=== PATIENT | male | born 1945 | race Caucasian/White ===

== ENCOUNTER → 2016-04-06 | Outpatient (CLI) | payer MEDICARE ==
--- NOTE | 2016-04-06 15:04 | US ---
EXAMINATION TYPE: US scrotum with doppler. Grayscale and color Doppler Duplex imaging performed of t he scrotum. DATE OF EXAM: 04/06/2016 2:37 PM COMPARISON: NONE CLINICAL HISTORY: Right testicular pain N50.8. EXAM MEASUREMENTS: TESTICLES: Right Testicle: 3.3 x 3.0 x 2.4 cm Left Testicle: 3.9 x 2.2 x 3.0 cm EPIDIDYMIS HEAD: Right Epididymis: 0.9 x 0.9 x 0.6 cm Left Epididymis: 0.8 x 0.6 x 1.0 cm Doppler performed to assess for testicular vascularity; good bilateral color flow and waveforms are s een. There is no evidence of testicular torsion. No testicular masses Presence of hydroceles: yes, right Presence of varicoceles: no IMPRESSION: hydrocele of right scrotum; testicles wnl
== END | disposition home or self-care (01) ==
LOC: RADUSWWP 14:22
PROVIDERS: ATTEND Family Medicine
DX: N43.3 Hydrocele, unspecified (principal)
CPT/HCPCS: 76870; 93975

== ENCOUNTER → 2016-08-16 | Outpatient (CLI) | payer MEDICARE ==
--- NOTE | 2016-08-16 13:21 | CTL ---
EXAMINATION TYPE: CT Low Dose Lung DATE OF EXAM ORDERED: 08/16/2016 HISTORY: . Lung cancer screening CT DLP: 103.[address] CTDI: 3.3 mGy Automated exposure control for dose reduction was used. SCREENING VISIT: First COMPARISON: None TECHNIQUE: Low dose computed tomography scan was performed through the chest at 1 mm thick sections a nd reconstructed images in the coronal plane at [address] DIAGNOSTIC QUALITY: Satisfactory FINDINGS: LUNG NODULES: None. Left lung a nodule with a size of 11.7 mm. Nodule Size in Millimeters 11.7 mm was visualized with No dule Type: Solid that is Nodule state: New in nature on image # CT Image slide number 1. LUNGS: COPD: Severity: Mild Fibrosis: Severity: None Lymph nodes: Shotty mediastinal and left hilar lymph nodes Other findings: Mild bronchiectatic change at the right lung base RIGHT PLEURAL SPACE: Effusion: None Calcification: None Thickening: None Pneumothorax: None LEFT PLEURAL SPACE: Effusion: None Calcification: None Thickening: None Pneumothorax: None HEART: Heart Size: Borderline Coronary calcification: Present Pericardial effusion: None OTHER FINDINGS: Upper abdomen: Unremarkable Bony thorax: Hypertrophic spondylosis Supraclavicular region: Unremarkable Other: None IMPRESSION: LESION IN THE LEFT LUNG APEX MAY SIMPLY REPRESENT SCARRING. THIS COULD BE FURTHER ELUCIDA SALLIE WITH A PET/CT SCAN FOLLOW UP CT CHEST RECOMMENDATION: [address] LUNG RAD: 4A
== END | disposition home or self-care (01) ==
LOC: RADCTMAIN 12:18
PROVIDERS: ATTEND Family Medicine
DX: Z12.2 Encounter for screening for malignant neoplasm of respiratory organs (principal); R91.1 Solitary pulmonary nodule; Z87.891 Personal history of nicotine dependence

== ENCOUNTER 2017-03-28 13:21 | Observation (INO) | payer MEDICARE ==
[2017-03-28] MEDS ORDERED: SODIUM CHLORIDE 0.9% 1,000 ML IV STA (13:40)
--- NOTE | 2017-03-28 13:52 | ED ---
General Adult HPI - General Chief complaint: Chest Pain Stated complaint: Chest Pain Time Seen by Provider: 03/28/17 13:40 Source: patient, RN notes reviewed, old records reviewed Mode of arrival: wheelchair Limitations: no limitations - History of Present Illness Initial comments: This is a 72-year-old male the ER for evaluation of chest pain. Patient's anterior chest pain no significant diaphoresis or shortness of breath. Patient states he does have shortness of breath is related to COPD which is always underlying problem. Patient does have history of heart disease history of stent placement. No recent cardiac evaluation. Patient states the pains are going on for a few days today is worse. Worse with activity. Again no cough congestion or fever - Related Data Home Medications Medication Instructions Recorded Confirmed Aspirin 325 mg PO DAILY 04/25/14 09/10/15 Atenolol [Tenormin] 50 mg PO DAILY 04/25/14 09/10/15 Isosorbide Mononitrate ER [Imdur] 60 mg PO DAILY 04/25/14 09/10/15 Omeprazole [PriLOSEC] 20 mg PO AC-BID 04/25/14 09/10/15 Simvastatin [Zocor] 60 mg PO HS 04/25/14 09/10/15 Atorvastatin [Lipitor] 40 mg PO HS 09/08/15 09/10/15 Allergies Allergy/AdvReac Type Severity Reaction Status Date / Time Penicillins Allergy Rash/Hives Verified 03/28/17 13:27 Review of Systems ROS Statement: Those systems with pertinent positive or pertinent negative responses have been documented in the HPI. ROS Other: All systems not noted in ROS Statement are negative. Past Medical History Past Medical History: GERD/Reflux, Hyperlipidemia, Hypertension, Myocardial Infarction (SD) Additional Past Medical History / Comment(s): COLON CANCER - 2003 WITH BOWEL RESECTION. SD IN 2000. Last Myocardial Infarction Date:: 2010 History of Any Multi-Drug Resistant Organisms: None Reported Past Surgical History: Bowel Resection, Heart Catheterization With Stent Additional Past Surgical History / Comment(s): BOWEL RESECTION - 2003; STENT PLACED IN 2010 - DOES NOT REMEMBER WHERE IT IS BUT DOES REMEMBER THAT DR. VALENTIN PLACED THE STENT, COLONOSCOPY, Past Anesthesia/Blood Transfusion Reactions: No Reported Reaction Date of Last Stent Placement:: 2010 Past Psychological History: No Psychological Hx Reported Smoking Status: Current every day smoker Past Alcohol Use History: None Reported Past Drug Use History: None Reported - Past Family History Father Family Medical History: No Reported History Mother Family Medical History: Respiratory Disorder Brother(s) Family Medical History: Coronary Artery Disease (CAD), Renal Disease Additional Family Medical History / Comment(s): He has one brother that is alive and is undergone CABG for coronary artery disease and has had one kidney removed. Patient has one brother who is in a motor vehicle oxidant, one brother from a myocardial infarction at age 59, and one from colon cancer at age 70. Sister(s) Family Medical History: No Reported History Additional Family Medical History / Comment(s): He has 3 sisters that are healthy. General Exam Limitations: no limitations General appearance: alert, in no apparent distress Head exam: Present: atraumatic, normocephalic, normal inspection Eye exam: Present: normal appearance, PERRL, EOMI. Absent: scleral icterus, conjunctival injection, periorbital swelling ENT exam: Present: normal exam, mucous membranes moist Neck exam: Present: normal inspection. Absent: tenderness, meningismus, lymphadenopathy Respiratory exam: Present: normal lung sounds bilaterally. Absent: respiratory distress, wheezes, rales, rhonchi, stridor Cardiovascular Exam: Present: regular rate, normal rhythm, normal heart sounds. Absent: systolic murmur, diastolic murmur, rubs, gallop, clicks GI/Abdominal exam: Present: soft, normal bowel sounds. Absent: distended, tenderness, guarding, rebound, rigid Extremities exam: Present: normal inspection, full ROM, normal capillary refill. Absent: tenderness, pedal edema, joint swelling, calf tenderness Back exam: Present: normal inspection Neurological exam: Present: alert, oriented X3, CN II-XII intact Psychiatric exam: Present: normal affect, normal mood Skin exam: Present: warm, dry, intact, normal color. Absent: rash Course Vital Signs 03/28/17 03/28/17 13:27 13:45 Temperature 97.5 F L Pulse Rate 55 L 53 L Respiratory 18 17 Rate Blood Pressure 114/65 149/71 O2 Sat by Pulse 97 97 Oximetry - Reevaluation(s) Reevaluation #1: 03/28/17 14:39 Patient is continue with chest pain at this time EKG Findings - EKG Comments: EKG Findings:: EKG shows sinus bradycardia rate of 52, VT 162, QRS 90, QTc 427 Medical Decision Making - Medical Decision Making 72 male the ER for evaluation of chest pain. Patient has history of heart disease history of stent and feels like prior SD, patient will be admitted for cardiac observation and evaluation - Lab Data Result diagrams: 03/28/17 13:40 03/28/17 13:40 Lab Results 03/28/17 03/28/17 03/28/17 Range/Units 13:40 13:40 13:40 WBC 8.1 (3.8-10.6) k/uL RBC 4.70 (4.30-5.90) m/uL Hgb 14.4 (13.0-17.5) gm/dL Hct 42.0 (39.0-53.0) % MCV 89.4 (80.0-100.0) fL MCH 30.6 (25.0-35.0) pg MCHC 34.2 (31.0-37.0) g/dL RDW 14.7 (11.5-15.5) % Plt Count 152 (150-450) k/uL Neutrophils % 56 % Lymphocytes % 33 % Monocytes % 7 % Eosinophils % 2 % Basophils % 0 % Neutrophils # 4.5 (1.3-7.7) k/uL Lymphocytes # 2.7 (1.0-4.8) k/uL Monocytes # 0.5 (0-1.0) k/uL Eosinophils # 0.1 (0-0.7) k/uL Basophils # 0.0 (0-0.2) k/uL PT (9.0-12.0) sec INR (<1.2) APTT (22.0-30.0) sec Sodium 143 (137-145) mmol/L Potassium 4.2 (3.5-5.1) mmol/L Chloride 106 (98-107) mmol/L Carbon Dioxide 23 (22-30) mmol/L Anion Gap 14 mmol/L BUN 22 H (9-20) mg/dL Creatinine 1.00 (0.66-1.25) mg/dL Est GFR (MDRD) Af Amer >60 (>60 ml/min/1.73 sqM) Est GFR (MDRD) Non-Af >60 (>60 ml/min/1.73 sqM) Glucose 83 (74-99) mg/dL Calcium 8.9 (8.4-10.2) mg/dL Magnesium 1.9 (1.6-2.3) mg/dL Total Bilirubin 0.8 (0.2-1.3) mg/dL AST 39 (17-59) U/L ALT 58 (21-72) U/L Alkaline Phosphatase 72 (38-126) U/L Total Creatine Kinase 82 (55-170) U/L CK-MB (CK-2) 0.6 (0.0-2.4) ng/mL CK-MB (CK-2) Rel Index 0.7 Troponin I <0.012 (0.000-0.034) ng/mL Total Protein 7.6 (6.3-8.2) g/dL Albumin 4.1 (3.5-5.0) g/dL Lipase 79 (23-300) U/L 03/28/17 Range/Units 13:40 WBC (3.8-10.6) k/uL RBC (4.30-5.90) m/uL Hgb (13.0-17.5) gm/dL Hct (39.0-53.0) % MCV (80.0-100.0) fL MCH (25.0-35.0) pg MCHC (31.0-37.0) g/dL RDW (11.5-15.5) % Plt Count (150-450) k/uL Neutrophils % % Lymphocytes % % Monocytes % % Eosinophils % % Basophils % % Neutrophils # (1.3-7.7) k/uL Lymphocytes # (1.0-4.8) k/uL Monocytes # (0-1.0) k/uL Eosinophils # (0-0.7) k/uL Basophils # (0-0.2) k/uL PT 10.1 (9.0-12.0) sec INR 1.0 (<1.2) APTT 24.0 (22.0-30.0) sec Sodium (137-145) mmol/L Potassium (3.5-5.1) mmol/L Chloride (98-107) mmol/L Carbon Dioxide (22-30) mmol/L Anion Gap mmol/L BUN (9-20) mg/dL Creatinine (0.66-1.25) mg/dL Est GFR (MDRD) Af Amer (>60 ml/min/1.73 sqM) Est GFR (MDRD) Non-Af (>60 ml/min/1.73 sqM) Glucose (74-99) mg/dL Calcium (8.4-10.2) mg/dL Magnesium (1.6-2.3) mg/dL Total Bilirubin (0.2-1.3) mg/dL AST (17-59) U/L ALT (21-72) U/L Alkaline Phosphatase (38-126) U/L Total Creatine Kinase (55-170) U/L CK-MB (CK-2) (0.0-2.4) ng/mL CK-MB (CK-2) Rel Index Troponin I (0.000-0.034) ng/mL Total Protein (6.3-8.2) g/dL Albumin (3.5-5.0) g/dL Lipase (23-300) U/L - Radiology Data Radiology results: report reviewed, image reviewed Critical Care Time Critical Care Time: Yes Total Critical Care Time: 31 Disposition Clinical Impression: Chest pain Disposition: ADMITTED IP TO THIS [facility] Condition: Undetermined Instructions: Chest Pain (ED) Referrals: Reina Dunbar MD [Primary Care Provider] - 1-2 days
[2017-03-28 14:05] LABS: Basophils % (A) 0 %; Eosinophils # (A) 0.1 k/uL (0-0.7); Eosinophils % (A) 2 %; HGB 14.4 gm/dL (13.0-17.5); Lymphocytes # (A) 2.7 k/uL (1.0-4.8); Lymphocytes % (A) 33 %; MCH 30.6 pg (25.0-35.0); MCHC 34.2 g/dL (31.0-37.0); MCV 89.4 fL (80.0-100.0); Monocytes # (A) 0.5 k/uL (0-1.0); Monocytes % (A) 7 %; Neutrophils # (A) 4.5 k/uL (1.3-7.7); Neutrophils % (A) 56 %; Platelet Count 152 k/uL (150-450); RDW 14.7 % (11.5-15.5); WBC 8.1 k/uL (3.8-10.6)
[2017-03-28 14:13] LABS: ALT 58 U/L (21-72); AST 39 U/L (17-59); Albumin 4.1 g/dL (3.5-5.0); Alkaline Phosphatase 72 U/L (38-126); Anion Gap 14 mmol/L; Blood Urea Nitrogen 22 mg/dL (9-20); Calcium 8.9 mg/dL (8.4-10.2); Carbon Dioxide 23 mmol/L (22-30); Chloride 106 mmol/L (98-107); Glucose 83 mg/dL (74-99); Lipase 79 U/L (23-300); Magnesium 1.9 mg/dL (1.6-2.3); Potassium 4.2 mmol/L (3.5-5.1); Sodium 143 mmol/L (137-145); Total Bilirubin 0.8 mg/dL (0.2-1.3); Total Protein 7.6 g/dL (6.3-8.2)
[2017-03-28 14:19] LABS: Prothrombin Time 10.1 sec (9.0-12.0)
[2017-03-28 14:21] LABS: Creatine Kinase 82 U/L (55-170)
[2017-03-28 14:32] LABS: Creatine Kinase MB 0.6 ng/mL (0.0-2.4); Troponin I <0.012 ng/mL (0.000-0.034)
[2017-03-28] MEDS ORDERED: ASPIRIN 81 MG PO STA (14:36)
[2017-03-28] MEDS ORDERED: HEPARIN SODIUM,PORCINE 5,000 UNIT/ML 1 ML VIAL IV ONE (14:36)
[2017-03-28] MEDS ORDERED: MORPHINE SULFATE 2 MG/ML SYRINGE IV PRN (14:36)
[2017-03-28] MEDS ORDERED: HEPARIN SODIUM,PORCINE 5,000 UNIT/ML 1 ML VIAL IV PRN (14:36)
[2017-03-28] MEDS ORDERED: NITROGLYCERIN SL TABS 0.4 MG TAB SUBLINGUAL PRN (14:36)
[2017-03-28] MEDS ORDERED: HEPARIN SOD,PORK IN 0.45% NACL 25,000 UNIT in 0.45% NACL 1 500ML.BAG IV SCH (14:45)
--- NOTE | 2017-03-28 15:26 | XR ---
EXAMINATION TYPE: XR chest 2V DATE OF EXAM: 03/28/2017 COMPARISON: Prior chest x-ray 04/18/2013 HISTORY: Chest pain TECHNIQUE: Frontal and lateral views of the chest are obtained. FINDINGS: There is no focal air space opacity, pleural effusion, or pneumothorax seen. The cardiac silhouette size is stable. There are overlying cardiac leads. Prominent lung volumes possibly compati ble with underlying COPD are noted. The osseous structures are intact. IMPRESSION: No acute cardiopulmonary process.
[2017-03-28] MEDS ORDERED: MELATONIN 5 MG TABLET PO PRN (16:05)
[2017-03-28] MEDS ORDERED: ACETAMINOPHEN TAB 325 MG TAB PO PRN (16:05)
[2017-03-28] MEDS ORDERED: ALBUTEROL NEBULIZED 2.5 MG/3 ML INHALATION PRN (16:05)
[2017-03-28] MEDS ORDERED: ONDANSETRON 4 MG/2 ML VIAL IVP PRN (16:05)
--- NOTE | 2017-03-28 16:14 | P.HPIM ---
History of Present Illness H&P Date: 03/28/17 Chief Complaint: chest pain Patient is a 72-year-old male past medical history of hypertension, dyslipidemia, prior heart attack, and coronary artery disease with 2 stents who presented to the ER with complaint of chest pain. In the ER he underwent an extensive evaluation. His initial vital signs were found to be within normal limits. Initial laboratory analysis was unremarkable. Troponins were negative. EKG was reviewed by myself revealed sinus bradycardia at a rate of [address]-T wave changes. He was given a dose of aspirin in the ER and placed on a heparin drip. He has been admitted to the observation unit. Patient seen and examined at bedside. He complains of left-sided chest pain without radiation for the last 2 days. He has not started or stopped any medications. He has not tried any new medications. He states that the chest pain seems to be worse with sitting position. It is associated with significant increase in shortness of breath. He states that his shortness of breath started 10 days ago and is worse with activity and better with rest. He is now getting short of breath with minimal exertion. His also felt lightheaded with standing over the last several days. He believes his chest pain may also increase with eating. He has intermittent palpitations which have not worsened. He does complain of wheezing and a nonproductive cough. He denies any nausea. He has no significant numbness or tingling. He states the symptoms are consistent with but worse than when he needed a stent in 2010. He typically follows with Dr. De Paz for cardiology and Dr. Dunbar for family practice. His last stress test was in 2014. He had carotid Dopplers done in January 2017. He believes his last cardiac cath was in 2010. Review of Systems General: no fever/chills, no rigors, no weight loss/weight gain, no unusual fatigue Eyes: no noticable visual changes, no loss of vision ENT: no rhinorrhea, no congestion, no sore throat Cardiovascular: + chest pain, + palpitations, + preyncope, no syncope, no edema Pulmonary: + shortness of breath, + wheezing, + cough Abdominal: no abdominal pain, no constipation, no diarrhea, no vomiting, no nausea Genitourinary: no dysuria, no urinary frequency, no unusual discharge/odor Neuro: no unusual paresthesias, no unusual paresis/paralysis, no headache Dermatologic: no unusual rashes, no unusual lesions, no unusual changes in nails Hematologic: no hemoptysis, no hematuria, no melena/hematochezia Psychiatric: no changes in mood or behaviors, no changes in sleep pattern Past Medical History Past Medical History: Coronary Artery Disease (CAD), Cancer, GERD/Reflux, Hearing Disorder / Deafness, Hyperlipidemia, Hypertension, Myocardial Infarction ([place]) Additional Past Medical History / Comment(s): IN x 2 (2001/2010), colon cancer with surgery, nephrolithiasis, L ear deafness, chronic low back pain. Last Myocardial Infarction Date:: 2010 History of Any Multi-Drug Resistant Organisms: None Reported Past Surgical History: Appendectomy, Bowel Resection, Heart Catheterization With Stent Additional Past Surgical History / Comment(s): BOWEL RESECTION 2003; CARDIAC STENTS PLACED IN 2001 and 2010 -COLONOSCOPIES Past Anesthesia/Blood Transfusion Reactions: No Reported Reaction Date of Last Stent Placement:: 2010 Smoking Status: Current every day smoker Past Alcohol Use History: None Reported Past Drug Use History: None Reported Additional History: Lives with his significant other Pam. No assistive devices - Past Family History Father Family Medical History: No Reported History Additional Family Medical History / Comment(s): Father at the age of 76yrs from "old age." Mother Family Medical History: Respiratory Disorder Additional Family Medical History / Comment(s): Mother at the age of 68yrs from pneumonia Brother(s) Family Medical History: Coronary Artery Disease (CAD), Renal Disease Additional Family Medical History / Comment(s): He has one brother that is alive and is undergone CABG for coronary artery disease and has had one kidney removed. Patient has one brother who is in a motor vehicle oxidant, one brother from a myocardial infarction at age 59, and one from colon cancer at age 70. Sister(s) Family Medical History: No Reported History Additional Family Medical History / Comment(s): He has 3 sisters that are healthy. Medications and Allergies Home Medications Medication Instructions Recorded Confirmed Type Aspirin 325 mg PO DAILY 04/25/14 03/28/17 History Atenolol [Tenormin] 50 mg PO DAILY 04/25/14 03/28/17 History Isosorbide Mononitrate ER [Imdur] 60 mg PO DAILY 04/25/14 03/28/17 History Omeprazole [PriLOSEC] 20 mg PO AC-BID 04/25/14 03/28/17 History Simvastatin [Zocor] 40 mg PO HS 04/25/14 03/28/17 History Allergies Allergy/AdvReac Type Severity Reaction Status Date / Time Penicillins Allergy Rash/Hives Verified 03/28/17 14:42 Physical Exam Osteopathic Statement: *. No significant issues noted on an osteopathic structural exam other than those noted in the History and Physical/Consult. Vitals: Vital Signs Temp Pulse Pulse Resp BP BP Pulse Ox 03/28/17 15:35 97.7 F 62 18 119/55 99 03/28/17 15:15 97.2 F L 55 L 15 129/64 100 03/28/17 13:45 53 L 17 149/71 97 03/28/17 13:27 97.5 F L 55 L 18 114/65 97 Intake and Output 03/28/17 03/28/17 03/28/17 06:59 14:59 22:59 Other: Weight 78.018 kg 81 kg Patient Weight 03/29/17 06:59 Weight 81 kg General: non toxic, no distress, appears at stated age, normal weight Derm: no unusual rashes/lesions no unusual ecchymoses, warm, dry Head: atraumatic, normocephalic, symmetric Eyes: EOMI, no lid lag, anicteric sclera, pupils equal round reactive to light ENT: Nose and ears atraumatic, no thrush, no pharyngeal erythema Neck: No thyromegaly, no cervical lymphadenopathy, trachea midline, supple Mouth: no lip lesion, mucus membranes moist Cardiovascular: S1S2 reg, no murmur, positive posterior tibial pulse bilateral, no edema, capillary refill less than 2 seconds Lungs: + wheeze left apex, no rhonchi, no rales , no accessory muscle use Abdominal: soft, nontender to palpation, no guarding, no appreciable organomegaly, normal bowel sounds Ext: no gross muscle atrophy, muscle strength 5 out of 5 in all 4 extremities grossly, no contractures, Neuro: CN II-XI grossly intact, light touch intact all 4 extremities, finger to nose within normal limits, Psych: Alert, oriented, appropriate affect Results CBC & Chem 7: 03/28/17 13:40 03/28/17 13:40 Labs: Abnormal Lab Results - Last 24 Hours (Table) 03/28/17 Range/Units 13:40 BUN 22 H (9-20) mg/dL Comments: she is reviewed by myself reveals normal sinus rhythm at a rate of [address]-T wave changes Thrombosis Risk Factor Assmnt - DVT/VTE Prophylaxis DVT/VTE Prophylaxis: Pharmacologic Prophylaxis ordered - Choose All That Apply Any of the Below Risk Factors Present?: Yes Each Factor Represents 1 point: Obesity (BMI >25) Other Risk Factors: Yes Each Risk Factor Represents 2 Points: Age 61-74 years, Malignancy Other congenital or acquired thrombophilia - If yes, enter type in comment: No Thrombosis Risk Factor Assessment Total Risk Factor Score: 5 Thrombosis Risk Factor Assessment Level: High Risk Assessment and Plan Assessment: Chest pain possible unstable angina - ASA - heparin gtt - Betablocker - statin - Cardio consult - serial trop - prn nitro - tele - NPO after midnight for stress vs cath Bronchitis with Possible COPD - start with albuterol scheduled and prn - prednisone - formal PFT as outpatient CAD - ASA, statin, BB, imdur Tobacco abuse - nicotine replacement HTN, controlled - atenolol - follow BP HLD - check lipid profile - statin Surrogate decision-maker: Pam prather CODE STATUS:Full DVT prophylaxis: Heparin gtt Discussed with: Patient, nursing Anticipated discharge: 24-[address]: home A total of 60 minutes was spent on the care of this complex patient more than 50 % of the time was spent in counseling and care coordination.
[2017-03-28] MEDS: predniSONE 20 MG TAB PO SCH (17:18)
[2017-03-28] MEDS: PANTOPRAZOLE 40 MG TABLET PO SCH (17:18)
[2017-03-28] MEDS: ALBUTEROL NEBULIZED 2.5 MG/3 ML INHALATION SCH (20:24)
[2017-03-28] MEDS ORDERED: METOPROLOL TARTRATE 25 MG TAB PO SCH (21:00)
[2017-03-28] MEDS ORDERED: ATORVASTATIN 40 MG TAB PO SCH (21:00)
[2017-03-28] MEDS ORDERED: NON-FORMULARY DRUG (Simvastatin 40 MG) PO SCH (21:00)
[2017-03-28 21:13] LABS: Creatine Kinase 76 U/L (55-170)
[2017-03-28 21:26] LABS: Creatine Kinase MB 0.7 ng/mL (0.0-2.4); Troponin I <0.012 ng/mL (0.000-0.034)
[2017-03-29 01:09] VITALS: RESP 16
[2017-03-29 03:35] LABS: HCT 41.2 % (39.0-53.0); HGB 13.9 gm/dL (13.0-17.5); MCH 30.9 pg (25.0-35.0); MCHC 33.7 g/dL (31.0-37.0); MCV 91.9 fL (80.0-100.0); Platelet Count 141 k/uL (150-450); RBC 4.49 m/uL (4.30-5.90); RDW 14.7 % (11.5-15.5)
[2017-03-29 03:59] LABS: Cholesterol 123 mg/dL (<200); HDL Cholesterol 41 mg/dL (40-60); LDL Cholesterol,Calculated 69 mg/dL (0-99); Triglycerides 63 mg/dL (<150)
[2017-03-29 04:00] LABS: Creatine Kinase 77 U/L (55-170)
[2017-03-29 04:13] LABS: Creatine Kinase MB 0.7 ng/mL (0.0-2.4); Troponin I <0.012 ng/mL (0.000-0.034)
[2017-03-29] MEDS: ALBUTEROL NEBULIZED 2.5 MG/3 ML INHALATION SCH ×2 (08:21→12:58)
[2017-03-29] MEDS ORDERED: ATENOLOL 50 MG TAB PO SCH (09:00)
[2017-03-29] MEDS ORDERED: ATORVASTATIN 80 MG TAB PO SCH (09:00)
[2017-03-29] MEDS ORDERED: ASPIRIN 325 MG TAB PO SCH (09:00)
[2017-03-29] MEDS ORDERED: ISOSORBIDE MONONITRATE ER 60 MG TAB.ER.24H PO SCH (09:00)
[2017-03-29] MEDS: PANTOPRAZOLE 40 MG TABLET PO SCH (10:46)
[2017-03-29] MEDS: predniSONE 20 MG TAB PO SCH (10:46)
--- NOTE | 2017-03-29 11:50 | P.CRDCN ---
History of Present Illness Consult date: 03/29/17 History of present illness: Mr. Bain is a pleasant 72-year-old male past medical history significant for coronary artery disease, hypertension, dyslipidemia, mild bilateral carotid artery disease and chronic tobacco use. He follows with Dr. De Paz in the office. He has been experiencing a mid-sternal chest pressure with shortness of breath for the past 2 days. The discomfort first came while sitting down and actually got better with exertion. He was up shoveling snow yesterday and the discomfort was not there. But he was short of breath. He denies associated dizziness, diaphoresis, palpitations, nausea or vomiting. When he came to the hospital he was wheezing and was started on nebulizers and oral steroids. Per primary team he has had vast improvement since admission. At the time of my exam he denies chest pain, shortness of breath, dizziness, palpitations, nausea, vomiting or diaphoresis. EKG on arrival reveals sinus bradycardia heart rate [address] or T- wave abnormalities. Chest xray is negative for an acute cardiopulmonary process. Most recent catheterization was performed by Dr. Macias in 2010 revealed a patent stent in the LAD that was placed in 2001 and he underwent stenting of the mid RCA at that time. He also has a 40-50% lesion in the left circumflex artery. Most recent echocardiogram from 2011 reveals normal EF with mild TR and MR. Laboratory data reviewed, hemoglobin 13.9, platelets 141, potassium 4.2, magnesium 1.9, creatinine 1, cardiac enzymes negative 3, LDL 69, HDL 41. Current cardiac medications include simvastatin 40 mg daily, Imdur 60 mg daily, atenolol 50 mg daily and aspirin 325 mg daily. Review of Systems At the time of my exam: CONSTITUTIONAL: Denies fever. Denies chills. EYES: Denies blurred vision. Denies vision changes. Denies eye pain. EARS, NOSE, MOUTH & THROAT: Denies headache. Denies sore throat. Denies ear pain. CARDIOVASCULAR: Denies chest pain. Denies shortness of breath. Denies orthopnea. Denies PND. Denies palpitations. RESPIRATORY: Denies cough. GASTROINTESTINAL: Denies abdominal pain. Denies diarrhea. Denies constipation. Denies nausea. Denies vomiting. MUSCULOSKELETAL: Denies myalgias. INTEGUMENTARY: Denies pruitis. Denies rash. NEUROLOGIC: Denies numbness. Denies tingling. Denies weakness. PSYCHIATRIC: Denies anxiety. Denies depression. ENDOCRINE: Denies fatigue. Denies weight change. Denies polydipsia. Denies polyurina. GENITOURINARY: Denies burning, hematuria or urgency with micturation. HEMATOLOGIC: Denies history of anemia. Denies bleeding. Past Medical History Past Medical History: Coronary Artery Disease (CAD), Cancer, GERD/Reflux, Hearing Disorder / Deafness, Hyperlipidemia, Hypertension, Myocardial Infarction ([place]) Additional Past Medical History / Comment(s): [place] x 2 (2001/2010), colon cancer with surgery, nephrolithiasis, L ear deafness, chronic low back pain. Last Myocardial Infarction Date:: 2010 History of Any Multi-Drug Resistant Organisms: None Reported Past Surgical History: Appendectomy, Bowel Resection, Heart Catheterization With Stent Additional Past Surgical History / Comment(s): BOWEL RESECTION 2003; CARDIAC STENTS PLACED IN 2001 and 2010 -COLONOSCOPIES Past Anesthesia/Blood Transfusion Reactions: No Reported Reaction Date of Last Stent Placement:: 2010 Smoking Status: Current every day smoker Past Alcohol Use History: None Reported Past Drug Use History: None Reported - Past Family History Father Family Medical History: No Reported History Additional Family Medical History / Comment(s): Father at the age of 76yrs from "old age." Mother Family Medical History: Respiratory Disorder Additional Family Medical History / Comment(s): Mother at the age of 68yrs from pneumonia Brother(s) Family Medical History: Coronary Artery Disease (CAD), Renal Disease Additional Family Medical History / Comment(s): He has one brother that is alive and is undergone CABG for coronary artery disease and has had one kidney removed. Patient has one brother who is in a motor vehicle oxidant, one brother from a myocardial infarction at age 59, and one from colon cancer at age 70. Sister(s) Family Medical History: No Reported History Additional Family Medical History / Comment(s): He has 3 sisters that are healthy. Medications and Allergies Home Medications Medication Instructions Recorded Confirmed Type Aspirin 325 mg PO DAILY 04/25/14 03/28/17 History Atenolol [Tenormin] 50 mg PO DAILY 04/25/14 03/28/17 History Isosorbide Mononitrate ER [Imdur] 60 mg PO DAILY 04/25/14 03/28/17 History Omeprazole [PriLOSEC] 20 mg PO AC-BID 04/25/14 03/28/17 History Simvastatin [Zocor] 40 mg PO HS 04/25/14 03/28/17 History Allergies Allergy/AdvReac Type Severity Reaction Status Date / Time Penicillins Allergy Rash/Hives Verified 03/28/17 14:42 Physical Exam Vitals: Vital Signs Temp Pulse Pulse Resp BP BP Pulse Ox 03/29/17 08:31 66 03/29/17 08:21 66 03/29/17 08:00 16 03/29/17 07:48 98.0 F 74 16 135/70 96 03/29/17 04:00 69 16 03/29/17 03:25 98.7 F 75 16 109/57 97 03/29/17 00:00 73 16 137/81 95 03/28/17 23:28 73 18 03/28/17 20:34 62 03/28/17 20:24 60 03/28/17 20:00 66 18 126/71 94 L 03/28/17 15:35 97.7 F 62 18 119/55 99 03/28/17 15:15 97.2 F L 55 L 15 129/64 100 03/28/17 13:45 53 L 17 149/71 97 03/28/17 13:27 97.5 F L 55 L 18 114/65 97 Intake and Output 03/28/17 03/29/17 03/29/17 22:59 06:59 14:59 Intake Total 546.048 155.883 Balance 546.048 155.883 Intake: Intake, IV Titration 126.048 155.883 Amount Heparin Sod,Pork in 0.45% 126.048 155.883 NaCl 25,000 unit In 0.45 % NaCl 1 500ml.bag @ 12 UNITS/KG/HR 18.72 mls/hr IV .Q24H [facility] Rx#: [id number] Oral 420 Other: Voiding Method Toilet Toilet # Voids 2 4 Weight 81 kg Blood pressure 135/70 heart rate 74 afebrile GENERAL: This is a 72-year-old male in no apparent distress at the time of my examination. HEENT: Head is atraumatic, normocephalic. Pupils are equal, round. Sclerae anicteric. Conjunctivae are clear. Mucous membranes of the mouth are moist. Neck is supple. There is no jugular venous distention. No carotid bruit is heard. LUNGS: Faint expiratory wheezes bilateral upper lobes, no rales or rhonchi. No chest wall tenderness is noted on palpation or with deep breathing. HEART: Regular rate and rhythm without murmurs, rubs or gallops. S1 and S2 heard. ABDOMEN: Soft, nontender. Bowel sounds are heard. No organomegaly noted. EXTREMITIES: No evidence of peripheral edema and no calf tenderness noted. VASCULAR: Radial and dorsalis pedis pulses palpated, no evidence of clubbing. NEUROLOGIC: Patient is awake, alert and oriented x3. Results 03/29/17 03:08 03/28/17 13:40 Cardiac Enzymes 03/28/17 03/28/17 03/28/17 Range/Units 13:40 13:40 20:30 AST 39 (17-59) U/L CK-MB (CK-2) 0.6 0.7 (0.0-2.4) ng/mL Troponin I <0.012 <0.012 (0.000-0.034) ng/mL 03/29/17 Range/Units 03:08 AST (17-59) U/L CK-MB (CK-2) 0.7 (0.0-2.4) ng/mL Troponin I <0.012 (0.000-0.034) ng/mL Coagulation 03/28/17 03/28/17 03/29/17 Range/Units 13:40 20:30 03:08 PT 10.1 (9.0-12.0) sec APTT 24.0 37.7 H 43.7 H (22.0-30.0) sec Lipids 03/29/17 Range/Units 03:08 Triglycerides 63 (<150) mg/dL Cholesterol 123 (<200) mg/dL HDL Cholesterol 41 (40-60) mg/dL CBC 03/28/17 03/29/17 Range/Units 13:40 03:08 WBC 8.1 6.0 (3.8-10.6) k/uL RBC 4.70 4.49 (4.30-5.90) m/uL Hgb 14.4 13.9 (13.0-17.5) gm/dL Hct 42.0 41.2 (39.0-53.0) % Plt Count 152 141 L (150-450) k/uL Comprehensive Metabolic Panel 03/28/17 Range/Units 13:40 Sodium 143 (137-145) mmol/L Potassium 4.2 (3.5-5.1) mmol/L Chloride 106 (98-107) mmol/L Carbon Dioxide 23 (22-30) mmol/L BUN 22 H (9-20) mg/dL Creatinine 1.00 (0.66-1.25) mg/dL Glucose 83 (74-99) mg/dL Calcium 8.9 (8.4-10.2) mg/dL AST 39 (17-59) U/L ALT 58 (21-72) U/L Alkaline Phosphatase 72 (38-126) U/L Total Protein 7.6 (6.3-8.2) g/dL Albumin 4.1 (3.5-5.0) g/dL Current Medications Generic Name Dose Route Start Last Admin Trade Name Freq PRN Reason Stop Dose Admin Acetaminophen 650 mg 03/28/17 16:05 Tylenol Tab PO Q6HR PRN Fever and/ or Mild Pain Albuterol Sulfate 2.5 mg 03/28/17 16:05 Ventolin Nebulized INHALATION RT-QID PRN Shortness Of Breath Or Wheezing Albuterol Sulfate 2.5 mg 03/28/17 20:00 03/29/17 08:21 Ventolin Nebulized INHALATION 2.5 mg RT-QID DEBRA Administration Aspirin 325 mg 03/29/17 09:00 03/29/17 10:46 Aspirin PO 325 mg DAILY DEBRA Administration Atenolol 50 mg 03/29/17 09:00 03/29/17 10:46 Tenormin PO 50 mg DAILY DEBRA Administration Atorvastatin Calcium 40 mg 03/28/17 21:00 03/28/17 20:04 Lipitor PO 40 mg HS DEBRA Administration Isosorbide Mononitrate 60 mg 03/29/17 09:00 03/29/17 10:46 Imdur PO 60 mg DAILY DEBRA Administration Melatonin 5 mg 03/28/17 16:05 Melatonin PO HS PRN Insomnia Morphine Sulfate 4 mg 03/28/17 14:36 Morphine Sulfate (Inj) IV Q5M PRN Chest Pain Nitroglycerin 0.4 mg 03/28/17 14:36 Nitrostat SUBLINGUAL Q5M PRN Chest Pain Ondansetron HCl 4 mg 03/28/17 16:05 Zofran IVP Q6H PRN Nausea Pantoprazole Sodium 40 mg 03/28/17 17:30 03/29/17 10:46 Protonix PO 40 mg AC-BID DEBRA Administration Prednisone 60 mg 03/28/17 16:30 03/29/17 10:46 PO 60 mg DAILY DEBRA Administration Intake and Output 03/28/17 03/29/17 03/29/17 22:59 06:59 14:59 Intake Total 546.048 155.883 Balance 546.048 155.883 Intake: Intake, IV Titration 126.048 155.883 Amount Heparin Sod,Pork in 0.45% 126.048 155.883 NaCl 25,000 unit In 0.45 % NaCl 1 500ml.bag @ 12 UNITS/KG/HR 18.72 mls/hr IV .Q24H [facility] Rx#: [id number] Oral 420 Other: Voiding Method Toilet Toilet # Voids 2 4 Weight 81 kg 03/29/17 03:08 03/28/17 13:40 Assessment and Plan Assessment: ASSESSMENT 1. Chest pain, atypical. Normal EKG and negative cardiac enzymes. An acute coronary event has been ruled out. Chest pain symptoms have improved with nebulizer therapy and oral steroids. More likely pulmonary etiology. 2. History of chronic stable coronary artery disease 3. Hypertension 4. Dyslipidemia PLAN Obtain 2D echocardiogram and doppler study to assess cardiac structure and function. Continue with medical management of probable pulmonary condition. Lexiscan stress test has been schedule in the office for 04/10 at 0700, he will see Dr. De Paz 1 week later. This plan has been communicated to the patient. He is stable from a cardiac perspective. Thank you kindly for this consultation. The above impression and plan of care have been discussed and directed by the signing physician. Oly Terry, nurse practitioner, acting as scribe for signing physician.
[2017-03-29 12:10] VITALS: BP 130/60; PULSE 75; TEMP 97.8
--- NOTE | 2017-03-29 12:27 | P.DS ---
Providers Date of admission: 03/28/17 14:36 Expected date of discharge: 03/29/17 Attending physician: Keith Chapman MD Consults: 03/28/17 14:36 Consult Physician Urgent Consulting Provider: Pernell De Paz Consult Reason/Comments: cp Do you want consulting provider notified?: Yes Primary care physician: Reina Dunbar - Discharge Diagnosis(es) (1) Costochondritis, acute Current Visit: Yes Status: Acute (2) Bronchitis Current Visit: Yes Status: Acute (3) Tobacco abuse Current Visit: Yes Status: Acute (4) CAD (coronary artery disease) Current Visit: Yes Status: Acute (5) HTN (hypertension) Current Visit: Yes Status: Acute (6) HLD (hyperlipidemia) Current Visit: Yes Status: Acute Hospital Course: Patient is a 72-year-old male past medical history of hypertension, dyslipidemia, prior heart attack, and coronary artery disease with 2 stents who presented to the ER with complaint of chest pain and worsening shortness of breath. In the ER he underwent an extensive evaluation. His initial vital signs were found to be within normal limits. Initial laboratory analysis was unremarkable. Troponins were negative. EKG was reviewed by myself revealed sinus bradycardia at a rate of [address]-T wave changes. He was given a dose of aspirin in the ER and placed on a heparin drip. He was been admitted to the observation unit. He was found to have significant wheezing on arrival to the observation unit. He was placed on prednisone and scheduled albuterol. With this combination his chest pain resolved. He was maintained on his heparin drip. His troponins were cycled and were negative. An echocardiogram which was unchanged. He was seen by cardiology who recommended outpatient stress test on April 10 and follow up with Dr. De Paz. With his chest pain resolved and his shortness of breath greatly improved and he was determined stable to discharge home. We had a long discussion regarding stopping smoking. We also discussed that he had findings consistent with COPD changes on his chest x-ray. I suggested that he may want to proceed with pulmonary function testing as an outpatient to evaluate for COPD. During his hospital course he was diagnosed with acute bronchitis, however this may be chronic bronchitis with a flare. He will follow-up with Dr. Dunbar for further pulmonary function testing. He will complete a course of prednisone for 5 days along with scheduled albuterol. He will then use albuterol as needed only. His chest pain was felt likely to be secondary to costochondritis. Patient seen and examined at bedside. Chest pain is completely resolved. Breathing is much better. He feels like this may have been written pain. He is feeling greatly improved. Vital signs reviewed and stable. General: non toxic, no distress, appears at stated age Derm: warm, dry Head: atraumatic, normocephalic, symmetric Eyes: EOMI, no lid lag, anicteric sclera Mouth: no lip lesion, mucus membranes moist Cardiovascular: S1S2 reg, no murmur, positive posterior tibial pulse bilateral, Lungs: CTA bilateral, no rhonchi, no rales , no accessory muscle use Abdominal: soft, nontender to palpation, no guarding, no appreciable organomegaly Ext: no gross muscle atrophy, no edema, no contractures Neuro: CN II-XI grossly intact, no focal neuro deficits Psych: Alert, oriented, appropriate affect A total of 25 minutes of time were spent preparing this complex discharge summary . Pertinent Studies: Echo- final report pending at time of discharge Patient Condition at Discharge: Stable Plan - Discharge Summary Discharge Rx Participant: No New Discharge Prescriptions: New Albuterol Inhaler [Ventolin Hfa Inhaler] 2 puff INHALATION RT-QID #1 inhaler predniSONE 60 mg PO DAILY #4 tab Continue Atenolol [Tenormin] 50 mg PO DAILY Simvastatin [Zocor] 40 mg PO HS Omeprazole [PriLOSEC] 20 mg PO AC-BID Isosorbide Mononitrate ER [Imdur] 60 mg PO DAILY Aspirin 325 mg PO DAILY Discharge Medication List Aspirin 325 mg PO DAILY 04/25/14 [History] Atenolol [Tenormin] 50 mg PO DAILY 04/25/14 [History] Isosorbide Mononitrate ER [Imdur] 60 mg PO DAILY 04/25/14 [History] Omeprazole [PriLOSEC] 20 mg PO AC-BID 04/25/14 [History] Simvastatin [Zocor] 40 mg PO HS 04/25/14 [History] Albuterol Inhaler [Ventolin Hfa Inhaler] 2 puff INHALATION RT-QID #1 inhaler [Rx] predniSONE 60 mg PO DAILY #4 tab 03/29/17 [Rx] Follow up Appointment(s)/Referral(s): Pernell De Paz MD [STAFF PHYSICIAN] - 04/10/17 7:05 am (Stress test 04/10 0715 at [facility] ) Reina Dunbar MD [Primary Care Provider] - 1-2 days Patient Instructions/Handouts: Chest Pain (ED) Activity/Diet/Wound Care/Special Instructions: heart health diet return to the ER if chest pain recurrs Take your albuterol inhaler 4 times daily for the next 4 days, then every 4 hours as needed Stop Smoking Discharge Disposition: HOME SELF-CARE
[2017-03-29] MEDS ORDERED: ALBUTEROL INHALER 60 PUFF/8 GM INHALER INHALATION SCH (12:30)
--- NOTE | 2017-03-30 08:58 | ECHOF ---
Referral Reason:chest pain MEASUREMENTS -------- HEIGHT: 172.7 cm WEIGHT: 80.7 kg BP: 135/70 RVIDd: 3.7 cm (< 3.3) IVSd: 1.1 cm (0.6 - 1.1) LVIDd: 5.0 cm (3.9 - 5.3) LVPWd: 1.1 cm (0.6 - 1.1) IVSs: 1.7 cm LVIDs: 3.4 cm LVPWs: 1.7 cm LAESV Index (A-L): 20.66 ml/m Ao Diam: 3.8 cm (2.0 - 3.7) AV Cusp: 2.1 cm (1.5 - 2.6) LA Diam: 4.0 cm (2.7 - 3.8) EPSS: 0.4 cm MV E Torsten: 0.98 m/s MV DecT: 325 ms MV A Torsten: 1.11 m/s MV E/A Ratio: 0.88 RAP: 5.00 mmHg RVSP: 43.17 mmHg MV EF SLOPE: 68.23 mm/s (70 - 150) MV EXCURSION: 1.53 cm (> 18.000) FINDINGS -------- Sinus rhythm. This was a technically adequate study. The left ventricular size is normal. There is borderline concentric left ventricular hypertrophy. Overall left ventricular systolic function is normal with, an EF between 55 - 60 %. The right ventricle is normal in size and function. Normal LA size by volume 22+/-6 ml/m2. The right atrium is normal in size. Aortic valve is trileaflet and is mildly thickened. There is no evidence of aortic regurgitation. There is no evidence of aortic stenosis. The mitral valve leaflets are mildly thickened. There is trace to mild mitral regurgitation. Trace tricuspid regurgitation present. There is mild pulmonary hypertension. The right ventricula r systolic pressure, as measured by Doppler, is 43.17mmHg. Trace/mild (physiologic) pulmonic regurgitation. The aortic root size is normal. Normal inferior vena cava with normal inspiratory collapse consistent with estimated right atrial pre ssure of 5 mmHg. The pericardium is normal. There is no pericardial effusion. CONCLUSIONS -------- 1. Sinus rhythm. 2. This was a technically adequate study. 3. The left ventricular size is normal. 4. There is borderline concentric left ventricular hypertrophy. 5. Overall left ventricular systolic function is normal with, an EF between 55 - 60 %. 6. Normal LA size by volume 22+/-6 ml/m2. 7. Aortic valve is trileaflet and is mildly thickened. 8. The mitral valve leaflets are mildly thickened. 9. There is trace to mild mitral regurgitation. 10. Trace tricuspid regurgitation present. 11. There is mild pulmonary hypertension. 12. The right ventricular systolic pressure, as measured by Doppler, is 43.17mmHg. 13. Trace/mild (physiologic) pulmonic regurgitation. 14. The aortic root size is normal. 15. There is no pericardial effusion. HAND TOOL FILER: Iam Mayfield RDCS
== END 2017-03-29 13:21 | disposition home or self-care (01) ==
LOC: EC 13:21 → 3OBS 14:36
PROVIDERS: ADMIT Family Medicine; ATTEND Family Medicine
DX: M94.0 Chondrocostal junction syndrome [Tietze] (principal); J20.9 Acute bronchitis, unspecified; F17.200 Nicotine dependence, unspecified, uncomplicated; I25.10 Atherosclerotic heart disease of native coronary artery without angina pectoris; I10 Essential (primary) hypertension; E78.5 Hyperlipidemia, unspecified; H91.92 Unspecified hearing loss, left ear; K21.9 Gastro-esophageal reflux disease without esophagitis; Z79.82 Long term (current) use of aspirin; Z79.899 Other long term (current) drug therapy; E66.9 Obesity, unspecified; Z68.25 Body mass index [BMI] 25.0-25.9, adult; Z95.5 Presence of coronary angioplasty implant and graft; I25.2 Old myocardial infarction; Z88.0 Allergy status to penicillin; Z85.038 Personal history of other malignant neoplasm of large intestine; Z82.49 Family history of ischemic heart disease and other diseases of the circulatory system
CPT/HCPCS: 99291 ×2; 96376 ×2; 96365; 96366 ×2; 36415; 94640 ×3; 93005; 93306; 83880; 80061; 80053; 82550 ×2; 82553 ×2; 83690; 83735; 84484 ×2; 85025; 85027; 85610; 85730 ×2; 71046; G0378 ×2; J1644 ×2; J7512 ×2

== ENCOUNTER 2017-04-26 06:04 | Day surgery (SDC) | payer MEDICARE ==
[2017-04-20 14:57] VITALS: BMI 26.1
[2017-04-26] MEDS ORDERED: SODIUM CHLORIDE 0.9% 1,000 ML in EMPTY BAG 1 BAG IV ONE (06:16)
[2017-04-26] MEDS ORDERED: NITROGLYCERIN SL TABS 0.4 MG TAB SUBLINGUAL PRN ×2 (06:16→08:39)
[2017-04-26] MEDS ORDERED: ALPRAZolam 0.25 MG TAB PO PRN (06:16)
[2017-04-26] MEDS ORDERED: ASPIRIN 325 MG TAB PO ONE (06:16)
[2017-04-26] MEDS ORDERED: fentaNYL (PF) 50 MCG/ML 2 ML AMP ONE (07:23)
[2017-04-26] MEDS ORDERED: diphenhydrAMINE 50 MG/ML 1 ML VIAL ONE (07:23)
[2017-04-26] MEDS ORDERED: HEPARIN SODIUM 1,000 UN/ML (10ML VL) ONE (07:23)
[2017-04-26] MEDS ORDERED: LIDOCAINE 2% INJ 20 MG/ML (20 ML MDV) ONE (07:23)
[2017-04-26] MEDS ORDERED: VERAPAMIL 2.5 MG/ML 2 ML AMP ONE (07:23)
[2017-04-26] MEDS ORDERED: fentaNYL (PF) 50 MCG/ML 2 ML AMP IV ONE (07:36)
[2017-04-26] MEDS ORDERED: LIDOCAINE 2% INJ 20 MG/ML SQ ONE (07:41)
[2017-04-26] MEDS ORDERED: VERAPAMIL SYRINGE (5 MG/10 ML) INTRAARTER ONE ×2 (07:44→07:54)
[2017-04-26] MEDS ORDERED: CLOPIDOGREL 75 MG TAB ONE (08:00)
[2017-04-26] MEDS ORDERED: BIVALIRUDIN BOLUS 250 MG/50 ML IV ONE (08:03)
[2017-04-26] MEDS ORDERED: BIVALIRUDIN 250 MG in SODIUM CHLORIDE 0.9% 50 ML IV ONE (08:04)
[2017-04-26] MEDS ORDERED: CLOPIDOGREL 75 MG TAB PO ONE (08:06)
[2017-04-26] MEDS ORDERED: IOHEXOL 350 MG/ML 125ML BOTTLE INJ ONE (08:22)
[2017-04-26] MEDS ORDERED: MAG HYDROX/AL HYDROX/SIMETH 30 ML CUP ONE (08:30)
[2017-04-26] MEDS ORDERED: MAG HYDROX/AL HYDROX/SIMETH 30 ML CUP PO ONE (08:33)
[2017-04-26] MEDS ORDERED: RX INFO: IV CONTRAST WAS GIVEN 1 EACH MISC MISCELLANE PRN (08:39)
[2017-04-26] MEDS ORDERED: ATROPINE SULFATE 0.1 MG/ML 10ML SYRINGE IV PRN (08:39)
[2017-04-26] MEDS ORDERED: MAG HYDROX/AL HYDROX/SIMETH 30 ML CUP PO PRN (08:39)
[2017-04-26] MEDS ORDERED: ZOLPIDEM 5 MG TAB PO PRN (08:39)
[2017-04-26] MEDS ORDERED: ALBUTEROL NEBULIZED 2.5 MG/3 ML INHALATION PRN (08:41)
[2017-04-26] MEDS ORDERED: SODIUM CHLORIDE 0.9% 1,000 ML IV SCH (08:45)
--- NOTE | 2017-04-26 09:12 | CC ---
CARDIAC CATHETERIZATION REPORT Mr. Bain is a 72-year-old male with known history of hypertension, hyperlipidemia, history of chronic tobacco use and a prior percutaneous revascularization who recently had episode of chest discomfort and abnormal myocardial perfusion imaging. In view of that, recommendations were made regarding cardiac catheterization. The procedure as well as the risks and complications were discussed with the patient who is in full understanding and agreement. PROCEDURE: Patient was brought to the senior laboratory technician in a fasting semi-sedated state after receiving fentanyl and Benadryl and achieving moderate conscious sedated state. Using Xylocaine anesthesia in the Seldinger technique, a 6-Haitian sheath was introduced in the right radial artery. Selective right and left coronary angiography performed using 5-Haitian 3.5 bend right Ariel catheter and a 6-Haitian Walker catheter. Images of the coronary arteries were obtained. Following that, angioplasty and stenting was performed. Following this, a 5-Haitian tight pigtail catheter was introduced in the left ventricle and a 30-degree CRUZ view of the left ventricle was obtained. Following that, the catheter and sheaths were removed. Hemostasis was obtained with deployment of a TR band. There was no immediate complication. Patient was returned to his room in stable condition. FINDINGS: LEFT MAIN: This is a large-sized vessel, short, bifurcating into left circumflex and left anterior descending artery. Left main coronary artery has no evidence of high- grade stenosis. LEFT ANTERIOR DESCENDING ARTERY: This is a large-sized vessel, tapers down in distal third, giving rise to 2 diagonal branches. The second one is large in caliber. The mid LAD has a stent that has about a 30% in-stent restenosis. The rest of the vessel has no high-grade stenosis. LEFT CIRCUMFLEX: This is a nondominant vessel, large in caliber giving rise to 2 obtuse marginal branches. The left circumflex has mild intimal disease of 30% to 40% mid segment. The rest of the vessel has no high-grade stenosis. RIGHT CORONARY ARTERY: This is a large dominant vessel bifurcating distally PDA and posterolateral and branches. The distal stented segment is patent with 30% in-stent restenosis. The proximal right coronary artery has a complex lesion with area of stenosis up to 80%. There is another plaque of 30% to 40% in the mid right coronary artery. The rest of the vessel has no high-grade stenosis. LEFT VENTRICULOGRAM: Left ventriculogram is performed in 30-degree CRUZ view and revealed normal left ventricular size and systolic function. There was catheter- induced mitral regurgitation. HEMODYNAMICS: There was no gradient across the aortic valve. The left ventricular end- diastolic pressure was 14 to 16 mmHg. CONCLUSION: 1. Significant stenosis involving the proximal right coronary artery. 2. Moderate disease involving the left anterior descending artery, distal right coronary artery as well as left circumflex. 3. Normal left ventricular size and systolic function. RECOMMENDATION: In view of the findings and the anatomy, I recommend proceeding with angioplasty and stenting of the right coronary artery. The procedure as well as the risks and complications were discussed with the patient who is in full understanding and agreement. MMODL / IJN: [id number] /
--- NOTE | 2017-04-26 09:18 | PTCA ---
PERCUTANEOUSTRANS CORORONARY ANGIOGRAPHY Mr. Bain is a 72-year-old male with a known history of coronary artery disease, who presented with symptoms of chest discomfort and abnormal myocardial perfusion imaging underwent cardiac catheterization revealed evidence of obstructive coronary artery disease involving the proximal right coronary artery. In view of that, recommendation was made regarding angioplasty and stenting the procedure as well as the risks and complications were discussed with the patient who is in full understanding and agreement. PROCEDURE: A 6-Mongolian FR4 guiding catheter introduced in the system. After cannulating the right coronary ostium, a 0.014 balanced medium weight J-wire was advanced across the lesion and positioned distally. Then a 3.25 x 15 mm Xience Alpine stent was advanced, deployed and post dilated to 16 atmospheres. After the last inflation, after appropriate wait, the balloon and the guidewire were withdrawn back in the guiding catheter. Images were obtained, repeated. Those images reveal stable successful stenting. At that point, the guiding catheter, the balloon, and the guidewire removed. Left ventriculogram was performed using a 5-Mongolian tight pigtail catheter following that catheter and sheath were removed. Hemostasis was obtained with deployment of a TR band. There was no immediate complication. Patient is returned to his room in stable condition. Of note, the patient received Angiomax per protocol as well as oral loading dose of clopidogrel. He had chest discomfort and EKG changes with inflation that resolved at the end of the procedure. RESULT: Successful stenting of the proximal right coronary artery with reduction of stenosis from 80% to 0%. RECOMMENDATION: Patient will be continued on dual antiplatelet treatment with aggressive coronary risk modification. Those findings and recommendation were discussed with the patient and his family and they are in full understanding and agreement. DURATION OF THE PROCEDURE: 41 minutes. MMKIMBERLYL / ENMANUELN: [id number] /
--- NOTE | 2017-04-26 09:24 | LTR ---
April 26, 2017 Re: Ernie Odell Dear Dr. Quinones: I had the opportunity to perform cardiac catheterization and coronary angioplasty and stenting on Mr. Bain at [facility] on the 26 of April and a full copy of the procedure note will be forwarded to you. In brief, he was found to have significant stenosis involving the proximal right coronary artery and received a drug-eluting stent. I am hopeful that this procedure will stabilize his status. Thank you again for allowing me the opportunity to participate in his care. Please feel free to call for any questions. Sincerely yours, Pernell De Paz MD MMKIMBERLYL / ENMANUELN: [id number] /
[2017-04-26] MEDS: ASPIRIN 81 MG PO SCH (11:30)
[2017-04-26] MEDS: FLUTICASONE 50MCG/SPRAY NASAL 16GM EA NOSTRIL SCH ×2 (11:31→20:08)
[2017-04-26] MEDS: ISOSORBIDE MONONITRATE ER 60 MG TAB.ER.24H PO SCH (11:31)
[2017-04-26] MEDS: ATENOLOL 50 MG TAB PO SCH ×2 (11:31→20:07)
[2017-04-26] MEDS ORDERED: ACETAMINOPHEN TAB 325 MG TAB PO PRN (15:14)
[2017-04-26] MEDS: PANTOPRAZOLE 40 MG TABLET PO SCH (17:12)
[2017-04-26] MEDS ORDERED: ATORVASTATIN 20 MG TAB PO SCH (21:00)
[2017-04-27 05:24] VITALS: PULSE 60; RESP 19
[2017-04-27] MEDS: PANTOPRAZOLE 40 MG TABLET PO SCH (06:16)
[2017-04-27 06:46] LABS: Anion Gap 9 mmol/L; Blood Urea Nitrogen 17 mg/dL (9-20); Calcium 8.9 mg/dL (8.4-10.2); Carbon Dioxide 25 mmol/L (22-30); Chloride 105 mmol/L (98-107); Glucose 121 mg/dL (74-99); Potassium 4.1 mmol/L (3.5-5.1); Sodium 139 mmol/L (137-145)
[2017-04-27] MEDS: ISOSORBIDE MONONITRATE ER 60 MG TAB.ER.24H PO SCH (07:44)
[2017-04-27] MEDS: ASPIRIN 81 MG PO SCH (07:45)
[2017-04-27] MEDS: ATENOLOL 50 MG TAB PO SCH (07:45)
[2017-04-27] MEDS: FLUTICASONE 50MCG/SPRAY NASAL 16GM EA NOSTRIL SCH (07:45)
[2017-04-27 07:53] VITALS: BP 142/69; TEMP 97.8
[2017-04-27] MEDS ORDERED: CLOPIDOGREL 75 MG TAB PO SCH (09:00)
--- NOTE | 2017-04-27 10:04 | PN ---
PROGRESS NOTE Mr. Bain is a 72-year-old male who presented with a history of coronary artery disease, underwent cardiac catheterization because of symptoms of chest discomfort and abnormal myocardial perfusion imaging was found to have obstructive disease involving the proximal right coronary artery, underwent successful stenting of that vessel. He is doing well this morning. Ambulating without difficulty. Denying any chest pain. No dizziness. No palpitation. No nausea. He continues to be on aspirin once a day, atenolol 50 mg twice a day, Plavix 75 mg daily, isosorbide mononitrate 60 mg daily. PHYSICAL EXAMINATION: Blood pressure 127/60 with the heart rate in the 60s. LUNGS: Clear. HEART: Regular rate and rhythm, S1, S2. No S3. No rub. ABDOMEN: Soft, nontender. EXTREMITIES: No edema. Right radial pulse is intact. LAB DATA: Lab data revealed BUN and creatinine 17 and 1.02. Potassium 4.1. The EKG no acute changes. IMPRESSION: 1. Status post stenting of the right coronary artery. 2. Hypertension. 3. Hyperlipidemia. 4. Prior history of smoking. RECOMMENDATION: From the cardiac standpoint, he should be able to be discharged home today and followed as an outpatient. MMODL / IJN: [id number] /
== END 2017-04-27 10:08 | disposition home or self-care (01) ==
LOC: CATHCVL 06:04 → 6SEL 08:17 → CATHCVL 04-27 10:08
PROVIDERS: ATTEND Internal Medicine Interventional Cardiology
DX: I25.10 Atherosclerotic heart disease of native coronary artery without angina pectoris (principal); E78.2 Mixed hyperlipidemia; I10 Essential (primary) hypertension; F17.210 Nicotine dependence, cigarettes, uncomplicated; Z79.82 Long term (current) use of aspirin; Z79.899 Other long term (current) drug therapy; Z88.0 Allergy status to penicillin
CPT/HCPCS: 93458; 85347; 80048; C9600; C1769 ×2; C1887; C1894; C1874; J2001; J3010; J0583; Q9967

== ENCOUNTER 2017-06-10 09:22 | Observation (INO) | payer MEDICARE ==
[2017-06-10] MEDS ORDERED: SODIUM CHLORIDE 0.9% 1,000 ML IV STA (09:54)
[2017-06-10] MEDS ORDERED: ASPIRIN 81 MG PO STA (09:54)
[2017-06-10] MEDS ORDERED: MORPHINE SULF 5MG/10ML VL IV STA (09:54)
[2017-06-10] MEDS ORDERED: NITROGLYCERIN OINT 1 INCH/GM PACKET TOPICAL STA (09:54)
--- NOTE | 2017-06-10 10:03 | ED ---
Chest Pain HPI - General Chief Complaint: Chest Pain Stated Complaint: hypertension Time Seen by Provider: 06/10/17 09:47 Source: patient Mode of arrival: ambulatory Limitations: no limitations - History of Present Illness Initial Comments: Before years old male with a history of heart disease had a stent put in about a month ago comes in with a very high blood pressure blood pressure was greater than 200 systolic and numb also had a chest pain started yesterday he was not exerting himself and made been off-and-on since yesterday he has this he has shortness of breath which she is saying well more than usual he denies any pleuritic chest pain no fever no chills is not bringing up any phlegm no abdominal pain no frequency urgency dysuria no symptoms of TIA or CVA - Related Data Home Medications Medication Instructions Recorded Confirmed Atenolol [Tenormin] 50 mg PO BID 04/25/14 06/10/17 Isosorbide Mononitrate ER [Imdur] 60 mg PO DAILY 04/25/14 06/10/17 Omeprazole [PriLOSEC] 20 mg PO AC-BID 04/25/14 06/10/17 Albuterol Inhaler [Ventolin Hfa 2 puff INHALATION RT-QID PRN 04/20/17 06/10/17 Inhaler] Fluticasone Propionate [Flonase 1 spray EA NOSTRIL BID PRN 04/20/17 06/10/17 Allergy Relief] Previous Rx's Medication Instructions Recorded Aspirin 81 mg PO DAILY chew 04/27/17 Atorvastatin [Lipitor] 20 mg PO HS #90 tab 04/27/17 Clopidogrel [Plavix] 75 mg PO DAILY #90 tab 04/27/17 Nitroglycerin Sl Tabs [Nitrostat] 0.4 mg SUBLINGUAL Q5M PRN #25 tab 04/27/17 Allergies Allergy/AdvReac Type Severity Reaction Status Date / Time latex Allergy Rash/Hives Verified 06/10/17 10:25 Penicillins Allergy Rash/Hives Verified 06/10/17 10:25 Review of Systems ROS Statement: Those systems with pertinent positive or pertinent negative responses have been documented in the HPI. ROS Other: All systems not noted in ROS Statement are negative. EKG Findings - EKG Comments: EKG Findings:: EKG is a sinus pericardial ventricular rate is 69 PA interval is 156 QRS duration is 90 QT/QTc is 444/439 review of this EKG does reveal a hint of ST segment elevation into 3 and aVF, this was compared with the old EKG done on April 1627 this looks very similar to the old EKG did see a new changes outside a more pronounced T-wave inversion in aVL no other changes noticed in other leads Past Medical History Past Medical History: Coronary Artery Disease (CAD), Cancer, GERD/Reflux, Hearing Disorder / Deafness, Hyperlipidemia, Hypertension, Myocardial Infarction (CT) Additional Past Medical History / Comment(s): CT x 2 (2001/2010), colon cancer with surgery, nephrolithiasis, L ear deafness, chronic low back pain. Last Myocardial Infarction Date:: 2010 History of Any Multi-Drug Resistant Organisms: None Reported Past Surgical History: Appendectomy, Bowel Resection, Heart Catheterization With Stent Additional Past Surgical History / Comment(s): BOWEL RESECTION 2003; CARDIAC STENTS PLACED IN 2001 and 2010 -COLONOSCOPIES Past Anesthesia/Blood Transfusion Reactions: No Reported Reaction Date of Last Stent Placement:: 2010 Past Psychological History: No Psychological Hx Reported Smoking Status: Current every day smoker Past Alcohol Use History: None Reported Past Drug Use History: None Reported - Past Family History Father Family Medical History: No Reported History Additional Family Medical History / Comment(s): Father at the age of 76yrs from "old age." Mother Family Medical History: Respiratory Disorder Additional Family Medical History / Comment(s): Mother at the age of 68yrs from pneumonia Brother(s) Family Medical History: Coronary Artery Disease (CAD), Renal Disease Additional Family Medical History / Comment(s): He has one brother that is alive and is undergone CABG for coronary artery disease and has had one kidney removed. Patient has one brother who is in a motor vehicle oxidant, one brother from a myocardial infarction at age 59, and one from colon cancer at age 70. Sister(s) Family Medical History: No Reported History Additional Family Medical History / Comment(s): He has 3 sisters that are healthy. General Exam - General Exam Comments Initial Comments: General: The patient is awake and alert, in no distress, and does not appear acutely ill. Skin: Skin is warm and dry and no rashes or lesions are noted. Eye: Pupils are equal, round and reactive to light, extra-ocular movements are intact; there is normal conjunctiva bilaterally. Ears, nose, mouth and throat: There are moist mucous membranes and no oral lesions. Neck: The neck is supple, there is no tenderness or JVD. Cardiovascular: There is a regular rate and rhythm. No murmur, rub or gallop is appreciated. Respiratory: To auscultation bilateral, no wheezing no rhonchi no distress respiratory santoro noticed Gastrointestinal: Soft, non-distended, non-tender abdomen without masses or organomegaly noted. There is no rebound or guarding present. Bowel sounds are unremarkable. Back: There is no tenderness to palpation in the midline. There is no obvious deformity. Musculoskeletal: Normal ROM, no tenderness, There is no pedal edema. There is no calf tenderness or swelling. No cords were appreciated. Neurological: CN II-XII intact, Cranial nerves III through XII are intact. There are no obvious motor or sensory deficits. Coordination appears grossly intact. Speech is normal. Psychiatric: Cooperative, appropriate mood & affect, normal judgment. Limitations: no limitations Course Vital Signs 06/10/17 06/10/17 06/10/17 09:24 09:40 09:50 Temperature 97.3 F L Pulse Rate 64 66 58 L Pulse Rate [ 66 Pulse Oximetery ] Respiratory 18 20 18 Rate Blood Pressure 200/95 181/92 173/84 O2 Sat by Pulse 98 98 98 Oximetry 06/10/17 10:00 Temperature Pulse Rate 57 L Pulse Rate [ Pulse Oximetery ] Respiratory 18 Rate Blood Pressure 149/77 O2 Sat by Pulse 98 Oximetry Second EKG was reviewed, ventricular rate is 54 PA interval is 160 QRS duration is 92 QT/QTc is 422/[address] elevation in 2-3 aVF is probably the corner of fact millimeter and it's not changed from the old EKG only new change I see that's a T-wave inversion in aVL Critical Care Time Total Critical Care Time: 45 Critical Care Time: 72 years old gentleman with history of ischemic heart disease had a cardiac cath done in April by Dr. seymour on he had stent put in his right coronary. Complaining about the chest pain since yesterday which gets worse with the minimal exertion like walking inside the house now he has a chest pain while resting EKG was repeated in the ER to 3 and aVF has a hint of ST elevation minutes. Cor of for millimeter and also noticed T-wave inversion in aVL spoke with the Dr. Zuniga he agreed with heparinization ER he got the aspirin and nitro and Dr. Zuniga agreed to see him and then local iron admit him under sound hospitalist group and he will go to the left Disposition Clinical Impression: Chest pain, Acute electrocardiogram changes Disposition: ADMITTED IP TO THIS HOSP Condition: Good Referrals: Reina Dunbar MD [Primary Care Provider] - 1-2 days
[2017-06-10 10:08] LABS: Basophils % (A) 0 %; Eosinophils # (A) 0.1 k/uL (0-0.7); Eosinophils % (A) 2 %; HCT 41.6 % (39.0-53.0); HGB 14.2 gm/dL (13.0-17.5); Lymphocytes # (A) 1.4 k/uL (1.0-4.8); Lymphocytes % (A) 25 %; MCH 29.7 pg (25.0-35.0); MCV 87.3 fL (80.0-100.0); Mean Platelet Volume 7.3; Monocytes # (A) 0.3 k/uL (0-1.0); Monocytes % (A) 5 %; Neutrophils # (A) 3.7 k/uL (1.3-7.7); Neutrophils % (A) 66 %; Platelet Count 146 k/uL (150-450); RBC 4.77 m/uL (4.30-5.90); WBC 5.6 k/uL (3.8-10.6)
[2017-06-10 10:17] LABS: ALT 44 U/L (21-72); AST 30 U/L (17-59); Albumin 3.9 g/dL (3.5-5.0); Alkaline Phosphatase 65 U/L (38-126); Anion Gap 12 mmol/L; Blood Urea Nitrogen 18 mg/dL (9-20); Carbon Dioxide 25 mmol/L (22-30); Chloride 104 mmol/L (98-107); Glucose 164 mg/dL (74-99); Magnesium 1.9 mg/dL (1.6-2.3); Potassium 4.1 mmol/L (3.5-5.1); Sodium 141 mmol/L (137-145); Total Bilirubin 0.8 mg/dL (0.2-1.3); Total Protein 7.1 g/dL (6.3-8.2)
[2017-06-10 10:22] LABS: INR 1.1 (<1.2); Partial Thromboplastin Time 23.8 sec (22.0-30.0); Prothrombin Time 10.4 sec (9.0-12.0)
[2017-06-10 10:28] LABS: Creatine Kinase 71 U/L (55-170)
--- NOTE | 2017-06-10 10:38 | XR ---
EXAMINATION TYPE: XR chest 2V DATE OF EXAM: 06/10/2017 HISTORY: Chest Pain. REFERENCE: Previous study dated 03/28/2017. FINDINGS: The lungs are clear. Pleural spaces are clear. The heart is minimally prominent. IMPRESSION: MILD CARDIOMEGALY.
[2017-06-10 10:41] LABS: Troponin I <0.012 ng/mL (0.000-0.034)
[2017-06-10] MEDS ORDERED: MORPHINE SULF 5MG/10ML VL IVP PRN (11:08)
[2017-06-10] MEDS ORDERED: NITROGLYCERIN SL TABS 0.4 MG TAB SUBLINGUAL PRN ×2 (11:08→11:17)
[2017-06-10] MEDS ORDERED: HEPARIN SODIUM,PORCINE 5,000 UNIT/ML 1 ML VIAL IV ONE (11:08)
[2017-06-10] MEDS ORDERED: HEPARIN SOD,PORK IN 0.45% NACL 25,000 UNIT in 0.45% NACL 1 500ML.BAG IV SCH (11:15)
[2017-06-10] MEDS ORDERED: FLUTICASONE 50MCG/SPRAY NASAL 16GM EA NOSTRIL PRN (11:17)
[2017-06-10] MEDS ORDERED: ALBUTEROL NEBULIZED 2.5 MG/3 ML INHALATION PRN (11:17)
--- NOTE | 2017-06-10 11:41 | P.CRDCN ---
History of Present Illness Consult date: 06/10/17 Chief complaint: Chest pain History of present illness: This is a pleasant 72-year-old gentleman who sees Dr. De Paz in the office as an outpatient with a known history of coronary artery disease with the last angioplasty was performed about 4 weeks ago where he underwent stenting of the right coronary artery, beside that he does have hypertension and dyslipidemia, presented to the emergency room complaining of chest discomfort. He was in his usual state of health until this morning when he woke up complaining of chest tightness associated with back discomfort. He checked his blood pressure at home and it was more than 200 mmHg systolic. He stated that he was taking all his medications. The chest discomfort was associated with shortness of breath as well as with sweating. He was brought to the emergency room by his . The EKG showed sinus rhythm with T-wave inversion in the high lateral leads. Looking at his previous EKG it did show some flattening of the T wave at the same leads back in April 2017. The first set of cardiac enzymes came in to be unremarkable. We don't have the rest of the serial cardiac enzymes. Clinically the patient now is chest pain-free. He was given nitro as well as morphine and his blood pressure came down and with that the chest discomfort has resolved completely. Past Medical History Past Medical History: Coronary Artery Disease (CAD), Cancer, GERD/Reflux, Hearing Disorder / Deafness, Hyperlipidemia, Hypertension, Myocardial Infarction ([place]) Additional Past Medical History / Comment(s): [place] x 2 (2001/2010), colon cancer with surgery, nephrolithiasis, L ear deafness, chronic low back pain. Last Myocardial Infarction Date:: 2010 History of Any Multi-Drug Resistant Organisms: None Reported Past Surgical History: Appendectomy, Bowel Resection, Heart Catheterization With Stent Additional Past Surgical History / Comment(s): BOWEL RESECTION 2003; CARDIAC STENTS PLACED IN 2001 and 2010 -COLONOSCOPIES Past Anesthesia/Blood Transfusion Reactions: No Reported Reaction Date of Last Stent Placement:: 2010 Past Psychological History: No Psychological Hx Reported Smoking Status: Current every day smoker Past Alcohol Use History: None Reported Past Drug Use History: None Reported - Past Family History Father Family Medical History: No Reported History Additional Family Medical History / Comment(s): Father at the age of 76yrs from "old age." Mother Family Medical History: Respiratory Disorder Additional Family Medical History / Comment(s): Mother at the age of 68yrs from pneumonia Brother(s) Family Medical History: Coronary Artery Disease (CAD), Renal Disease Additional Family Medical History / Comment(s): He has one brother that is alive and is undergone CABG for coronary artery disease and has had one kidney removed. Patient has one brother who is in a motor vehicle oxidant, one brother from a myocardial infarction at age 59, and one from colon cancer at age 70. Sister(s) Family Medical History: No Reported History Additional Family Medical History / Comment(s): He has 3 sisters that are healthy. Medications and Allergies Home Medications Medication Instructions Recorded Confirmed Type Atenolol [Tenormin] 50 mg PO BID 04/25/14 06/10/17 History Isosorbide Mononitrate ER [Imdur] 60 mg PO DAILY 04/25/14 06/10/17 History Omeprazole [PriLOSEC] 20 mg PO AC-BID 04/25/14 06/10/17 History Albuterol Inhaler [Ventolin Hfa 2 puff INHALATION RT-QID PRN 04/20/17 06/10/17 History Inhaler] Fluticasone Propionate [Flonase 1 spray EA NOSTRIL BID PRN 04/20/17 06/10/17 History Allergy Relief] Aspirin 81 mg PO DAILY chew 04/27/17 06/10/17 Rx Atorvastatin [Lipitor] 20 mg PO HS #90 tab 04/27/17 06/10/17 Rx Clopidogrel [Plavix] 75 mg PO DAILY #90 tab 04/27/17 06/10/17 Rx Nitroglycerin Sl Tabs [Nitrostat] 0.4 mg SUBLINGUAL Q5M PRN #25 tab 04/27/1703/29 Rx Allergies Allergy/AdvReac Type Severity Reaction Status Date / Time latex Allergy Rash/Hives Verified 06/10/17 10:25 Penicillins Allergy Rash/Hives Verified 06/10/17 10:25 Physical Exam Vitals: Vital Signs Temp Pulse Pulse Resp BP Pulse Ox 06/10/17 11:09 54 L 16 143/75 96 06/10/17 10:00 57 L 18 149/77 98 06/10/17 09:50 58 L 18 173/84 98 06/10/17 09:40 66 66 20 181/92 98 06/10/17 09:24 97.3 F L 64 18 200/95 98 Intake and Output 06/09/17 06/10/17 06/10/17 22:59 06:59 14:59 Other: Weight 78.018 kg - Constitutional General appearance: no acute distress - Respiratory Respiratory: bilateral: CTA - Cardiovascular Rhythm: regular Heart sounds: normal: S1, S2 Results 06/10/17 09:45 06/10/17 09:45 Cardiac Enzymes 06/10/17 06/10/17 Range/Units 09:45 09:45 AST 30 (17-59) U/L CK-MB (CK-2) 1.0 (0.0-2.4) ng/mL Troponin I <0.012 (0.000-0.034) ng/mL Coagulation 06/10/17 Range/Units 09:45 PT 10.4 (9.0-12.0) sec APTT 23.8 (22.0-30.0) sec CBC 06/10/17 Range/Units 09:45 WBC 5.6 (3.8-10.6) k/uL RBC 4.77 (4.30-5.90) m/uL Hgb 14.2 (13.0-17.5) gm/dL Hct 41.6 (39.0-53.0) % Plt Count 146 L (150-450) k/uL Comprehensive Metabolic Panel 06/10/17 Range/Units 09:45 Sodium 141 (137-145) mmol/L Potassium 4.1 (3.5-5.1) mmol/L Chloride 104 (98-107) mmol/L Carbon Dioxide 25 (22-30) mmol/L BUN 18 (9-20) mg/dL Creatinine 0.91 (0.66-1.25) mg/dL Glucose 164 H (74-99) mg/dL Calcium 9.0 (8.4-10.2) mg/dL AST 30 (17-59) U/L ALT 44 (21-72) U/L Alkaline Phosphatase 65 (38-126) U/L Total Protein 7.1 (6.3-8.2) g/dL Albumin 3.9 (3.5-5.0) g/dL Current Medications Generic Name Dose Route Start Last Admin Trade Name Freq PRN Reason Stop Dose Admin Albuterol Sulfate 2.5 mg 06/10/17 11:17 Ventolin Nebulized INHALATION RT-QID PRN sob Aspirin 325 mg 06/11/17 09:00 Aspirin PO DAILY [facility] Atenolol 50 mg 06/10/17 21:00 Tenormin PO BID [facility] Atorvastatin Calcium 20 mg 06/10/17 21:00 Lipitor PO HS [facility] Clopidogrel Bisulfate 75 mg 06/11/17 09:00 Plavix PO DAILY [facility] Fluticasone Propionate 1 spray 06/10/17 11:17 Flonase [place] EA NOSTRIL BID PRN Nasal Congestion Sodium Chloride 1,000 mls @ 100 mls/hr 06/10/17 09:54 06/10/17 10:06 Saline 0.9% IV 06/10/17 19:53 100 mls/hr .Q10H STA Administration Heparin Sodium/Sodium Chloride 500 mls @ 18.72 mls/hr 06/10/17 11:15 25,000 unit/ Sodium Chloride IV .Q24H [facility] Protocol 12 UNITS/KG/HR Isosorbide Mononitrate 60 mg 06/11/17 09:00 Imdur PO DAILY [facility] Lisinopril 10 mg 06/11/17 09:00 Zestril PO DAILY [facility] Morphine Sulfate 2 mg 06/10/17 11:08 Morphine Sulf IVP Q5M PRN Chest Pain Nitroglycerin 0.4 mg 06/10/17 11:17 Nitrostat SUBLINGUAL Q5M PRN Chest Pain Pantoprazole Sodium 40 mg 06/10/17 17:30 Protonix PO AC-BID [facility] Intake and Output 06/09/17 06/10/17 06/10/17 22:59 06:59 14:59 Other: Weight 78.018 kg Patient Weight 06/11/17 06:59 Weight 78.018 kg 06/10/17 09:45 06/10/17 09:45 Assessment and Plan Assessment: assessment #1 hypertension emergency #2 chest discomfort secondary to the above #3 known CAD and status post a stenting of the RCA recently #4 multiple comorbid conditions Plan #1 the chest discomfort is likely secondary to uncontrolled hypertension. Acute coronary syndrome also to be ruled out. #2 we will follow-up with the serial cardiac enzymes and also repeated EKG #3 the dual antiplatelet therapy was assumed as well as the beta jessica with atenolol #4 I would add lisinopril to the current medical treatment for better blood pressure control #5 follow-up with the patient. Thank you for allowing us participate in his care
[2017-06-10 12:32] VITALS: BMI 26.1
--- NOTE | 2017-06-10 14:38 | P.HPIM ---
History of Present Illness H&P Date: 06/10/17 Chief Complaint: Chest pain The patient is a 72-year-old male with a past with a history of essential hypertension , dyslipidemia and coronary artery disease with stenting 3 with the most recent stenting 04/26/17 of thr proximal right coronary artery that presents to the ER with chief complaint of sudden onset of nonexertional nonradiating midsternal chest pressure while watching TV. Apparently the patient checks his blood pressure at home and his blood pressure was approximately 200/95, the patient reports compliance with all his and hypertensive medications as well as his antiplatelet therapy. He has some associated shortness of breath and diaphoresis, but denies any nausea vomiting or abdominal pain. The patient was seen in the ED his initial EKG showed sinus rhythm with T-wave inversion in the high lateral leads which seems to be similar to his previous EKG in April 2017. His first set of cardiac enzymes were normal. On presentation the patient's initial blood pressure was 200/95. He was started on aspirin and placed on heparin drip and recommended for admission Review of Systems All other 14 point review of systems negative except per HPI Past Medical History Past Medical History: Coronary Artery Disease (CAD), Cancer, GERD/Reflux, Hearing Disorder / Deafness, Hyperlipidemia, Hypertension, Myocardial Infarction ([place]) Additional Past Medical History / Comment(s): [place] x 2 (), colon cancer with surgery, nephrolithiasis, L ear deafness, chronic low back pain. Last Myocardial Infarction Date:: 2010 History of Any Multi-Drug Resistant Organisms: None Reported Past Surgical History: Appendectomy, Bowel Resection, Heart Catheterization With Stent Additional Past Surgical History / Comment(s): BOWEL RESECTION 2003; CARDIAC STENTS PLACED IN 2001 and 2010 -COLONOSCOPIES Past Anesthesia/Blood Transfusion Reactions: No Reported Reaction Date of Last Stent Placement:: 2010 Past Psychological History: No Psychological Hx Reported Smoking Status: Current every day smoker Past Alcohol Use History: None Reported Past Drug Use History: None Reported - Past Family History Father Family Medical History: No Reported History Additional Family Medical History / Comment(s): Father at the age of 76yrs from "old age." Mother Family Medical History: Respiratory Disorder Additional Family Medical History / Comment(s): Mother at the age of 68yrs from pneumonia Brother(s) Family Medical History: Coronary Artery Disease (CAD), Renal Disease Additional Family Medical History / Comment(s): He has one brother that is alive and is undergone CABG for coronary artery disease and has had one kidney removed. Patient has one brother who is in a motor vehicle oxidant, one brother from a myocardial infarction at age 59, and one from colon cancer at age 70. Sister(s) Family Medical History: No Reported History Additional Family Medical History / Comment(s): He has 3 sisters that are healthy. Medications and Allergies Home Medications Medication Instructions Recorded Confirmed Type Atenolol [Tenormin] 50 mg PO BID 04/25/14 06/10/17 History Isosorbide Mononitrate ER [Imdur] 60 mg PO DAILY 04/25/14 06/10/17 History Omeprazole [PriLOSEC] 20 mg PO AC-BID 04/25/14 06/10/17 History Albuterol Inhaler [Ventolin Hfa 2 puff INHALATION RT-QID PRN 04/20/17 06/10/17 History Inhaler] Fluticasone Propionate [Flonase 1 spray EA NOSTRIL BID PRN 04/20/17 06/10/17 History Allergy Relief] Aspirin 81 mg PO DAILY chew 04/27/17 06/10/17 Rx Atorvastatin [Lipitor] 20 mg PO HS #90 tab 04/27/17 06/10/17 Rx Clopidogrel [Plavix] 75 mg PO DAILY #90 tab 04/27/17 06/10/17 Rx Nitroglycerin Sl Tabs [Nitrostat] 0.4 mg SUBLINGUAL Q5M PRN #25 tab 04/27/1703/29 Rx Allergies Allergy/AdvReac Type Severity Reaction Status Date / Time latex Allergy Rash/Hives Verified 06/10/17 10:25 Penicillins Allergy Rash/Hives Verified 06/10/17 10:25 Physical Exam Vitals: Vital Signs Temp Pulse Pulse Resp BP BP Pulse Ox 06/10/17 14:12 97.1 F L 54 L 17 139/72 97 06/10/17 12:09 97.8 F 06/10/17 12:04 54 L 16 146/74 97 06/10/17 11:09 54 L 16 143/75 96 06/10/17 10:00 57 L 18 149/77 98 06/10/17 09:50 58 L 18 173/84 98 04/01/18 09:40 66 66 20 181/92 98 06/10/17 09:24 97.3 F L 64 18 200/95 98 Intake and Output 06/09/17 06/10/17 06/10/17 22:59 06:59 14:59 Other: Weight 78.018 kg Constitutional: No acute distress, conversant, pleasant Eyes: Anicteric sclerae, moist conjunctiva, no lid-lag, PERRLA ENMT: NC/AT,Oropharynx clear, no erythema, exudates Neck:Supple, FROM, no masses, or JVD, No carotid bruits; No thyromegaly Lungs: Clear to auscultation, Clear to percussion, Normal respiratory effort, no accessory muscle use Cardiovascular: Heart regular in rate and rhythm, No murmurs, gallops, or rubs no peripheral edema Abdominal: Soft Nontender, nom distended, no guarding, no rebound or rigidity, Normoactive bowel sounds No hepatomegaly, No splenomegaly, No palpable mass No abdominal wall hernia noted Skin: Normal temperature, tone, texture, turgor, No induration No subcutaneous nodules, No rash, lesions, No ulcers Extremities:No digital cyanosis No clubbing, Pedal pulses intact and symmetrical Radial pulses intact and symmetrical Normal gait and station, No calf tenderness Psychiatric: Alert and oriented to person, place and time, Appropriate affect Intact judgement Neuro: Muscles Strength 5/5 in all 4 extremities, Sensation to light touch grossly present throughout, Cranial nerves II-XII grossly intact. No focal sensory deficits Results CBC & Chem 7: 06/10/17 09:45 06/10/17 09:45 Labs: Abnormal Lab Results - Last 24 Hours (Table) 06/10/17 06/10/17 Range/Units 09:45 09:45 Plt Count 146 L (150-450) k/uL Glucose 164 H (74-99) mg/dL Thrombosis Risk Factor Assmnt - Choose All That Apply Any of the Below Risk Factors Present?: Yes Other Risk Factors: Yes Each Risk Factor Represents 2 Points: Arthroscopic surgery Thrombosis Risk Factor Assessment Total Risk Factor Score: 2 Thrombosis Risk Factor Assessment Level: Low Risk Assessment and Plan (1) Chest pain Current Visit: Yes Status: Acute Code(s): R07.9 - CHEST PAIN, UNSPECIFIED SNOMED Code(s): 10594621 (2) Hypertensive emergency Current Visit: Yes Status: Acute Code(s): I16.1 - HYPERTENSIVE EMERGENCY SNOMED Code(s): 729952181954806 (3) CAD (coronary artery disease) Current Visit: No Status: Acute Code(s): I25.10 - ATHSCL HEART DISEASE OF [place] CORONARY ARTERY W/O ANG PCTRS SNOMED Code(s): 54235646 (4) COPD (chronic obstructive pulmonary disease) Current Visit: Yes Status: Acute Code(s): J44.9 - CHRONIC OBSTRUCTIVE PULMONARY DISEASE, UNSPECIFIED SNOMED Code(s): 39544552 Plan: The patient is a 73-year-old male with a known history of coronary artery disease with recent stenting 04/26/17 presents with chest pain initial EKG and cardiac enzymes are not suggestive of any acute ischemia, the patient is noted to be in hypertensive emergency initially however his blood pressure has come down since presentation. Cardiology has been consulted. We'll continue chest pain orders and monitor his blood pressure closely. We'll continue to cycle his troponins and continue him on heparin drip, awaiting cardiology recommendations. Continue to monitor his clinical course
[2017-06-10] MEDS ORDERED: ACETAMINOPHEN TAB 325 MG TAB PO PRN (16:08)
[2017-06-10 16:20] LABS: Creatine Kinase 57 U/L (55-170)
[2017-06-10] MEDS: PANTOPRAZOLE 40 MG TABLET PO SCH (16:21)
[2017-06-10 16:32] LABS: Creatine Kinase MB 0.6 ng/mL (0.0-2.4); Troponin I <0.012 ng/mL (0.000-0.034)
[2017-06-10] MEDS: ATENOLOL 50 MG TAB PO SCH (19:47)
[2017-06-10 20:26] VITALS: RESP 16
[2017-06-10] MEDS ORDERED: ATORVASTATIN 20 MG TAB PO SCH (21:00)
[2017-06-10 22:33] LABS: Creatine Kinase 55 U/L (55-170)
[2017-06-10 22:46] LABS: Creatine Kinase MB 0.6 ng/mL (0.0-2.4); Troponin I <0.012 ng/mL (0.000-0.034)
[2017-06-11 06:05] LABS: Cholesterol 140 mg/dL (<200); HDL Cholesterol 34 mg/dL (40-60); LDL Cholesterol,Calculated 78 mg/dL (0-99); Triglycerides 141 mg/dL (<150)
[2017-06-11] MEDS: PANTOPRAZOLE 40 MG TABLET PO SCH (06:27)
[2017-06-11 07:55] VITALS: BP 155/68; PULSE 56; TEMP 97.4
[2017-06-11] MEDS: ATENOLOL 50 MG TAB PO SCH (08:13)
[2017-06-11] MEDS ORDERED: LISINOPRIL 10 MG TAB PO SCH (09:00)
[2017-06-11] MEDS ORDERED: ISOSORBIDE MONONITRATE ER 60 MG TAB.ER.24H PO SCH (09:00)
[2017-06-11] MEDS ORDERED: CLOPIDOGREL 75 MG TAB PO SCH (09:00)
[2017-06-11] MEDS ORDERED: ASPIRIN 325 MG TAB PO SCH (09:00)
--- NOTE | 2017-06-11 10:49 | P.DS ---
Providers Date of admission: 06/10/17 11:10 Expected date of discharge: 06/11/17 Attending physician: Keith Chapman MD Consults: 06/10/17 11:10 Consult Physician Urgent Consulting Provider: Johnathan Zuniga Consult Reason/Comments: Ischemic heart disease Do you want consulting provider notified?: Yes Primary care physician: [facility] Course: 72-year-old male with a past with a history of essential hypertension , dyslipidemia and coronary artery disease with stenting 3 with the most recent stenting 04/26/17 of thr proximal right coronary artery presented to the ER with chief complaint of sudden onset of nonexertional nonradiating midsternal chest pressure while watching TV. Apparently the patient checked his blood pressure at home and his blood pressure was approximately 200/95, he reported compliance with all his and hypertensive medications as well as his antiplatelet therapy. He has some associated shortness of breath and diaphoresis, but denies any nausea vomiting or abdominal pain. Initial EKG showed sinus rhythm with T-wave inversion in the lateral leads which seems to be similar to his previous EKG in April 2017. His first set of cardiac enzymes were normal. On presentation the patient's initial blood pressure was 200/95. He was started on aspirin and placed on heparin drip and was subsequently admitted to the hospital for further evaluation and management. He was evaluated by cardiology, troponin was cycled and he was monitored on telemetry. Telemetry and troponin did not reveal any acute myocardial infarction. He was started on lisinopril for the high blood pressure. The blood pressure came down with the treatment plan was that was achieved his symptoms resolved. Patient was cleared by cardiology to be discharged. His symptoms was thought to be secondary to hypertensive emergency. Patient will be discharged home on lisinopril to be added to his home medications regimen. Patient will be following up with his primary care physician as well as opener as an outpatient. Discharge diagnoses Hypertensive urgency Chest pain, secondary to hypertensive urgency Coronary artery disease status post stenting Hyperlipidemia Patient Condition at Discharge: Good Plan - Discharge Summary Discharge Rx Participant: No New Discharge Prescriptions: New Acetaminophen Tab [Tylenol] 650 mg PO Q6HR PRN tab PRN Reason: Fever and/ or Mild Pain Lisinopril [Zestril] 20 mg PO DAILY #30 tab Continue Atenolol [Tenormin] 50 mg PO BID Omeprazole [PriLOSEC] 20 mg PO AC-BID Isosorbide Mononitrate ER [Imdur] 60 mg PO DAILY Albuterol Inhaler [Ventolin Hfa Inhaler] 2 puff INHALATION RT-QID PRN PRN Reason: sob Fluticasone Propionate [Flonase Allergy Relief] 1 spray EA NOSTRIL BID PRN PRN Reason: Nasal Congestion Aspirin 81 mg PO DAILY chew Atorvastatin [Lipitor] 20 mg PO HS #90 tab Clopidogrel [Plavix] 75 mg PO DAILY #90 tab Nitroglycerin Sl Tabs [Nitrostat] 0.4 mg SUBLINGUAL Q5M PRN #25 tab PRN Reason: Chest Pain Discharge Medication List Atenolol [Tenormin] 50 mg PO BID 04/25/14 [History] Isosorbide Mononitrate ER [Imdur] 60 mg PO DAILY 04/25/14 [History] Omeprazole [PriLOSEC] 20 mg PO AC-BID 04/25/14 [History] Albuterol Inhaler [Ventolin Hfa Inhaler] 2 puff INHALATION RT-QID PRN 04/20/17 [ History] Fluticasone Propionate [Flonase Allergy Relief] 1 spray EA NOSTRIL BID PRN 04/20 [History] Aspirin 81 mg PO DAILY chew 04/27/17 [Rx] Atorvastatin [Lipitor] 20 mg PO HS #90 tab 04/27/17 [Rx] Clopidogrel [Plavix] 75 mg PO DAILY #90 tab 04/27/17 [Rx] Nitroglycerin Sl Tabs [Nitrostat] 0.4 mg SUBLINGUAL Q5M PRN #25 tab 04/27/17 [Rx ] Acetaminophen Tab [Tylenol] 650 mg PO Q6HR PRN tab 06/11/17 [Rx] Lisinopril [Zestril] 20 mg PO DAILY #30 tab 06/11/17 [Rx] Follow up Appointment(s)/Referral(s): Pernell De Paz MD [STAFF PHYSICIAN] - 06/22/17 9:30 am Reina Dunbar MD [Primary Care Provider] - 06/29/17 10:45 am (Sunday) Patient Instructions/Handouts: Chest Pain (DC)
--- NOTE | 2017-06-11 12:51 | P.PN ---
Subjective Progress Note Date: 06/11/17 Principal diagnosis: Hypertensive emergency This is a pleasant 72-year-old gentleman who follows with Dr. De Paz as an outpatient, he has a known history of coronary artery disease with prior PCI, hypertension, hyperlipidemia. He presented to the hospital with symptoms of chest discomfort. EKG showed sinus rhythm with T-wave inversion in the high lateral leads heard compared with prior EKG, there were some flattening of the T waves at that time. Cardiac enzymes came back to be unremarkable. Patient was quite hypertensive on arrival here and medication adjustments were made. Blood pressure this morning 150/80, heart rate in the 60s, 97% on room air. Cholesterol 140, LDL 78, HDL 34, triglycerides 141. Objective - Vital Signs Vital signs: Vital Signs Temp 97.4 F L 06/11/17 07:52 Pulse 56 L 06/11/17 07:52 Resp 16 06/11/17 07:52 BP 155/68 06/11/17 07:52 Pulse Ox 96 06/11/17 07:52 Intake & Output 06/10/17 06/11/17 06/11/17 18:59 06:59 18:59 Intake Total 496.656 240 Output Total 900 250 Balance -403.344 -250 240 Weight 79.1 kg 79.4 kg Intake: Intake, IV Titration 136.656 Amount Heparin Sod,Pork in 0.45% 136.656 NaCl 25,000 unit In 0.45 % NaCl 1 500ml.bag @ 12 UNITS/KG/HR 18.72 mls/hr IV .Q24H DEBRA Rx#: [id number] Oral 360 240 Output: Urine 900 250 Other: Voiding Method Toilet # Voids 0 - Exam PHYSICAL EXAMINATION: HEENT: [Head is atraumatic, normocephalic. Pupils equal, round. Neck is supple. There is no elevated jugular venous pressure.] HEART EXAMINATION: [Heart S1, S2 normal. No murmur or gallop heard.] CHEST EXAMINATION:[ Lungs are clear to auscultation and precussion. No chest wall tenderness is noted on palpation or with deep breathing.] ABDOMEN: [ Soft, nontender. Bowel sounds are heard. No organomegaly noted]. EXTREMITIES:[ 2+ peripheral pulses with no evidence of peripheral edema and no calf tenderness noted]. NEUROLOGIC [patient is awake, alert and oriented -3.] . - Labs CBC & Chem 7: 06/10/17 09:45 06/10/17 09:45 Labs: Abnormal Lab Results - Last 24 Hours (Table) 06/10/17 06/11/17 06/11/17 Range/Units 18:00 00:54 05:40 APTT 38.0 H 50.7 H (22.0-30.0) sec HDL Cholesterol 34 L (40-60) mg/dL 06/11/17 Range/Units 05:40 APTT 46.7 H (22.0-30.0) sec HDL Cholesterol (40-60) mg/dL Assessment and Plan Plan: Assessment and plan #1 hypertensive emergency #2 known history of coronary artery disease with a recent stent placement #3 hypertension history #4 hyperlipidemia #5 COPD Plan From cardiology's perspective, patient may be able to be discharged home on current medication regime. We will make him a follow-up appointment in the office post discharge. DNP note has been reviewed, I agree with a documented findings and plan of care. Patient was seen and examined.
[2017-06-12] MEDS ORDERED: ASPIRIN 81 MG PO SCH (09:00)
[2017-06-12] MEDS ORDERED: LISINOPRIL 20 MG TAB PO SCH (09:00)
== END 2017-06-11 12:00 | disposition home or self-care (01) ==
LOC: EC 09:22 → 6SEL 11:10
PROVIDERS: ADMIT Family Medicine; ATTEND Family Medicine
DX: I16.0 Hypertensive urgency (principal); I25.10 Atherosclerotic heart disease of native coronary artery without angina pectoris; R94.31 Abnormal electrocardiogram [ECG] [EKG]; Z95.5 Presence of coronary angioplasty implant and graft; E78.5 Hyperlipidemia, unspecified; I10 Essential (primary) hypertension; R06.02 Shortness of breath; R61 Generalized hyperhidrosis; I16.1 Hypertensive emergency; J44.9 Chronic obstructive pulmonary disease, unspecified; K21.9 Gastro-esophageal reflux disease without esophagitis; I25.2 Old myocardial infarction; M54.5 Low back pain; G89.29 Other chronic pain; H91.92 Unspecified hearing loss, left ear; F17.200 Nicotine dependence, unspecified, uncomplicated; Z79.899 Other long term (current) drug therapy; Z88.0 Allergy status to penicillin; Z91.040 Latex allergy status; Z87.442 Personal history of urinary calculi; Z85.038 Personal history of other malignant neoplasm of large intestine; Z79.82 Long term (current) use of aspirin; Z79.02 Long term (current) use of antithrombotics/antiplatelets
CPT/HCPCS: 99291 ×2; 96366 ×2; 93005 ×2; 96376; 96361; 96365; 96375; 36415; 80061; 80053; 82550; 82553; 83735; 84484; 85025; 85610; 85730 ×2; 71046; G0378 ×2; J1644 ×2; J2270

== ENCOUNTER 2018-02-05 07:30 | Observation (INO) | payer MEDICARE ==
[2018-02-05] MEDS ORDERED: NITROGLYCERIN OINT 1 INCH/GM PACKET TOPICAL STA (07:53)
[2018-02-05] MEDS ORDERED: ASPIRIN 81 MG PO STA (07:53)
[2018-02-05] MEDS ORDERED: LABETALOL 5 MG/ML VIAL MDV IVP STA (07:54)
--- NOTE | 2018-02-05 08:07 | ED ---
General Adult HPI - General Chief complaint: Chest Pain Stated complaint: Arm pain, high blood pressure Time Seen by Provider: 02/05/18 07:35 Source: patient, RN notes reviewed Mode of arrival: ambulatory Limitations: no limitations - History of Present Illness Initial comments: This is a 73-year-old male who presents emergency Department with a past medical history significant for 3 stents. Patient also has a history of high blood pressure high cholesterol and continues to smoke. Patient states over the last 3 days he's been having left arm pain is been constant. Patient states it's a burning sensation which is typical of the pain he has felt in the past prior to getting stented. Patient states she's also had intermittent chest pain that lasts about 5-10 minutes and that is also typical of his previous pain when he had stents placed. Patient denies any shortness of breath difficulty breathing. Patient denies any nausea vomiting diarrhea. Patient denies any fever chills or cough per patient denies headache patient denies numbness weakness. Patient denies radiation of the pain to the back or neck just to the left arm. Patient states currently he still having arm pain but no chest pain. - Related Data Home Medications Medication Instructions Recorded Confirmed Atenolol [Tenormin] 50 mg PO BID 04/25/14 02/05/18 Isosorbide Mononitrate ER [Imdur] 60 mg PO DAILY 04/25/14 02/05/18 Omeprazole [PriLOSEC] 20 mg PO BID 04/25/14 02/05/18 Albuterol Inhaler [Ventolin Hfa 2 puff INHALATION RT-QID PRN 02/05/18 02/05/18 Inhaler] Fluticasone Nasal [place] [Flonase 1 spray EA NOSTRIL BID 02/05/18 02/05/18 Nasal [place]] Previous Rx's Medication Instructions Recorded Aspirin 81 mg PO DAILY chew 04/27/17 Atorvastatin [Lipitor] 20 mg PO HS #90 tab 04/27/17 Clopidogrel [Plavix] 75 mg PO DAILY #90 tab 04/27/17 Nitroglycerin Sl Tabs [Nitrostat] 0.4 mg SUBLINGUAL Q5M PRN #25 tab 04/27/17 Allergies Allergy/AdvReac Type Severity Reaction Status Date / Time latex Allergy Rash/Hives/ Verified 02/05/18 08:20 blisters Penicillins Allergy Rash/Hives Verified 02/05/18 08:20 Review of Systems ROS Statement: Those systems with pertinent positive or pertinent negative responses have been documented in the HPI. ROS Other: All systems not noted in ROS Statement are negative. Past Medical History Past Medical History: Coronary Artery Disease (CAD), Cancer, Chest Pain / Angina , COPD, GERD/Reflux, Hearing Disorder / Deafness, Hyperlipidemia, Hypertension, Myocardial Infarction ([place]) Additional Past Medical History / Comment(s): [place] x 2 (), hx colon cancer, Last Myocardial Infarction Date:: 2010 History of Any Multi-Drug Resistant Organisms: None Reported Past Surgical History: Appendectomy, Bowel Resection, Heart Catheterization With Stent Additional Past Surgical History / Comment(s): bowel resection 2004, 3 cardiac stents Past Anesthesia/Blood Transfusion Reactions: No Reported Reaction Date of Last Stent Placement:: 05/2017 Past Psychological History: No Psychological Hx Reported Smoking Status: Current every day smoker - Past Family History Father Family Medical History: No Reported History Additional Family Medical History / Comment(s): Father at the age of 76yrs from "old age." Mother Family Medical History: Respiratory Disorder Additional Family Medical History / Comment(s): Mother at the age of 68yrs from pneumonia Brother(s) Family Medical History: Cancer Additional Family Medical History / Comment(s): He has one brother that is alive and is undergone CABG for coronary artery disease and has had one kidney removed. Patient has one brother who is in a motor vehicle oxidant, one brother from a myocardial infarction at age 59, and one from colon cancer at age 70. Sister(s) Family Medical History: No Reported History Additional Family Medical History / Comment(s): He has 3 sisters that are healthy. General Exam - General Exam Comments Initial Comments: GENERAL: Patient is well-developed and well-nourished. Patient is nontoxic and well- hydrated and is in mild distress. ENT: Neck is soft and supple. No significant lymphadenopathy is noted. Oropharynx is clear. Moist mucous membranes. Neck has full range of motion without eliciting any pain. EYES: The sclera were anicteric and conjunctiva were pink and moist. Extraocular movements were intact and pupils were equal round and reactive to light. Eyelids were unremarkable. PULMONARY: Unlabored respirations. Good breath sounds bilaterally. No audible rales rhonchi or wheezing was noted. CARDIOVASCULAR: There is a regular rate and rhythm without any murmurs gallops or rubs. ABDOMEN: Soft and nontender with normal bowel sounds. No palpable organomegaly was noted. There is no palpable pulsatile mass. SKIN: Skin is clear with no lesions or rashes and otherwise unremarkable. NEUROLOGIC: Patient is alert and oriented x3. Cranial nerves II through XII are grossly intact. Motor and sensory are also intact. Normal speech, volume and content. Symmetrical smile. MUSCULOSKELETAL: Normal extremities with adequate strength and full range of motion. No lower extremity swelling or edema. No calf tenderness. LYMPHATICS: No significant lymphadenopathy is noted PSYCHIATRIC: Normal psychiatric evaluation. Limitations: no limitations Course Vital Signs 02/05/18 02/05/18 02/05/18 07:37 08:12 08:15 Temperature 98.2 F Pulse Rate 53 L 50 L Pulse Rate [ 53 L Descriptive Catalog Librarian ] Respiratory 18 16 Rate Blood Pressure 193/78 186/88 O2 Sat by Pulse 99 97 Oximetry Medical Decision Making - Medical Decision Making EKG shows sinus bradycardia 52 bpm WA interval 166 dresses 92 QT interval 434 QTC is 43. Patient's EKG shows no ST segment elevation or depression or T wave abnormalities are noted. I discussed smoking cessation for greater than 3 minutes. The risks of smoking were discussed with the patient including but not limited to risks of cancer, stroke, coronary artery disease and COPD. Also discussed with the patient were multiple methods of quitting smoking. Lastly we discussed the financial costs of smoking. I started the patient on heparin because he symptoms are consistent with his previous symptoms prior to stenting. Patient continued to have arm pressure but no chest pain. I spoke with some physician and he agreed to admit the patient admitted the patient I consult cardiology continue nitro paste has been heparin on the floor. - Lab Data Result diagrams: 02/05/18 08:00 02/05/18 08:00 Lab Results 02/05/18 02/05/18 02/05/18 Range/Units 08:00 08:00 08:00 WBC 5.3 (3.8-10.6) k/uL RBC 4.73 (4.30-5.90) m/uL Hgb 14.8 (13.0-17.5) gm/dL Hct 42.6 (39.0-53.0) % MCV 90.1 (80.0-100.0) fL MCH 31.3 (25.0-35.0) pg MCHC 34.7 (31.0-37.0) g/dL RDW 14.9 (11.5-15.5) % Plt Count 126 L (150-450) k/uL Neutrophils % 64 % Lymphocytes % 26 % Monocytes % 7 % Eosinophils % 2 % Basophils % 0 % Neutrophils # 3.4 (1.3-7.7) k/uL Lymphocytes # 1.4 (1.0-4.8) k/uL Monocytes # 0.4 (0-1.0) k/uL Eosinophils # 0.1 (0-0.7) k/uL Basophils # 0.0 (0-0.2) k/uL PT (9.0-12.0) sec INR (<1.2) APTT (22.0-30.0) sec Sodium 140 (137-145) mmol/L Potassium 4.3 (3.5-5.1) mmol/L Chloride 107 (98-107) mmol/L Carbon Dioxide 24 (22-30) mmol/L Anion Gap 9 mmol/L BUN 20 (9-20) mg/dL Creatinine 0.96 (0.66-1.25) mg/dL Est GFR (CKD-EPI)AfAm 90 (>60 ml/min/1.73 sqM) Est GFR (CKD-EPI)NonAf 78 (>60 ml/min/1.73 sqM) Glucose 105 H (74-99) mg/dL Calcium 9.0 (8.4-10.2) mg/dL Magnesium 1.9 (1.6-2.3) mg/dL Total Bilirubin 0.9 (0.2-1.3) mg/dL AST 33 (17-59) U/L ALT 45 (21-72) U/L Alkaline Phosphatase 58 (38-126) U/L Total Creatine Kinase 91 (55-170) U/L CK-MB (CK-2) 0.8 (0.0-2.4) ng/mL CK-MB (CK-2) Rel Index 0.9 Troponin I <0.012 (0.000-0.034) ng/mL Total Protein 7.3 (6.3-8.2) g/dL Albumin 4.0 (3.5-5.0) g/dL 02/05/18 Range/Units 08:00 WBC (3.8-10.6) k/uL RBC (4.30-5.90) m/uL Hgb (13.0-17.5) gm/dL Hct (39.0-53.0) % MCV (80.0-100.0) fL MCH (25.0-35.0) pg MCHC (31.0-37.0) g/dL RDW (11.5-15.5) % Plt Count (150-450) k/uL Neutrophils % % Lymphocytes % % Monocytes % % Eosinophils % % Basophils % % Neutrophils # (1.3-7.7) k/uL Lymphocytes # (1.0-4.8) k/uL Monocytes # (0-1.0) k/uL Eosinophils # (0-0.7) k/uL Basophils # (0-0.2) k/uL PT 10.4 (9.0-12.0) sec INR 1.1 (<1.2) APTT 24.1 (22.0-30.0) sec Sodium (137-145) mmol/L Potassium (3.5-5.1) mmol/L Chloride (98-107) mmol/L Carbon Dioxide (22-30) mmol/L Anion Gap mmol/L BUN (9-20) mg/dL Creatinine (0.66-1.25) mg/dL Est GFR (CKD-EPI)AfAm (>60 ml/min/1.73 sqM) Est GFR (CKD-EPI)NonAf (>60 ml/min/1.73 sqM) Glucose (74-99) mg/dL Calcium (8.4-10.2) mg/dL Magnesium (1.6-2.3) mg/dL Total Bilirubin (0.2-1.3) mg/dL AST (17-59) U/L ALT (21-72) U/L Alkaline Phosphatase (38-126) U/L Total Creatine Kinase (55-170) U/L CK-MB (CK-2) (0.0-2.4) ng/mL CK-MB (CK-2) Rel Index Troponin I (0.000-0.034) ng/mL Total Protein (6.3-8.2) g/dL Albumin (3.5-5.0) g/dL Critical Care Time Critical Care Time: Yes Total Critical Care Time: 35 Disposition Clinical Impression: Unstable angina pectoris Disposition: ADMITTED IP TO THIS HOSP Referrals: Reina Dunbar MD [Primary Care Provider] - 1-2 days Time of Disposition: 09:39
[2018-02-05 08:47] LABS: Magnesium 1.9 mg/dL (1.6-2.3); Potassium 4.3 mmol/L (3.5-5.1); Total Bilirubin 0.9 mg/dL (0.2-1.3); Total Protein 7.3 g/dL (6.3-8.2)
[2018-02-05 08:51] LABS: INR 1.1 (<1.2); Partial Thromboplastin Time 24.1 sec (22.0-30.0); Prothrombin Time 10.4 sec (9.0-12.0)
[2018-02-05 08:54] LABS: Basophils % (A) 0 %; Eosinophils # (A) 0.1 k/uL (0-0.7); Eosinophils % (A) 2 %; HCT 42.6 % (39.0-53.0); HGB 14.8 gm/dL (13.0-17.5); Lymphocytes # (A) 1.4 k/uL (1.0-4.8); Lymphocytes % (A) 26 %; MCH 31.3 pg (25.0-35.0); MCHC 34.7 g/dL (31.0-37.0); MCV 90.1 fL (80.0-100.0); Mean Platelet Volume 7.1; Monocytes # (A) 0.4 k/uL (0-1.0); Monocytes % (A) 7 %; Neutrophils # (A) 3.4 k/uL (1.3-7.7); Neutrophils % (A) 64 %; Platelet Count 126 k/uL (150-450); RBC 4.73 m/uL (4.30-5.90); RDW 14.9 % (11.5-15.5); WBC 5.3 k/uL (3.8-10.6)
--- NOTE | 2018-02-05 08:56 | XR ---
EXAMINATION TYPE: XR chest 2V DATE OF EXAM: 02/05/2018 COMPARISON: 06/10/2017 HISTORY: Shortness of breath TECHNIQUE: Frontal and lateral views of the chest are obtained. FINDINGS: Scattered senescent parenchymal changes noted. No evidence for infiltrate. No evidence for atelectasis. Heart size is stable. Mediastinal structures are stable and grossly unremarkable. No evidence for hilar prominence. Degenerative changes dorsal spine. IMPRESSION: 1. No evidence for acute pulmonary disease.
[2018-02-05 09:06] LABS: Creatine Kinase 91 U/L (55-170)
[2018-02-05] MEDS ORDERED: hydrALAZINE HCL 20 MG/ML 1 ML VIAL IVP STA (09:13)
[2018-02-05 09:19] LABS: Creatine Kinase MB 0.8 ng/mL (0.0-2.4); Troponin I <0.012 ng/mL (0.000-0.034)
[2018-02-05] MEDS ORDERED: HEPARIN SODIUM,PORCINE 5,000 UNIT/ML 1 ML VIAL IV ONE (09:23)
[2018-02-05] MEDS ORDERED: HEPARIN SOD,PORK IN 0.45% NACL 25,000 UNIT in 0.45% NACL 1 500ML.BAG IV SCH (09:30)
[2018-02-05] MEDS ORDERED: NITROGLYCERIN SL TABS 0.4 MG TAB SUBLINGUAL PRN (09:39)
[2018-02-05] MEDS ORDERED: NALOXONE 0.4 MG/ML 1 ML VIAL IV PRN (11:20)
[2018-02-05] MEDS ORDERED: MORPHINE SULFATE 4 MG/ML SYRINGE IV PRN (11:20)
[2018-02-05] MEDS ORDERED: HYDROcodone/APAP 5-325MG 1 EACH TAB PO PRN (11:20)
[2018-02-05] MEDS ORDERED: IPRATROPIUM-ALBUTEROL 3 ML NEB INHALATION PRN (11:20)
--- NOTE | 2018-02-05 11:57 | P.HPIM ---
History of Present Illness H&P Date: 02/05/18 Chief Complaint: Chest pain 73-year-old male with PMH of CAD status post stents, colon cancer status post resection, COPD, hypertension, hyperlipidemia and GERD presents the ED for chest pain. Patient reports chest pain has been ongoing for 3 days. Patient states that the pain initially started off in the left arm, described as burning in nature. Patient states the pain gradually moved the left side of his chest. Patient describes the chest pain as pressure-like, 6 out of 10 in severity and occasionally radiating to the back. Patient denies any alleviating or aggravating factors. Pain was initially intermittent lasting for 5-10 minutes, occurring 3 times a day. Patient states that the pain getting progressively worse, waking up from the pain is morning which prompted him to come to the emergency room. Patient also reports taking his blood pressure today to be 200/100 at home. Patient reports complete compliance with his medications. He is on dual antiplatelet therapy. He denies any headaches, lower extremity edema, nausea, vomiting, fever, changes in urination or bowel habits. No changes in appetite or weight. He denies any PND or orthopnea. Patient doesn't endorse a chronic dry cough and occasional shortness of breath but attributes this to his COPD. In the ED, CBC and CMP were unremarkable. Coagulation panel is unremarkable. Initial troponin was less than 0.012, with EKG showing sinus bradycardia. Chest x-ray is negative for acute pulmonary disease. Patient is admitted for unstable angina, started on heparin drip and pending cardiology evaluation. Review of Systems All systems: negative Past Medical History Past Medical History: Coronary Artery Disease (CAD), Cancer, Chest Pain / Angina , COPD, GERD/Reflux, Hearing Disorder / Deafness, Hyperlipidemia, Hypertension, Myocardial Infarction ([place]) Additional Past Medical History / Comment(s): [place] x 2 (), hx colon cancer, Last Myocardial Infarction Date:: 2010 History of Any Multi-Drug Resistant Organisms: None Reported Past Surgical History: Appendectomy, Bowel Resection, Heart Catheterization With Stent Additional Past Surgical History / Comment(s): bowel resection 2004, 3 cardiac stents Past Anesthesia/Blood Transfusion Reactions: No Reported Reaction Date of Last Stent Placement:: 05/2017 Past Psychological History: No Psychological Hx Reported Smoking Status: Current every day smoker - Past Family History Father Family Medical History: No Reported History Additional Family Medical History / Comment(s): Father at the age of 76yrs from "old age." Mother Family Medical History: Respiratory Disorder Additional Family Medical History / Comment(s): Mother at the age of 68yrs from pneumonia Brother(s) Family Medical History: Cancer Additional Family Medical History / Comment(s): He has one brother that is alive and is undergone CABG for coronary artery disease and has had one kidney removed. Patient has one brother who is in a motor vehicle oxidant, one brother from a myocardial infarction at age 59, and one from colon cancer at age 70. Sister(s) Family Medical History: No Reported History Additional Family Medical History / Comment(s): He has 3 sisters that are healthy. Medications and Allergies Home Medications Medication Instructions Recorded Confirmed Type Atenolol [Tenormin] 50 mg PO BID 04/25/14 02/05/18 History Isosorbide Mononitrate ER [Imdur] 60 mg PO DAILY 04/25/14 02/05/18 History Omeprazole [PriLOSEC] 20 mg PO BID 04/25/14 02/05/18 History Aspirin 81 mg PO DAILY chew 04/27/17 02/05/18 Rx Atorvastatin [Lipitor] 20 mg PO HS #90 tab 04/27/17 02/05/18 Rx Clopidogrel [Plavix] 75 mg PO DAILY #90 tab 04/27/17 02/05/18 Rx Nitroglycerin Sl Tabs [Nitrostat] 0.4 mg SUBLINGUAL Q5M PRN #25 tab 04/27/17 Rx Albuterol Inhaler [Ventolin Hfa 2 puff INHALATION RT-QID PRN 02/05/18 02/05/18 History Inhaler] Fluticasone Nasal [place] [Flonase 1 spray EA NOSTRIL BID 02/05/18 02/05/18 History Nasal [place]] Allergies Allergy/AdvReac Type Severity Reaction Status Date / Time latex Allergy Rash/Hives/ Verified 02/05/18 08:20 blisters Penicillins Allergy Rash/Hives Verified 02/05/18 08:20 Physical Exam Vitals: Vital Signs Temp Pulse Pulse Resp BP Pulse Ox 02/05/18 10:30 16 179/92 96 02/05/18 10:00 16 96 02/05/18 09:30 16 178/91 97 02/05/18 09:00 54 L 17 186/93 97 02/05/18 08:30 50 L 15 186/88 98 02/05/18 08:15 50 L 16 186/88 97 02/05/18 08:12 53 L 02/05/18 08:00 53 L 16 187/93 98 02/05/18 07:51 55 L 15 97 02/05/18 07:37 98.2 F 53 L 18 193/78 99 Intake and Output 02/04/18 02/05/18 02/05/18 22:59 06:59 14:59 Other: Weight 76.657 kg General: [non toxic], [no distress], [appears at stated age] Derm: [warm], [dry] Head: [atraumatic], [normocephalic], [symmetric] Eyes: [EOMI], [no lid lag], [anicteric sclera] Mouth: [no lip lesion], [mucus membranes moist] Cardiovascular: [S1S2 reg], [no murmur], [positive posterior tibial pulse bilateral], Lungs: [CTA bilateral], [no rhonchi, no rales] , [no accessory muscle use] Abdominal: [soft], [ nontender to palpation], [no guarding], [no appreciable organomegaly] Ext: [no gross muscle atrophy], [no edema], [no contractures] Neuro: [ CN II-XI grossly intact], [no focal neuro deficits] Psych: [Alert], [oriented], [appropriate affect] Results CBC & Chem 7: 02/05/18 08:00 02/05/18 08:00 Labs: Abnormal Lab Results - Last 24 Hours (Table) 02/05/18 02/05/18 Range/Units 08:00 08:00 Plt Count 126 L (150-450) k/uL Glucose 105 H (74-99) mg/dL Thrombosis Risk Factor Assmnt - Choose All That Apply Any of the Below Risk Factors Present?: Yes Each Factor Represents 1 point: Abnormal pulmonary function (COPD) Other Risk Factors: Yes Each Risk Factor Represents 3 Points: Age 75 years or older Thrombosis Risk Factor Assessment Total Risk Factor Score: 4 Thrombosis Risk Factor Assessment Level: Moderate Risk Assessment and Plan Assessment: Assessment and Plan 1. Chest pain: Typical but likely due to hypertensive urgency. PCTA done in 2017 resulted in [place] in the RCA (80%). Echocardiogram in 03/2017 shows EF 55-60% without wall motion abnormalities. Troponin < 0.012 x 1, EKG showing sinus bradycardia. CXR negative. Heparin drip started in the ED. Pain management with Tylenol, [place], Nitrostat, and Morphine IV PRN. Telemetry monitoring. Trend 2 Trops/EKG to r/o ACS. FU Lipid panel, Cardiology consult. 2. CAD: Restart ASA 81 mg PO QD, Plavix 75 mg PO QD, Lipitor 20 mg PO QHS and Atenolol 50 mg PO BID. FU Cardiology 3. Hypertension: BP 179/92. Continue Atenolol 50 mg PO BID and Imdur 60 mg PO QD. Monitor vitals, adjust medications as necessary. 4. COPD: Stable. DuoNeb Q4H PRN for SOB/wheezing. 5. DVT/GI Prophylaxis: Heparin drip. Protonix 40 mg PO QAM. Patient admitted for unstable angina. Rule out acute coronary syndrome. Start on heparin drip. Follow-up cardiology regarding further intervention.
[2018-02-05] MEDS: ACETAMINOPHEN TAB 325 MG TAB PO PRN (12:06)
[2018-02-05] MEDS ORDERED: LISINOPRIL 20 MG TAB PO SCH (12:45)
--- NOTE | 2018-02-05 13:00 | P.CRDCN ---
History of Present Illness History of present illness: This is a pleasant 73-year-old male past medical history significant for coronary artery disease s/p angioplasty most recently 04/2017 with stent to proximal RCA. Prior to that he underwent stenting to the mid RCA and mid LAD. He also has hypertension, dyslipidemia, GERD, COPD and unfortunately continues to smoke. He follows with Dr. De Paz in the office. We have been asked to see him in consultation for chest pain. He states for the previous 3 days he has been experiencing a burning in his right anterior chest wall with radiation to the left arm. The symptoms are intermittent in nature with no specific aggravating or alleviating factors. Exertion does not make the symptoms come on or worse. He denies shortness of breath, dizziness, nausea, vomiting, diaphoresis or palpitations. He states he has been coughing intermittently for the last 2 weeks. He denies PND or orthopnea. He states he has been compliant with his medications. Upon arrival to the emergency department blood pressure was 193/78 with a heart rate of 53. He was given IV hydralazine and nitropaste. He denies any chest pain currently. EKG reveals sinus bradycardia with heart rate [address] or T-wave abnormalities. Chest xray negative for an acute cardiopulmonary process. Laboratory data reviewed, WBC 5.3, hgb 14.8, plt 126, sodium 140, potassium 4.3 , creatinine 0.96, cardiac enzymes negative x1, magnesium 1.9. Current cardiac medications include plavix 75 mg daily, aspirin 81 mg daily, atenolol 50 mg BID, atorvastatin 20 mg daily and imdur 60 mg daily. Most recent echocardiogram obtained 03/2017 reveals preserved LV systolic function with EF 55-60%. Most recent catheterization in April 2017 revealed left main no evidence of high-grade stenosis, LAD with a stent in the midportion with about 30% in-stent restenosis, circumflex with mid intimal disease 30-40%, RCA with significant stenosis with a patent stent in the distal portion with 30% in-stent restenosis and complex lesion in the proximal portion with stenosis of 80% as well as a 30- 40% plaque in the midportion. He underwent stenting of the proximal RCA at that time. At the time of my exam: CONSTITUTIONAL: Denies fever. Denies chills. EYES: Denies blurred vision. Denies vision changes. Denies eye pain. EARS, NOSE, MOUTH & THROAT: Denies headache. Denies sore throat. Denies ear pain. CARDIOVASCULAR: Denies chest pain. Denies shortness of breath. Denies orthopnea. Denies PND. Denies palpitations. RESPIRATORY: Denies cough. GASTROINTESTINAL: Denies abdominal pain. Denies diarrhea. Denies constipation. Denies nausea. Denies vomiting. MUSCULOSKELETAL: Denies myalgias. INTEGUMENTARY: Denies pruitis. Denies rash. NEUROLOGIC: Denies numbness. Denies tingling. Denies weakness. PSYCHIATRIC: Denies anxiety. Denies depression. ENDOCRINE: Denies fatigue. Denies weight change. Denies polydipsia. Denies polyurina. GENITOURINARY: Denies burning, hematuria or urgency with micturation. HEMATOLOGIC: Denies history of anemia. Denies bleeding. Blood pressure 159/85 heart rate 61 afebrile maintaining oxygen saturation on room air. GENERAL: This is a 73-year-old male in no apparent distress at the time of my examination. HEENT: Head is atraumatic, normocephalic. Pupils are equal, round. Sclerae anicteric. Conjunctivae are clear. Mucous membranes of the mouth are moist. Neck is supple. There is no jugular venous distention. No carotid bruit is heard. LUNGS: Trace scattered rhonchi noted throughout. No wheezes or rales. Diminished at the bases bilaterally. No chest wall tenderness is noted on palpation or with deep breathing. HEART: Regular rate and rhythm without murmurs, rubs or gallops. S1 and S2 heard. ABDOMEN: Soft, nontender. Bowel sounds are heard. No organomegaly noted. EXTREMITIES: No evidence of peripheral edema and no calf tenderness noted. VASCULAR: Radial and dorsalis pedis pulses palpated, no evidence of clubbing. NEUROLOGIC: Patient is awake, alert and oriented x3. ASSESSMENT Chest pain at rest, atypical for angina Coronary artery disease s/p recent angioplasty to proximal RCA Hypertension, uncontrolled Dyslipidemia COPD Chronic nicotine dependence, 60 pack year history PLAN Continue to obtain serial cardiac enzymes to rule out an acute coronary event. Repeat 2D echocardiogram to assess cardiac structure and function. Resume lisinopril 20 mg daily, which he takes at home already. Add hydrochlorothiazide 25 mg daily. Give dose now. Keep NPO after midnight for possible stress testing versus coronary angiography based on clinical course. Smoking cessation recommended. Thank you kindly for this consultation. Nurse Practitioner note has been reviewed, I agree with a documented findings and plan of care. Patient was seen and examined. Past Medical History Past Medical History: Coronary Artery Disease (CAD), Cancer, Chest Pain / Angina , COPD, GERD/Reflux, Hearing Disorder / Deafness, Hyperlipidemia, Hypertension, Myocardial Infarction (SD) Additional Past Medical History / Comment(s): SD x 2 (), hx colon cancer, Last Myocardial Infarction Date:: 2010 History of Any Multi-Drug Resistant Organisms: None Reported Past Surgical History: Appendectomy, Bowel Resection, Heart Catheterization With Stent Additional Past Surgical History / Comment(s): bowel resection 2004, 3 cardiac stents Past Anesthesia/Blood Transfusion Reactions: No Reported Reaction Date of Last Stent Placement:: 05/2017 Past Psychological History: No Psychological Hx Reported Smoking Status: Current every day smoker - Past Family History Father Family Medical History: No Reported History Additional Family Medical History / Comment(s): Father at the age of 76yrs from "old age." Mother Family Medical History: Respiratory Disorder Additional Family Medical History / Comment(s): Mother at the age of 68yrs from pneumonia Brother(s) Family Medical History: Cancer Additional Family Medical History / Comment(s): He has one brother that is alive and is undergone CABG for coronary artery disease and has had one kidney removed. Patient has one brother who is in a motor vehicle oxidant, one brother from a myocardial infarction at age 59, and one from colon cancer at age 70. Sister(s) Family Medical History: No Reported History Additional Family Medical History / Comment(s): He has 3 sisters that are healthy. Medications and Allergies Home Medications Medication Instructions Recorded Confirmed Type Atenolol [Tenormin] 50 mg PO BID 04/25/14 02/05/18 History Isosorbide Mononitrate ER [Imdur] 60 mg PO DAILY 04/25/14 02/05/18 History Omeprazole [PriLOSEC] 20 mg PO BID 04/25/14 02/05/18 History Aspirin 81 mg PO DAILY chew 04/27/17 02/05/18 Rx Atorvastatin [Lipitor] 20 mg PO HS #90 tab 02/16/18 11/27/18 Rx Clopidogrel [Plavix] 75 mg PO DAILY #90 tab 04/27/17 02/05/18 Rx Nitroglycerin Sl Tabs [Nitrostat] 0.4 mg SUBLINGUAL Q5M PRN #25 tab 04/27/17 Rx Albuterol Inhaler [Ventolin Hfa 2 puff INHALATION RT-QID PRN 02/05/18 02/05/18 History Inhaler] Fluticasone Nasal [place] [Flonase 1 spray EA NOSTRIL BID 02/05/18 02/05/18 History Nasal [place]] Allergies Allergy/AdvReac Type Severity Reaction Status Date / Time latex Allergy Rash/Hives/ Verified 02/05/18 08:20 blisters Penicillins Allergy Rash/Hives Verified 02/05/18 08:20 Physical Exam Vitals: Vital Signs Temp Pulse Pulse Resp BP Pulse Ox 02/05/18 10:30 16 179/92 96 02/05/18 10:00 16 96 02/05/18 09:30 16 178/91 97 02/05/18 09:00 54 L 17 186/93 97 02/05/18 08:30 50 L 15 186/88 98 02/05/18 08:15 50 L 16 186/88 97 02/05/18 08:12 53 L 02/05/18 08:00 53 L 16 187/93 98 02/05/18 07:51 55 L 15 97 02/05/18 07:37 98.2 F 53 L 18 193/78 99 Intake and Output 02/04/18 02/05/18 02/05/18 22:59 06:59 14:59 Other: Weight 76.657 kg Results 02/05/18 08:00 02/05/18 08:00 Cardiac Enzymes 02/05/18 02/05/18 Range/Units 08:00 08:00 AST 33 (17-59) U/L CK-MB (CK-2) 0.8 (0.0-2.4) ng/mL Troponin I <0.012 (0.000-0.034) ng/mL Coagulation 02/05/18 Range/Units 08:00 PT 10.4 (9.0-12.0) sec APTT 24.1 (22.0-30.0) sec CBC 02/05/18 Range/Units 08:00 WBC 5.3 (3.8-10.6) k/uL RBC 4.73 (4.30-5.90) m/uL Hgb 14.8 (13.0-17.5) gm/dL Hct 42.6 (39.0-53.0) % Plt Count 126 L (150-450) k/uL Comprehensive Metabolic Panel 02/05/18 Range/Units 08:00 Sodium 140 (137-145) mmol/L Potassium 4.3 (3.5-5.1) mmol/L Chloride 107 (98-107) mmol/L Carbon Dioxide 24 (22-30) mmol/L BUN 20 (9-20) mg/dL Creatinine 0.96 (0.66-1.25) mg/dL Glucose 105 H (74-99) mg/dL Calcium 9.0 (8.4-10.2) mg/dL AST 33 (17-59) U/L ALT 45 (21-72) U/L Alkaline Phosphatase 58 (38-126) U/L Total Protein 7.3 (6.3-8.2) g/dL Albumin 4.0 (3.5-5.0) g/dL Current Medications Generic Name Dose Route Start Last Admin Trade Name Freq PRN Reason Stop Dose Admin Acetaminophen 650 mg 02/05/18 11:20 02/05/18 12:06 Tylenol Tab PO 650 mg Q6HR PRN Administration Mild Pain or Fever > 100.5 Hydrocodone Bitart/Acetaminophen 1 each 02/05/18 11:20 [place] 5-325 PO Q4HR PRN Moderate Pain Albuterol/Ipratropium 3 ml 02/05/18 11:20 Duoneb 0.5 Mg-3 Mg/3 Ml Soln INHALATION RT-QID PRN Shortness Of Breath Or Wheezing Aspirin 81 mg 02/06/18 09:00 Aspirin PO DAILY [facility] Atenolol 50 mg 02/05/18 21:00 Tenormin PO BID [facility] Atorvastatin Calcium 20 mg 02/05/18 21:00 Lipitor PO HS [facility] Clopidogrel Bisulfate 75 mg 02/06/18 09:00 Plavix PO DAILY [facility] Heparin Sodium/Sodium Chloride 500 mls @ 18.39 mls/hr 02/05/18 09:30 10:31 25,000 unit/ Sodium Chloride IV 12 units/kg/hr .Q24H [facility] 18.39 mls/hr Administration Protocol 12 UNITS/KG/HR Isosorbide Mononitrate 60 mg 02/06/18 09:00 Imdur PO DAILY [facility] Morphine Sulfate 4 mg 02/05/18 11:20 Morphine Sulfate (Inj) IV Q4HR PRN Severe Pain Naloxone HCl 0.2 mg 02/05/18 11:20 Narcan IV Q2M PRN Opioid Reversal Nitroglycerin 1 inch 02/05/18 12:00 Nitro-Bid Oint TOPICAL 02/06/18 06:00 Q6HR [facility] Nitroglycerin 0.4 mg 02/05/18 09:39 Nitrostat SUBLINGUAL Q5M PRN Chest Pain Pantoprazole Sodium 40 mg 02/06/18 07:30 Protonix PO AC-BRKFST [facility] Intake and Output 02/04/18 02/05/18 02/05/18 22:59 06:59 14:59 Other: Weight 76.657 kg Patient Weight 02/06/18 06:59 Weight 76.657 kg 02/05/18 08:00 02/05/18 08:00
[2018-02-05] MEDS: NITROGLYCERIN OINT 1 INCH/GM PACKET TOPICAL SCH ×3 (14:10→23:34)
[2018-02-05] MEDS: HYDROCHLOROTHIAZIDE 25 MG TAB PO SCH (14:11)
[2018-02-05 15:12] LABS: Creatine Kinase 88 U/L (55-170)
[2018-02-05 15:26] LABS: Creatine Kinase MB 0.8 ng/mL (0.0-2.4); Troponin I <0.012 ng/mL (0.000-0.034)
[2018-02-05] MEDS ORDERED: ATORVASTATIN 20 MG TAB PO SCH (21:00)
[2018-02-05] MEDS: ATENOLOL 50 MG TAB PO SCH (21:15)
[2018-02-05 21:30] LABS: Creatine Kinase 80 U/L (55-170)
[2018-02-05 21:41] LABS: Creatine Kinase MB 0.8 ng/mL (0.0-2.4); Troponin I <0.012 ng/mL (0.000-0.034)
--- NOTE | 2018-02-06 07:17 | ECHOF ---
Referral Reason: MEASUREMENTS -------- HEIGHT: 172.7 cm WEIGHT: 76.7 kg BP: RVIDd: 3.4 cm (< 3.3) IVSd: 1.4 cm (0.6 - 1.1) LVIDd: 4.6 cm (3.9 - 5.3) LVPWd: 1.4 cm (0.6 - 1.1) IVSs: 1.9 cm LVIDs: 3.2 cm LVPWs: 1.6 cm LA Diam: 3.7 cm (2.7 - 3.8) LAESV Index (A-L): 21.72 ml/m Ao Diam: 3.3 cm (2.0 - 3.7) AV Cusp: 2.0 cm (1.5 - 2.6) LA Diam: 3.8 cm (2.7 - 3.8) MV EXCURSION: 18.742 mm (> 18.000) MV EF SLOPE: 61 mm/s (70 - 150) EPSS: 0.8 cm MV E [place]: 0.54 m/s MV DecT: 301 ms MV A [place]: 0.88 m/s MV E/A Ratio: 0.61 RAP: 5.00 mmHg RVSP: 27.71 mmHg FINDINGS -------- Sinus rhythm. This was a technically good study. The left ventricular size is normal. There is moderate concentric left ventricular hypertrophy. O verall left ventricular systolic function is normal with, an EF between 55 - 60 %. The right ventricle is normal in size. The left atrial size is normal. The right atrial size is normal. The aortic valve is trileaflet, and appears structurally normal. No aortic stenosis or regurgitation. The mitral valve leaflets are mildly thickened. Mild mitral regurgitation is present. Mild tricuspid regurgitation present. There is no evidence of pulmonary hypertension. The right v entricular systolic pressure, as measured by Doppler, is 27.71mmHg. Trace/mild (physiologic) pulmonic regurgitation. The aortic root size is normal. There is no pericardial effusion. CONCLUSIONS -------- 1. Sinus rhythm. 2. The left ventricular size is normal. 3. There is moderate concentric left ventricular hypertrophy. 4. Overall left ventricular systolic function is normal with, an EF between 55 - 60 %. 5. The left atrial size is normal. 6. The aortic valve is trileaflet, and appears structurally normal. No aortic stenosis or regurgitati on. 7. The mitral valve leaflets are mildly thickened. 8. Mild mitral regurgitation is present. 9. Mild tricuspid regurgitation present. 10. There is no evidence of pulmonary hypertension. 11. Trace/mild (physiologic) pulmonic regurgitation. 12. The aortic root size is normal. 13. There is no pericardial effusion. TELETYPE OR VARITYPE KEYBOARD OPERATOR: Cinthia Ryan RDCS
[2018-02-06] MEDS ORDERED: PANTOPRAZOLE 40 MG TABLET PO SCH (07:30)
[2018-02-06 07:43] VITALS: RESP 18
[2018-02-06] MEDS ORDERED: REGADENOSON 0.4 MG/5 ML SYRINGE IV ONE (08:35)
[2018-02-06] MEDS ORDERED: CAFFEINE CITRATE 60 MG/3 ML VIAL IV PRN (08:35)
--- NOTE | 2018-02-06 08:54 | PN ---
PROGRESS NOTE Mr. Bain is a 73-year-old male with a history of coronary artery disease, hypertension, hyperlipidemia, who presented with symptoms of chest discomfort and back discomfort as well as elevated blood pressure. He is doing well this morning. He has no further chest discomfort. His blood pressure was mildly elevated this morning. His breathing is stable. No dizziness. No palpitation. No syncope. He continued be on aspirin once a day, Plavix 75 mg daily, lisinopril 20 mg daily, hydrochlorothiazide 25 mg daily, isosorbide mononitrate 60 mg daily in addition to IV heparin. PHYSICAL EXAMINATION: Blood pressure 180/80, earlier it was in the 140s. LUNGS: Clear. HEART: Regular rate and rhythm, S1, S2. No S3 with a systolic ejection murmur, no diastolic murmur. ABDOMEN: Soft, nontender. EXTREMITIES: No edema. LAB DATA: Revealed troponin less than 0.012 for 3 samples. IMPRESSION: 1. Chest discomfort, has atypical features for ischemic heart disease. 2. History of coronary artery disease, status post percutaneous revascularization. 3. Hypertension. 4. Hyperlipidemia. RECOMMENDATION: I will stop the IV heparin. I will increase the dose of his lisinopril. Proceed with a myocardial perfusion imaging to assess his status and guide his treatment. He had an echocardiogram that revealed a preserved systolic function. Depending on the results of his stress testing, further recommendation will be made. MMODL / IJN: [id number] /
[2018-02-06] MEDS ORDERED: ISOSORBIDE MONONITRATE ER 60 MG TAB.ER.24H PO SCH (09:00)
[2018-02-06] MEDS ORDERED: LISINOPRIL 20 MG TAB PO SCH (09:00)
[2018-02-06] MEDS ORDERED: CLOPIDOGREL 75 MG TAB PO SCH (09:00)
[2018-02-06] MEDS ORDERED: ASPIRIN 325 MG TAB PO SCH (09:00)
[2018-02-06] MEDS ORDERED: ASPIRIN 81 MG PO SCH (09:00)
[2018-02-06] MEDS: ACETAMINOPHEN TAB 325 MG TAB PO PRN (09:27)
--- NOTE | 2018-02-06 10:30 | P.PN ---
Subjective Progress Note Date: 02/06/18 Principal diagnosis: Chest pain Patient was seen and examined. No acute events overnight. Patient reports this chest pain and left arm pain have completely resolved. He denies any shortness of breath, lightheadedness or palpitations. Objective - Vital Signs Vital signs: Vital Signs Temp 97.9 F 02/06/18 07:30 Pulse 56 L 02/06/18 07:30 Resp 18 02/06/18 07:30 BP 180/82 02/06/18 07:30 Pulse Ox 99 02/06/18 07:30 Intake & Output 02/05/18 02/06/18 02/06/18 18:59 06:59 18:59 Intake Total 328.423 764.067 Balance 328.423 764.067 Weight 77.8 kg Intake: Intake, IV Titration 128.423 164.067 Amount Heparin Sod,Pork in 0.45% 128.423 164.067 NaCl 25,000 unit In 0.45 % NaCl 1 500ml.bag @ 12 UNITS/KG/HR 18.39 mls/hr IV .Q24H [facility] Rx#: [id number] Oral 200 600 Other: # Voids 1 1 - Exam General: [non toxic], [no distress], [appears at stated age] Derm: [warm], [dry] Head: [atraumatic], [normocephalic], [symmetric] Eyes: [EOMI], [no lid lag], [anicteric sclera] Mouth: [no lip lesion], [mucus membranes moist] Cardiovascular: [S1S2 reg], [no murmur], [positive DP pulse bilateral] Lungs: [CTA bilateral], [no rhonchi, no rales] , [no accessory muscle use] Abdominal: [soft], [ nontender to palpation], [no guarding], [no appreciable organomegaly] Ext: [no gross muscle atrophy], [no edema], [no contractures] Neuro: [no focal neuro deficits] Psych: [Alert], [oriented], [appropriate affect] - Labs CBC & Chem 7: 02/05/18 08:00 02/05/18 08:00 Labs: Abnormal Lab Results - Last 24 Hours (Table) 02/05/18 02/05/18 Range/Units 16:08 22:47 APTT 41.4 H 43.8 H (22.0-30.0) sec Assessment and Plan Assessment: Assessment and Plan 1. Chest pain: Typical but likely due to hypertensive urgency. PCTA done in 2017 resulted in [place] in the RCA (80%). Echocardiogram in 03/2017 shows EF 55-60% without wall motion abnormalities. Troponin < 0.012 x 3, EKG showing sinus bradycardia. CXR negative. Heparin drip started in the ED and DCd by Cardiology. Pain management with Tylenol, [place], Nitrostat, and Morphine IV PRN. Telemetry monitoring. Echo shows EF 55-60% with moderate LVH and no regional wall motion abnormalities. FU Lipid panel, Cardiology consult, stress test. 2. CAD: Continue ASA 81 mg PO QD, Plavix 75 mg PO QD, Lipitor 20 mg PO QHS and Atenolol 50 mg PO BID. FU Cardiology 3. Hypertension: BP 180/82. Continue Atenolol 50 mg PO BID and Imdur 60 mg PO QD. Monitor vitals, adjust medications as necessary. 4. COPD: Stable. DuoNeb Q4H PRN for SOB/wheezing. 5. DVT/GI Prophylaxis: SCD boots. Protonix 40 mg PO QAM. Patient admitted for unstable angina. ACS ruled out. Heparin drip stopped by Cardiology, for stress test. Follow-up cardiology regarding further intervention.
[2018-02-06 10:40] LABS: Cholesterol 143 mg/dL (<200); HDL Cholesterol 42 mg/dL (40-60); LDL Cholesterol,Calculated 74 mg/dL (0-99); Triglycerides 136 mg/dL (<150)
[2018-02-06 11:46] VITALS: BP 185/73; PULSE 50; TEMP 97.5
--- NOTE | 2018-02-06 13:06 | EST ---
EXERCISE STRESS DATE OF SERVICE: 02/06/2018 AGE: 73 SEX: Male HT: 5'8" WT: 171 pounds PROTOCOL: Lexiscan Cardiolite STAGE: DURATION OF EXERCISE: HEART RATE REST: 59 BLOOD PRESSURE REST: 149/77 MAXIMUM HEART RATE ACHIEVED: 82 MAXIMUM BLOOD PRESSURE: 178/77 85% MPHR: 123 100% MPHR: 145 METS: INDICATIONS: Unstable angina. CLINICAL INFORMATION: Baseline rhythm is sinus mechanism, rate 59, normal axis, intervals. Normal electrocardiogram. Baseline blood pressure 149/77 mmHg. Patient received an injection of Lexiscan. Electrocardiographic monitoring revealed no evidence of diagnostic ischemic ST deviation. Cardiolite was injected per protocol. CONCLUSION: 1. Nondiagnostic electrocardiograph stress testing. 2. Nuclear images will be reported separately. MMODL / IJN: [id number] /
[2018-02-06] MEDS: ATENOLOL 50 MG TAB PO SCH (13:32)
[2018-02-06] MEDS: HYDROCHLOROTHIAZIDE 25 MG TAB PO SCH (13:32)
--- NOTE | 2018-02-06 13:46 | NM ---
EXAMINATION TYPE: NM stress lexiscan cardiolite DATE OF EXAM: 02/06/2018 COMPARISON: 01/22/2012 HISTORY: 73-year-old male with chest pain, difficulty breathing, palpitations, angina, family history , hypercholesterolemia, and 2 prior MIs. 60 pack year history of smoking. TECHNIQUE: After the intravenous administration of 10.36 mCi Tc 99m Sestamibi - Cardiolite resting S PECT images acquired 45 minutes post injection. The patient received 0.4mg Lexiscan, 24.6 mCi Tc 99m Sestamibi - Stress images obtained [address] injection FINDINGS: Review of stress and rest SPECT images small area of decreased perfusion along the mid lateral wall. While the polar maps indicate some reversibility in this region, this is not well appreciated on the SPECT images. Gated analysis shows estimated left ventricular ejection fraction of 52 %. TID is calc ulated at 0.93, within normal limits. IMPRESSION: 1. Mildly diminished LVEF of 52%. 2. 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 Note that computer-genera sesar polar maps suggest some reversibility in this region. This is not confirmed by the SPECT images. Further clinical correlation recommended.
== END 2018-02-06 15:45 | disposition home or self-care (01) ==
LOC: EC 07:30 → 1SOBS 09:56
PROVIDERS: ADMIT Family Medicine; ATTEND Family Medicine
DX: R07.89 Other chest pain (principal); M79.602 Pain in left arm; I16.0 Hypertensive urgency; I10 Essential (primary) hypertension; I25.10 Atherosclerotic heart disease of native coronary artery without angina pectoris; K21.9 Gastro-esophageal reflux disease without esophagitis; J44.9 Chronic obstructive pulmonary disease, unspecified; R00.1 Bradycardia, unspecified; F17.210 Nicotine dependence, cigarettes, uncomplicated; I25.2 Old myocardial infarction; H91.90 Unspecified hearing loss, unspecified ear; E78.5 Hyperlipidemia, unspecified; Z88.0 Allergy status to penicillin; Z91.040 Latex allergy status; Z79.82 Long term (current) use of aspirin; Z79.02 Long term (current) use of antithrombotics/antiplatelets; Z79.899 Other long term (current) drug therapy; Z95.5 Presence of coronary angioplasty implant and graft; Z90.49 Acquired absence of other specified parts of digestive tract; Z85.038 Personal history of other malignant neoplasm of large intestine; Z83.6 Family history of other diseases of the respiratory system; Z82.49 Family history of ischemic heart disease and other diseases of the circulatory system; Z80.0 Family history of malignant neoplasm of digestive organs; Z84.1 Family history of disorders of kidney and ureter
CPT/HCPCS: 96376; 96365; 96366; 96375; 99291; 36415; 93005; 93017; 93306; 80061; 80053; 82550; 82553; 83735; 84484; 85025; 85610; 85730; 71046; 78452; G0378 ×2; A9500; J0360; J1644 ×2; J2785

== ENCOUNTER 2018-02-10 10:52 | Emergency (ER) | payer MEDICARE ==
[2018-02-10] MEDS ORDERED: SODIUM CHLORIDE 0.9% 1,000 ML IV STA (11:33)
--- NOTE | 2018-02-10 11:39 | ED ---
General Adult HPI - General Chief complaint: Dizziness Stated complaint: Low BP, nausea, dizziness Source: patient Mode of arrival: wheelchair Limitations: no limitations - History of Present Illness Initial comments: Dictation was produced using [employer] formerly [employer] dictation software. please excuse any grammatical, word or spelling errors. Chief Complaint: 73-year-old male with past medical history of coronary artery disease, cancer, COPD, dyslipidemia, hypertension presents with dizziness. History of Present Illness: Patient was recently admitted to this hospital were he was admitted for elevated blood pressure and chest pain. Patient was kept in the hospital for approximately 3 days. Patient was started on heparin drip when he was initially evaluated emergency department. Patient received a stress tests. Which is found to be negative. ACS was ruled out. Patient had a ejection fraction seen a 52%. There were no new acute findings seen on the cardiac stress test. Patient was admitted lisinopril and hydrochlorothiazide for blood pressure control and was discharge. Patient states that today he was sitting in a chair he got up and walked several steps. He then became very dizzy. He checked his blood pressure was found to be low. Currently he feels okay. States it feels better than when this event happened. The ROS documented in this emergency department record has been reviewed and confirmed by me. Those systems with pertinent positive or negative responses have been documented in the HPI. All other systems are other negative and/or noncontributory. - Related Data Home Medications Medication Instructions Recorded Confirmed Atenolol [Tenormin] 50 mg PO BID 04/25/14 02/05/18 Isosorbide Mononitrate ER [Imdur] 60 mg PO DAILY 04/25/14 02/05/18 Omeprazole [PriLOSEC] 20 mg PO BID 04/25/14 02/05/18 Albuterol Inhaler [Ventolin Hfa 2 puff INHALATION RT-QID PRN 02/05/18 02/05/18 Inhaler] Fluticasone Nasal [place] [Flonase 1 spray EA NOSTRIL BID 02/05/18 02/05/18 Nasal [place]] Previous Rx's Medication Instructions Recorded Aspirin 81 mg PO DAILY chew 04/27/17 Atorvastatin [Lipitor] 20 mg PO HS #90 tab 04/27/17 Clopidogrel [Plavix] 75 mg PO DAILY #90 tab 02/16/18 Hydrochlorothiazide [Hydrodiuril] 25 mg PO DAILY #30 tab 02/06/18 Lisinopril [Zestril] 20 mg PO BID #60 tab 02/06/18 Nitroglycerin Sl Tabs [Nitrostat] 0.4 mg SUBLINGUAL Q5M PRN #25 tab 02/06/18 Allergies Allergy/AdvReac Type Severity Reaction Status Date / Time latex Allergy Rash/Hives/ Verified 02/10/18 11:01 blisters Penicillins Allergy Rash/Hives Verified 02/10/18 11:01 Review of Systems ROS Statement: Those systems with pertinent positive or pertinent negative responses have been documented in the HPI. ROS Other: All systems not noted in ROS Statement are negative. Past Medical History Past Medical History: Coronary Artery Disease (CAD), Cancer, Chest Pain / Angina , COPD, GERD/Reflux, Hearing Disorder / Deafness, Hyperlipidemia, Hypertension, Myocardial Infarction ([place]) Additional Past Medical History / Comment(s): [place] x 2 (), colon cancer with surgery, kidney stone, chronic low back pain, [place] bilaterally with R ear worse, tinnitis L ear. Last Myocardial Infarction Date:: 2010 History of Any Multi-Drug Resistant Organisms: None Reported Past Surgical History: Appendectomy, Bowel Resection, Heart Catheterization With Stent Additional Past Surgical History / Comment(s): bowel resection 2004, colonoscopy , 3 cardiac stents Past Anesthesia/Blood Transfusion Reactions: No Reported Reaction Date of Last Stent Placement:: 04/26/17 Past Psychological History: No Psychological Hx Reported Smoking Status: Current every day smoker - Past Family History Father Family Medical History: No Reported History Additional Family Medical History / Comment(s): Father at the age of 76yrs from "old age." Mother Family Medical History: Pneumonia Additional Family Medical History / Comment(s): Mother of pneumonia at the age of 68yrs. Brother(s) Family Medical History: Cancer Additional Family Medical History / Comment(s): He has one brother that is alive and is undergone CABG for coronary artery disease and has had one kidney removed. Patient has one brother who is in a motor vehicle oxidant, one brother from a myocardial infarction at age 59, and one from colon cancer at age 70. Sister(s) Family Medical History: No Reported History Additional Family Medical History / Comment(s): He has 3 sisters that are healthy. General Exam - General Exam Comments Initial Comments: PHYSICAL EXAM: General Impression: Alert and oriented x3, not in acute distress HEENT: Normocephalic atraumatic, extra-ocular movements intact, pupils equal and reactive to light bilaterally, mucous membranes moist. Cardiovascular: Heart regular rate and rhythm, S1&S2 audible, no murmurs, rubs or gallops Chest: Lungs clear to auscultation bilaterally, no rhonchi, no wheeze, no rales Abdomen: Bowel sounds present, abdomen soft, non-tender, non-distended, no organomegaly Musculoskeletal: Pulses present and equal in all extremities, no peripheral edema Motor: Power 5/5 bilaterally, no focal deficits noted Neurological: CN II-XII grossly intact, no focal motor or sensory deficits noted Skin: Intact with no visualized rashes Psych: Normal affect and mood Limitations: no limitations Course Vital Signs 02/10/18 02/10/18 02/10/18 10:57 12:05 12:40 Temperature 97.5 F L Pulse Rate 58 L 55 L 56 L Pulse Rate [ Sitting] Pulse Rate [ Standing] Pulse Rate [ Supine] Respiratory 16 18 18 Rate Blood Pressure 91/54 88/52 104/63 Blood Pressure [Sitting] Blood Pressure [Standing] Blood Pressure [Supine] O2 Sat by Pulse 97 98 99 Oximetry 02/10/18 13:16 Temperature Pulse Rate Pulse Rate [ 60 Sitting] Pulse Rate [ 62 Standing] Pulse Rate [ 59 L Supine] Respiratory Rate Blood Pressure Blood Pressure 118/74 [Sitting] Blood Pressure 116/65 [Standing] Blood Pressure 110/62 [Supine] O2 Sat by Pulse Oximetry Medical Decision Making - Medical Decision Making ED course: 73-year-old male presents with brief episode of presyncope. Vital signs upon arrival shows blood pressure 91/54, heart rate 50, rest of vital signs within acceptable limits. Medications were reviewed. Patient is lisinopril, hydrochlorothiazide, atenolol, isosorbide mononitrate. Chart review was performed. Patient had echo and stress test performed recently without any significant result.Laboratory evaluation obtained. CBC, BMP were ordered. Patient does have evidence to suggest dehydration with elevated renal markers. Urinalysis negative. Patient states he hasn't been drinking water as much as he should. Chest x-ray shows no acute processes. At this point patient 's episode of presyncope was likely secondary to dehydration. Patient told to stop taking his hydrochlorothiazide. He is also told to skip tonight's lisinopril. Patient has a blood pressure cuff at home. They're told to check blood pressures every 4 hours and to return to the emergency department if his systolic blood pressures below 100 where she feels symptomatic. Patient given 1 L of intravenous fluids. Orthostatic vital signs are obtained showing normal blood pressure. Patient otherwise feels well. Patient understandable and agreeable to plan. EKG Interpretation: A 12 lead EKG was obtained. It was interpreted by myself and attending physician. There is a P wave before every QRS complex. Rate is 54. Rhythm is sinus bradycardia, CO interval 166, QS 90, QTc 45. QT is not prolonged. No ST segment depression or elevation. . Overall, this EKG is unremarkable - Lab Data Result diagrams: 02/10/18 11:53 02/10/18 11:53 Lab Results 02/10/18 02/10/18 02/10/18 Range/Units 11:53 11:53 13:40 WBC 7.6 (3.8-10.6) k/uL RBC 5.11 (4.30-5.90) m/uL Hgb 15.6 (13.0-17.5) gm/dL Hct 45.7 (39.0-53.0) % MCV 89.3 (80.0-100.0) fL MCH 30.4 (25.0-35.0) pg MCHC 34.1 (31.0-37.0) g/dL RDW 14.9 (11.5-15.5) % Plt Count 149 L (150-450) k/uL Neutrophils % 65 % Lymphocytes % 24 % Monocytes % 8 % Eosinophils % 2 % Basophils % 0 % Neutrophils # 4.9 (1.3-7.7) k/uL Lymphocytes # 1.8 (1.0-4.8) k/uL Monocytes # 0.6 (0-1.0) k/uL Eosinophils # 0.2 (0-0.7) k/uL Basophils # 0.0 (0-0.2) k/uL Sodium 138 (137-145) mmol/L Potassium 4.2 (3.5-5.1) mmol/L Chloride 103 (98-107) mmol/L Carbon Dioxide 25 (22-30) mmol/L Anion Gap 10 mmol/L BUN 38 H (9-20) mg/dL Creatinine 1.54 H (0.66-1.25) mg/dL Est GFR (CKD-EPI)AfAm 50 (>60 ml/min/1.73 sqM) Est GFR (CKD-EPI)NonAf 44 (>60 ml/min/1.73 sqM) Glucose 128 H (74-99) mg/dL Calcium 9.5 (8.4-10.2) mg/dL Urine Color Light Yellow Urine Appearance Clear (Clear) Urine pH 6.0 (5.0-8.0) Ur Specific [place] 1.004 (1.001-1.035) Urine Protein Negative (Negative) Urine Glucose (UA) Negative (Negative) Urine Ketones Negative (Negative) Urine Blood Negative (Negative) Urine Nitrite Negative (Negative) Urine Bilirubin Negative (Negative) Urine Urobilinogen <2.0 (<2.0) mg/dL Ur Leukocyte Esterase Negative (Negative) Disposition Clinical Impression: Pre-syncope Disposition: HOME SELF-CARE Condition: Good Instructions: Dizziness (ED) Additional Instructions: stop hydrochlorothiazide hold lisinopril tonight check blood pressure every 4 hours at home return to ED if blood pressure is low adequate hydration Is patient prescribed a controlled substance at d/c from ED?: No Referrals: Reina Dunbar MD [Primary Care Provider] - 1-2 days Pernell De Paz MD [STAFF PHYSICIAN] - 1-2 days Time of Disposition: 14:12
[2018-02-10 12:10] LABS: Basophils % (A) 0 %; Eosinophils # (A) 0.2 k/uL (0-0.7); Eosinophils % (A) 2 %; HCT 45.7 % (39.0-53.0); HGB 15.6 gm/dL (13.0-17.5); Lymphocytes # (A) 1.8 k/uL (1.0-4.8); Lymphocytes % (A) 24 %; MCH 30.4 pg (25.0-35.0); MCHC 34.1 g/dL (31.0-37.0); MCV 89.3 fL (80.0-100.0); Monocytes # (A) 0.6 k/uL (0-1.0); Monocytes % (A) 8 %; Neutrophils # (A) 4.9 k/uL (1.3-7.7); Neutrophils % (A) 65 %; Platelet Count 149 k/uL (150-450); RBC 5.11 m/uL (4.30-5.90); RDW 14.9 % (11.5-15.5); WBC 7.6 k/uL (3.8-10.6)
[2018-02-10 12:28] LABS: Calcium 9.5 mg/dL (8.4-10.2); Potassium 4.2 mmol/L (3.5-5.1)
--- NOTE | 2018-02-10 12:34 | XR ---
EXAMINATION TYPE: XR chest 2V DATE OF EXAM: 02/10/2018 COMPARISON: 02/05/2018 HISTORY: Shortness of breath TECHNIQUE: Frontal and lateral views of the chest are obtained. FINDINGS: Scattered senescent parenchymal changes noted. Hyperinflation compatible with COPD. No evidence for infiltrate. No evidence for atelectasis. Heart size is stable. Mediastinal structures are stable and grossly unremarkable. No evidence for hilar prominence. Degenerative changes dorsal spine. IMPRESSION: 1. No evidence for acute pulmonary disease.
[2018-02-10 12:55] VITALS: RESP 18
[2018-02-10 13:52] LABS: Appearance,Urine Clear (Clear); Bilirubin,Urine Negative (Negative); Blood,Urine Negative (Negative); Color,Urine Light Yellow; Glucose,Urine (UA) Negative (Negative); Ketones,Urine Negative (Negative); Leukocyte Esterase,Urine Negative (Negative); Nitrite,Urine Negative (Negative); Protein,Urine Negative (Negative); Specific Gravity,Urine 1.004 (1.001-1.035); Urobilinogen,Urine <2.0 mg/dL (<2.0)
[2018-02-10 14:31] VITALS: BP 117/68; PULSE 58; TEMP 98
== END 2018-02-10 14:25 | disposition home or self-care (01) ==
LOC: EC 10:52
DX: R55 Syncope and collapse (principal); R42 Dizziness and giddiness; R07.9 Chest pain, unspecified; I25.119 Atherosclerotic heart disease of native coronary artery with unspecified angina pectoris; J44.9 Chronic obstructive pulmonary disease, unspecified; K21.9 Gastro-esophageal reflux disease without esophagitis; I10 Essential (primary) hypertension; I25.2 Old myocardial infarction; F17.200 Nicotine dependence, unspecified, uncomplicated; Z79.899 Other long term (current) drug therapy; Z88.0 Allergy status to penicillin; Z91.040 Latex allergy status; Z95.5 Presence of coronary angioplasty implant and graft
CPT/HCPCS: 36415; 71046; 80048; 81003; 85025; 93005; 96360; 99284

== ENCOUNTER 2018-03-03 05:34 | Emergency (ER) | payer MEDICARE ==
[2018-03-03] MEDS ORDERED: OFLOXACIN 0.3% OPHTH DROPS 5 ML BOTTLE RIGHT EAR STA (07:17)
--- NOTE | 2018-03-03 07:26 | ED ---
General Adult HPI - General Chief complaint: ENT Stated complaint: Ear Ache Time Seen by Provider: 03/03/18 07:05 Source: family, RN notes reviewed Mode of arrival: ambulatory Limitations: no limitations - History of Present Illness Initial comments: Patient 73-year-old male presented to the emergency room today with a chief complaint of increased pain to the right ear. Patient does admit that he saw the family doctor in the week and was advised that there was wax in the ear and canal. He is advised to use [id number] medication. He states he's been using this but the past 2 days had some swelling and increased pain to the right ear. Patient denies any other complaints or symptoms. Patient denies any recent fever, chills, shortness of breath, chest pain, back pain, abdominal pain , nausea or vomiting, numbness or tingling, headaches or visual changes, or any other complaints. - Related Data Home Medications Medication Instructions Recorded Confirmed Atenolol [Tenormin] 50 mg PO BID 04/25/14 02/05/18 Isosorbide Mononitrate ER [Imdur] 60 mg PO DAILY 04/25/14 02/05/18 Omeprazole [PriLOSEC] 20 mg PO BID 04/25/14 02/05/18 Albuterol Inhaler [Ventolin Hfa 2 puff INHALATION RT-QID PRN 02/05/18 02/05/18 Inhaler] Fluticasone Nasal [place] [Flonase 1 spray EA NOSTRIL BID 02/05/18 02/05/18 Nasal [place]] Previous Rx's Medication Instructions Recorded Aspirin 81 mg PO DAILY chew 04/27/17 Atorvastatin [Lipitor] 20 mg PO HS #90 tab 04/27/17 Clopidogrel [Plavix] 75 mg PO DAILY #90 tab 04/27/17 Hydrochlorothiazide [Hydrodiuril] 25 mg PO DAILY #30 tab 02/06/18 Lisinopril [Zestril] 20 mg PO BID #60 tab 02/06/18 Nitroglycerin Sl Tabs [Nitrostat] 0.4 mg SUBLINGUAL Q5M PRN #25 tab 02/06/18 Azithromycin [Zithromax Z-pack] 0 mg PO DIRECTED #6 tab 03/03/18 Ofloxacin 0.3% Otic Soln [Floxin 5 drops RIGHT EAR BID 7 Days ml 03/03/18 0.3% Otic Soln] Allergies Allergy/AdvReac Type Severity Reaction Status Date / Time latex Allergy Rash/Hives/ Verified 03/03/18 06:01 blisters Penicillins Allergy Rash/Hives Verified 03/03/18 06:01 Review of Systems ROS Statement: Those systems with pertinent positive or pertinent negative responses have been documented in the HPI. ROS Other: All systems not noted in ROS Statement are negative. Past Medical History Past Medical History: Coronary Artery Disease (CAD), Cancer, Chest Pain / Angina , COPD, GERD/Reflux, Hearing Disorder / Deafness, Hyperlipidemia, Hypertension, Myocardial Infarction ([place]) Additional Past Medical History / Comment(s): [place] x 2 (), colon cancer with surgery, kidney stone, chronic low back pain, [place] bilaterally with R ear worse, tinnitis L ear. Last Myocardial Infarction Date:: 2010 History of Any Multi-Drug Resistant Organisms: None Reported Past Surgical History: Appendectomy, Bowel Resection, Heart Catheterization With Stent Additional Past Surgical History / Comment(s): bowel resection 2004, colonoscopy , 3 cardiac stents Past Anesthesia/Blood Transfusion Reactions: No Reported Reaction Date of Last Stent Placement:: 04/26/17 Past Psychological History: No Psychological Hx Reported Smoking Status: Current every day smoker Past Alcohol Use History: None Reported Past Drug Use History: None Reported - Past Family History Father Family Medical History: No Reported History Additional Family Medical History / Comment(s): Father at the age of 76yrs from "old age." Mother Family Medical History: Pneumonia Additional Family Medical History / Comment(s): Mother of pneumonia at the age of 68yrs. Brother(s) Family Medical History: Cancer Additional Family Medical History / Comment(s): He has one brother that is alive and is undergone CABG for coronary artery disease and has had one kidney removed. Patient has one brother who is in a motor vehicle oxidant, one brother from a myocardial infarction at age 59, and one from colon cancer at age 70. Sister(s) Family Medical History: No Reported History Additional Family Medical History / Comment(s): He has 3 sisters that are healthy. General Exam - General Exam Comments Initial Comments: General: The patient is awake and alert, in no distress, and does not appear acutely ill. Eye: There is normal conjunctiva bilaterally. No signs of icterus. Ears, nose, mouth and throat: There are moist mucous membranes and no oral lesions. Patient does have increased swelling to the right ear canal unable to see TM. There is some white drainage. Neck: The neck is supple Cardiovascular: There is a regular rate and rhythm. No murmur, rub or gallop is appreciated. Respiratory: Lungs are clear to auscultation, respirations are non-labored, breath sounds are equal. No wheezes, stridor, rales, or rhonchi. Musculoskeletal: Normal ROM, no tenderness. Neurological: A&O x 3. CN II-XII intact, There are no obvious motor or sensory deficits. Coordination appears grossly intact. Speech is normal. Skin: Skin is warm and dry and no rashes or lesions are noted. Psychiatric: Cooperative, appropriate mood & affect, normal judgment. Limitations: no limitations Course Vital Signs 03/03/18 05:59 Temperature 98.6 F Pulse Rate 71 Respiratory 18 Rate Blood Pressure 156/78 O2 Sat by Pulse 98 Oximetry Medical Decision Making - Medical Decision Making 73-year-old male presented to the emergency room today with a chief complaint of right-sided ear pain. saw family doctor earlier in the week for cerumen impaction. Has been using D proximal drops [id number]. Patient states she's had episodes similar this in the past presented up with ear infections afterwards. Patient will be started on both oral and in about eyedrops. He is advised on up the family physician over the next 2 days. Disposition Clinical Impression: Otitis externa Disposition: HOME SELF-CARE Condition: Good Instructions: Earache (ED) Additional Instructions: Please use medication as discussed. Please follow-up with family doctor in the next 2 days of symptoms have not improved. Please return to emergency room if the symptoms increase or worsen or for any other concerns. Prescriptions: Azithromycin [Zithromax Z-pack] 0 mg PO DIRECTED #6 tab Ofloxacin 0.3% Otic Soln [Floxin 0.3% Otic Soln] 5 drops RIGHT EAR BID 7 Days ml Is patient prescribed a controlled substance at d/c from ED?: No Referrals: Reina Dunbar MD [Primary Care Provider] - 1-2 days Time of Disposition: 08:29
[2018-03-03 08:40] VITALS: BP 142/76; PULSE 78; RESP 20; TEMP 98
== END 2018-03-03 08:39 | disposition home or self-care (01) ==
LOC: EC 05:34
DX: H60.91 Unspecified otitis externa, right ear (principal); J44.9 Chronic obstructive pulmonary disease, unspecified; I25.119 Atherosclerotic heart disease of native coronary artery with unspecified angina pectoris; K21.9 Gastro-esophageal reflux disease without esophagitis; H91.93 Unspecified hearing loss, bilateral; I10 Essential (primary) hypertension; I25.2 Old myocardial infarction; F17.200 Nicotine dependence, unspecified, uncomplicated; Z79.899 Other long term (current) drug therapy; Z88.0 Allergy status to penicillin; Z91.040 Latex allergy status
CPT/HCPCS: 99282

== ENCOUNTER 2018-04-02 11:40 | Observation (INO) | payer MEDICARE ==
[2018-04-02] MEDS ORDERED: ASPIRIN 81 MG PO STA (11:55)
[2018-04-02] MEDS ORDERED: NITROGLYCERIN SL TABS 0.4 MG TAB SUBLINGUAL STA ×3 (11:55)
[2018-04-02] MEDS ORDERED: NITROGLYCERIN OINT 1 INCH/GM PACKET TOPICAL STA (11:55)
--- NOTE | 2018-04-02 12:03 | ED ---
General Adult HPI - General Chief complaint: Chest Pain Stated complaint: chest pain Time Seen by Provider: 04/02/18 11:49 Source: patient, RN notes reviewed Mode of arrival: wheelchair Limitations: no limitations - History of Present Illness Initial comments: Patient is a pleasant 73-year-old male presenting to the emergency Department with complaints of chest discomfort. Onset of symptoms was around 2 AM. Discomfort is currently rated 7/10. There is radiation to left arm. Patient does have history of similar symptoms previously associated with heart disease. Patient did need previous stents. Discomfort feels like tight or pressure. There is some associated mild dyspnea. Patient had mild nausea earlier however that has resolved. No diaphoresis. Systolic Blood pressure was 200 this morning. - Related Data Home Medications Medication Instructions Recorded Confirmed Atenolol [Tenormin] 50 mg PO BID 04/25/14 04/02/18 Isosorbide Mononitrate ER [Imdur] 60 mg PO DAILY 04/25/14 04/02/18 Omeprazole [PriLOSEC] 20 mg PO BID 04/25/14 04/02/18 Albuterol Inhaler [Ventolin Hfa 2 puff INHALATION RT-QID PRN 02/05/18 04/02/18 Inhaler] Fluticasone Nasal [place] [Flonase 1 spray EA NOSTRIL BID 02/05/18 04/02/18 Nasal [place]] Previous Rx's Medication Instructions Recorded Aspirin 81 mg PO DAILY chew 04/27/17 Atorvastatin [Lipitor] 20 mg PO HS #90 tab 04/27/17 Clopidogrel [Plavix] 75 mg PO DAILY #90 tab 04/27/17 Lisinopril [Zestril] 20 mg PO BID #60 tab 02/06/18 Nitroglycerin Sl Tabs [Nitrostat] 0.4 mg SUBLINGUAL Q5M PRN #25 tab 02/06/18 Allergies Allergy/AdvReac Type Severity Reaction Status Date / Time latex Allergy Rash/Hives/ Verified 04/02/18 12:09 blisters Penicillins Allergy Rash/Hives Verified 04/02/18 12:09 Review of Systems ROS Statement: Those systems with pertinent positive or pertinent negative responses have been documented in the HPI. ROS Other: All systems not noted in ROS Statement are negative. Constitutional: Denies: fever Eyes: Denies: eye pain ENT: Denies: ear pain Respiratory: Reports: as per HPI Cardiovascular: Reports: chest pain Endocrine: Denies: fatigue Gastrointestinal: Reports: as per HPI. Denies: abdominal pain, vomiting Genitourinary: Denies: dysuria Musculoskeletal: Denies: back pain Skin: Denies: rash Neurological: Denies: weakness Past Medical History Past Medical History: Coronary Artery Disease (CAD), Cancer, Chest Pain / Angina , COPD, GERD/Reflux, Hearing Disorder / Deafness, Hyperlipidemia, Hypertension, Myocardial Infarction ([place]) Additional Past Medical History / Comment(s): MS x 2 (2001/2010), colon cancer with surgery, kidney stone, chronic low back pain, TRIBE bilaterally with R ear worse, tinnitis L ear. Last Myocardial Infarction Date:: 2010 History of Any Multi-Drug Resistant Organisms: None Reported Past Surgical History: Appendectomy, Bowel Resection, Heart Catheterization With Stent Additional Past Surgical History / Comment(s): bowel resection 2004, colonoscopy , 3 cardiac stents Past Anesthesia/Blood Transfusion Reactions: No Reported Reaction Date of Last Stent Placement:: 04/26/17 Past Psychological History: No Psychological Hx Reported Smoking Status: Current every day smoker Past Alcohol Use History: None Reported Past Drug Use History: None Reported - Past Family History Father Family Medical History: No Reported History Additional Family Medical History / Comment(s): Father at the age of 76yrs from "old age." Mother Family Medical History: Pneumonia Additional Family Medical History / Comment(s): Mother of pneumonia at the age of 68yrs. Brother(s) Family Medical History: Cancer Additional Family Medical History / Comment(s): He has one brother that is alive and is undergone CABG for coronary artery disease and has had one kidney removed. Patient has one brother who is in a motor vehicle oxidant, one brother from a myocardial infarction at age 59, and one from colon cancer at age 70. Sister(s) Family Medical History: No Reported History Additional Family Medical History / Comment(s): He has 3 sisters that are healthy. General Exam Limitations: no limitations General appearance: alert, in no apparent distress Head exam: Present: atraumatic Eye exam: Present: normal appearance ENT exam: Present: normal exam Neck exam: Present: normal inspection Respiratory exam: Present: normal lung sounds bilaterally. Absent: chest wall tenderness Cardiovascular Exam: Present: regular rate, normal rhythm, normal heart sounds Expanded Peripheral pulses: 2+: Radial (R), Radial (L), Posterior Tibialis (R), Posterior Tibialis (L) GI/Abdominal exam: Present: soft. Absent: distended, tenderness Extremities exam: Present: normal inspection. Absent: pedal edema, calf tenderness Neurological exam: Present: alert Psychiatric exam: Present: normal affect, normal mood Skin exam: Present: normal color Course Vital Signs 04/02/18 04/02/18 04/02/18 11:42 11:51 11:55 Temperature 97.6 F Pulse Rate 57 L 53 L 53 L Respiratory 18 12 14 Rate Blood Pressure 190/81 O2 Sat by Pulse 98 99 98 Oximetry 04/02/18 04/02/18 04/02/18 12:00 12:05 12:10 Temperature Pulse Rate 52 L 53 L 53 L Respiratory 21 13 10 L Rate Blood Pressure 146/82 146/82 O2 Sat by Pulse 97 96 98 Oximetry 04/02/18 04/02/18 04/02/18 12:15 12:30 12:35 Temperature Pulse Rate 61 52 L Respiratory 18 16 Rate Blood Pressure 146/82 162/86 132/81 O2 Sat by Pulse 96 95 Oximetry 04/02/18 04/02/18 12:38 13:07 Temperature Pulse Rate 54 L 55 L Respiratory 17 18 Rate Blood Pressure 126/75 142/75 O2 Sat by Pulse 96 97 Oximetry EKG Findings - EKG Comments: EKG Findings:: Sinus bradycardia 52. WA 162. QRS 94. QT 432. QTC 41. Normal axis. Normal QRS. No acute ST change. Medical Decision Making - Medical Decision Making Patient reevaluated and resting comfortably in bed. Patient symptom-free following nitroglycerin. Patient and family updated on results and plan. Case was discussed in detail with Dr. Chapman, who will admit for Dr. Sheth. - Lab Data Result diagrams: 04/02/18 12:05 04/02/18 12:05 Lab Results 04/02/18 04/02/18 04/02/18 Range/Units 12:05 12:05 12:05 WBC 5.6 (3.8-10.6) k/uL RBC 4.46 (4.30-5.90) m/uL Hgb 14.0 (13.0-17.5) gm/dL Hct 40.6 (39.0-53.0) % MCV 91.1 (80.0-100.0) fL MCH 31.5 (25.0-35.0) pg MCHC 34.5 (31.0-37.0) g/dL RDW 15.4 (11.5-15.5) % Plt Count 139 L (150-450) k/uL Neutrophils % 56 % Lymphocytes % 33 % Monocytes % 6 % Eosinophils % 2 % Basophils % 0 % Neutrophils # 3.1 (1.3-7.7) k/uL Lymphocytes # 1.9 (1.0-4.8) k/uL Monocytes # 0.4 (0-1.0) k/uL Eosinophils # 0.1 (0-0.7) k/uL Basophils # 0.0 (0-0.2) k/uL PT (9.0-12.0) sec INR (<1.2) APTT (22.0-30.0) sec D-Dimer (<0.60) mg/L FEU Sodium 140 (137-145) mmol/L Potassium 4.2 (3.5-5.1) mmol/L Chloride 107 (98-107) mmol/L Carbon Dioxide 27 (22-30) mmol/L Anion Gap 6 mmol/L BUN 20 (9-20) mg/dL Creatinine 1.05 (0.66-1.25) mg/dL Est GFR (CKD-EPI)AfAm 80 (>60 ml/min/1.73 sqM) Est GFR (CKD-EPI)NonAf 70 (>60 ml/min/1.73 sqM) Glucose 91 (74-99) mg/dL Calcium 9.0 (8.4-10.2) mg/dL Magnesium 2.0 (1.6-2.3) mg/dL Total Bilirubin 0.8 (0.2-1.3) mg/dL AST 32 (17-59) U/L ALT 48 (21-72) U/L Alkaline Phosphatase 49 (38-126) U/L Total Creatine Kinase 106 (55-170) U/L CK-MB (CK-2) 0.8 (0.0-2.4) ng/mL CK-MB (CK-2) Rel Index 0.8 Troponin I <0.012 (0.000-0.034) ng/mL Total Protein 6.9 (6.3-8.2) g/dL Albumin 3.8 (3.5-5.0) g/dL 04/02/18 Range/Units 12:05 WBC (3.8-10.6) k/uL RBC (4.30-5.90) m/uL Hgb (13.0-17.5) gm/dL Hct (39.0-53.0) % MCV (80.0-100.0) fL MCH (25.0-35.0) pg MCHC (31.0-37.0) g/dL RDW (11.5-15.5) % Plt Count (150-450) k/uL Neutrophils % % Lymphocytes % % Monocytes % % Eosinophils % % Basophils % % Neutrophils # (1.3-7.7) k/uL Lymphocytes # (1.0-4.8) k/uL Monocytes # (0-1.0) k/uL Eosinophils # (0-0.7) k/uL Basophils # (0-0.2) k/uL PT 10.3 (9.0-12.0) sec INR 1.0 (<1.2) APTT 24.7 (22.0-30.0) sec D-Dimer 1.04 H (<0.60) mg/L FEU Sodium (137-145) mmol/L Potassium (3.5-5.1) mmol/L Chloride (98-107) mmol/L Carbon Dioxide (22-30) mmol/L Anion Gap mmol/L BUN (9-20) mg/dL Creatinine (0.66-1.25) mg/dL Est GFR (CKD-EPI)AfAm (>60 ml/min/1.73 sqM) Est GFR (CKD-EPI)NonAf (>60 ml/min/1.73 sqM) Glucose (74-99) mg/dL Calcium (8.4-10.2) mg/dL Magnesium (1.6-2.3) mg/dL Total Bilirubin (0.2-1.3) mg/dL AST (17-59) U/L ALT (21-72) U/L Alkaline Phosphatase (38-126) U/L Total Creatine Kinase (55-170) U/L CK-MB (CK-2) (0.0-2.4) ng/mL CK-MB (CK-2) Rel Index Troponin I (0.000-0.034) ng/mL Total Protein (6.3-8.2) g/dL Albumin (3.5-5.0) g/dL - Radiology Data Radiology results: report reviewed (Computed tomography scan of the chest shows no acute process.), image reviewed (Chest x-ray shows no acute process) Disposition Clinical Impression: Chest pain Disposition: ADMITTED IP TO THIS HOSP Is patient prescribed a controlled substance at d/c from ED?: No Referrals: Reina Dunbar MD [Primary Care Provider] - 1-2 days Decision Time: 14:15
[2018-04-02 12:23] LABS: Basophils % (A) 0 %; Eosinophils # (A) 0.1 k/uL (0-0.7); Eosinophils % (A) 2 %; HCT 40.6 % (39.0-53.0); Lymphocytes # (A) 1.9 k/uL (1.0-4.8); Lymphocytes % (A) 33 %; MCH 31.5 pg (25.0-35.0); MCHC 34.5 g/dL (31.0-37.0); MCV 91.1 fL (80.0-100.0); Mean Platelet Volume 6.9; Monocytes # (A) 0.4 k/uL (0-1.0); Monocytes % (A) 6 %; Neutrophils # (A) 3.1 k/uL (1.3-7.7); Neutrophils % (A) 56 %; Platelet Count 139 k/uL (150-450); RBC 4.46 m/uL (4.30-5.90); RDW 15.4 % (11.5-15.5); WBC 5.6 k/uL (3.8-10.6)
[2018-04-02 12:29] LABS: Albumin 3.8 g/dL (3.5-5.0); Potassium 4.2 mmol/L (3.5-5.1); Total Bilirubin 0.8 mg/dL (0.2-1.3); Total Protein 6.9 g/dL (6.3-8.2)
--- NOTE | 2018-04-02 12:29 | XR ---
EXAMINATION TYPE: XR chest 2V DATE OF EXAM: 04/02/2018 COMPARISON: 02-26 TECHNIQUE: PA and lateral views submitted. HISTORY: Chest pain FINDINGS: The lungs are clear and there is no pneumothorax, pleural effusion, or focal pneumonia. Arthropathy of the AC joints. No overt failure. Heart size is mildly prominent. Hypertrophic and degenerative ch cheryl of the spine. IMPRESSION: 1. No acute process.
[2018-04-02 12:33] LABS: Partial Thromboplastin Time 24.7 sec (22.0-30.0); Prothrombin Time 10.3 sec (9.0-12.0)
[2018-04-02 12:49] LABS: Creatine Kinase 106 U/L (55-170)
[2018-04-02 12:50] LABS: D-Dimer 1.04 mg/L FEU (<0.60)
[2018-04-02 13:02] LABS: Creatine Kinase MB 0.8 ng/mL (0.0-2.4); Troponin I <0.012 ng/mL (0.000-0.034)
--- NOTE | 2018-04-02 13:55 | CT ---
EXAMINATION TYPE: CT angio chest DATE OF EXAM: 04/02/2018 1:27 PM COMPARISON: 03/07/2017 HISTORY: Chest pain CT DLP: 280.6 mGycm Automated exposure control for dose reduction was used. CONTRAST: CTA scan of the thorax is performed with IV Contrast, patient injected with 64 mL of Isovue 370, pulm onary embolism protocol. . FINDINGS: LUNGS: There is stable apical pleural thickening. There is mild to moderate right posterior apical pl eural/parenchymal scarring on axial image 6. There is background mild underlying emphysematous change . There is no new concerning parenchymal nodule or mass identified bilaterally. No pleural effusion o r pneumothorax is seen bilaterally. Mild central peribronchial wall thickening bilateral lower lungs is redemonstrated. Calcified granuloma noted left lower lobe. Groundglass changes noted most typical of dependent atelectasis bilaterally. Mild cardiomegaly. MEDIASTINUM: There is satisfactory enhancement of the pulmonary artery and its branches, there is no CT evidence for pulmonary embolism. There are no greater than 1 cm hilar or mediastinal lymph nodes. No pericardial effusion is seen. There is fairly moderate to severe 3 vessel coronary artery calci fication which is noted marker for coronary artery disease. OTHER: There is mild to moderate multilevel spurring in the mid to lower thoracic spine. Subcentimet er hypodense lesions throughout liver are too small to further characterize but presumed benign. Gall bladder is somewhat contracted. There is moderate calcified plaque in visualized portion of aorta. Fe w tiny splenules are present. Slight nodular thickening to both adrenal glands favors benign hyperpla heather. There are few subcentimeter hypodensities within the liver which are too small to characterize. Likely partially included by CT of the chest. Findings are similar to the prior exam. Hypertrophic an d degenerative change of the vertebral column. IMPRESSION: 1. No CT evidence of pulmonary embolism 2. Groundglass changes bilaterally most typical of dependent atelectasis. 3. Dense coronary artery calcification correlate for significant coronary artery atherosclerotic dise ase. 4. Hypodensities within the liver are indeterminate as pulmonary CTA technique. Findings similar to t he prior exam.
[2018-04-02] MEDS ORDERED: NITROGLYCERIN SL TABS 0.4 MG TAB SUBLINGUAL PRN ×2 (14:15→14:57)
[2018-04-02] MEDS ORDERED: ALBUTEROL NEBULIZED 2.5 MG/3 ML INHALATION PRN (14:57)
--- NOTE | 2018-04-02 15:03 | P.HPIM ---
History of Present Illness H&P Date: 04/02/18 Chief Complaint: Chest pain The patient is a 73-year-old male the past focal history significant for coronary artery disease with stenting 3 status post angioplasty most recently April 2017 with stent to the proximal RCA, hypertension, hyperlipidemia, GERD and COPD who presents to the ER via private vehicle with his partner complain of chest pain. Apparently the patient began noticing midsternal chest discomfort rated as 8 out of 10 that woke him up at approximately 2 AM this morning, the patient reported some radiation to his left forearm with associated shortness of breath and diaphoresis/patient reports taking some nitroglycerin that he is to his discomfort down to approximately a 6 /10. The patient noted significantly elevated blood pressure home 204/97. Patient denies any palpitations , lower extremity swelling , denies focal weakness , denies slurred speech, denies facial droop. The patient denies any cough subjective fevers or chills, reports that he has quit smoking review of records indicates patient had a similar presentation in January of this past year; 2-D echocardiogram performed at that time showed ejection fraction of 55-60%, normal left atrial size. Lexiscan stress testing indicated only a small area of INFARCT along the mid lateral wall and a mildly diminished LVEF of 52% In the ER the patient had a conference a workup, initial troponin was negative at less than 0.012, EKG showed sinus bradycardia with heart rate of 52 with no suggestion of any acute ischemia. D-dimer was elevated at 1.01, subsequent CTA was negative for acute pulmonary embolism, but did indicate moderate to severe three-vessel coronary artery calcification. The patient was started on aspirin , given repeated doses of nitroglycerin and recommended for admission for chest pain rule out ACS. Review of Systems Pertinent positives per HPI all other review of systems otherwise negative Past Medical History Past Medical History: Coronary Artery Disease (CAD), Cancer, Chest Pain / Angina , COPD, GERD/Reflux, Hearing Disorder / Deafness, Hyperlipidemia, Hypertension, Myocardial Infarction ([place]) Additional Past Medical History / Comment(s): [place] x 2 (2001/2010), colon cancer with surgery, kidney stone, chronic low back pain, [place]EL[place] bilaterally with R ear worse, tinnitis L ear. Last Myocardial Infarction Date:: 2010 History of Any Multi-Drug Resistant Organisms: None Reported Past Surgical History: Appendectomy, Bowel Resection, Heart Catheterization With Stent Additional Past Surgical History / Comment(s): bowel resection 2005, colonoscopy , 3 cardiac stents Past Anesthesia/Blood Transfusion Reactions: No Reported Reaction Date of Last Stent Placement:: 04/26/17 Past Psychological History: No Psychological Hx Reported Smoking Status: Current every day smoker Past Alcohol Use History: None Reported Past Drug Use History: None Reported - Past Family History Father Family Medical History: No Reported History Additional Family Medical History / Comment(s): Father at the age of 76yrs from "old age." Mother Family Medical History: Pneumonia Additional Family Medical History / Comment(s): Mother of pneumonia at the age of 68yrs. Brother(s) Family Medical History: Cancer Additional Family Medical History / Comment(s): He has one brother that is alive and is undergone CABG for coronary artery disease and has had one kidney removed. Patient has one brother who is in a motor vehicle oxidant, one brother from a myocardial infarction at age 59, and one from colon cancer at age 70. Sister(s) Family Medical History: No Reported History Additional Family Medical History / Comment(s): He has 3 sisters that are healthy. Medications and Allergies Home Medications Medication Instructions Recorded Confirmed Type Atenolol [Tenormin] 50 mg PO BID 04/25/14 04/02/18 History Isosorbide Mononitrate ER [Imdur] 60 mg PO DAILY 04/25/14 04/02/18 History Omeprazole [PriLOSEC] 20 mg PO BID 04/25/14 04/02/18 History Aspirin 81 mg PO DAILY chew 04/27/17 04/02/18 Rx Atorvastatin [Lipitor] 20 mg PO HS #90 tab 04/27/17 04/02/18 Rx Clopidogrel [Plavix] 75 mg PO DAILY #90 tab 04/27/17 04/02/18 Rx Albuterol Inhaler [Ventolin Hfa 2 puff INHALATION RT-QID PRN 02/05/18 04/02/18 History Inhaler] Fluticasone Nasal [place] [Flonase 1 spray EA NOSTRIL BID 02/05/18 04/02/18 History Nasal [place]] Lisinopril [Zestril] 20 mg PO BID #60 tab 02/06/18 04/02/18 Rx Nitroglycerin Sl Tabs [Nitrostat] 0.4 mg SUBLINGUAL Q5M PRN #25 tab 02/06/18 Rx Allergies Allergy/AdvReac Type Severity Reaction Status Date / Time latex Allergy Rash/Hives/ Verified 04/02/18 12:09 blisters Penicillins Allergy Rash/Hives Verified 04/02/18 12:09 Physical Exam Vitals: Vital Signs Temp Pulse Resp BP Pulse Ox 04/02/18 13:07 55 L 18 142/75 97 04/02/18 12:38 54 L 17 126/75 96 04/02/18 12:35 52 L 16 132/81 95 04/02/18 12:30 61 18 162/86 96 04/02/18 12:15 146/82 04/02/18 12:10 53 L 10 L 146/82 98 04/02/18 12:05 53 L 13 146/82 96 04/02/18 12:00 52 L 21 97 04/02/18 11:55 53 L 14 98 04/02/18 11:51 53 L 12 99 04/02/18 11:42 97.6 F 57 L 18 190/81 98 Intake and Output 04/01/18 04/02/18 04/02/18 22:59 06:59 14:59 Other: Weight 78.018 kg Constitutional: No acute distress, conversant, pleasant Eyes: Anicteric sclerae, moist conjunctiva, no lid-lag, PERRLA ENMT: NC/AT,Oropharynx clear, no erythema, exudates Neck:Supple, FROM, no masses, or JVD, No carotid bruits; No thyromegaly Lungs: Clear to auscultation, Clear to percussion, Normal respiratory effort, no accessory muscle use Cardiovascular: Heart regular in rate and rhythm, No murmurs, gallops, or rubs no peripheral edema Abdominal: Soft Nontender, nom distended, no guarding, no rebound or rigidity, Normoactive bowel sounds No hepatomegaly, No splenomegaly, No palpable mass No abdominal wall hernia noted Skin: Normal temperature, tone, texture, turgor, No induration No subcutaneous nodules, No rash, lesions, No ulcers Extremities:No digital cyanosis No clubbing, Pedal pulses intact and symmetrical Radial pulses intact and symmetrical Normal gait and station, No calf tenderness Psychiatric: Alert and oriented to person, place and time, Appropriate affect Intact judgement Neuro: Muscles Strength 5/5 in all 4 extremities, Sensation to light touch grossly present throughout, Cranial nerves II-XII grossly intact. No focal sensory deficits Results CBC & Chem 7: 04/02/18 12:05 04/02/18 12:05 Labs: Abnormal Lab Results - Last 24 Hours (Table) 04/02/18 04/02/18 Range/Units 12:05 12:05 Plt Count 139 L (150-450) k/uL D-Dimer 1.04 H (<0.60) mg/L FEU Assessment and Plan (1) Chest pain Current Visit: Yes Status: Acute Code(s): R07.9 - CHEST PAIN, UNSPECIFIED SNOMED Code(s): 76808225 (2) Presence of stent in coronary artery in patient with coronary artery disease Current Visit: Yes Status: Acute Code(s): I25.10 - ATHSCL HEART DISEASE OF THE [place] CORONARY ARTERY W/O ANG PCTRS; Z95.5 - PRESENCE OF CORONARY ANGIOPLASTY IMPLANT AND GRAFT SNOMED Code(s): 138630587 (3) Hypertensive urgency Current Visit: Yes Status: Acute Code(s): I16.0 - HYPERTENSIVE URGENCY SNOMED Code(s): 162230015 (4) HLD (hyperlipidemia) Current Visit: No Status: Acute Code(s): E78.5 - HYPERLIPIDEMIA, UNSPECIFIED SNOMED Code(s): 36866792 (5) Bradycardia Current Visit: Yes Status: Acute Code(s): R00.1 - BRADYCARDIA, UNSPECIFIED SNOMED Code(s): 21668264 Plan: Patient is placed on observation with chest pain likely triggered by hypertensive urgency with need to rule out ACS and the patient history of coronary artery disease with stenting 3, initial troponins and EKG negative for any acute ischemia. Continue routine chest pain orders continue dual antiplatelet therapy with Plavix and aspirin, resume his antihypertensive regimen including his beta jessica, lisinopril and statin therapy. We'll plan to consult cardiology for further recommendations. We'll continue to monitor his blood pressure. CODE STATUS Full code Discussed plan of care with: Patient DVT prophylaxis: SCDs and heparin Anticipated discharge: 1-2 days
[2018-04-02] MEDS: HEPARIN SODIUM,PORCINE 5,000 UNIT/ML 1 ML VIAL SQ SCH ×2 (16:54→23:42)
[2018-04-02] MEDS: PANTOPRAZOLE 40 MG TABLET PO SCH (16:54)
[2018-04-02 18:21] LABS: Creatine Kinase 96 U/L (55-170)
[2018-04-02 18:30] LABS: Creatine Kinase MB 0.7 ng/mL (0.0-2.4); Troponin I <0.012 ng/mL (0.000-0.034)
[2018-04-02] MEDS: NITROGLYCERIN OINT 1 INCH/GM PACKET TOPICAL SCH ×2 (19:19→23:42)
[2018-04-02] MEDS: LISINOPRIL 20 MG TAB PO SCH (19:36)
[2018-04-02] MEDS: FLUTICASONE 50MCG/SPRAY NASAL 16GM EA NOSTRIL SCH (19:36)
[2018-04-02] MEDS: ATORVASTATIN 20 MG TAB PO SCH (19:36)
[2018-04-02] MEDS ORDERED: ATENOLOL 50 MG TAB PO SCH (21:00)
[2018-04-03 00:06] LABS: Creatine Kinase 88 U/L (55-170)
[2018-04-03 00:19] LABS: Creatine Kinase MB 0.7 ng/mL (0.0-2.4); Troponin I <0.012 ng/mL (0.000-0.034)
[2018-04-03] MEDS: NITROGLYCERIN OINT 1 INCH/GM PACKET TOPICAL SCH (04:01)
[2018-04-03 04:12] LABS: Cholesterol 136 mg/dL (<200); HDL Cholesterol 33 mg/dL (40-60); LDL Cholesterol,Calculated 79 mg/dL (0-99); Triglycerides 121 mg/dL (<150)
[2018-04-03] MEDS: HEPARIN SODIUM,PORCINE 5,000 UNIT/ML 1 ML VIAL SQ SCH ×2 (08:09→17:13)
[2018-04-03] MEDS: CLOPIDOGREL 75 MG TAB PO SCH (08:10)
[2018-04-03] MEDS: ASPIRIN 81 MG PO SCH (08:10)
[2018-04-03] MEDS: PANTOPRAZOLE 40 MG TABLET PO SCH ×2 (08:10→17:15)
[2018-04-03] MEDS ORDERED: ISOSORBIDE MONONITRATE ER 60 MG TAB.ER.24H PO SCH (09:00)
[2018-04-03] MEDS ORDERED: ASPIRIN 325 MG TAB PO SCH (09:00)
[2018-04-03] MEDS ORDERED: ISOSORBIDE MONONITRATE ER 60 MG TAB.ER.24H PO STA (09:40)
[2018-04-03] MEDS: CARVEDILOL 6.25 MG TAB PO SCH ×2 (10:58→17:15)
[2018-04-03] MEDS: LISINOPRIL 20 MG TAB PO SCH ×2 (10:59→19:42)
[2018-04-03] MEDS: FLUTICASONE 50MCG/SPRAY NASAL 16GM EA NOSTRIL SCH ×2 (10:59→19:42)
--- NOTE | 2018-04-03 11:23 | P.CRDCN ---
History of Present Illness History of present illness: This is a pleasant 73-year-old male past medical history significant for coronary artery disease s/p angioplasty most recently 04/2017 with stent to proximal RCA. Prior to that he underwent stenting to the mid RCA and mid LAD. He also has hypertension, dyslipidemia, GERD, COPD and unfortunately continues to smoke. He follows with Dr. De Paz in the office. We have been asked to see him in the office for symptoms of chest pain. He states he woke up 0200 two nights ago with heavy feeling in left precordial region with radiation into left upper arm. He took nitroglycerin and pain the subsided. He woke up yesterday morning feeling ok with no ongiong chest pain. He has been instructed to check his blood pressure at home periodically due to frequently uncontrolled numbers. He checked it yesterday and it was over 200 systolic. Later in afternoon he started feeling heavy pain in chest again, similar to how he felt the previous night. For this reason he came in for evaluation. Blood pressure on arrival to ED was 190/81. He states he takes all his prescribed meds. He had come to the hospital in January 2018 with similar type symptoms and underwent a Lexiscan stress test that was negative for reversible ischemia with mild elizabeth- infarct ischemia. His blood pressure was also elevated at that time and hydrochlorothiazide was added. He came back to the hospital again in February with dizziness and blood pressures were low with 88 and 91 systolic. Hctz was discontinued at that time. EKG reveals sinus bradycardia heart rate 52. Chest xray negative for an acute cardiopulmonary process. Laboratory data reviewed, WBC 5.6, hemoglobin 14, platelets 139, d-dimer 1.04, sodium 140, potassium 4.2, creatinine 1.05, magnesium 2.0, cardiac enzymes negative 3, LDL 79, HDL 33. Current cardiac medications include aspirin 81 mg daily, atenolol 50 mg twice a day, atorvastatin 20 mg daily, Plavix 75 mg daily, Imdur 60 mg daily and lisinopril 20 mg twice a day. Most recent catheterization in April 2017 revealed left main no evidence of high-grade stenosis, LAD with a stent in the midportion with about 30% in-stent restenosis, circumflex with mid intimal disease 30-40%, RCA with significant stenosis with a patent stent in the distal portion with 30% in-stent restenosis and complex lesion in the proximal portion with stenosis of 80% as well as a 30- 40% plaque in the midportion. He underwent stenting of the proximal RCA at that time. Most recent echocardiogram obtained in January 2018 reveals preserved left ventricular systolic function with ejection fraction 55-60%, mild MR and mild TR noted. At the time of my exam: CONSTITUTIONAL: Denies fever. Denies chills. EYES: Denies blurred vision. Denies vision changes. Denies eye pain. EARS, NOSE, MOUTH & THROAT: Denies headache. Denies sore throat. Denies ear pain. CARDIOVASCULAR: Denies chest pain. Denies shortness of breath. Denies orthopnea. Denies PND. Denies palpitations. RESPIRATORY: Denies cough. GASTROINTESTINAL: Denies abdominal pain. Denies diarrhea. Denies constipation. Denies nausea. Denies vomiting. MUSCULOSKELETAL: Denies myalgias. INTEGUMENTARY: Denies pruitis. Denies rash. NEUROLOGIC: Denies numbness. Denies tingling. Denies weakness. PSYCHIATRIC: Denies anxiety. Denies depression. ENDOCRINE: Denies fatigue. Denies weight change. Denies polydipsia. Denies polyurina. GENITOURINARY: Denies burning, hematuria or urgency with micturation. HEMATOLOGIC: Denies history of anemia. Denies bleeding. Blood pressure 163/78 heart rate 54 afebrile maintaining oxygen saturation on room air GENERAL: This is a 73-year-old in no apparent distress at the time of my examination. HEENT: Head is atraumatic, normocephalic. Pupils are equal, round. Sclerae anicteric. Conjunctivae are clear. Mucous membranes of the mouth are moist. Neck is supple. There is no jugular venous distention. No carotid bruit is heard. LUNGS: Clear to auscultation no wheezes, rales or rhonchi. No chest wall tenderness is noted on palpation or with deep breathing. HEART: Regular rate and rhythm without murmurs, rubs or gallops. S1 and S2 heard. ABDOMEN: Soft, nontender. Bowel sounds are heard. No organomegaly noted. EXTREMITIES: No evidence of peripheral edema and no calf tenderness noted. VASCULAR: Radial and dorsalis pedis pulses palpated, no evidence of clubbing. NEUROLOGIC: Patient is awake, alert and oriented x3. ASSESSMENT Chest pain, atypical for angina. Recent normal stress test with history of multi -vessel coronary artery disease Coronary artery disease s/p PCI 04/2017 Hypertension, uncontrolled Dyslipidemia COPD Chronic nicotine dependence PLAN Obtain doppler of the renal arteries to assess for stenosis as a secondary cause of hypertension. Check cortisol level and metanephrines. Change atenolol to carvedilol 6.25 mg BID. He has been tried on hydrochlorothiazide however caused hypotension and dizziness. We will continue to follow his blood pressure closely and make recommendations accordingly. Thank you kindly for this consultation. Nurse Practitioner note has been reviewed, I agree with a documented findings and plan of care. Patient was seen and examined. Past Medical History Past Medical History: Coronary Artery Disease (CAD), Cancer, Chest Pain / Angina , COPD, GERD/Reflux, Hearing Disorder / Deafness, Hyperlipidemia, Hypertension, Myocardial Infarction (HI) Additional Past Medical History / Comment(s): HI x 2 (), colon cancer with surgery, kidney stone, chronic low back pain, ASA'CARSARMIUT bilaterally with R ear worse, tinnitis L ear. Last Myocardial Infarction Date:: 2010 History of Any Multi-Drug Resistant Organisms: None Reported Past Surgical History: Appendectomy, Bowel Resection, Heart Catheterization With Stent Additional Past Surgical History / Comment(s): bowel resection 2004, colonoscopy , 3 cardiac stents Past Anesthesia/Blood Transfusion Reactions: No Reported Reaction Date of Last Stent Placement:: 04/26/17 Past Psychological History: No Psychological Hx Reported Smoking Status: Current every day smoker Past Alcohol Use History: None Reported Past Drug Use History: None Reported - Past Family History Father Family Medical History: No Reported History Additional Family Medical History / Comment(s): Father at the age of 76yrs from "old age." Mother Family Medical History: Pneumonia Additional Family Medical History / Comment(s): Mother of pneumonia at the age of 68yrs. Brother(s) Family Medical History: Cancer Additional Family Medical History / Comment(s): He has one brother that is alive and is undergone CABG for coronary artery disease and has had one kidney removed. Patient has one brother who is in a motor vehicle oxidant, one brother from a myocardial infarction at age 59, and one from colon cancer at age 70. Sister(s) Family Medical History: No Reported History Additional Family Medical History / Comment(s): He has 3 sisters that are healthy. Medications and Allergies Home Medications Medication Instructions Recorded Confirmed Type Atenolol [Tenormin] 50 mg PO BID 04/25/14 04/02/18 History Isosorbide Mononitrate ER [Imdur] 60 mg PO DAILY 04/25/14 04/02/18 History Omeprazole [PriLOSEC] 20 mg PO BID 04/25/14 04/02/18 History Aspirin 81 mg PO DAILY chew 04/27/17 04/02/18 Rx Atorvastatin [Lipitor] 20 mg PO HS #90 tab 04/27/17 04/02/18 Rx Clopidogrel [Plavix] 75 mg PO DAILY #90 tab 04/27/17 04/02/18 Rx Albuterol Inhaler [Ventolin Hfa 2 puff INHALATION RT-QID PRN 02/05/18 04/02/18 History Inhaler] Fluticasone Nasal [place] [Flonase 1 spray EA NOSTRIL BID 02/05/18 04/02/18 History Nasal [place]] Lisinopril [Zestril] 20 mg PO BID #60 tab 02/06/18 04/02/18 Rx Nitroglycerin Sl Tabs [Nitrostat] 0.4 mg SUBLINGUAL Q5M PRN #25 tab 02/06/18 Rx Allergies Allergy/AdvReac Type Severity Reaction Status Date / Time latex Allergy Rash/Hives/ Verified 04/02/18 12:09 blisters Penicillins Allergy Rash/Hives Verified 04/02/18 12:09 Physical Exam Vitals: Vital Signs Temp Pulse Pulse Resp BP BP Pulse Ox 04/03/18 04:00 97.7 F 54 L 18 159/78 97 04/03/18 03:57 18 04/02/18 23:32 97.4 F L 58 L 18 157/74 99 04/02/18 23:22 18 04/02/18 20:00 18 04/02/18 19:31 97.4 F L 61 18 148/82 95 04/02/18 16:00 58 L 04/02/18 15:13 97.4 F L 54 L 18 154/72 99 04/02/18 14:47 97.3 F L 53 L 18 157/89 97 04/02/18 13:07 55 L 18 142/75 97 04/02/18 12:38 54 L 17 126/75 96 04/02/18 12:35 52 L 16 132/81 95 04/02/18 12:30 61 18 162/86 96 04/02/18 12:15 146/82 04/02/18 12:10 53 L 10 L 146/82 98 04/02/18 12:05 53 L 13 146/82 96 04/02/18 12:00 52 L 21 97 04/02/18 11:55 53 L 14 98 04/02/18 11:51 53 L 12 99 04/02/18 11:42 97.6 F 57 L 18 190/81 98 Intake and Output 04/02/18 04/03/18 04/03/18 22:59 06:59 14:59 Other: Voiding Method Toilet Toilet # Voids 1 1 Results 04/02/18 12:05 04/02/18 12:05 Cardiac Enzymes 04/02/18 04/02/18 04/02/18 Range/Units 12:05 12:05 17:24 AST 32 (17-59) U/L CK-MB (CK-2) 0.8 0.7 (0.0-2.4) ng/mL Troponin I <0.012 <0.012 (0.000-0.034) ng/mL 04/02/18 Range/Units 23:28 AST (17-59) U/L CK-MB (CK-2) 0.7 (0.0-2.4) ng/mL Troponin I <0.012 (0.000-0.034) ng/mL Coagulation 04/02/18 Range/Units 12:05 PT 10.3 (9.0-12.0) sec APTT 24.7 (22.0-30.0) sec Lipids 04/02/18 Range/Units 12:05 Triglycerides 121 (<150) mg/dL Cholesterol 136 (<200) mg/dL HDL Cholesterol 33 L (40-60) mg/dL CBC 04/02/18 Range/Units 12:05 WBC 5.6 (3.8-10.6) k/uL RBC 4.46 (4.30-5.90) m/uL Hgb 14.0 (13.0-17.5) gm/dL Hct 40.6 (39.0-53.0) % Plt Count 139 L (150-450) k/uL Comprehensive Metabolic Panel 04/02/18 Range/Units 12:05 Sodium 140 (137-145) mmol/L Potassium 4.2 (3.5-5.1) mmol/L Chloride 107 (98-107) mmol/L Carbon Dioxide 27 (22-30) mmol/L BUN 20 (9-20) mg/dL Creatinine 1.05 (0.66-1.25) mg/dL Glucose 91 (74-99) mg/dL Calcium 9.0 (8.4-10.2) mg/dL AST 32 (17-59) U/L ALT 48 (21-72) U/L Alkaline Phosphatase 49 (38-126) U/L Total Protein 6.9 (6.3-8.2) g/dL Albumin 3.8 (3.5-5.0) g/dL Current Medications Generic Name Dose Route Start Last Admin Trade Name Freq PRN Reason Stop Dose Admin Albuterol Sulfate 2.5 mg 04/02/18 14:57 Ventolin Nebulized INHALATION RT-QID PRN Shortness Of Breath Aspirin 81 mg 04/03/18 09:00 Aspirin PO DAILY [facility] Atenolol 50 mg 04/02/18 21:00 04/02/18 19:36 Tenormin PO 50 mg BID [facility] Administration Atorvastatin Calcium 20 mg 04/02/18 21:00 04/02/18 19:36 Lipitor PO 20 mg HS [facility] Administration Clopidogrel Bisulfate 75 mg 04/03/18 09:00 Plavix PO DAILY [facility] Fluticasone Propionate 1 spray 04/02/18 21:00 04/02/18 19:36 Flonase Nasal [place] EA NOSTRIL 1 spray BID [facility] Administration Heparin Sodium (Porcine) 5,000 unit 04/02/18 16:00 04/02/18 23:42 Heparin SQ 5,000 unit Q8HR [facility] Administration Isosorbide Mononitrate 60 mg 04/03/18 09:00 Imdur PO DAILY [facility] Lisinopril 20 mg 04/02/18 21:00 04/02/18 19:36 Zestril PO 20 mg BID [facility] Administration Nitroglycerin 1 inch 04/02/18 18:00 04/03/18 04:01 Nitro-Bid Oint TOPICAL Not Given Q6HR [facility] Nitroglycerin 0.4 mg 04/02/18 14:15 Nitrostat SUBLINGUAL Q5M PRN Chest Pain Nitroglycerin 0.4 mg 04/02/18 14:57 Nitrostat SUBLINGUAL Q5M PRN Chest Pain Pantoprazole Sodium 40 mg 04/02/18 17:30 04/02/18 16:54 Protonix PO 40 mg AC-BID DEBRA Administration Intake and Output 04/02/18 04/03/18 04/03/18 22:59 06:59 14:59 Other: Voiding Method Toilet Toilet # Voids 1 1 04/02/18 12:05 04/02/18 12:05
--- NOTE | 2018-04-03 14:28 | US ---
EXAMINATION TYPE: US renal artery duplex complete DATE OF EXAM: 04/03/2018 COMPARISON: Correlation CT 08/09/2009 CLINICAL HISTORY: 73-year-old male with uncontrolled hypertension. TECHNIQUE: Multiple sonographic images of the kidneys were obtained. Color Doppler and spectral wavef orm analysis of the renal arteries. FINDINGS: Heat Treater Apprentice notes: Exam is technically limited due to overlying bowel gas. MEASUREMENTS: RENAL SIZE: Rt Kidney: 10.4 x 5.6 x 5.0cm. There is an upper cortical hyperechoic area wedge fat defect is seen suggesting scarring. Lt Kidney: 10.7 x 6.7 x 4.8cm with a lower pole cortical cyst measuring 1 cm. No hydronephrosis on either side. RESISTANCE INDEX Right: 0.71 lower arcuate Left: 0.75 mid arcuate RA/AO RATIO (< 3.5 ) Right: 1.7 Left: 2.0 RA VELOCITY ( < 180 cm/s) Right: 102.2cm/s mid Left: 121.1cm/s mid Aorta: dilated mid lumen in A/P and Transverse with TR measure = 3.9cm; irregular intimal wall thicke yarely noted mid and lower aorta and into bilateral common iliac arteries. IMPRESSION: 1. Doppler assessment of the renal arteries not indicative of renal artery stenosis. 2. AAA measuring 3.9 cm. The patient's 2010 CT is reviewed and shows aortic ectasia of 2.8 cm. Approvivienne cherry follow-up recommended.
--- NOTE | 2018-04-03 15:00 | P.PN ---
Subjective Progress Note Date: 04/03/18 Patient doing well this morning denies any chest pain or shortness of breath, currently having a renal artery duplex done. Denies any palpitations denies any headaches, blood pressures improved since yesterday. No acute events overnight, troponins have been negative 3 Objective - Vital Signs Vital signs: Vital Signs Temp 97.5 F L 04/03/18 11:37 Pulse 52 L 04/03/18 12:00 Resp 18 04/03/18 12:00 BP 150/68 04/03/18 11:37 Pulse Ox 97 04/03/18 11:37 Intake & Output 04/02/18 04/03/18 04/03/18 18:59 06:59 18:59 Intake Total 400 Balance 400 Weight 78.018 kg Intake: Oral 400 Other: Voiding Method Toilet Toilet Toilet # Voids 1 1 3 - Exam Constitutional: No acute distress, conversant, pleasant Eyes: Anicteric sclerae, moist conjunctiva, no lid-lag, PERRLA ENMT: NC/AT,Oropharynx clear, no erythema, exudates Neck:Supple, FROM, no masses, or JVD, No carotid bruits; No thyromegaly Lungs: Clear to auscultation, Clear to percussion, Normal respiratory effort, no accessory muscle use Cardiovascular: Heart regular in rate and rhythm, No murmurs, gallops, or rubs no peripheral edema Abdominal: Soft Nontender, nom distended, no guarding, no rebound or rigidity, Normoactive bowel sounds No hepatomegaly, No splenomegaly, No palpable mass No abdominal wall hernia noted Skin: Normal temperature, tone, texture, turgor, No induration No subcutaneous nodules, No rash, lesions, No ulcers Extremities:No digital cyanosis No clubbing, Pedal pulses intact and symmetrical Radial pulses intact and symmetrical Normal gait and station, No calf tenderness Psychiatric: Alert and oriented to person, place and time, Appropriate affect Intact judgement Neuro: Muscles Strength 5/5 in all 4 extremities, Sensation to light touch grossly present throughout, Cranial nerves II-XII grossly intact. No focal sensory deficits - Labs CBC & Chem 7: 04/02/18 12:05 04/02/18 12:05 Labs: Abnormal Lab Results - Last 24 Hours (Table) 04/02/18 Range/Units 12:05 HDL Cholesterol 33 L (40-60) mg/dL Assessment and Plan (1) Chest pain Narrative/Plan: * Likely atypical secondary to hypertensive urgency * Cardiac enzymes and EKG negative for any suggestion of acute ischemia * Cardiology recommendations appreciated Current Visit: Yes Status: Acute Code(s): R07.9 - CHEST PAIN, UNSPECIFIED SNOMED Code(s): 27835932 (2) Presence of stent in coronary artery in patient with coronary artery disease Narrative/Plan: * Continue dual antiplatelet therapy with Plavix and aspirin * Continue beta jessica with Coreg continue statin therapy with Lipitor Current Visit: Yes Status: Acute Code(s): I25.10 - ATHSCL HEART DISEASE OF [place] CORONARY ARTERY W/O ANG PCTRS; Z95.5 - PRESENCE OF CORONARY ANGIOPLASTY IMPLANT AND GRAFT SNOMED Code(s): 382521051 (3) Hypertensive urgency Narrative/Plan: * Evaluation for secondary causes of hypertension initiated Cardizem and urine metanephrines pending * Renal artery Doppler pending * Blood pressure elevated today but improved from admission * we'll titrate up his Imdur to 120 mg daily, continue with Coreg 6.25 mg by mouth twice a day, continue with bisoprolol 20 mg by mouth twice a day Current Visit: Yes Status: Acute Code(s): I16.0 - HYPERTENSIVE URGENCY SNOMED Code(s): 843480335 (4) HLD (hyperlipidemia) Current Visit: No Status: Acute Code(s): E78.5 - HYPERLIPIDEMIA, UNSPECIFIED SNOMED Code(s): 91651585 (5) Bradycardia Current Visit: Yes Status: Acute Code(s): R00.1 - BRADYCARDIA, UNSPECIFIED SNOMED Code(s): 88953870 Plan: * Anticipated discharge tomorrow
[2018-04-03] MEDS ORDERED: ACETAMINOPHEN TAB 325 MG TAB PO PRN (17:02)
[2018-04-03] MEDS: ATORVASTATIN 20 MG TAB PO SCH (19:42)
[2018-04-03 23:23] VITALS: RESP 14
[2018-04-04] MEDS: HEPARIN SODIUM,PORCINE 5,000 UNIT/ML 1 ML VIAL SQ SCH ×2 (00:01→08:27)
[2018-04-04 08:12] VITALS: BP 166/56; PULSE 62; TEMP 97.8
[2018-04-04] MEDS: CARVEDILOL 6.25 MG TAB PO SCH (08:27)
[2018-04-04] MEDS: PANTOPRAZOLE 40 MG TABLET PO SCH (08:27)
[2018-04-04] MEDS: ASPIRIN 81 MG PO SCH (08:28)
[2018-04-04] MEDS: FLUTICASONE 50MCG/SPRAY NASAL 16GM EA NOSTRIL SCH (08:28)
[2018-04-04] MEDS: CLOPIDOGREL 75 MG TAB PO SCH (08:28)
[2018-04-04] MEDS: LISINOPRIL 20 MG TAB PO SCH (08:29)
[2018-04-04] MEDS ORDERED: ISOSORBIDE MONONITRATE ER 60 MG TAB.ER.24H PO SCH (09:00)
--- NOTE | 2018-04-04 09:38 | P.PN ---
Subjective Patient is doing a lot better. While his blood pressure is not completely controlled it's a lot better than before and ranges from 134 x 65-166/56. His mercury He does not any chest discomfort dizziness lightheadedness ascending comfortably in a chair He is tolerating the carvedilol quite well heart rates in the normal range Breath sounds are normal no rhonchi no crackles Heart sounds S1-S2 are normal Abdomen soft nontender Extremities warm no edema Impression Impression came in with uncontrolled hypertension. Blood pressure is better controlled I would discharge him home today on carvedilol 6.25 mg twice daily instead of atenolol. I wrote the prescription. He should see Dr. De Paz the next 1-2 weeks for hypertension management Objective - Vital Signs Vital signs: Vital Signs Temp 97.8 F 04/04/18 08:11 Pulse 62 04/04/18 08:11 Resp 14 04/04/18 08:11 BP 166/56 04/04/18 08:11 Pulse Ox 97 04/04/18 08:11 Intake & Output 04/03/18 04/04/18 04/04/18 18:59 06:59 18:59 Intake Total 640 Balance 640 Intake: Oral 640 Other: Voiding Method Toilet Toilet # Voids 3 1 - Labs CBC & Chem 7: 04/02/18 12:05 04/02/18 12:05
--- NOTE | 2018-04-04 09:51 | P.DS ---
Providers Date of admission: 04/02/18 14:15 Expected date of discharge: 04/04/18 Attending physician: Keith Chapman MD Consults: 04/02/18 14:15 Consult Physician Urgent Consulting Provider: Johnathan Zuniga Consult Reason/Comments: cp Do you want consulting provider notified?: Yes Primary care physician: Reina Dunbar - Discharge Diagnosis(es) (1) Chest pain Current Visit: Yes Status: Acute (2) Presence of stent in coronary artery in patient with coronary artery disease Current Visit: Yes Status: Acute (3) Hypertensive urgency Current Visit: Yes Status: Acute (4) HLD (hyperlipidemia) Current Visit: No Status: Acute (5) Bradycardia Current Visit: Yes Status: Acute (6) AAA (abdominal aortic aneurysm) Current Visit: Yes Status: Acute Hospital Course: The patient is a 73-year-old male that was admitted with atypical chest pain found to be secondary to hypertensive urgency after presented with significantly elevated blood pressure at home and in the ER. The patient was probably restarted on his home and hypertensive regimen and started on dual antiplatelet therapy with Plavix and aspirin, statin therapy with Lipitor. His initial EKG was revealed sinus bradycardia with a heart rate of 52 with no suggestion of any acute ischemic changes, his initial and sequential troponins were also negative 3. The patient most recently had echocardiogram in January 2018 that showed preserved left LV systolic function with ejection fraction of 55-60% with mild MR and TR. A Lexiscan stress testing at that time also. Only a small area of infarct along the mid lateral wall . Workup on this hospitalization included a renal artery duplex scan which was negative for any suggestion of renal artery stenosis. The patient was found to have a AAA measuring approximately 3.9 cm. As the patient's blood pressure is stabilized his antihypertensive regimen was changed his atenolol was discontinued and he was started on Coreg and his Imdur dose was titrated up to 120 mg daily. He was subsequently discharged home in stable condition and instructed to follow- up with Dr. Morrissey in 1-2 weeks for ongoing monitoring of his cardiovascular diseases. This discharge process took approximately 30 minutes. Focused exam CV: Regular rate and rhythm, no murmurs rubs or gallops, no JVD or peripheral edema Patient Condition at Discharge: Good Plan - Discharge Summary New Discharge Prescriptions: New Carvedilol [Coreg] 6.25 mg PO BID-W/MEALS #60 tab Isosorbide Mononitrate ER [Imdur] 120 mg PO DAILY #30 tab.er.24h Continue Omeprazole [PriLOSEC] 20 mg PO BID Aspirin 81 mg PO DAILY chew Atorvastatin [Lipitor] 20 mg PO HS #90 tab Clopidogrel [Plavix] 75 mg PO DAILY #90 tab Fluticasone Nasal [place] [Flonase Nasal [place]] 1 spray EA NOSTRIL BID Albuterol Inhaler [Ventolin Hfa Inhaler] 2 puff INHALATION RT-QID PRN PRN Reason: Shortness Of Breath Lisinopril [Zestril] 20 mg PO BID #60 tab Nitroglycerin Sl Tabs [Nitrostat] 0.4 mg SUBLINGUAL Q5M PRN #25 tab PRN Reason: Chest Pain Discontinued Atenolol [Tenormin] 50 mg PO BID Isosorbide Mononitrate ER [Imdur] 60 mg PO DAILY Discharge Medication List Omeprazole [PriLOSEC] 20 mg PO BID 04/25/14 [History] Aspirin 81 mg PO DAILY chew 04/27/17 [Rx] Atorvastatin [Lipitor] 20 mg PO HS #90 tab 04/27/17 [Rx] Clopidogrel [Plavix] 75 mg PO DAILY #90 tab 04/27/17 [Rx] Albuterol Inhaler [Ventolin Hfa Inhaler] 2 puff INHALATION RT-QID PRN 02/05/18 [ History] Fluticasone Nasal [place] [Flonase Nasal [place]] 1 spray EA NOSTRIL BID 02/05/18 [ History] Lisinopril [Zestril] 20 mg PO BID #60 tab 02/06/18 [Rx] Nitroglycerin Sl Tabs [Nitrostat] 0.4 mg SUBLINGUAL Q5M PRN #25 tab 02/06/18 [Rx ] Carvedilol [Coreg] 6.25 mg PO BID-W/MEALS #60 tab 04/04/18 [Rx] Isosorbide Mononitrate ER [Imdur] 120 mg PO DAILY #30 tab.er.24h 04/04/18 [Rx] Follow up Appointment(s)/Referral(s): Reina Dunbar MD [Primary Care Provider] - 1-2 days
[2018-04-06 19:40] LABS: Metanephrine, Free 38 pg/mL (< OR = 57); Normetanephrine, Free 126 pg/mL (< OR = 148); Total, Free (MN + NMN) 164 pg/mL (< OR = 205)
== END 2018-04-04 10:47 | disposition home or self-care (01) ==
LOC: EC 11:40 → 1SOBS 14:15
PROVIDERS: ADMIT Family Medicine; ATTEND Family Medicine
DX: R07.89 Other chest pain (principal); I16.0 Hypertensive urgency; I10 Essential (primary) hypertension; F17.200 Nicotine dependence, unspecified, uncomplicated; E78.5 Hyperlipidemia, unspecified; R00.1 Bradycardia, unspecified; I71.4 Abdominal aortic aneurysm, without rupture; I25.10 Atherosclerotic heart disease of native coronary artery without angina pectoris; Z95.5 Presence of coronary angioplasty implant and graft; Z82.49 Family history of ischemic heart disease and other diseases of the circulatory system; K21.9 Gastro-esophageal reflux disease without esophagitis; J44.9 Chronic obstructive pulmonary disease, unspecified; I25.2 Old myocardial infarction; Z85.038 Personal history of other malignant neoplasm of large intestine; Z87.442 Personal history of urinary calculi; G89.29 Other chronic pain; Z80.0 Family history of malignant neoplasm of digestive organs; M54.5 Low back pain; H91.93 Unspecified hearing loss, bilateral; H93.12 Tinnitus, left ear; Z79.02 Long term (current) use of antithrombotics/antiplatelets; Z79.82 Long term (current) use of aspirin; Z79.899 Other long term (current) drug therapy; Z88.0 Allergy status to penicillin; Z91.040 Latex allergy status
CPT/HCPCS: 99285 ×2; 96372 ×3; 36415; 94760; 93005; 83835; 85379; 80061; 80053; 82533; 82550; 82553; 83735; 84484; 85025; 85610; 85730; 71046; 93975; 71275; G0378 ×3; J1644 ×3; Q9967

== ENCOUNTER 2018-04-05 08:47 | Emergency (ER) | payer MEDICARE ==
[2018-04-05 09:24] VITALS: PULSE 61; RESP 18
--- NOTE | 2018-04-05 09:35 | ED ---
General Adult HPI - General Chief complaint: Chest Pain Stated complaint: High BP Source: patient Mode of arrival: ambulatory Limitations: no limitations - Related Data Home Medications Medication Instructions Recorded Confirmed Omeprazole [PriLOSEC] 20 mg PO BID 04/25/14 04/05/18 Albuterol Inhaler [Ventolin Hfa 2 puff INHALATION RT-QID PRN 02/05/18 04/05/18 Inhaler] Fluticasone Nasal [place] [Flonase 1 spray EA NOSTRIL BID 02/05/18 04/05/18 Nasal [place]] Previous Rx's Medication Instructions Recorded Aspirin 81 mg PO DAILY chew 04/27/17 Atorvastatin [Lipitor] 20 mg PO HS #90 tab 04/27/17 Clopidogrel [Plavix] 75 mg PO DAILY #90 tab 04/27/17 Lisinopril [Zestril] 20 mg PO BID #60 tab 02/06/18 Nitroglycerin Sl Tabs [Nitrostat] 0.4 mg SUBLINGUAL Q5M PRN #25 tab 02/06/18 Carvedilol [Coreg] 6.25 mg PO BID-W/MEALS #60 tab 04/04/18 Isosorbide Mononitrate ER [Imdur] 120 mg PO DAILY #30 tab.er.24h 04/04/18 Allergies Allergy/AdvReac Type Severity Reaction Status Date / Time latex Allergy Rash/Hives/ Verified 04/05/18 09:34 blisters Penicillins Allergy Rash/Hives Verified 04/05/18 09:34 Review of Systems ROS Statement: Those systems with pertinent positive or pertinent negative responses have been documented in the HPI. ROS Other: All systems not noted in ROS Statement are negative. Past Medical History Past Medical History: Coronary Artery Disease (CAD), Cancer, Chest Pain / Angina , COPD, GERD/Reflux, Hearing Disorder / Deafness, Hyperlipidemia, Hypertension, Myocardial Infarction ([place]) Additional Past Medical History / Comment(s): [place] x 2 (2001/2010), colon cancer with surgery, kidney stone, chronic low back pain, [place] bilaterally with R ear worse, tinnitis L ear. ANEURYSM Last Myocardial Infarction Date:: 2010 History of Any Multi-Drug Resistant Organisms: None Reported Past Surgical History: Appendectomy, Bowel Resection, Heart Catheterization With Stent Additional Past Surgical History / Comment(s): bowel resection 2004, colonoscopy , 3 cardiac stents Past Anesthesia/Blood Transfusion Reactions: No Reported Reaction Date of Last Stent Placement:: 04/26/17 Past Psychological History: No Psychological Hx Reported Smoking Status: Current every day smoker Past Alcohol Use History: None Reported Past Drug Use History: None Reported - Past Family History Father Family Medical History: No Reported History Additional Family Medical History / Comment(s): Father at the age of 76yrs from "old age." Mother Family Medical History: Pneumonia Additional Family Medical History / Comment(s): Mother of pneumonia at the age of 68yrs. Brother(s) Family Medical History: Cancer Additional Family Medical History / Comment(s): He has one brother that is alive and is undergone CABG for coronary artery disease and has had one kidney removed. Patient has one brother who is in a motor vehicle oxidant, one brother from a myocardial infarction at age 59, and one from colon cancer at age 70. Sister(s) Family Medical History: No Reported History Additional Family Medical History / Comment(s): He has 3 sisters that are healthy. General Exam Limitations: no limitations Course Vital Signs 04/05/18 04/05/18 04/05/18 08:51 09:10 09:20 Temperature 97.9 F Pulse Rate 63 60 61 Respiratory 16 18 18 Rate Blood Pressure 175/88 161/86 155/88 O2 Sat by Pulse 98 96 95 Oximetry Medical Decision Making - Medical Decision Making Dictation was produced using [employer] dictation software. please excuse any grammatical, word or spelling errors. Chief Complaint: 73-year-old male presents with elevated blood pressure. History of Present Illness: Patient is 73-year-old male. He was recently admitted for uncontrolled hypertension. Patient states he woke up because of a headache. He checked his blood pressure was found to be really high measuring systolic blood pressure over 200. Patient also had episode of chest pain. He took a nitroglycerin with improvement of his symptoms. Patient states his chest pain is similar to the chest pain that he's had any was admitted to the hospital 3 days ago. Patient had extensive workup and seen by cardiology. He had a CT angiogram of his chest which was normal. He had ultrasound of his renal arteries that showed no stenosis. He was however seem to have 3.9 cm abdominal aortic aneurysm. Patient states after he took 2 nitroglycerin this morning symptoms improved. Patient otherwise has no complaint at this time. When patient was admitted recently he was started on new blood pressure medication. The ROS documented in this emergency department record has been reviewed and confirmed by me. Those systems with pertinent positive or negative responses have been documented in the HPI. All other systems are other negative and/or noncontributory. PHYSICAL EXAM: General Impression: Alert and oriented x3, not in acute distress HEENT: Normocephalic atraumatic, extra-ocular movements intact, pupils equal and reactive to light bilaterally, mucous membranes moist. Cardiovascular: Heart regular rate and rhythm, S1&S2 audible, no murmurs, rubs or gallops Chest: Lungs clear to auscultation bilaterally, no rhonchi, no wheeze, no rales Abdomen: Bowel sounds present, abdomen soft, non-tender, non-distended, no organomegaly Musculoskeletal: Pulses present and equal in all extremities, no peripheral edema Motor: Power 5/5 bilaterally, no focal deficits noted Neurological: CN II-XII grossly intact, no focal motor or sensory deficits noted Skin: Intact with no visualized rashes Psych: Normal affect and mood ED course: 73-year-old male presents with elevated blood pressure. Signs upon arrival shows blood pressure 155/88, worse vital signs within acceptable limits. EKGs benign. Laboratory evaluation obtained. CBC, coag panel, metabolic panel, cardiac enzymes, chest x-ray unremarkable. Patient does not have any symptoms. Patient's clinical presentation consistent with asymptomatic hypertension. Patient was just admitted to the hospital discharge 3 days ago. Vital signs were repeated. Patient's blood pressures improving. Patient's clinical presentation consistent with asymptomatic hypertension. 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 Patient clear for discharge. EKG interpretation: Ventricular rate 62, normal sinus rhythm, IA interval 150, QRS 92, QTc 436. No IA prolongation, no QTC prolongation, no ST or T-wave changes noted. . Overall, this EKG is unremarkable - Lab Data Result diagrams: 04/05/18 09:15 04/05/18 09:15 Lab Results 04/05/18 04/05/18 04/05/18 Range/Units 09:15 09:15 09:15 WBC 5.4 (3.8-10.6) k/uL RBC 4.72 (4.30-5.90) m/uL Hgb 15.1 (13.0-17.5) gm/dL Hct 43.4 (39.0-53.0) % MCV 91.9 (80.0-100.0) fL MCH 31.9 (25.0-35.0) pg MCHC 34.7 (31.0-37.0) g/dL RDW 15.4 (11.5-15.5) % Plt Count 132 L (150-450) k/uL Neutrophils % 64 % Lymphocytes % 26 % Monocytes % 5 % Eosinophils % 2 % Basophils % 0 % Neutrophils # 3.5 (1.3-7.7) k/uL Lymphocytes # 1.4 (1.0-4.8) k/uL Monocytes # 0.3 (0-1.0) k/uL Eosinophils # 0.1 (0-0.7) k/uL Basophils # 0.0 (0-0.2) k/uL PT (9.0-12.0) sec INR (<1.2) APTT (22.0-30.0) sec Sodium 140 (137-145) mmol/L Potassium 4.6 (3.5-5.1) mmol/L Chloride 107 (98-107) mmol/L Carbon Dioxide 26 (22-30) mmol/L Anion Gap 7 mmol/L BUN 20 (9-20) mg/dL Creatinine 1.16 (0.66-1.25) mg/dL Est GFR (CKD-EPI)AfAm 71 (>60 ml/min/1.73 sqM) Est GFR (CKD-EPI)NonAf 62 (>60 ml/min/1.73 sqM) Glucose 107 H (74-99) mg/dL Calcium 9.6 (8.4-10.2) mg/dL Magnesium 2.0 (1.6-2.3) mg/dL Total Bilirubin 1.2 (0.2-1.3) mg/dL AST 37 (17-59) U/L ALT 50 (21-72) U/L Alkaline Phosphatase 60 (38-126) U/L Total Creatine Kinase 77 (55-170) U/L CK-MB (CK-2) 0.7 (0.0-2.4) ng/mL CK-MB (CK-2) Rel Index 0.9 Troponin I <0.012 (0.000-0.034) ng/mL Total Protein 7.7 (6.3-8.2) g/dL Albumin 4.3 (3.5-5.0) g/dL 04/05/18 Range/Units 09:15 WBC (3.8-10.6) k/uL RBC (4.30-5.90) m/uL Hgb (13.0-17.5) gm/dL Hct (39.0-53.0) % MCV (80.0-100.0) fL MCH (25.0-35.0) pg MCHC (31.0-37.0) g/dL RDW (11.5-15.5) % Plt Count (150-450) k/uL Neutrophils % % Lymphocytes % % Monocytes % % Eosinophils % % Basophils % % Neutrophils # (1.3-7.7) k/uL Lymphocytes # (1.0-4.8) k/uL Monocytes # (0-1.0) k/uL Eosinophils # (0-0.7) k/uL Basophils # (0-0.2) k/uL PT 10.2 (9.0-12.0) sec INR 0.9 (<1.2) APTT 24.2 (22.0-30.0) sec Sodium (137-145) mmol/L Potassium (3.5-5.1) mmol/L Chloride (98-107) mmol/L Carbon Dioxide (22-30) mmol/L Anion Gap mmol/L BUN (9-20) mg/dL Creatinine (0.66-1.25) mg/dL Est GFR (CKD-EPI)AfAm (>60 ml/min/1.73 sqM) Est GFR (CKD-EPI)NonAf (>60 ml/min/1.73 sqM) Glucose (74-99) mg/dL Calcium (8.4-10.2) mg/dL Magnesium (1.6-2.3) mg/dL Total Bilirubin (0.2-1.3) mg/dL AST (17-59) U/L ALT (21-72) U/L Alkaline Phosphatase (38-126) U/L Total Creatine Kinase (55-170) U/L CK-MB (CK-2) (0.0-2.4) ng/mL CK-MB (CK-2) Rel Index Troponin I (0.000-0.034) ng/mL Total Protein (6.3-8.2) g/dL Albumin (3.5-5.0) g/dL Disposition Clinical Impression: Hypertension Disposition: HOME SELF-CARE Condition: Good Instructions (If sedation given, give patient instructions): Hypertension in the Older Adult (ED) Is patient prescribed a controlled substance at d/c from ED?: No Referrals: Reina Dunbar MD [Primary Care Provider] - 1-2 days Time of Disposition: 10:29
[2018-04-05 09:47] LABS: Basophils % (A) 0 %; Eosinophils # (A) 0.1 k/uL (0-0.7); Eosinophils % (A) 2 %; HCT 43.4 % (39.0-53.0); HGB 15.1 gm/dL (13.0-17.5); Lymphocytes # (A) 1.4 k/uL (1.0-4.8); Lymphocytes % (A) 26 %; MCH 31.9 pg (25.0-35.0); MCHC 34.7 g/dL (31.0-37.0); MCV 91.9 fL (80.0-100.0); Mean Platelet Volume 6.9; Monocytes # (A) 0.3 k/uL (0-1.0); Monocytes % (A) 5 %; Neutrophils # (A) 3.5 k/uL (1.3-7.7); Neutrophils % (A) 64 %; Platelet Count 132 k/uL (150-450); RBC 4.72 m/uL (4.30-5.90); RDW 15.4 % (11.5-15.5); WBC 5.4 k/uL (3.8-10.6)
[2018-04-05 09:54] LABS: INR 0.9 (<1.2); Partial Thromboplastin Time 24.2 sec (22.0-30.0); Prothrombin Time 10.2 sec (9.0-12.0)
--- NOTE | 2018-04-05 09:55 | XR ---
EXAMINATION TYPE: XR chest 2V DATE OF EXAM: 04/05/2018 COMPARISON: 04/02/2018 INDICATION: Chest pain elevated blood pressure TECHNIQUE: Frontal and lateral views of the chest are obtained. FINDINGS: The heart size is normal. The pulmonary vasculature is normal. The lungs are clear. IMPRESSION: 1. No acute pulmonary process.
[2018-04-05 10:02] LABS: Albumin 4.3 g/dL (3.5-5.0); Calcium 9.6 mg/dL (8.4-10.2); Potassium 4.6 mmol/L (3.5-5.1); Total Bilirubin 1.2 mg/dL (0.2-1.3); Total Protein 7.7 g/dL (6.3-8.2)
[2018-04-05 10:05] LABS: Creatine Kinase 77 U/L (55-170)
[2018-04-05 10:18] LABS: Creatine Kinase MB 0.7 ng/mL (0.0-2.4); Troponin I <0.012 ng/mL (0.000-0.034)
[2018-04-05 10:38] VITALS: BP 152/85; TEMP 97.8
== END 2018-04-05 10:43 | disposition home or self-care (01) ==
LOC: EC 08:47
DX: I10 Essential (primary) hypertension (principal); R51 Headache; J44.9 Chronic obstructive pulmonary disease, unspecified; I25.119 Atherosclerotic heart disease of native coronary artery with unspecified angina pectoris; K21.9 Gastro-esophageal reflux disease without esophagitis; H91.93 Unspecified hearing loss, bilateral; I25.2 Old myocardial infarction; F17.200 Nicotine dependence, unspecified, uncomplicated; Z88.0 Allergy status to penicillin; Z91.040 Latex allergy status; Z79.51 Long term (current) use of inhaled steroids; Z79.899 Other long term (current) drug therapy; Z85.038 Personal history of other malignant neoplasm of large intestine; Z86.79 Personal history of other diseases of the circulatory system; Z90.49 Acquired absence of other specified parts of digestive tract; Z95.5 Presence of coronary angioplasty implant and graft; Z82.49 Family history of ischemic heart disease and other diseases of the circulatory system
CPT/HCPCS: 36415; 71046; 80053; 82550; 82553; 83735; 84484; 85025; 85610; 85730; 93005; 99285

== ENCOUNTER 2018-06-06 20:49 | Emergency (ER) | payer MEDICARE ==
--- NOTE | 2018-06-06 20:58 | ED ---
Chest Pain HPI - General Chief Complaint: Chest Pain Stated Complaint: Cough Time Seen by Provider: 06/06/18 20:57 Source: patient Mode of arrival: ambulatory Limitations: no limitations - History of Present Illness Initial Comments: Ernie is a 73-year-old gentleman presenting to the emergency department today for evaluation of chest congestion. Patient has had upper respiratory like symptoms chest congestion and cough for a number of days. Today he reports he just couldn't take any more his insisted he come be evaluated. She reports subjective fevers, chills, minimally productive cough, rhinorrhea and sinus congestion as well as mild sore throat. He has no known sick contacts with anybody with influenza he did receive his vaccine this year. He denies any exertional chest pain, pressure-like chest pain diaphoresis or lightheadedness. He reports the discomfort is been persistently worsening for a number of days. - Related Data Home Medications Medication Instructions Recorded Confirmed Omeprazole [PriLOSEC] 20 mg PO BID 04/25/14 04/05/18 Albuterol Inhaler [Ventolin Hfa 2 puff INHALATION RT-QID PRN 02/05/18 04/05/18 Inhaler] Fluticasone Nasal [place] [Flonase 1 spray EA NOSTRIL BID 02/05/18 04/05/18 Nasal [place]] Previous Rx's Medication Instructions Recorded Aspirin 81 mg PO DAILY chew 04/27/17 Atorvastatin [Lipitor] 20 mg PO HS #90 tab 04/27/17 Clopidogrel [Plavix] 75 mg PO DAILY #90 tab 04/27/17 Lisinopril [Zestril] 20 mg PO BID #60 tab 02/06/18 Nitroglycerin Sl Tabs [Nitrostat] 0.4 mg SUBLINGUAL Q5M PRN #25 tab 02/06/18 Carvedilol [Coreg] 6.25 mg PO BID-W/MEALS #60 tab 04/04/18 Isosorbide Mononitrate ER [Imdur] 120 mg PO DAILY #30 tab.er.24h 04/04/18 Benzonatate [Tessalon Perles] 100 mg PO TID #15 cap 06/06/18 Allergies Allergy/AdvReac Type Severity Reaction Status Date / Time latex Allergy Rash/Hives/ Verified 06/06/18 21:13 blisters Penicillins Allergy Rash/Hives Verified 06/06/18 21:13 Review of Systems ROS Statement: Those systems with pertinent positive or pertinent negative responses have been documented in the HPI. ROS Other: All systems not noted in ROS Statement are negative. EKG Findings - EKG Comments: EKG Findings:: EKG was obtained at 2103, rate is 67, there is a P-wave before each QRS, rhythm is sinus, there is a normal axis, there are normal intervals, ID 150, QRS 88, QTC is 443. There are no acute ST elevations or depressions there is no evidence of acute ischemia or infarction. Past Medical History Past Medical History: Coronary Artery Disease (CAD), Cancer, Chest Pain / Angina, COPD, GERD/Reflux, Hearing Disorder / Deafness, Hyperlipidemia, Hypertension, Myocardial Infarction ([place]) Additional Past Medical History / Comment(s): [place] x 2 (), colon cancer with surgery, kidney stone, chronic low back pain, [place] bilaterally with R ear worse, tinnitis L ear. ANEURYSM Last Myocardial Infarction Date:: 2010 History of Any Multi-Drug Resistant Organisms: None Reported Past Surgical History: Appendectomy, Bowel Resection, Heart Catheterization With Stent Additional Past Surgical History / Comment(s): bowel resection 2004, colono scopy, 3 cardiac stents Past Anesthesia/Blood Transfusion Reactions: No Reported Reaction Date of Last Stent Placement:: 04/26/17 Past Psychological History: No Psychological Hx Reported Smoking Status: Current every day smoker Past Alcohol Use History: None Reported Past Drug Use History: None Reported - Past Family History Father Family Medical History: No Reported History Additional Family Medical History / Comment(s): Father at the age of 76yrs from "old age." Mother Family Medical History: Pneumonia Additional Family Medical History / Comment(s): Mother of pneumonia at the age of 68yrs. Brother(s) Family Medical History: Cancer Additional Family Medical History / Comment(s): He has one brother that is alive and is undergone CABG for coronary artery disease and has had one kidney removed. Patient has one brother who is in a motor vehicle oxidant, one brother from a myocardial infarction at age 59, and one from colon cancer at age 70. Sister(s) Family Medical History: No Reported History Additional Family Medical History / Comment(s): He has 3 sisters that are healthy. General Exam - General Exam Comments Initial Comments: Physical Exam GENERAL: Patient is well-developed and well-nourished. Patient is nontoxic and well- hydrated and is in no distress. HENT: Normocephalic, Atraumatic. EYES: PERRL, EOMI PULMONARY: Unlabored respirations. No audible rales rhonchi or wheezing was noted. CARDIOVASCULAR: There is a regular rate and rhythm without any murmurs gallops or rubs. ABDOMEN: Soft and nontender with normal bowel sounds. SKIN: Skin is clear with no lesions or rashes and otherwise unremarkable. : Deferred NEUROLOGIC: Patient is alert and oriented x3. Moving all extremities spontaneously MUSCULOSKELETAL: Normal extremities with adequate strength and full range of motion. No lower extremity swelling or edema. No calf tenderness. PSYCHIATRIC: Normal psychiatric evaluation. Limitations: no limitations Limitations: no limitations Course Vital Signs 06/06/18 06/06/18 06/06/18 20:51 21:03 21:30 Temperature 97.8 F 98.6 F Pulse Rate 78 65 68 Respiratory 20 20 20 Rate Blood Pressure 141/85 148/70 148/70 O2 Sat by Pulse 97 97 98 Oximetry 06/06/18 06/06/18 22:00 22:30 Temperature Pulse Rate 64 69 Respiratory 22 22 Rate Blood Pressure 152/78 152/89 O2 Sat by Pulse 99 96 Oximetry Chest Pain MDM - MDM Patient was seen and evaluated history was obtained from patient and at bedside This 73-year-old male with URI-like symptoms, no exertional chest pain no symptoms consistent with ACS Labs and imaging were ordered The patient's advanced age and history of for workup was obtained Labs and imaging were unremarkable Patient updated on findings, expresses relief that he does not have pneumonia at this time patient's comfortable the plan for discharge home and outpatient follow-up Disposition Clinical Impression: Viral respiratory illness Disposition: HOME SELF-CARE Condition: Stable Instructions (If sedation given, give patient instructions): Upper Respiratory Infection ([place]) Prescriptions: Benzonatate [Tessalon Perles] 100 mg PO TID #15 cap Is patient prescribed a controlled substance at d/c from ED?: No Referrals: Reina Dunbar MD [Primary Care Provider] - 1-2 days
[2018-06-06 21:11] VITALS: TEMP 98.6
[2018-06-06 21:24] LABS: Basophils % (A) 1 %; Eosinophils # (A) 0.3 k/uL (0-0.7); Eosinophils % (A) 7 %; HCT 39.4 % (39.0-53.0); HGB 13.3 gm/dL (13.0-17.5); Lymphocytes # (A) 1.2 k/uL (1.0-4.8); Lymphocytes % (A) 34 %; MCH 31.1 pg (25.0-35.0); MCHC 33.7 g/dL (31.0-37.0); MCV 92.2 fL (80.0-100.0); Mean Platelet Volume 7.5; Monocytes # (A) 0.4 k/uL (0-1.0); Monocytes % (A) 10 %; Neutrophils # (A) 1.7 k/uL (1.3-7.7); Neutrophils % (A) 46 %; Platelet Count 125 k/uL (150-450); RBC 4.27 m/uL (4.30-5.90); WBC 3.7 k/uL (3.8-10.6)
[2018-06-06 21:29] LABS: INR 0.9 (<1.2); Prothrombin Time 10.2 sec (9.0-12.0)
[2018-06-06 21:30] LABS: Albumin 3.9 g/dL (3.5-5.0); Magnesium 1.8 mg/dL (1.6-2.3); Partial Thromboplastin Time 25.3 sec (22.0-30.0); Total Bilirubin 0.9 mg/dL (0.2-1.3); Total Protein 7.1 g/dL (6.3-8.2)
--- NOTE | 2018-06-06 21:34 | XR ---
EXAMINATION TYPE: XR chest 2V DATE OF EXAM: 06/06/2018 COMPARISON: 04/05/2018 HISTORY: Cough and chest pain TECHNIQUE: Frontal and lateral views of the chest are obtained. FINDINGS: Heart and mediastinum are normal. Lungs are clear. Diaphragm is normal. Bony thorax is nor mal. There are chest leads. IMPRESSION: Normal chest. No change.
[2018-06-06 22:58] VITALS: BP 152/89; PULSE 69; RESP 22
[2018-06-06] MEDS ORDERED: PROMETHAZ-COD 6.25-10 MG/5 ML 5 ML CUP PO STA (23:09)
== END 2018-06-06 23:14 | disposition home or self-care (01) ==
LOC: EC 20:49
DX: B34.9 Viral infection, unspecified (principal); I25.119 Atherosclerotic heart disease of native coronary artery with unspecified angina pectoris; I25.2 Old myocardial infarction; H91.90 Unspecified hearing loss, unspecified ear; F17.200 Nicotine dependence, unspecified, uncomplicated; K21.9 Gastro-esophageal reflux disease without esophagitis; Z85.038 Personal history of other malignant neoplasm of large intestine; Z79.899 Other long term (current) drug therapy; Z88.0 Allergy status to penicillin; Z91.040 Latex allergy status; Z95.5 Presence of coronary angioplasty implant and graft
CPT/HCPCS: 36415; 71046; 80053; 83735; 83880; 84484; 85025; 85610; 85730; 87502; 93005; 99285

== ENCOUNTER 2018-07-07 05:35 | Observation (INO) | payer MEDICARE ==
[2018-07-07] MEDS ORDERED: NITROGLYCERIN SL TABS 0.4 MG TAB SUBLINGUAL STA (06:10)
[2018-07-07] MEDS ORDERED: ASPIRIN 81 MG PO STA (06:10)
--- NOTE | 2018-07-07 06:14 | ED ---
General Adult HPI - General Chief complaint: Recheck/Abnormal Lab/Rx Stated complaint: Hypertension Time Seen by Provider: 07/07/18 05:57 Source: patient, family Mode of arrival: ambulatory Limitations: no limitations - History of Present Illness Initial comments: This is a 73-year-old male with a history of CAD and MN, hypertension who presents emergency department for high blood pressure, chest pain, left arm and shoulder pain. Patient states it started around 3 AM today. He states that he got up and noticed that he is having some chest discomfort and left arm and left shoulder pain. He states that the pain was similar to his previous MN. He states that he took his blood pressure medications at that time and also a sublingual nitroglycerin. This seemed to improve the chest pain however has persistent left arm pain. When the pain did not seem to improve he decided to come to the emergency department. He states he was seen recently for something similar and had some medication adjustments. He states that his fiscal manager believes that he still has some blockage in the heart. He denies any lower [place] swelling. He states the pain is not ripping or sharp in nature. No numbness, tingling, or weakness in the arm. No other acute complaints. - Related Data Home Medications Medication Instructions Recorded Confirmed Omeprazole [PriLOSEC] 20 mg PO BID 04/25/14 04/05/18 Albuterol Inhaler [Ventolin Hfa 2 puff INHALATION RT-QID PRN 02/05/18 04/05/18 Inhaler] Fluticasone Nasal [place] [Flonase 1 spray EA NOSTRIL BID 02/05/18 04/05/18 Nasal [place]] Previous Rx's Medication Instructions Recorded Aspirin 81 mg PO DAILY chew 04/27/17 Atorvastatin [Lipitor] 20 mg PO HS #90 tab 04/27/17 Clopidogrel [Plavix] 75 mg PO DAILY #90 tab 04/27/17 Lisinopril [Zestril] 20 mg PO BID #60 tab 02/06/18 Nitroglycerin Sl Tabs [Nitrostat] 0.4 mg SUBLINGUAL Q5M PRN #25 tab 02/06/18 Carvedilol [Coreg] 6.25 mg PO BID-W/MEALS #60 tab 04/04/18 Isosorbide Mononitrate ER [Imdur] 120 mg PO DAILY #30 tab.er.24h 01/24/19 Benzonatate [Tessalon Perles] 100 mg PO TID #15 cap 06/06/18 Allergies Allergy/AdvReac Type Severity Reaction Status Date / Time latex Allergy Rash/Hives/ Verified 07/07/18 05:54 blisters Penicillins Allergy Rash/Hives Verified 07/07/18 05:54 Review of Systems ROS Statement: Those systems with pertinent positive or pertinent negative responses have been documented in the HPI. ROS Other: All systems not noted in ROS Statement are negative. Past Medical History Past Medical History: Coronary Artery Disease (CAD), Cancer, Chest Pain / Angina, COPD, GERD/Reflux, Hearing Disorder / Deafness, Hyperlipidemia, Hypertension, Myocardial Infarction (MN) Additional Past Medical History / Comment(s): MN x 2 (), colon cancer with surgery, kidney stone, chronic low back pain, [place] bilaterally with R ear worse, tinnitis L ear. ANEURYSM Last Myocardial Infarction Date:: 2010 History of Any Multi-Drug Resistant Organisms: None Reported Past Surgical History: Appendectomy, Bowel Resection, Heart Catheterization With Stent Additional Past Surgical History / Comment(s): bowel resection 2004, colonoscopy, 3 cardiac stents Past Anesthesia/Blood Transfusion Reactions: No Reported Reaction Date of Last Stent Placement:: 04/26/17 Past Psychological History: No Psychological Hx Reported Smoking Status: Current every day smoker Past Alcohol Use History: None Reported Past Drug Use History: None Reported - Past Family History Father Family Medical History: No Reported History Additional Family Medical History / Comment(s): Father at the age of 76yrs from "old age." Mother Family Medical History: Pneumonia Additional Family Medical History / Comment(s): Mother of pneumonia at the age of 68yrs. Brother(s) Family Medical History: Cancer Additional Family Medical History / Comment(s): He has one brother that is alive and is undergone CABG for coronary artery disease and has had one kidney remove d. Patient has one brother who is in a motor vehicle oxidant, one brother from a myocardial infarction at age 59, and one from colon cancer at age 70. Sister(s) Family Medical History: No Reported History Additional Family Medical History / Comment(s): He has 3 sisters that are healthy. General Exam - General Exam Comments Initial Comments: Constitutional: Awake alert Appears comfortable Head: Normocephalic atraumatic Eyes: no conjunctival injection No scleral icterus EOMI Neck: No JVD Supple Heart: Regular rate rhythm normal S1-S2 no murmurs Lungs: Clear to auscultation bilaterally No wheezing No rales Abdomen: Soft nondistended nontender Extremities: Non edematous DP pulses intact Radial pulses intact Neuro: A&Ox3 No focal neurologic deficits Psych: Appropriate mood and affect Limitations: no limitations Course Vital Signs 07/07/18 07/07/18 07/07/18 05:50 06:18 06:21 Temperature 98 F Pulse Rate 61 56 L 65 Respiratory 16 16 16 Rate Blood Pressure 190/93 175/106 155/97 O2 Sat by Pulse 97 98 98 Oximetry 07/07/18 06:56 Temperature Pulse Rate 58 L Respiratory 18 Rate Blood Pressure 175/82 O2 Sat by Pulse 98 Oximetry EKG Findings - EKG Comments: EKG Findings:: EKG showing normal sinus rhythm with a rate of 58. There is no abnormal ST segment changes. There are biphasic T waves in V5 and V6. QTC is 412. Other intervals normal. No ectopy. Medical Decision Making - Medical Decision Making This is a 73-year-old male who presents emergency department for chest, left arm, and back pain. The patient was evaluated with an EKG was was unremarkable for any acute changes. Troponin was negative. The patient did have a CTA of the chest performed that did not reveal any evidence for aortic dissection, aneurysm, or PE. Patient was given an aspirin and nitroglycerin and had resolution of his pain. The patient will be admitted to Dr. Woodard for further evaluation and treatment with cardiology on consultation. Patient was updated and agrees with plan of care. - Lab Data Result diagrams: 07/07/18 06:09 07/07/18 06:09 Lab Results 07/07/18 07/07/18 07/07/18 Range/Units 06:09 06:09 06:09 WBC 5.3 (3.8-10.6) k/uL RBC 4.59 (4.30-5.90) m/uL Hgb 14.1 (13.0-17.5) gm/dL Hct 41.2 (39.0-53.0) % MCV 89.6 (80.0-100.0) fL MCH 30.6 (25.0-35.0) pg MCHC 34.1 (31.0-37.0) g/dL RDW 15.8 H (11.5-15.5) % Plt Count 124 L (150-450) k/uL Neutrophils % 56 % Lymphocytes % 32 % Monocytes % 6 % Eosinophils % 4 % Basophils % 0 % Neutrophils # 2.9 (1.3-7.7) k/uL Lymphocytes # 1.7 (1.0-4.8) k/uL Monocytes # 0.3 (0-1.0) k/uL Eosinophils # 0.2 (0-0.7) k/uL Basophils # 0.0 (0-0.2) k/uL PT (9.0-12.0) sec INR (<1.2) APTT (22.0-30.0) sec Sodium 139 (137-145) mmol/L Potassium 4.4 (3.5-5.1) mmol/L Chloride 107 (98-107) mmol/L Carbon Dioxide 25 (22-30) mmol/L Anion Gap 7 mmol/L BUN 20 (9-20) mg/dL Creatinine 1.10 (0.66-1.25) mg/dL Est GFR (CKD-EPI)AfAm 76 (>60 ml/min/1.73 sqM) Est GFR (CKD-EPI)NonAf 65 (>60 ml/min/1.73 sqM) Glucose 112 H (74-99) mg/dL Calcium 9.2 (8.4-10.2) mg/dL Magnesium 1.8 (1.6-2.3) mg/dL Total Bilirubin 1.1 (0.2-1.3) mg/dL AST 34 (17-59) U/L ALT 55 (21-72) U/L Alkaline Phosphatase 55 (38-126) U/L CK-MB (CK-2) 0.9 (0.0-2.4) ng/mL Troponin I <0.012 (0.000-0.034) ng/mL Total Protein 7.5 (6.3-8.2) g/dL Albumin 4.2 (3.5-5.0) g/dL 07/07/18 Range/Units 06:09 WBC (3.8-10.6) k/uL RBC (4.30-5.90) m/uL Hgb (13.0-17.5) gm/dL Hct (39.0-53.0) % MCV (80.0-100.0) fL MCH (25.0-35.0) pg MCHC (31.0-37.0) g/dL RDW (11.5-15.5) % Plt Count (150-450) k/uL Neutrophils % % Lymphocytes % % Monocytes % % Eosinophils % % Basophils % % Neutrophils # (1.3-7.7) k/uL Lymphocytes # (1.0-4.8) k/uL Monocytes # (0-1.0) k/uL Eosinophils # (0-0.7) k/uL Basophils # (0-0.2) k/uL PT 10.7 (9.0-12.0) sec INR 1.0 (<1.2) APTT 24.2 (22.0-30.0) sec Sodium (137-145) mmol/L Potassium (3.5-5.1) mmol/L Chloride (98-107) mmol/L Carbon Dioxide (22-30) mmol/L Anion Gap mmol/L BUN (9-20) mg/dL Creatinine (0.66-1.25) mg/dL Est GFR (CKD-EPI)AfAm (>60 ml/min/1.73 sqM) Est GFR (CKD-EPI)NonAf (>60 ml/min/1.73 sqM) Glucose (74-99) mg/dL Calcium (8.4-10.2) mg/dL Magnesium (1.6-2.3) mg/dL Total Bilirubin (0.2-1.3) mg/dL AST (17-59) U/L ALT (21-72) U/L Alkaline Phosphatase (38-126) U/L CK-MB (CK-2) (0.0-2.4) ng/mL Troponin I (0.000-0.034) ng/mL Total Protein (6.3-8.2) g/dL Albumin (3.5-5.0) g/dL Disposition Clinical Impression: Chest pain Disposition: ADMITTED IP TO THIS HOSP Condition: Stable Referrals: Reina Dunbar MD [Primary Care Provider] - 1-2 days
[2018-07-07 06:20] LABS: Basophils % (A) 0 %; Eosinophils # (A) 0.2 k/uL (0-0.7); Eosinophils % (A) 4 %; HCT 41.2 % (39.0-53.0); HGB 14.1 gm/dL (13.0-17.5); Lymphocytes # (A) 1.7 k/uL (1.0-4.8); Lymphocytes % (A) 32 %; MCH 30.6 pg (25.0-35.0); MCHC 34.1 g/dL (31.0-37.0); MCV 89.6 fL (80.0-100.0); Mean Platelet Volume 7.2; Monocytes # (A) 0.3 k/uL (0-1.0); Monocytes % (A) 6 %; Neutrophils # (A) 2.9 k/uL (1.3-7.7); Neutrophils % (A) 56 %; Platelet Count 124 k/uL (150-450); RBC 4.59 m/uL (4.30-5.90); RDW 15.8 % (11.5-15.5); WBC 5.3 k/uL (3.8-10.6)
[2018-07-07 06:30] LABS: Albumin 4.2 g/dL (3.5-5.0); Calcium 9.2 mg/dL (8.4-10.2); Magnesium 1.8 mg/dL (1.6-2.3); Potassium 4.4 mmol/L (3.5-5.1); Total Bilirubin 1.1 mg/dL (0.2-1.3); Total Protein 7.5 g/dL (6.3-8.2)
[2018-07-07 06:37] LABS: Partial Thromboplastin Time 24.2 sec (22.0-30.0); Prothrombin Time 10.7 sec (9.0-12.0)
--- NOTE | 2018-07-07 06:48 | XR ---
EXAM: XR Chest, 2 Views CLINICAL HISTORY: Chest Pain TECHNIQUE: Frontal and lateral views of the chest. COMPARISON: 06/06/2018 FINDINGS: Lungs: No focal consolidation. Pulmonary vasculature is felt to be within normal limits, accounting for slightly diminished lung volumes. Pleural space: Unremarkable. No pneumothorax. Heart: Unremarkable. No cardiomegaly. Mediastinum: Unremarkable. Trachea is midline. Bones/joints: No significant acute abnormality. Similar-appearing degenerative changes involving the inferior thoracic spine. IMPRESSION: No acute cardiopulmonary process or significant interval change from previous examination.
[2018-07-07 06:53] LABS: Creatine Kinase MB 0.9 ng/mL (0.0-2.4); Troponin I <0.012 ng/mL (0.000-0.034)
[2018-07-07] MEDS ORDERED: ENALAPRILAT 1.25 MG/ML 1 ML VIAL IVP STA (07:03)
--- NOTE | 2018-07-07 07:20 | CT ---
EXAM: CT Angiography Chest With Intravenous Contrast CLINICAL HISTORY: Chest Pain TECHNIQUE: Axial computed tomographic angiography images of the chest with intravenous contrast using pulmonary embolism protocol. CTDI is 8.4 mGy and DLP is 306 mGy-cm. This CT exam was performed using one or more of the following dose reduction techniques: automated exposure control, adjustment of the mA and/or kV according to patient size, and/or use of iterative reconstruction technique. MIP reconstructed images were created and reviewed. COMPARISON: 04/02/2018 FINDINGS: Pulmonary arteries: No evidence for pulmonary embolism. Aorta: No acute findings. No thoracic aortic aneurysm. Lungs: Minimal dependent ground-glass opacities are noted in the posterior lung bases and inferior lingular segments. Minimal central peribronchial wall thickening is similar to previous examination. No endobronchial abnormality noted. Subsegmental calcified granuloma again noted in the juxtapleural left lower lobe posteriorly Pleural space: Unremarkable. No significant effusion. No pneumothorax. Heart: The cardiac chambers are normal in size. Coronary artery calcifications again noted Bones/joints: No acute fracture. No dislocation. Soft tissues: Unremarkable. Lymph nodes: Nonspecific AP window and paratracheal lymph nodes are similar to previous exam. Liver: Scattered subcentimeter hypodensities in the liver are less conspicuous on this examination. IMPRESSION: 1. No evidence for pulmonary embolism. 2. Minimal dependent subsegmental changes within the posterior lung bases and inferior lingular segments. Primary consideration is dependent atelectasis. Dependent edema is considered less likely. No focal consolidation. No pleural effusion or pneumothorax.
[2018-07-07] MEDS ORDERED: NALOXONE 0.4 MG/ML 1 ML VIAL IV PRN (07:29)
[2018-07-07] MEDS ORDERED: NITROGLYCERIN SL TABS 0.4 MG TAB SUBLINGUAL PRN (08:33)
[2018-07-07] MEDS ORDERED: ALPRAZolam 0.25 MG TAB PO PRN (08:33)
[2018-07-07] MEDS ORDERED: ALPRAZolam 0.5 MG TAB PO PRN (08:33)
[2018-07-07] MEDS ORDERED: ALBUTEROL NEBULIZED 2.5 MG/3 ML INHALATION PRN (08:33)
[2018-07-07] MEDS: CLOPIDOGREL 75 MG TAB PO SCH (09:41)
[2018-07-07] MEDS: ISOSORBIDE MONONITRATE ER 60 MG TAB.ER.24H PO SCH (09:41)
[2018-07-07] MEDS: LISINOPRIL 20 MG TAB PO SCH ×2 (09:41→19:46)
[2018-07-07] MEDS: PANTOPRAZOLE 40 MG TABLET PO SCH ×2 (09:42→17:56)
[2018-07-07] MEDS: FLUTICASONE 50MCG/SPRAY NASAL 16GM EA NOSTRIL SCH ×2 (09:42→19:46)
--- NOTE | 2018-07-07 10:04 | CONS ---
CONSULTATION ATTENDING: Dr. Quinones. HISTORY OF PRESENT ILLNESS: Mr. Bain is a 73-year-old male with known history of coronary artery disease status post percutaneous revascularization of right coronary artery, history of hypertension, prior history of smoking, who presented with symptoms of elbow and chest discomfort that occurred at night. He checked his blood pressure at that time and it was quite elevated and came into the emergency room. The patient had a percutaneous revascularization of the right coronary artery performed in April of 2017. At that time, he had mild to moderate disease in the LAD and the left circumflex. He has underwent a stress test in January 2018 that revealed no evidence of inducible ischemia. He has been doing well since that time. His breathing has been stable. His blood pressure has been elevated at times but not to the level that he had yesterday. He felt dizzy yesterday. No peripheral edema. No PND. No orthopnea. No syncope. His coronary risk factors are remarkable for the history of hypertension. He is nondiabetic. He has stopped smoking. He is hyperlipidemic. MEDICATIONS: Include aspirin once a day, Lipitor 20 mg daily, Coreg 6.5 mg twice a day, Plavix 75 mg daily, isosorbide mononitrate 120 mg daily, Zestril 20 mg twice a day, and omeprazole in addition to Bentyl. REVIEW OF SYSTEMS: RESPIRATORY system: He has history of chronic dyspnea on exertion, unchanged. No recent wheezing or cough. GI system: No recent GI bleed. No peptic ulcer disease. system: No dysuria or hematuria. NERVOUS SYSTEM: No history of stroke or seizure. PHYSICAL EXAMINATION: GENERAL: 73-year-old male, alert, oriented, in no apparent distress. VITAL SIGNS: Blood pressure running in the 150s to 180s with the heart rate in the 60s. HEAD: Normocephalic. Eyes sclerae anicteric. NECK: Good upstroke. No bruit. No jugular venous distention. LUNGS: Clear to auscultation. HEART: Regular rate and rhythm S1, S2. No S3 with a systolic murmur at the base. No diastolic murmur. No rub. ABDOMEN: Soft, nontender. Positive bowel sounds. No organomegaly. EXTREMITIES: No edema. Intact distal pulses. LAB DATA: Lab data revealed troponin less than 0.012. BUN and creatinine 20 and 1.1, hemoglobin of 14.1, white blood cell of 5.3. EKG revealed a sinus mechanism, rate of 58 with minor nonspecific T-wave inversion in the lateral precordial leads. Chest x-ray revealed no evidence of acute infiltrate. Chest CT revealed no evidence of pulmonary embolism. IMPRESSION: 1. Chest and elbow discomfort of unclear etiology. No evidence of enzymatic changes so far in a patient with known history disease. His symptoms remind him of the way he felt prior to his presentation with myocardial infarction. 2. Hypertension elevated. 3. Prior history of smoking. 4. Hyperlipidemia. RECOMMENDATION: I will resume his home medication. I would recommend to proceed with coronary angiography to further assess his status and guide his treatment. The rationale behind the procedure as well as risks and complication were discussed with the patient who is in full understanding and agreement. Depending on the results of his testing, further recommendation will be made. Thank you for this consult. We will follow with you. STANLEY / ENMANUELN: [id number] /
[2018-07-07] MEDS ORDERED: ACETAMINOPHEN TAB 325 MG TAB PO PRN (10:18)
[2018-07-07] MEDS ORDERED: traMADol 50 MG TAB PO PRN (10:18)
[2018-07-07] MEDS ORDERED: ONDANSETRON 4 MG/2 ML VIAL IVP PRN (10:18)
[2018-07-07 12:55] LABS: Creatine Kinase MB 0.9 ng/mL (0.0-2.4); Troponin I <0.012 ng/mL (0.000-0.034)
[2018-07-07] MEDS ORDERED: cloNIDine HCL 0.1 MG TAB PO PRN (14:03)
--- NOTE | 2018-07-07 14:05 | P.HPIM ---
History of Present Illness H&P Date: 07/07/18 Chief Complaint: chest pain Patient is a 73-year-old male with a past medical history of coronary artery disease with 2 primary cardial infarctions and 3 stents, hypertension, dyslipidemia, COPD, GERD, and multiple other chronic medical conditions as listed below who presented to the emergency department with complaints of chest pain. In the ER he underwent extensive evaluation. On arrival he was found be significantly hypertensive with a blood pressure of 190/93, the remainder of his vital signs were within normal limits. Initial laboratory analysis was un remarkable. Troponin was less than 0.012. EKG showed nonspecific ST-T wave changes. He was given a dose of nitroglycerin in the emergency department his chest pain resolved. He was placed in observation to rule out acute coronary syndrome. Patient seen and examined at bedside. He states that on Sunday he had some centralized chest pain with radiation into his left arm when he was up and walk ing around. It resolved spontaneously and he didn't pay much attention. Early this morning he woke up at 3 AM. He again had central chest pressure with radiation down into the left arm and into his back, it was associated with diaphoresis, lightheadedness, and overall not feeling well. He denied any shortness of breath, nausea, numbness, tingling, palpitations. He then took his blood pressure was 210/103. He took a nitro and his blood pressure medications and the chest pain went away but his left arm pain remained. He states that his blood pressure does not come down significantly after taking his medications so he presented to the emergency department. He also states that this pain is exactly like when he had his last heart attack in 2001. He reports that he has been suffering from a cold and has been taking medications as prescribed by Dr. Moreno Ortega. He has not missed any doses of his other medications. He follows with cardiology on an outpatient basis. He denies any nausea, vomiting, diarrhea, constipation, and dysuria. Review of Systems Pertinent positives and negatives as discussed in HPI, a complete review of systems was performed and all other systems are negative. Past Medical History Past Medical History: Coronary Artery Disease (CAD), Cancer, Chest Pain / Angina, COPD, GERD/Reflux, Hearing Disorder / Deafness, Hyperlipidemia, Hypertension, Myocardial Infarction (CT) Additional Past Medical History / Comment(s): CT x 2 (), colon cancer with surgery, kidney stone, chronic low back pain, [place] bilaterally with R ear worse, tinnitis L ear. ANEURYSM Last Myocardial Infarction Date:: 2010 History of Any Multi-Drug Resistant Organisms: None Reported Past Surgical History: Appendectomy, Bowel Resection, Heart Catheterization With Stent Additional Past Surgical History / Comment(s): bowel resection 2004, colonoscopy, 3 cardiac stents Past Anesthesia/Blood Transfusion Reactions: No Reported Reaction Date of Last Stent Placement:: 04/26/17 Past Psychological History: No Psychological Hx Reported Additional Psychological History / Comment(s): Pt resides with significant other. He is independent. Smoking Status: Former smoker Past Alcohol Use History: None Reported Past Drug Use History: None Reported - Past Family History Father Family Medical History: No Reported History Additional Family Medical History / Comment(s): Father at the age of 76yrs from "old age." Mother Family Medical History: Pneumonia Additional Family Medical History / Comment(s): Mother of pneumonia at the age of 68yrs. Brother(s) Family Medical History: Cancer Additional Family Medical History / Comment(s): He has one brother that is alive and is undergone CABG for coronary artery disease and has had one kidney removed. Patient has one brother who is in a motor vehicle oxidant, one brother from a myocardial infarction at age 59, and one from colon cancer at age 70. Sister(s) Family Medical History: No Reported History Additional Family Medical History / Comment(s): He has 3 sisters that are healt hy. Medications and Allergies Home Medications Medication Instructions Recorded Confirmed Type Omeprazole [PriLOSEC] 20 mg PO BID 04/25/14 07/07/18 History Aspirin 81 mg PO DAILY chew 04/27/17 07/07/18 Rx Atorvastatin [Lipitor] 20 mg PO HS #90 tab 04/27/17 07/07/18 Rx Clopidogrel [Plavix] 75 mg PO DAILY #90 tab 04/27/17 07/07/18 Rx Albuterol Inhaler [Ventolin Hfa 2 puff INHALATION RT-QID PRN 02/05/18 07/07/18 History Inhaler] Fluticasone Nasal [place] [Flonase 1 spray EA NOSTRIL BID 02/05/18 07/07/18 History Nasal [place]] Lisinopril [Zestril] 20 mg PO BID #60 tab 02/06/18 07/07/18 Rx Nitroglycerin Sl Tabs [Nitrostat] 0.4 mg SUBLINGUAL Q5M PRN #25 tab 02/06/18 07/07/18 Rx Carvedilol [Coreg] 6.25 mg PO BID-W/MEALS #60 tab 04/04/18 07/07/18 Rx Isosorbide Mononitrate ER [Imdur] 120 mg PO DAILY #30 tab.er.24h 04/04/18 07/07/18 Rx Allergies Allergy/AdvReac Type Severity Reaction Status Date / Time latex Allergy Rash/Hives/ Verified 07/07/18 07:48 blisters Penicillins Allergy Rash/Hives Verified 07/07/18 07:48 Physical Exam Osteopathic Statement: *. No significant issues noted on an osteopathic structural exam other than those noted in the History and Physical/Consult. Vitals: Vital Signs Temp Pulse Pulse Resp BP BP Pulse Ox 07/07/18 08:01 97.6 F 59 L 18 193/87 99 07/07/18 07:51 56 L 16 189/98 99 07/07/18 06:56 58 L 18 175/82 98 07/07/18 06:21 65 16 155/97 98 07/07/18 06:18 56 L 16 175/106 98 07/07/18 05:50 98 F 61 16 190/93 97 Intake and Output 07/06/18 07/07/18 07/07/18 22:59 06:59 14:59 Other: # Voids 2 Weight 78.018 kg General: non toxic, no distress, appears at stated age, normal weight Derm: no unusual rashes/lesions no unusual ecchymoses, warm, dry Head: atraumatic, normocephalic, symmetric Eyes: EOMI, no lid lag, anicteric sclera, pupils equal round reactive to light ENT: Nose and ears atraumatic, no thrush, no pharyngeal erythema Neck: No thyromegaly, no cervical lymphadenopathy, trachea midline, supple Mouth: no lip lesion, mucus membranes moist Cardiovascular: Chest pain nonreproducible with palpation, S1S2 reg, no murmur, positive posterior tibial pulse bilateral, no edema, capillary refill less than 2 seconds Lungs: CTA bilateral, no rhonchi, no rales , no accessory muscle use Abdominal: soft, nontender to palpation, no guarding, no appreciable organomegaly, normal bowel sounds Ext: no gross muscle atrophy, muscle strength 5 out of 5 in all 4 extremities grossly, no contractures, Neuro: CN II-XI grossly intact, light touch intact all 4 extremities, finger to nose within normal limits, Psych: Alert, oriented, appropriate affect Results CBC & Chem 7: 07/07/18 06:09 07/07/18 06:09 Labs: Abnormal Lab Results - Last 24 Hours (Table) 07/07/18 07/07/18 Range/Units 06:09 06:09 RDW 15.8 H (11.5-15.5) % Plt Count 124 L (150-450) k/uL Glucose 112 H (74-99) mg/dL Comments: EKG is reviewed by myself reveals normal sinus rhythm at a rate of 58, MT 158, QRS 88, QT see for 12, normal axis, nonspecific ST-T wave changes Chest x-ray: report reviewed, image reviewed Thrombosis Risk Factor Assmnt - DVT/VTE Prophylaxis DVT/VTE Prophylaxis: Low risk, early ambulation encouraged - Choose All That Apply Any of the Below Risk Factors Present?: Yes Each Factor Represents 1 point: Abnormal pulmonary function (COPD), Obesity (BMI >25) Other Risk Factors: Yes Each Risk Factor Represents 3 Points: Age 75 years or older Other congenital or acquired thrombophilia - If yes, enter type in comment: No Thrombosis Risk Factor Assessment Total Risk Factor Score: 5 Thrombosis Risk Factor Assessment Level: High Risk Assessment and Plan Assessment: Chest pain with concern for acute coronary syndrome -Aspirin, beta jessica, statin -Serial troponins -Patient was seen by cardiology and plan is for cardiac cath in a.m. -Check lipid profile Hypertensive urgency -Blood pressure improved significantly with 1 dose of nitro and is currently on- call for the first 24 hours with a systolic of 169. -Continue home medications Coreg, Imdur, lisinopril -Follow blood pressures closely -When necessary Catapres for systolic blood pressure greater than 175 Dyslipidemia -Statin -Check lipid profile COPD without exacerbation -As needed albuterol GERD -PPI The patient is placed in observation with an anticipated less than 2 per night stay for evaluation of chest pain. Surrogate decision-maker: Significant other Pam Buckner CODE STATUS:Full DVT prophylaxis: Early ambulation Discussed with: patient, nursing Anticipated discharge date: 1-[address]: home A total of 60 minutes was spent on the care of this complex patient more than 50% of the time was spent in counseling and care coordination.
[2018-07-07] MEDS: CARVEDILOL 6.25 MG TAB PO SCH (17:56)
[2018-07-07 18:58] LABS: Creatine Kinase MB 0.7 ng/mL (0.0-2.4); Troponin I <0.012 ng/mL (0.000-0.034)
[2018-07-07] MEDS ORDERED: ATORVASTATIN 20 MG TAB PO SCH (21:00)
[2018-07-08] MEDS ORDERED: SODIUM CHLORIDE 0.9% 1,000 ML in EMPTY BAG 1 BAG IV ONE (07:00)
[2018-07-08] MEDS: CLOPIDOGREL 75 MG TAB PO SCH (07:00)
[2018-07-08] MEDS: ATORVASTATIN 80 MG TAB PO ONE ×2 (07:00→07:07)
[2018-07-08] MEDS ORDERED: ASPIRIN 325 MG TAB PO ONE (07:00)
[2018-07-08] MEDS: LISINOPRIL 20 MG TAB PO SCH (07:01)
[2018-07-08] MEDS: CARVEDILOL 6.25 MG TAB PO SCH (07:01)
[2018-07-08] MEDS: ISOSORBIDE MONONITRATE ER 60 MG TAB.ER.24H PO SCH (07:01)
[2018-07-08] MEDS: PANTOPRAZOLE 40 MG TABLET PO SCH (07:01)
[2018-07-08] MEDS ORDERED: LIDOCAINE 1% INJ 10MG/ML (20 ML MDV) ONE (07:33)
[2018-07-08] MEDS ORDERED: fentaNYL (PF) 50 MCG/ML 2 ML AMP ONE (07:33)
[2018-07-08] MEDS ORDERED: fentaNYL (PF) 50 MCG/ML 2 ML AMP IV ONE (07:35)
[2018-07-08] MEDS ORDERED: LIDOCAINE 1% INJ 10MG/ML (20 ML MDV) SQ ONE (07:39)
[2018-07-08] MEDS ORDERED: NITROGLYCERIN SL TABS 0.4 MG TAB SUBLINGUAL ONE ×2 (07:42→07:44)
[2018-07-08] MEDS ORDERED: HEPARIN SODIUM 1,000 UN/ML (10ML VL) ONE (07:49)
[2018-07-08] MEDS ORDERED: HEPARIN SODIUM 1,000 UN/ML (10ML VL) IV ONE (07:53)
[2018-07-08] MEDS ORDERED: NITROGLYCERIN 1000MCG/10ML SYRINGE INTRACORON ONE (07:55)
[2018-07-08] MEDS ORDERED: IV FLUID CONTINUATION 1,000 ML IV ONE (07:58)
[2018-07-08] MEDS ORDERED: ADENOSINE 90 MG in SODIUM CHLORIDE 0.9% 60 ML IVP ONE (07:59)
[2018-07-08 08:02] VITALS: RESP 18
[2018-07-08 08:04] LABS: Calcium 8.7 mg/dL (8.4-10.2); Potassium 4.6 mmol/L (3.5-5.1)
[2018-07-08] MEDS ORDERED: IOPAMIDOL-300 50ML BTL INJ ONE (08:04)
[2018-07-08] MEDS ORDERED: IOPAMIDOL-370 125ML BTL INJ ONE (08:04)
[2018-07-08] MEDS ORDERED: RX INFO: IV CONTRAST WAS GIVEN 1 EACH MISC MISCELLANE PRN (08:22)
[2018-07-08] MEDS ORDERED: SODIUM CHLORIDE 0.9% 1,000 ML IV SCH (08:30)
[2018-07-08] MEDS: FLUTICASONE 50MCG/SPRAY NASAL 16GM EA NOSTRIL SCH (08:41)
--- NOTE | 2018-07-08 08:50 | CC ---
CARDIAC CATHETERIZATION REPORT Mr. Bain is a 73-year-old male with a known history of coronary artery disease, status post percutaneous revascularization of the RCA and the LAD, who presented with symptoms of chest and elbow discomfort reminding him of the way he felt prior to his intervention. His cardiac enzymes and EKG revealed no acute changes, but because of his symptoms and his prior history, recommendation made regarding cardiac catheterization, the procedures, risks, and complication were discussed with the patient who is in full understanding and agreement. PROCEDURE: Patient was brought to [facility] in a fasting semi-sedated state after receiving fentanyl and Benadryl and achieving moderate conscious sedated state. Using Xylocaine anesthesia and Seldinger technique, a 6-Setswana sheath was introduced in the right femoral artery. Selective right and left coronary angiography performed using 6-Setswana 4 bend right and left Ariel catheter, multiple views of the right coronary artery including hemiaxial views obtained. Following that, a 6-Setswana FR4 guiding catheter was introduced in the system and a Doppler flow wire was introduced in the distal RCA and IFR and FFR were measured after infusion of adenosine per protocol. Following that, a 6-Setswana tight pigtail catheter was introduced in the left ventricle and a 30 degree CRUZ view of the left ventricle was obtained. Following that, catheter and sheath were removed. Hemostasis was obtained with deployment of an Angio-Seal. There was no immediate complication. Patient is returned to his room in stable condition. Of note, the patient received 5000 units of intravenous heparin. There was no immediate complication. FINDINGS: LEFT MAIN: This is a short-size vessel bifurcating into left circumflex, left anterior descending artery. Left main coronary artery has no evidence of high-grade stenosis. LEFT ANTERIOR DESCENDING ARTERY: This is a large-sized vessel, reaching toward the apex with a wraparound apex segment. The stented segment in the proximal mid LAD is patent. There is a 30% to 40% intimal restenoses without any evidence of critical stenosis. LEFT CIRCUMFLEX: This is a nondominant vessel, large in caliber, giving rise to two obtuse marginal branches. The left circumflex has mild intimal disease of 20% to 30% without any evidence of high-grade stenosis. RIGHT CORONARY ARTERY: This is a large dominant vessel, bifurcating distally into PDA and posterolateral segment and branches. The right coronary artery stented segment proximally is patent. In the mid distal segment there is a stented area that has a tubular lesion up to 50%. The rest of the vessel has no high-grade stenosis. Fractional flow reserve of the RCA is 85% and IFR is 96%. LEFT VENTRICULOGRAM: Left ventriculogram is performed in 30 degree CRUZ view and revealed normal size systolic function. Ejection fraction is 60%. There was no significant mitral regurgitation. HEMODYNAMICS: There was no gradient across the aortic valve. The left ventricular end- diastolic pressure was left ventricle end-diastolic pressure was 12-14 mmHg. CONCLUSION: 1. Moderate disease in the distal right coronary artery with mild disease in the left anterior descending artery and left circumflex. 2. Normal left ventricular size and systolic function. 3. Hemodynamically nonsignificant lesion of the right coronary artery with fractional flow reserve. RECOMMENDATION: In view of finding anatomy, I recommend continue medical therapy with aggressive risk modifications being initiated. Those findings and recommendation were discussed with the patient his family and they are in full understanding and agreement. Duration of the procedure is 30 minutes. STANLEY / ENMANUELN: [id number] /
[2018-07-08] MEDS ORDERED: amLODIPine 5 MG TAB PO SCH (09:00)
--- NOTE | 2018-07-08 11:04 | P.DS ---
Providers Date of admission: 07/07/18 07:29 Expected date of discharge: 07/08/18 Attending physician: Linda Sheldon DO Consults: 07/07/18 07:30 Consult Physician Routine Consulting Provider: Pernell De Paz Consult Reason/Comments: Chest Pain Do you want consulting provider notified?: Yes Primary care physician: [facility] Course: 73-year-old male with a past medical history of coronary artery disease with 2 primary cardial infarctions and 3 stents, hypertension, dyslipidemia, COPD, GERD, and multiple other chronic medical conditions as liste d below who presented to the emergency department with complaints of chest pain. In the ER he underwent extensive evaluation. On arrival he was found be significantly hypertensive with a blood pressure of 190/93, the remainder of his vital signs were within normal limits. Initial laboratory analysis was unremarkable. Troponin was less than 0.012. EKG showed nonspecific ST-T wave changes. He was given a dose of nitroglycerin in the emergency department his chest pain resolved. He was placed in observation to rule out acute coronary syndrome. With regard to his chest pain, troponin was less than 0.0123 with EKG showing nonspecific ST and T-wave changes. Cardiology was consulted and recommended a cardiac catheterization. Cardiac catheterization showed proximal mid LAD 30-40% restenosis, left circumflex 20-30%, RCA 50%. Medical management was recommended by cardiology. CTA of the chest was performed which ruled out PE. Patient was seen and examined prior to discharge. No acute events overnight. No chest pain, shortness of breath or palpitations. No nausea or vomiting. No fever or chills. He denies any groin pain or swelling. Patient reports difficulty with urination. He denies any history of BPH or difficulties prior to admission. General: [non toxic], [no distress], [appears at stated age] Derm: [warm], [dry] Head: [atraumatic], [normocephalic], [symmetric] Eyes: [EOMI], [no lid lag], [anicteric sclera] Mouth: [no lip lesion], [mucus membranes moist] Cardiovascular: [S1S2 reg], [no murmur], [positive DP pulse bilateral] Lungs: [CTA bilateral], [no rhonchi, no rales] , [no accessory muscle use] Abdominal: [soft], [ nontender to palpation], [no guarding], [no appreciable organomegaly] Ext: [no gross muscle atrophy], [no edema], [no contractures] Neuro: [no focal neuro deficits] Psych: [Alert], [oriented], [appropriate affect] Assessment and Plan Chest pain with concern for acute coronary syndrome Hypertensive urgency Dyslipidemia COPD without exacerbation GERD Troponin less than 0.0123 with EKG showing nonspecific ST-T wave changes. Chest x-ray negative for acute process. Chest CTA negative for PE. Cardiac catheterization performed showing 30-40% restenosis of the proximal mid LAD, 20- 30% of the left circumflex and 50% of the RCA. Cardiology consulted, recommends medical management. Plan: Continue aspirin and Lipitor. Continue Plavix. Continue beta jessica. BP 145/83. Continue amlodipine. Continue carvedilol. Continue lisinopril. Continue isosorbide mononitrate. Monitor vitals, adjust medications as necessary. Lipid panel shows total cholesterol 137, LDL 74, HDL 35. Continue Lipitor. Albuterol neb as needed for shortness of breath and wheezing. Continue Protonix. Plans for discharge home today when cleared by cardiology. Pertinent Studies: Chest x-ray, chest CTA, cardiac catheterization Patient Condition at Discharge: Stable Plan - Discharge Summary New Discharge Prescriptions: New amLODIPine [Norvasc] 5 mg PO DAILY #30 tab Continue Omeprazole [PriLOSEC] 20 mg PO BID Aspirin 81 mg PO DAILY chew Atorvastatin [Lipitor] 20 mg PO HS #90 tab Clopidogrel [Plavix] 75 mg PO DAILY #90 tab Fluticasone Nasal [place] [Flonase Nasal [place]] 1 spray EA NOSTRIL BID Albuterol Inhaler [Ventolin Hfa Inhaler] 2 puff INHALATION RT-QID PRN PRN Reason: Shortness Of Breath Lisinopril [Zestril] 20 mg PO BID #60 tab Nitroglycerin Sl Tabs [Nitrostat] 0.4 mg SUBLINGUAL Q5M PRN #25 tab PRN Reason: Chest Pain Carvedilol [Coreg] 6.25 mg PO BID-W/MEALS #60 tab Isosorbide Mononitrate ER [Imdur] 120 mg PO DAILY #30 tab.er.24h Discharge Medication List Omeprazole [PriLOSEC] 20 mg PO BID 04/25/14 [History] Aspirin 81 mg PO DAILY chew 04/27/17 [Rx] Atorvastatin [Lipitor] 20 mg PO HS #90 tab 04/27/17 [Rx] Clopidogrel [Plavix] 75 mg PO DAILY #90 tab 04/27/17 [Rx] Albuterol Inhaler [Ventolin Hfa Inhaler] 2 puff INHALATION RT-QID PRN 02/05/18 [History] Fluticasone Nasal [place] [Flonase Nasal [place]] 1 spray EA NOSTRIL BID 02/05/18 [History] Lisinopril [Zestril] 20 mg PO BID #60 tab 02/06/18 [Rx] Nitroglycerin Sl Tabs [Nitrostat] 0.4 mg SUBLINGUAL Q5M PRN #25 tab 02/06/18 [Rx] Carvedilol [Coreg] 6.25 mg PO BID-W/MEALS #60 tab 04/04/18 [Rx] Isosorbide Mononitrate ER [Imdur] 120 mg PO DAILY #30 tab.er.24h 04/04/18 [Rx] amLODIPine [Norvasc] 5 mg PO DAILY #30 tab 07/08/18 [Rx] Follow up Appointment(s)/Referral(s): Pernell De Paz MD [STAFF PHYSICIAN] - 1 Week Reina Dunbar MD [Primary Care Provider] - 1-2 days Activity/Diet/Wound Care/Special Instructions: Diet: Cardiac Follow-up with PCP within 1-2 days of discharge. Follow-up with cardiology within 1 week of discharge. Take all medications as advised. Discharge Disposition: HOME SELF-CARE
[2018-07-08 11:32] VITALS: BP 161/85; PULSE 59; TEMP 97.6
[2018-07-09] MEDS ORDERED: ASPIRIN 81 MG PO SCH (09:00)
== END 2018-07-08 15:45 | disposition home or self-care (01) ==
LOC: EC 05:35 → 1SOBS 07:29
PROVIDERS: ADMIT Internal Medicine; ATTEND Internal Medicine
DX: R07.9 Chest pain, unspecified (principal); I25.10 Atherosclerotic heart disease of native coronary artery without angina pectoris; I25.2 Old myocardial infarction; I10 Essential (primary) hypertension; M79.602 Pain in left arm; M25.512 Pain in left shoulder; R07.89 Other chest pain; Z79.899 Other long term (current) drug therapy; Z79.82 Long term (current) use of aspirin; Z79.02 Long term (current) use of antithrombotics/antiplatelets; Z88.0 Allergy status to penicillin; Z91.040 Latex allergy status; K21.9 Gastro-esophageal reflux disease without esophagitis; J44.9 Chronic obstructive pulmonary disease, unspecified; E78.5 Hyperlipidemia, unspecified; Z85.038 Personal history of other malignant neoplasm of large intestine; Z87.442 Personal history of urinary calculi; G89.29 Other chronic pain; M54.5 Low back pain; H91.93 Unspecified hearing loss, bilateral; Z95.5 Presence of coronary angioplasty implant and graft; F17.200 Nicotine dependence, unspecified, uncomplicated; Z83.6 Family history of other diseases of the respiratory system; R61 Generalized hyperhidrosis; E66.9 Obesity, unspecified; Z68.26 Body mass index [BMI] 26.0-26.9, adult; I16.0 Hypertensive urgency
CPT/HCPCS: 96374; 99285; 36415; 93005; 93571; 93458; 80061; 80053; 80048; 82553; 83735; 84484; 85025; 85610; 85730; 71046; 71275; G0378 ×2; C1760; C1887; C1894; C1769; J2001; J3010; J1644; J0153; Q9967 ×3

== ENCOUNTER 2018-09-10 11:18 | Emergency (ER) | payer MEDICARE ==
[2018-09-10] MEDS ORDERED: ASPIRIN 81 MG PO STA (11:38)
[2018-09-10] MEDS ORDERED: SODIUM CHLORIDE 0.9% 500 ML 500 ML IV STA (11:38)
--- NOTE | 2018-09-10 11:40 | ED ---
General Adult HPI - General Stated complaint: hypotension Time Seen by Provider: 09/10/18 11:20 Source: RN notes reviewed - History of Present Illness Initial comments: This is a 73-year-old male with a past medical history significant for high blood pressure high cholesterol and a previous OH. Patient comes in today stating he was just finishing breakfast when he became very lightheaded thought he was given a passout became nauseated and vomited times one and the symptoms of near syncope never went away so they called and goes. Patient states white took his blood pressure and it was 90/50 at that time. Patient states he has been out of his Imdur for a while any just hadn't filled just today so today was the first day and a while that he is taking it again. Patient currently has no complaints. Patient states he's had no chest pain shortness of breath or difficulty breathing today. Patient denies any dizziness. Patient denies any numbness or weakness. Patient denies any abdominal pain. Patient denies any re cent fever chills per patient denies any swelling to the legs or calf tenderness. - Related Data Home Medications Medication Instructions Recorded Confirmed Omeprazole [PriLOSEC] 20 mg PO BID 04/25/14 09/10/18 Albuterol Inhaler [Ventolin Hfa 2 puff INHALATION RT-QID PRN 02/05/18 09/10/18 Inhaler] Fluticasone Nasal [place] [Flonase 1 spray EA NOSTRIL BID 02/05/18 09/10/18 Nasal [place]] Previous Rx's Medication Instructions Recorded Aspirin 81 mg PO DAILY chew 04/27/17 Atorvastatin [Lipitor] 20 mg PO HS #90 tab 04/27/17 Lisinopril [Zestril] 20 mg PO BID #60 tab 02/06/18 Nitroglycerin Sl Tabs [Nitrostat] 0.4 mg SUBLINGUAL Q5M PRN #25 tab 02/06/18 Carvedilol [Coreg] 6.25 mg PO BID-W/MEALS #60 tab 04/04/18 Isosorbide Mononitrate ER [Imdur] 120 mg PO DAILY #30 tab.er.24h 04/04/18 amLODIPine [Norvasc] 5 mg PO DAILY #30 tab 07/08/18 Allergies Allergy/AdvReac Type Severity Reaction Status Date / Time latex Allergy Rash/Hives/ Verified 09/10/18 11:33 blisters Penicillins Allergy Rash/Hives Verified 09/10/18 11:33 Review of Systems ROS Statement: Those systems with pertinent positive or pertinent negative responses have been documented in the HPI. ROS Other: All systems not noted in ROS Statement are negative. Past Medical History Past Medical History: Coronary Artery Disease (CAD), Cancer, Chest Pain / Angina, COPD, GERD/Reflux, Hearing Disorder / Deafness, Hyperlipidemia, Hypertension, Myocardial Infarction ([place]) Additional Past Medical History / Comment(s): OH x 2 (2001/2010), colon cancer with surgery, kidney stone, chronic low back pain, CACHIL DEHE bilaterally with R ear worse, tinnitis L ear. ANEURYSM Last Myocardial Infarction Date:: 2010 History of Any Multi-Drug Resistant Organisms: None Reported Past Surgical History: Appendectomy, Bowel Resection, Heart Catheterization With Stent Additional Past Surgical History / Comment(s): bowel resection 2004, colonoscopy, 3 cardiac stents Past Anesthesia/Blood Transfusion Reactions: No Reported Reaction Date of Last Stent Placement:: 04/26/17 Past Psychological History: No Psychological Hx Reported Additional Psychological History / Comment(s): Pt resides with significant other. He is independent. Smoking Status: Former smoker Past Alcohol Use History: None Reported Past Drug Use History: None Reported - Past Family History Father Family Medical History: No Reported History Additional Family Medical History / Comment(s): Father at the age of 76yrs from "old age." Mother Family Medical History: Pneumonia Additional Family Medical History / Comment(s): Mother of pneumonia at the age of 68yrs. Brother(s) Family Medical History: Cancer Additional Family Medical History / Comment(s): He has one brother that is alive and is undergone CABG for coronary artery disease and has had one kidney removed. Patient has one brother who is in a motor vehicle oxidant, one brother from a myocardial infarction at age 59, and one from colon cancer at age 70. Sister(s) Family Medical History: No Reported History Additional Family Medical History / Comment(s): He has 3 sisters that are healthy. General Exam - General Exam Comments Initial Comments: GENERAL: Patient is well-developed and well-nourished. Patient is nontoxic and well- hydrated and is in no acute distress. ENT: Neck is soft and supple. No significant lymphadenopathy is noted. Oropharynx is clear. Moist mucous membranes. Neck has full range of motion without eliciting any pain. EYES: The sclera were anicteric and conjunctiva were pink and moist. Extraocular movements were intact and pupils were equal round and reactive to light. Eyelids were unremarkable. PULMONARY: Unlabored respirations. Good breath sounds bilaterally. No audible rales rhonchi or wheezing was noted. CARDIOVASCULAR: There is a regular rate and rhythm without any murmurs gallops or rubs. ABDOMEN: Soft and nontender with normal bowel sounds. No palpable organomegaly was noted. There is no palpable pulsatile mass. SKIN: Skin is clear with no lesions or rashes and otherwise unremarkable. NEUROLOGIC: Patient is alert and oriented x3. Cranial nerves II through XII are grossly intact. Motor and sensory are also intact. Normal speech, volume and content. Symmetrical smile. MUSCULOSKELETAL: Normal extremities with adequate strength and full range of motion. LYMPHATICS: No significant lymphadenopathy is noted PSYCHIATRIC: Course Vital Signs 09/10/18 09/10/18 11:35 12:31 Temperature 98.7 F Pulse Rate 58 L 65 Respiratory 18 19 Rate Blood Pressure 109/58 119/58 O2 Sat by Pulse 95 100 Oximetry Medical Decision Making - Medical Decision Making EKG shows sinus bradycardia 50 bpm NV interval 272 QRS is 88 QT interval is 456 QTC is 447. Patient's EKG shows Q waves in inferior leads 3 and aVF F and those are seen on previous EKG. We looked into the patient's med list and prior to today he was taking 60 mg of Imdur and stopped 2 weeks ago because he ran out and he started again today but he was written a new prescription for 120 mg. Patient feels asymptomatic and has been since she's been here. - Lab Data Result diagrams: 09/10/18 11:30 09/10/18 11:30 Lab Results 09/10/18 09/10/18 09/10/18 Range/Units 11:30 11:30 11:30 WBC 5.0 (3.8-10.6) k/uL RBC 3.77 L (4.30-5.90) m/uL Hgb 11.7 L (13.0-17.5) gm/dL Hct 34.3 L (39.0-53.0) % MCV 91.2 (80.0-100.0) fL MCH 31.0 (25.0-35.0) pg MCHC 34.1 (31.0-37.0) g/dL RDW 15.4 (11.5-15.5) % Plt Count 141 L (150-450) k/uL Neutrophils % 63 % Lymphocytes % 26 % Monocytes % 6 % Eosinophils % 2 % Basophils % 0 % Neutrophils # 3.2 (1.3-7.7) k/uL Lymphocytes # 1.3 (1.0-4.8) k/uL Monocytes # 0.3 (0-1.0) k/uL Eosinophils # 0.1 (0-0.7) k/uL Basophils # 0.0 (0-0.2) k/uL PT (9.0-12.0) sec INR (<1.2) APTT (22.0-30.0) sec Sodium 140 (137-145) mmol/L Potassium 3.8 (3.5-5.1) mmol/L Chloride 108 H (98-107) mmol/L Carbon Dioxide 25 (22-30) mmol/L Anion Gap 7 mmol/L BUN 22 H (9-20) mg/dL Creatinine 1.03 (0.66-1.25) mg/dL Est GFR (CKD-EPI)AfAm 82 (>60 ml/min/1.73 sqM) Est GFR (CKD-EPI)NonAf 71 (>60 ml/min/1.73 sqM) Glucose 151 H (74-99) mg/dL Calcium 8.7 (8.4-10.2) mg/dL Magnesium 2.1 (1.6-2.3) mg/dL Total Bilirubin 1.1 (0.2-1.3) mg/dL AST 34 (17-59) U/L ALT 46 (21-72) U/L Alkaline Phosphatase 47 (38-126) U/L Troponin I (0.000-0.034) ng/mL NT-Pro-B Natriuret Pep 136 pg/mL Total Protein 6.6 (6.3-8.2) g/dL Albumin 3.6 (3.5-5.0) g/dL 09/10/18 09/10/18 Range/Units 11:30 11:30 WBC (3.8-10.6) k/uL RBC (4.30-5.90) m/uL Hgb (13.0-17.5) gm/dL Hct (39.0-53.0) % MCV (80.0-100.0) fL MCH (25.0-35.0) pg MCHC (31.0-37.0) g/dL RDW (11.5-15.5) % Plt Count (150-450) k/uL Neutrophils % % Lymphocytes % % Monocytes % % Eosinophils % % Basophils % % Neutrophils # (1.3-7.7) k/uL Lymphocytes # (1.0-4.8) k/uL Monocytes # (0-1.0) k/uL Eosinophils # (0-0.7) k/uL Basophils # (0-0.2) k/uL PT 10.6 (9.0-12.0) sec INR 1.0 (<1.2) APTT 22.5 (22.0-30.0) sec Sodium (137-145) mmol/L Potassium (3.5-5.1) mmol/L Chloride (98-107) mmol/L Carbon Dioxide (22-30) mmol/L Anion Gap mmol/L BUN (9-20) mg/dL Creatinine (0.66-1.25) mg/dL Est GFR (CKD-EPI)AfAm (>60 ml/min/1.73 sqM) Est GFR (CKD-EPI)NonAf (>60 ml/min/1.73 sqM) Glucose (74-99) mg/dL Calcium (8.4-10.2) mg/dL Magnesium (1.6-2.3) mg/dL Total Bilirubin (0.2-1.3) mg/dL AST (17-59) U/L ALT (21-72) U/L Alkaline Phosphatase (38-126) U/L Troponin I <0.012 (0.000-0.034) ng/mL NT-Pro-B Natriuret Pep pg/mL Total Protein (6.3-8.2) g/dL Albumin (3.5-5.0) g/dL Disposition Clinical Impression: Hypotension, Adverse effects of medication Disposition: HOME SELF-CARE Condition: Good Instructions (If sedation given, give patient instructions): Syncope (ED), Hypotension (ED) Additional Instructions: Patient should follow-up with his primary medical care doctor and discussed going back to the previous dose of 60 mg of Imdur. Is patient prescribed a controlled substance at d/c from ED?: No Referrals: Reina Dunbar MD [Primary Care Provider] - 1-2 days Time of Disposition: 13:40
[2018-09-10 11:45] VITALS: TEMP 98.7
--- NOTE | 2018-09-10 12:02 | XR ---
EXAMINATION TYPE: XR chest 2V DATE OF EXAM: 09/10/2018 COMPARISON: Prior chest x-ray 07/07/2018 HISTORY: Chest pain TECHNIQUE: Frontal and lateral views of the chest are obtained. FINDINGS: There are overlying cardiac leads. There is no focal air space opacity, pleural effusion, o r pneumothorax seen. The cardiac silhouette size is stable. The osseous structures are intact. IMPRESSION: No acute cardiopulmonary process.
[2018-09-10 12:43] LABS: Basophils % (A) 0 %; Eosinophils # (A) 0.1 k/uL (0-0.7); Eosinophils % (A) 2 %; HCT 34.3 % (39.0-53.0); HGB 11.7 gm/dL (13.0-17.5); Lymphocytes # (A) 1.3 k/uL (1.0-4.8); Lymphocytes % (A) 26 %; MCHC 34.1 g/dL (31.0-37.0); MCV 91.2 fL (80.0-100.0); Mean Platelet Volume 6.9; Monocytes # (A) 0.3 k/uL (0-1.0); Monocytes % (A) 6 %; Neutrophils # (A) 3.2 k/uL (1.3-7.7); Neutrophils % (A) 63 %; Platelet Count 141 k/uL (150-450); RBC 3.77 m/uL (4.30-5.90); RDW 15.4 % (11.5-15.5)
[2018-09-10 12:52] LABS: Albumin 3.6 g/dL (3.5-5.0); Calcium 8.7 mg/dL (8.4-10.2); Magnesium 2.1 mg/dL (1.6-2.3); Potassium 3.8 mmol/L (3.5-5.1); Total Bilirubin 1.1 mg/dL (0.2-1.3); Total Protein 6.6 g/dL (6.3-8.2)
[2018-09-10 13:09] LABS: Partial Thromboplastin Time 22.5 sec (22.0-30.0); Prothrombin Time 10.6 sec (9.0-12.0)
[2018-09-10 14:07] VITALS: BP 120/72; PULSE 57; RESP 13
== END 2018-09-10 14:08 | disposition home or self-care (01) ==
LOC: EC 11:18
DX: I95.9 Hypotension, unspecified (principal); T50.905A Adverse effect of unspecified drugs, medicaments and biological substances, initial encounter; Z79.899 Other long term (current) drug therapy; Z91.040 Latex allergy status; Z88.0 Allergy status to penicillin; J44.9 Chronic obstructive pulmonary disease, unspecified; K21.9 Gastro-esophageal reflux disease without esophagitis; I25.2 Old myocardial infarction; Z85.038 Personal history of other malignant neoplasm of large intestine; Z95.5 Presence of coronary angioplasty implant and graft; Z87.891 Personal history of nicotine dependence
CPT/HCPCS: 36415; 71046; 80053; 83735; 83880; 84484; 85025; 85610; 85730; 93005; 96360; 96361; 99285

== ENCOUNTER 2018-10-08 07:28 | Emergency (ER) | payer MEDICARE ==
[2018-10-08 07:53] VITALS: RESP 12
--- NOTE | 2018-10-08 08:18 | ED ---
Male Urogenital HPI - General Chief complaint: Urogenital Stated complaint: Male Time Seen by Provider: 10/08/18 07:49 Source: patient, RN notes reviewed Mode of arrival: ambulatory Limitations: no limitations - History of Present Illness Initial comments: 73-year-old male presents emergency Department chief complaint of right scrotal swelling. Patient states that he's had this for proximal one week and has become more uncomfortable. It is worse when he is laying down. He has not taken any Tylenol or Motrin recently for it. Denies any trauma no dysuria no hematuria no prior surgeries. He has no complaints of abdominal pain no known hernia. Patient states swallowing his have been normal. - Related Data Home Medications Medication Instructions Recorded Confirmed Omeprazole [PriLOSEC] 20 mg PO BID 04/25/14 10/08/18 Albuterol Inhaler [Ventolin Hfa 2 puff INHALATION RT-QID PRN 02/05/18 10/08/18 Inhaler] Fluticasone Nasal [place] [Flonase 1 spray EA NOSTRIL BID 02/05/18 10/08/18 Nasal [place]] Previous Rx's Medication Instructions Recorded Aspirin 81 mg PO DAILY chew 04/27/17 Atorvastatin [Lipitor] 20 mg PO HS #90 tab 04/27/17 Lisinopril [Zestril] 20 mg PO BID #60 tab 02/06/18 Nitroglycerin Sl Tabs [Nitrostat] 0.4 mg SUBLINGUAL Q5M PRN #25 tab 02/06/18 Carvedilol [Coreg] 6.25 mg PO BID-W/MEALS #60 tab 04/04/18 Isosorbide Mononitrate ER [Imdur] 120 mg PO DAILY #30 tab.er.24h 04/04/18 amLODIPine [Norvasc] 5 mg PO DAILY #30 tab 07/08/18 Allergies Allergy/AdvReac Type Severity Reaction Status Date / Time latex Allergy Rash/Hives/ Verified 10/08/18 08:19 blisters Penicillins Allergy Rash/Hives Verified 10/08/18 08:19 Review of Systems ROS Statement: Those systems with pertinent positive or pertinent negative responses have been documented in the HPI. ROS Other: All systems not noted in ROS Statement are negative. Past Medical History Past Medical History: Coronary Artery Disease (CAD), Cancer, Chest Pain / Angina, COPD, GERD/Reflux, Hearing Disorder / Deafness, Hyperlipidemia, Hypertension, Myocardial Infarction ([place]) Additional Past Medical History / Comment(s): [place] x 2 (), colon cancer with surgery, kidney stone, chronic low back pain, [place] bilaterally with R ear worse, tinnitis L ear. ANEURYSM Last Myocardial Infarction Date:: 2010 History of Any Multi-Drug Resistant Organisms: None Reported Past Surgical History: Appendectomy, Bowel Resection, Heart Catheterization With Stent Additional Past Surgical History / Comment(s): bowel resection 2004, colonoscopy, 3 cardiac stents Past Anesthesia/Blood Transfusion Reactions: No Reported Reaction Date of Last Stent Placement:: 04/26/17 Past Psychological History: No Psychological Hx Reported Smoking Status: Current every day smoker Past Alcohol Use History: None Reported Past Drug Use History: None Reported - Past Family History Father Family Medical History: No Reported History Additional Family Medical History / Comment(s): Father at the age of 76yrs from "old age." Mother Family Medical History: Pneumonia Additional Family Medical History / Comment(s): Mother of pneumonia at the age of 68yrs. Brother(s) Family Medical History: Cancer Additional Family Medical History / Comment(s): He has one brother that is alive and is undergone CABG for coronary artery disease and has had one kidney removed. Patient has one brother who is in a motor vehicle oxidant, one brother from a myocardial infarction at age 59, and one from colon cancer at age 70. Sister(s) Family Medical History: No Reported History Additional Family Medical History / Comment(s): He has 3 sisters that are healthy. General Exam Limitations: no limitations General appearance: alert, in no apparent distress Head exam: Present: atraumatic, normocephalic, normal inspection Eye exam: Present: normal appearance, PERRL, EOMI. Absent: scleral icterus, conjunctival injection, periorbital swelling Respiratory exam: Present: normal lung sounds bilaterally. Absent: respiratory distress, wheezes, rales, rhonchi, stridor Cardiovascular Exam: Present: regular rate, normal rhythm, normal heart sounds. Absent: systolic murmur, diastolic murmur, rubs, gallop, clicks GI/Abdominal exam: Present: soft, normal bowel sounds. Absent: distended, tenderness, guarding, rebound, rigid exam: Present: testicular tenderness, scrotal swelling (Right-sided). Absent: vertical testicular lie Back exam: Absent: CVA tenderness (R), CVA tenderness (L) Neurological exam: Present: alert, oriented X3 Course Vital Signs 10/08/18 07:48 Temperature 97.6 F Pulse Rate 58 L Respiratory 12 Rate Blood Pressure 160/86 O2 Sat by Pulse 99 Oximetry Medical Decision Making - Medical Decision Making 73-year-old male presented for scrotal swelling. Patient has a right-sided hydrocele there is no evidence of epididymitis urinalysis unremarkable. Patient will be discharged with follow-up with urology return parameters were discussed. - Lab Data Lab Results 10/08/18 Range/Units 07:59 Urine Color Yellow Urine Appearance Clear (Clear) Urine pH 5.5 (5.0-8.0) Ur Specific [place] 1.025 (1.001-1.035) Urine Protein Trace H (Negative) Urine Glucose (UA) Negative (Negative) Urine Ketones Negative (Negative) Urine Blood Trace H (Negative) Urine Nitrite Negative (Negative) Urine Bilirubin Negative (Negative) Urine Urobilinogen 2.0 (<2.0) mg/dL Ur Leukocyte Esterase Negative (Negative) Urine RBC 1 (0-5) /hpf Urine WBC <1 (0-5) /hpf Hyaline Casts 1 (0-2) /lpf Urine Mucus Rare H (None) /hpf Disposition Clinical Impression: Hydrocele Disposition: HOME SELF-CARE Condition: Stable Instructions (If sedation given, give patient instructions): Hydrocele (ED) Additional Instructions: Please return to the Emergency Department if symptoms worsen or any other concerns. Is patient prescribed a controlled substance at d/c from ED?: No Referrals: Reina Dunbar MD [Primary Care Provider] - 1-2 days Jamari Dumont MD [STAFF PHYSICIAN] - 1-2 days Time of Disposition: 10:16
[2018-10-08 08:50] LABS: Appearance,Urine Clear (Clear); Bilirubin,Urine Negative (Negative); Blood,Urine Trace (Negative); Color,Urine Yellow; Glucose,Urine (UA) Negative (Negative); Hyaline Casts,Urine 1 /lpf (0-2); Ketones,Urine Negative (Negative); Leukocyte Esterase,Urine Negative (Negative); Mucus,Urine Rare /hpf; Nitrite,Urine Negative (Negative); PH, Urine 5.5 (5.0-8.0); Protein,Urine Trace (Negative); RBC,Urine 1 /hpf (0-5); Specific Gravity,Urine 1.025 (1.001-1.035)
--- NOTE | 2018-10-08 09:55 | US ---
EXAMINATION TYPE: US scrotum with doppler. Grayscale and color Doppler Duplex imaging performed of t he scrotum. DATE OF EXAM: 10/08/2018 COMPARISON: NONE CLINICAL HISTORY: Pain. Right side edema EXAM MEASUREMENTS: TESTICLES: Right Testicle: 4.1 x 2.4 x 3.5 cm Echogenic area upper .4 x .4cm. Left Testicle: 4.3 x 1.9 x 2.7 cm EPIDIDYMIS HEAD: Right Epididymis: Unable to visualize due to large amount of fluid. cm Left Epididymis: 0.9 x 1.1 cm Doppler performed to assess for testicular vascularity; good bilateral color flow and waveforms are s een. There is no evidence of testicular torsion. Presence of hydroceles: Yes right 7.3 x 4.2 x 8.2 cm. Presence of varicoceles: No IMPRESSION: Large right hydrocele
[2018-10-08 10:43] VITALS: BP 158/82; PULSE 62; TEMP 98.2
== END 2018-10-08 10:23 | disposition home or self-care (01) ==
LOC: EC 07:28
DX: N43.3 Hydrocele, unspecified (principal); J44.9 Chronic obstructive pulmonary disease, unspecified; K21.9 Gastro-esophageal reflux disease without esophagitis; H91.93 Unspecified hearing loss, bilateral; I25.119 Atherosclerotic heart disease of native coronary artery with unspecified angina pectoris; I25.2 Old myocardial infarction; F17.200 Nicotine dependence, unspecified, uncomplicated; Z88.0 Allergy status to penicillin; Z91.040 Latex allergy status; Z79.51 Long term (current) use of inhaled steroids; Z79.899 Other long term (current) drug therapy; Z85.038 Personal history of other malignant neoplasm of large intestine; Z90.49 Acquired absence of other specified parts of digestive tract; Z95.5 Presence of coronary angioplasty implant and graft
CPT/HCPCS: 76870; 81001; 93975; 99283

== ENCOUNTER → 2018-11-12 | Outpatient (CLI) | payer MEDICARE ==
--- NOTE | 2018-11-12 10:18 | US ---
EXAMINATION TYPE: US abdomen complete DATE OF EXAM: 11/12/2018 COMPARISON: CT chest CLINICAL HISTORY: I71.4 AAA w/o rupture. EXAM MEASUREMENTS: Liver Length: 12.2 cm Gallbladder Wall: 0.2 cm CBD: 0.5 cm Spleen: 11.7 cm Right Kidney: 9.3 x 4.9 x 5.0 cm Left Kidney: 11.4 x 4.4 x 4.8 cm Severe midline bowel gas, technically difficult study. Pancreas: wnl Liver: wnl Gallbladder: cholelithiasis Evidence for sonographic Chandra's sign: CBD: wnl Spleen: wnl Right Kidney: Inferior pole obscured by bowel gas Left Kidney: prominent renal pelvis Upper IVC: wnl Abd Aorta: partially obscured by bowel gas, AAA mid measuring 3.5 x 3.4cm The liver is homogenous. The intrahepatic portion of the IVC and proximal abdominal aorta are within normal limits. Common bile duct is unremarkable. The visualized portions of the pancreas are homoge nous. The spleen is unremarkable. Kidneys are symmetric and free of hydronephrosis. No renal lesio ns are seen. IMPRESSION: 1. Mid abdominal aortic aneurysm measuring 3.5 cm in anterior posterior dimension. This appears saccu lar and distal abdominal aorta is within normal limits. 2. Cholelithiasis without sonographic evidence of acute cholecystitis.
== END | disposition home or self-care (01) ==
LOC: RADUSWWP 08:48
PROVIDERS: ATTEND Internal Medicine Interventional Cardiology
DX: I71.4 Abdominal aortic aneurysm, without rupture (principal); K80.20 Calculus of gallbladder without cholecystitis without obstruction
CPT/HCPCS: 76700

== ENCOUNTER 2019-04-27 00:46 | Observation (INO) | payer MEDICARE ==
[2019-04-27] MEDS ORDERED: SODIUM CHLORIDE 0.9% 1,000 ML IV STA (01:02)
[2019-04-27] MEDS ORDERED: ONDANSETRON 4 MG/2 ML VIAL IVP STA (01:03)
--- NOTE | 2019-04-27 01:06 | ED ---
Abdominal Pain HPI - General Chief Complaint: Abdominal Pain Stated Complaint: abd pain Time Seen by Provider: 04/27/19 00:57 Source: patient, family Mode of arrival: ambulatory Limitations: no limitations - History of Present Illness Initial Comments: 74 year-old male patient presents to the emergency department today for evaluation of generalized abdominal pain and back pain. Patient states that symptoms started around 8 PM this evening. Patient states that he has had decreased urine output. States he is having dysuria with this. Patient states he has been nauseated and has been vomiting. Denies any constipation or diarrhea. Denies any fevers or chills. Patient states he has been diagnosed with gallstones in the past and is concerned these may be causing him problems. Patient also reports history of abdominal aortic aneurysm. Looks like it measured 3.5 cm by ultrasound and November 2018. Patient does admit to smoking cigarettes. Denies any alcohol use. Patient denies any recent rash, fever, chills, chest pain, shortness of breath, numbness, tingling, dizziness, weakness, headache, visual changes, or any other complaints. - Related Data Home Medications Medication Instructions Recorded Confirmed Omeprazole [PriLOSEC] 20 mg PO BID 04/25/14 10/08/18 Albuterol Inhaler [Ventolin Hfa 2 puff INHALATION RT-QID PRN 02/05/18 10/08/18 Inhaler] Fluticasone Nasal [place] [Flonase 1 spray EA NOSTRIL BID 02/05/18 10/08/18 Nasal [place]] Previous Rx's Medication Instructions Recorded Aspirin 81 mg PO DAILY chew 04/27/17 Atorvastatin [Lipitor] 20 mg PO HS #90 tab 04/27/17 Lisinopril [Zestril] 20 mg PO BID #60 tab 02/06/18 Nitroglycerin Sl Tabs [Nitrostat] 0.4 mg SUBLINGUAL Q5M PRN #25 tab 02/06/18 Carvedilol [Coreg] 6.25 mg PO BID-W/MEALS #60 tab 04/04/18 Isosorbide Mononitrate ER [Imdur] 120 mg PO DAILY #30 tab.er.24h 04/04/18 amLODIPine [Norvasc] 5 mg PO DAILY #30 tab 07/08/18 Allergies Allergy/AdvReac Type Severity Reaction Status Date / Time latex Allergy Rash/Hives/ Verified 04/27/19 00:54 blisters Penicillins Allergy Rash/Hives Verified 04/27/19 00:54 Review of Systems ROS Statement: Those systems with pertinent positive or pertinent negative responses have been documented in the HPI. ROS Other: All systems not noted in ROS Statement are negative. Past Medical History Past Medical History: Coronary Artery Disease (CAD), Cancer, Chest Pain / Angina, COPD, GERD/Reflux, Hearing Disorder / Deafness, Hyperlipidemia, Hypertension, Myocardial Infarction ([place]) Additional Past Medical History / Comment(s): [place] x 2 (2001/2010), colon cancer with surgery, kidney stone, chronic low back pain, [place] bilaterally with R ear worse, tinnitis L ear. ANEURYSM Last Myocardial Infarction Date:: 2010 History of Any Multi-Drug Resistant Organisms: None Reported Past Surgical History: Appendectomy, Bowel Resection, Heart Catheterization With Stent Additional Past Surgical History / Comment(s): bowel resection 2004, colonoscopy, 3 cardiac stents Past Anesthesia/Blood Transfusion Reactions: No Reported Reaction Date of Last Stent Placement:: 04/26/17 Past Psychological History: No Psychological Hx Reported Smoking Status: Current every day smoker Past Alcohol Use History: None Reported Past Drug Use History: None Reported - Past Family History Father Family Medical History: No Reported History Additional Family Medical History / Comment(s): Father at the age of 76yrs from "old age." Mother Family Medical History: Pneumonia Additional Family Medical History / Comment(s): Mother of pneumonia at the age of 68yrs. Brother(s) Family Medical History: Cancer Additional Family Medical History / Comment(s): He has one brother that is alive and is undergone CABG for coronary artery disease and has had one kidney removed. Patient has one brother who is in a motor vehicle oxidant, one brother from a myocardial infarction at age 59, and one from colon cancer at age 70. Sister(s) Family Medical History: No Reported History Additional Family Medical History / Comment(s): He has 3 sisters that are healthy. General Exam Limitations: no limitations General appearance: alert, in no apparent distress, other (This is a well- developed, well-nourished, nontoxic-appearing adult male patient in no acute distress. Vital signs upon presentation are temperature 98.5F, pulse 68, respirations 28, blood pressure 134/67, pulse ox 98% on room air.) Eye exam: Present: normal appearance, PERRL, EOMI. Absent: scleral icterus, conjunctival injection, periorbital swelling ENT exam: Present: normal exam, normal oropharynx, mucous membranes moist Respiratory exam: Present: normal lung sounds bilaterally. Absent: respiratory distress, wheezes, rales, rhonchi, stridor Cardiovascular Exam: Present: regular rate, normal rhythm, normal heart sounds. Absent: systolic murmur, diastolic murmur, rubs, gallop, clicks GI/Abdominal exam: Present: soft, tenderness (Generalized), normal bowel sounds. Absent: distended, guarding, rebound, rigid Neurological exam: Present: alert, oriented X3, CN II-XII intact Psychiatric exam: Present: normal affect, normal mood Skin exam: Present: warm, dry, intact, normal color. Absent: rash Course Vital Signs 04/27/19 00:51 Temperature 98.5 F Pulse Rate 68 Respiratory 28 H Rate Blood Pressure 154/67 O2 Sat by Pulse 98 Oximetry Medical Decision Making - Medical Decision Making 74 year-old male patient presents to the emergency department today for evaluation of abdominal pain, bilateral flank pain, vomiting. Physical examination did reveal bilateral CVA tenderness and generalized abdominal tenderness. Labs reviewed and did reveal elevated white blood cell count at 12.0, grossly infected urinalysis. CT abdomen and pelvis was unremarkable other than an enlarged prostate of 5.8 cm. Patient did have a redemonstrated abdominal aortic aneurysm measuring 3.7 cm. Patient was given IV dose of Rocephin here in the emergency department. Upon reevaluation patient still feels unwell. He does not feel comfortable being discharged home at this time. We'll admit for observation and continue IV Rocephin. - Lab Data Result diagrams: 04/27/19 01:08 04/27/19 01:08 Lab Results 04/27/19 04/27/19 04/27/19 Range/Units 01:08 01:08 01:08 WBC 12.0 H (3.8-10.6) k/uL RBC 5.12 (4.30-5.90) m/uL Hgb 15.6 (13.0-17.5) gm/dL Hct 46.4 (39.0-53.0) % MCV 90.6 (80.0-100.0) fL MCH 30.5 (25.0-35.0) pg MCHC 33.7 (31.0-37.0) g/dL RDW 14.7 (11.5-15.5) % Plt Count 150 (150-450) k/uL Neutrophils % 85 % Lymphocytes % 8 % Monocytes % 4 % Eosinophils % 1 % Basophils % 1 % Neutrophils # 10.3 H (1.3-7.7) k/uL Lymphocytes # 1.0 (1.0-4.8) k/uL Monocytes # 0.5 (0-1.0) k/uL Eosinophils # 0.1 (0-0.7) k/uL Basophils # 0.2 (0-0.2) k/uL PT (9.0-12.0) sec INR (<1.2) APTT (22.0-30.0) sec Sodium 136 L (137-145) mmol/L Potassium 4.3 (3.5-5.1) mmol/L Chloride 101 (98-107) mmol/L Carbon Dioxide 26 (22-30) mmol/L Anion Gap 9 mmol/L BUN 22 H (9-20) mg/dL Creatinine 1.05 (0.66-1.25) mg/dL Est GFR (CKD-EPI)AfAm 80 (>60 ml/min/1.73 sqM) Est GFR (CKD-EPI)NonAf 69 (>60 ml/min/1.73 sqM) Glucose 123 H (74-99) mg/dL Plasma Lactic Acid [place] 1.7 (0.7-2.0) mmol/L Calcium 9.2 (8.4-10.2) mg/dL Total Bilirubin 1.2 (0.2-1.3) mg/dL AST 44 (17-59) U/L ALT 59 H (4-49) U/L Alkaline Phosphatase 77 (38-126) U/L Total Protein 8.0 (6.3-8.2) g/dL Albumin 4.4 (3.5-5.0) g/dL Amylase 44 (30-110) U/L Lipase 74 (23-300) U/L Urine Color Urine Appearance (Clear) Urine pH (5.0-8.0) Ur Specific [place] (1.001-1.035) Urine Protein (Negative) Urine Glucose (UA) (Negative) Urine Ketones (Negative) Urine Blood (Negative) Urine Nitrite (Negative) Urine Bilirubin (Negative) Urine Urobilinogen (<2.0) mg/dL Ur Leukocyte Esterase (Negative) Urine RBC (0-5) /hpf Urine WBC (0-5) /hpf Amorphous Sediment (None) /hpf Urine Mucus (None) /hpf Urine Yeast (Budding) (None) /hpf 04/27/19 04/27/19 Range/Units 01:08 01:08 WBC (3.8-10.6) k/uL RBC (4.30-5.90) m/uL Hgb (13.0-17.5) gm/dL Hct (39.0-53.0) % MCV (80.0-100.0) fL MCH (25.0-35.0) pg MCHC (31.0-37.0) g/dL RDW (11.5-15.5) % Plt Count (150-450) k/uL Neutrophils % % Lymphocytes % % Monocytes % % Eosinophils % % Basophils % % Neutrophils # (1.3-7.7) k/uL Lymphocytes # (1.0-4.8) k/uL Monocytes # (0-1.0) k/uL Eosinophils # (0-0.7) k/uL Basophils # (0-0.2) k/uL PT 10.0 (9.0-12.0) sec INR 1.0 (<1.2) APTT 22.6 (22.0-30.0) sec Sodium (137-145) mmol/L Potassium (3.5-5.1) mmol/L Chloride (98-107) mmol/L Carbon Dioxide (22-30) mmol/L Anion Gap mmol/L BUN (9-20) mg/dL Creatinine (0.66-1.25) mg/dL Est GFR (CKD-EPI)AfAm (>60 ml/min/1.73 sqM) Est GFR (CKD-EPI)NonAf (>60 ml/min/1.73 sqM) Glucose (74-99) mg/dL Plasma Lactic Acid [place]aka (0.7-2.0) mmol/L Calcium (8.4-10.2) mg/dL Total Bilirubin (0.2-1.3) mg/dL AST (17-59) U/L ALT (4-49) U/L Alkaline Phosphatase (38-126) U/L Total Protein (6.3-8.2) g/dL Albumin (3.5-5.0) g/dL Amylase (30-110) U/L Lipase (23-300) U/L Urine Color [place] Urine Appearance Cloudy (Clear) Urine pH 6.0 (5.0-8.0) Ur Specific [place] 1.020 (1.001-1.035) Urine Protein 1+ (Negative) Urine Glucose (UA) Negative (Negative) Urine Ketones Negative (Negative) Urine Blood Moderate (Negative) Urine Nitrite Negative (Negative) Urine Bilirubin Negative (Negative) Urine Urobilinogen 8.0 (<2.0) mg/dL Ur Leukocyte Esterase Large (Negative) Urine RBC 22 H (0-5) /hpf Urine WBC >182 H (0-5) /hpf Amorphous Sediment Rare H (None) /hpf Urine Mucus Occasional H (None) /hpf Urine Yeast (Budding) Moderate H (None) /hpf - Radiology Data Radiology results: report reviewed, image reviewed CT abdomen and pelvis with contrast was obtained. Report was reviewed in its entirety. Impression by Dr. Diaz those previous surgery. No renal stone or obstruction. No sign of acute abdomen and pelvis. Exam not significantly different than old exam 10 years ago. Abdominal aortic aneurysm increased 5 mm compared to old exam Disposition Clinical Impression: Urinary tract infection Disposition: ADMITTED IP TO THIS [facility] Condition: Serious Referrals: Reina Dunbar MD [Primary Care Provider] - 1-2 days Decision to Admit Reason: Admit from EC Decision Date: 04/27/19 Decision Time: 03:16
[2019-04-27 01:30] LABS: Basophils # (A) 0.2 k/uL (0-0.2); Basophils % (A) 1 %; Eosinophils # (A) 0.1 k/uL (0-0.7); Eosinophils % (A) 1 %; HCT 46.4 % (39.0-53.0); HGB 15.6 gm/dL (13.0-17.5); Lymphocytes % (A) 8 %; MCH 30.5 pg (25.0-35.0); MCHC 33.7 g/dL (31.0-37.0); MCV 90.6 fL (80.0-100.0); Mean Platelet Volume 7.1; Monocytes # (A) 0.5 k/uL (0-1.0); Monocytes % (A) 4 %; Neutrophils # (A) 10.3 k/uL (1.3-7.7); Neutrophils % (A) 85 %; Platelet Count 150 k/uL (150-450); RBC 5.12 m/uL (4.30-5.90); RDW 14.7 % (11.5-15.5)
[2019-04-27 01:35] LABS: Partial Thromboplastin Time 22.6 sec (22.0-30.0)
[2019-04-27 01:36] LABS: Albumin 4.4 g/dL (3.5-5.0); Calcium 9.2 mg/dL (8.4-10.2); Potassium 4.3 mmol/L (3.5-5.1); Total Bilirubin 1.2 mg/dL (0.2-1.3)
[2019-04-27 01:43] LABS: Color,Urine Amber
[2019-04-27 01:44] LABS: Appearance,Urine Cloudy (Clear); Bilirubin,Urine Negative (Negative); Glucose,Urine (UA) Negative (Negative); Ketones,Urine Negative (Negative); Protein,Urine 1+ (Negative)
[2019-04-27 01:45] LABS: Blood,Urine Moderate (Negative); Leukocyte Esterase,Urine Large (Negative); Nitrite,Urine Negative (Negative)
[2019-04-27 01:52] LABS: Amorphous Sediment,Urine Rare /hpf; Budding Yeast,Urine Moderate /hpf; Mucus,Urine Occasional /hpf; RBC,Urine 22 /hpf (0-5); WBC,Urine >182 /hpf (0-5)
--- NOTE | 2019-04-27 02:17 | CT ---
EXAMINATION TYPE: CT abdomen pelvis w con DATE OF EXAM: 04/27/2019 COMPARISON: 08/09/2009 HISTORY: Abdominal pain CT DLP: 965.9 mGycm Automated exposure control for dose reduction was used. CONTRAST: Performed with IV Contrast, patient injected with 100 mL of Isovue 300. Multiple axial sections were obtained from the diaphragm to the floor the pelvis with intravenous con trast. There is some mild interstitial infiltrate and atelectasis at the lung bases. Heart size is normal. T here is no pericardial effusion. Stomach is intact. There are scattered hepatic cysts that measure up to 1 cm. There is small calcified gallstone. Bile ducts are not dilated. There is no pancreatic mass . Spleen is intact. Stomach has normal size. There is no adrenal mass. Kidneys show satisfactory contrast opacification. There is no hydronephrosi s. There is 1 cm cyst in the lower pole left kidney. There is aneurysmal lower abdominal aorta that m easures 3.6 cm. There is no retroperitoneal adenopathy. Ureters are not dilated. Delayed images show normal renal excretion. Bladder distends smoothly. There is enlarged prostate that measures 5.8 cm. There is no free fluid in the pelvis. There are multiple surgical clips in the pelvis. There are clips at the rectosigmoid col on. Appendix is not seen. There is no sign of appendicitis. There are spondylotic changes in the lumbar spine. There is no compression fracture. Bony pelvis is i ntact. IMPRESSION: Previous surgery. No renal stone or obstruction. No sign of acute abdomen and pelvis. Exam not signif icantly different than old exam 10 years ago. Abdominal aortic aneurysm increased 5 mm compared to ol d exam.
[2019-04-27] MEDS ORDERED: ONDANSETRON 4 MG/2 ML VIAL IVP PRN (03:16)
[2019-04-27] MEDS ORDERED: NALOXONE 0.4 MG/ML 1 ML VIAL IV PRN (03:16)
[2019-04-27] MEDS: SODIUM CHLORIDE 0.9% 1,000 ML IV SCH (04:44)
[2019-04-27] MEDS ORDERED: AZITHROMYCIN 500 MG TAB PO STA (06:42)
[2019-04-27] MEDS ORDERED: IPRATROPIUM-ALBUTEROL 3 ML NEB INHALATION PRN (06:44)
--- NOTE | 2019-04-27 06:50 | P.HPIM ---
History of Present Illness H&P Date: 04/27/19 Chief Complaint: Lower abdominal pain and nausea vomiting 74 year-old male patient with a past medical history of Hypertension, Myocardial Infarction ([place]), Coronary Artery Disease (CAD), Colon Cancer, COPD, GERD/Reflux, Hyperlipidemia, presents to the emergency department today via private vehicle with chief complaint of lower abdominal and suprapubic pain for the last 2 days, the patient reports dysuria along with flank and lower back pain. Patient states that he has had decreased urine output. Patient reports nausea and episodes of nonbloody bilious emesis. Denies any constipation or diarrhea. Denies any fevers or chills. Patient states he has been diagnosed with gallstones in the past and is concerned these may be causing him problems. Patient also reports history of abdominal aortic aneurysm. Patient reports following with Dr. De Paz last week. The patient does report a intermittently productive cough over the last 2 weeks with some wheezes and mild shortness of breath . Denies any alcohol use. Patient denies any recent rash, fever, chills, chest pain, shortness of breath, numbness, tingling, dizziness, weakness, headache, visual changes, or any other complaints. In the ER the patient had a comprehensive workup white count of 12, sodium of 136, BUN 22 creatinine 1.05, blood sugar 123, ALT 59. Urinalysis greater than 182 WBCs, nitrite negative and leuk esterase positive. CT abdomen and pelvis negative for any acute abdomen, there was no hydronephrosis, only a small calcified gallstone, AAA 3.6 cm (reported to be previously 3.5 cm on ultrasound in 2019) Review of Systems Pertinent positives per HPI all other review of system otherwise negative Past Medical History Past Medical History: Coronary Artery Disease (CAD), Cancer, Chest Pain / Angina, COPD, GERD/Reflux, Hearing Disorder / Deafness, Hyperlipidemia, Hypertension, Myocardial Infarction ([place]) Additional Past Medical History / Comment(s): [place] x 2 (2001/2010), colon cancer w ith surgery, kidney stone, chronic low back pain, [place] bilaterally with R ear worse, tinnitis L ear. AAA Last Myocardial Infarction Date:: 2010 History of Any Multi-Drug Resistant Organisms: None Reported Past Surgical History: Appendectomy, Bowel Resection, Heart Catheterization With Stent Additional Past Surgical History / Comment(s): bowel resection 2004, colonoscopy, 3 cardiac stents Past Anesthesia/Blood Transfusion Reactions: No Reported Reaction Date of Last Stent Placement:: 04/26/17 Past Psychological History: No Psychological Hx Reported Additional Psychological History / Comment(s): Pt resides with significant other. He is independent. Smoking Status: Current every day smoker Past Alcohol Use History: None Reported Additional Past Alcohol Use History / Comment(s): Pt started smoking in 1957, was 1 PPD but about 8 cigarettes a day now. Past Drug Use History: None Reported - Past Family History Father Family Medical History: No Reported History Additional Family Medical History / Comment(s): Father at the age of 76yrs from "old age." Mother Family Medical History: Pneumonia Additional Family Medical History / Comment(s): Mother of pneumonia at the age of 68yrs. Brother(s) Family Medical History: Cancer Additional Family Medical History / Comment(s): He has one brother that is alive and has undergone CABG for coronary artery disease and has had one kidney removed. Patient has one brother who in a motor vehicle accident, one brother from a myocardial infarction at age 59, and one from colon cancer at age 70. Sister(s) Family Medical History: No Reported History Additional Family Medical History / Comment(s): He has 3 sisters that are healthy. Medications and Allergies Home Medications Medication Instructions Recorded Confirmed Type Omeprazole [PriLOSEC] 20 mg PO BID 04/25/14 10/08/18 History Aspirin 81 mg PO DAILY chew 04/27/17 10/08/18 Rx Atorvastatin [Lipitor] 20 mg PO HS #90 tab 04/27/17 10/08/18 Rx Albuterol Inhaler [Ventolin Hfa 2 puff INHALATION RT-QID PRN 02/05/18 10/08/18 History Inhaler] Fluticasone Nasal [place] [Flonase 1 spray EA NOSTRIL BID 02/05/18 10/08/18 History Nasal [place]] Lisinopril [Zestril] 20 mg PO BID #60 tab 02/06/18 10/08/18 Rx Nitroglycerin Sl Tabs [Nitrostat] 0.4 mg SUBLINGUAL Q5M PRN #25 tab 02/06/18 10/08/18 Rx Carvedilol [Coreg] 6.25 mg PO BID-W/MEALS #60 tab 04/04/18 10/08/18 Rx Isosorbide Mononitrate ER [Imdur] 120 mg PO DAILY #30 tab.er.24h 04/04/18 10/08/18 Rx amLODIPine [Norvasc] 5 mg PO DAILY #30 tab 07/08/18 10/08/18 Rx Allergies Allergy/AdvReac Type Severity Reaction Status Date / Time latex Allergy Rash/Hives/ Verified 04/27/19 00:54 blisters Penicillins Allergy Rash/Hives Verified 04/27/19 00:54 Physical Exam Vitals: Vital Signs Temp Pulse Pulse Resp BP BP Pulse Ox 04/27/19 05:00 99.0 F 96 16 135/64 93 L 04/27/19 00:51 98.5 F 68 28 H 154/67 98 Intake and Output 04/26/19 04/26/19 04/27/19 14:59 22:59 06:59 Output Total 20 Balance -20 Output: Post Void Residual 20 Other: Voiding Method Toilet Weight 80.739 kg Constitutional: No acute distress, conversant, pleasant Eyes: Anicteric sclerae, moist conjunctiva, no lid-lag, PERRLA ENMT: NC/AT,Oropharynx clear, no erythema, exudates Neck:Supple, FROM, no masses, or JVD, No carotid bruits; No thyromegaly Lungs: Clear to auscultation, Clear to percussion, Normal respiratory effort, no accessory muscle use Cardiovascular: Heart regular in rate and rhythm, No murmurs, gallops, or rubs no peripheral edema Abdominal: Soft Nontender, nom distended, no guarding, no rebound or rigidity, Normoactive bowel sounds No hepatomegaly, No splenomegaly, No palpable mass No abdominal wall hernia noted Skin: Normal temperature, tone, texture, turgor, No induration No subcutaneous nodules, No rash, lesions, No ulcers Extremities:No digital cyanosis No clubbing, Pedal pulses intact and symmetrical Radial pulses intact and symmetrical Normal gait and station, No calf tenderness Psychiatric: Alert and oriented to person, place and time, Appropriate affect Intact judgement Neuro: Muscles Strength 5/5 in all 4 extremities, Sensation to light touch grossly present throughout, Cranial nerves II-XII grossly intact. No focal sensory deficits Results CBC & Chem 7: 04/27/19 01:08 04/27/19 01:08 Labs: Abnormal Lab Results - Last 24 Hours (Table) 04/27/19 04/27/19 04/27/19 Range/Units 01:08 01:08 01:08 WBC 12.0 H (3.8-10.6) k/uL Neutrophils # 10.3 H (1.3-7.7) k/uL Sodium 136 L (137-145) mmol/L BUN 22 H (9-20) mg/dL Glucose 123 H (74-99) mg/dL ALT 59 H (4-49) U/L Urine RBC 22 H (0-5) /hpf Urine WBC >182 H (0-5) /hpf Amorphous Sediment Rare H (None) /hpf Urine Mucus Occasional H (None) /hpf Urine Yeast (Budding) Moderate H (None) /hpf Thrombosis Risk Factor Assmnt - Choose All That Apply Any of the Below Risk Factors Present?: Yes Each Factor Represents 1 point: Obesity (BMI >25) Each Risk Factor Represents 3 Points: Age 75 years or older Thrombosis Risk Factor Assessment Total Risk Factor Score: 4 Thrombosis Risk Factor Assessment Level: Moderate Risk Assessment and Plan Assessment: Sepsis Urinary tract infection Acute bronchitis Abdominal pain AAA COPD Plan: The patient is admitted anticipated greater than 2 midnight stay with sepsis due to urinary tract infection after presenting with dysuria and lower abdominal pain with urinalysis suggestive of infection. The patient is also to have a white count blood cultures were drawn and are pending, urine culture were sent. Patient was continued on empiric IV antibiotics with Rocephin, was also treated supportively with IV fluids and antiemetics. The patient is noted to have a AAA Measuring approximately 3.6 cm in a vasculopath that continues to smoke. Vascular surgery will be consulted. A chest x-ray will be ordered as a patient is treated for acute bronchitis with a Z-Nico with plans for DuoNeb bronchodilator breathing treatments PRN. We'll continue to follow the patient clinical course CODE STATUS: Full code discuss plan of care with: Patient and nurse discharge place: Home Greater than 60 minutes was spent in evaluation of this patient
[2019-04-27 07:18] LABS: Basophils # (A) 0.1 k/uL (0-0.2); Basophils % (A) 1 %; Eosinophils # (A) 0.1 k/uL (0-0.7); Eosinophils % (A) 1 %; HCT 40.9 % (39.0-53.0); HGB 13.9 gm/dL (13.0-17.5); Lymphocytes # (A) 0.7 k/uL (1.0-4.8); Lymphocytes % (A) 6 %; MCH 30.9 pg (25.0-35.0); MCV 90.9 fL (80.0-100.0); Mean Platelet Volume 7.2; Monocytes # (A) 0.4 k/uL (0-1.0); Monocytes % (A) 4 %; Neutrophils # (A) 10.6 k/uL (1.3-7.7); Neutrophils % (A) 89 %; Platelet Count 123 k/uL (150-450); RBC 4.51 m/uL (4.30-5.90)
--- NOTE | 2019-04-27 07:31 | XR ---
EXAMINATION TYPE: XR chest 2V DATE OF EXAM: 04/27/2019 HISTORY: cough/ COPD. REFERENCE: Previous study dated 09/10/2018. FINDINGS: The heart is mildly prominent. The lungs are overinflated. The lungs are clear. Pleural spa tita are clear. IMPRESSION: 1. COPD. 2. MILD CARDIOMEGALY.
[2019-04-27 07:36] LABS: Calcium 8.4 mg/dL (8.4-10.2); Potassium 4.2 mmol/L (3.5-5.1)
[2019-04-27] MEDS: ASPIRIN 81 MG PO SCH (09:25)
[2019-04-27] MEDS: CARVEDILOL 6.25 MG TAB PO SCH ×2 (09:25→17:38)
[2019-04-27] MEDS: HEPARIN SODIUM,PORCINE 5,000 UNIT/ML 1 ML VIAL SQ SCH ×2 (09:25→21:04)
[2019-04-27] MEDS ORDERED: BISACODYL 5 MG TABLET.DR PO PRN (10:37)
[2019-04-27] MEDS ORDERED: traMADol 50 MG TAB PO STA (10:37)
[2019-04-27] MEDS: NICOTINE 21MG/24HR PATCH TRANSDERM SCH (10:53)
--- NOTE | 2019-04-27 14:40 | P.GSCN ---
History of Present Illness Consult date: 04/27/19 Reason for Consult: AAA Requesting physician: Keith Chapman History of present illness: 74 year-old male patient with a past medical history of Hypertension, Myocardial Infarction ([place]), Coronary Artery Disease (CAD), Colon Cancer, COPD, GERD/Reflux, Hyperlipidemia who is admitted for urinary tract infection and sepsis secondary to abdominal pain noted over the last couple days. Upon his workup it was noted that he has a AAA measuring 3.[address] He states he has had this aneurysm since November. He denies any tearing back pain or current abdominal pain. He states since his admission and antibiotics his pain has improved. He denies any fevers, chills, chest pain, shortness of breath, numbness, tingling, headaches, vision changes. He does admit to burning urination as well as flank pain. Review of Systems All systems: negative (What is mentioned in HPI past medical history) Past Medical History Past Medical History: Coronary Artery Disease (CAD), Cancer, Chest Pain / Angina, COPD, GERD/Reflux, Hearing Disorder / Deafness, Hyperlipidemia, Hypertension, Myocardial Infarction ([place]) Additional Past Medical History / Comment(s): [place] x 2 (2001/2010), colon cancer with surgery, kidney stone, chronic low back pain, [place] bilaterally with R ear worse, tinnitis L ear. AAA Last Myocardial Infarction Date:: 2010 History of Any Multi-Drug Resistant Organisms: None Reported Past Surgical History: Appendectomy, Bowel Resection, Heart Catheterization With Stent Additional Past Surgical History / Comment(s): bowel resection 2004, colonoscopy, 3 cardiac stents Past Anesthesia/Blood Transfusion Reactions: No Reported Reaction Date of Last Stent Placement:: 04/26/17 Past Psychological History: No Psychological Hx Reported Additional Psychological History / Comment(s): Pt resides with significant other. He is independent. Smoking Status: Current every day smoker Past Alcohol Use History: None Reported Additional Past Alcohol Use History / Comment(s): Pt started smoking in 1958, was 1 PPD but about 8 cigarettes a day now. Past Drug Use History: None Reported - Past Family History Father Family Medical History: No Reported History Additional Family Medical History / Comment(s): Father at the age of 76yrs from "old age." Mother Family Medical History: Pneumonia Additional Family Medical History / Comment(s): Mother of pneumonia at the age of 68yrs. Brother(s) Family Medical History: Cancer Additional Family Medical History / Comment(s): He has one brother that is alive and has undergone CABG for coronary artery disease and has had one kidney removed. Patient has one brother who in a motor vehicle accident, one brother from a myocardial infarction at age 59, and one from colon cancer at age 70. Sister(s) Family Medical History: No Reported History Additional Family Medical History / Comment(s): He has 3 sisters that are healthy. Medications and Allergies Home Medications Medication Instructions Recorded Confirmed Type Omeprazole [PriLOSEC] 20 mg PO DAILY 04/25/14 04/27/19 History Atorvastatin [Lipitor] 20 mg PO HS #90 tab 04/27/17 04/27/19 Rx Fluticasone Nasal [place] [Flonase 1 spray EA NOSTRIL BID 02/05/18 04/27/19 History Nasal [place]] Lisinopril [Zestril] 20 mg PO BID #60 tab 02/06/18 04/27/19 Rx Carvedilol [Coreg] 12.5 mg PO BID-W/MEALS 04/27/19 04/27/19 History Latanoprost/Pf [Latanoprost 0.005% 1 drop BOTH EYES HS 04/27/19 04/27/19 History Eye Drop] Allergies Allergy/AdvReac Type Severity Reaction Status Date / Time latex Allergy Rash/Hives/ Verified 04/27/19 10:33 blisters Penicillins Allergy Rash/Hives Verified 04/27/19 10:33 Surgical - Exam Vital Signs Temp Pulse Resp BP Pulse Ox 98.5 F 68 28 H 154/67 98 04/27/19 00:51 04/27/19 00:51 04/27/19 00:51 04/27/19 00:51 04/27/19 00:51 - General well developed, well nourished, no distress - Eyes PERRL, normal ocular movement - ENT normal pinna - Neck no masses - Respiratory normal expansion, normal respiratory effort - Cardiovascular Rhythm: regular - Abdomen Abdomen: soft, non tender, no guarding, no rebound, no distended - Integumentary no rash, no growths - Neurologic normal coordination, normal sensation - Psychiatric oriented to time, oriented to person, oriented to place Palpable femoral, DP and PT pulses bilaterally. Results - Labs 04/27/19 06:55 04/27/19 06:55 Abnormal Lab Results - Last 24 Hours (Table) 04/27/19 04/27/19 04/27/19 Range/Units 01:08 01:08 01:08 WBC 12.0 H (3.8-10.6) k/uL Plt Count (150-450) k/uL Neutrophils # 10.3 H (1.3-7.7) k/uL Lymphocytes # (1.0-4.8) k/uL Sodium 136 L (137-145) mmol/L BUN 22 H (9-20) mg/dL Glucose 123 H (74-99) mg/dL ALT 59 H (4-49) U/L Urine RBC 22 H (0-5) /hpf Urine WBC >182 H (0-5) /hpf Amorphous Sediment Rare H (None) /hpf Urine Mucus Occasional H (None) /hpf Urine Yeast (Budding) Moderate H (None) /hpf 04/27/19 04/27/19 Range/Units 06:55 06:55 WBC 12.0 H (3.8-10.6) k/uL Plt Count 123 L (150-450) k/uL Neutrophils # 10.6 H (1.3-7.7) k/uL Lymphocytes # 0.7 L (1.0-4.8) k/uL Sodium 136 L (137-145) mmol/L BUN 22 H (9-20) mg/dL Glucose 155 H (74-99) mg/dL ALT (4-49) U/L Urine RBC (0-5) /hpf Urine WBC (0-5) /hpf Amorphous Sediment (None) /hpf Urine Mucus (None) /hpf Urine Yeast (Budding) (None) /hpf Microbiology - Last 24 Hours (Table) 04/27/19 01:08 Urine Culture - Preliminary Urine,Voided Diabetes panel 04/27/19 04/27/19 Range/Units 01:08 06:55 Sodium 136 L 136 L (137-145) mmol/L Potassium 4.3 4.2 (3.5-5.1) mmol/L Chloride 101 105 (98-107) mmol/L Carbon Dioxide 26 22 (22-30) mmol/L BUN 22 H 22 H (9-20) mg/dL Creatinine 1.05 1.18 (0.66-1.25) mg/dL Glucose 123 H 155 H (74-99) mg/dL Calcium 9.2 8.4 (8.4-10.2) mg/dL AST 44 (17-59) U/L ALT 59 H (4-49) U/L Alkaline Phosphatase 77 (38-126) U/L Total Protein 8.0 (6.3-8.2) g/dL Albumin 4.4 (3.5-5.0) g/dL Calcium panel 04/27/19 04/27/19 Range/Units 01:08 06:55 Calcium 9.2 8.4 (8.4-10.2) mg/dL Albumin 4.4 (3.5-5.0) g/dL Pituitary panel 04/27/19 04/27/19 Range/Units 01:08 06:55 Sodium 136 L 136 L (137-145) mmol/L Potassium 4.3 4.2 (3.5-5.1) mmol/L Chloride 101 105 (98-107) mmol/L Carbon Dioxide 26 22 (22-30) mmol/L BUN 22 H 22 H (9-20) mg/dL Creatinine 1.05 1.18 (0.66-1.25) mg/dL Glucose 123 H 155 H (74-99) mg/dL Calcium 9.2 8.4 (8.4-10.2) mg/dL Adrenal panel 04/27/19 04/27/19 Range/Units 01:08 06:55 Sodium 136 L 136 L (137-145) mmol/L Potassium 4.3 4.2 (3.5-5.1) mmol/L Chloride 101 105 (98-107) mmol/L Carbon Dioxide 26 22 (22-30) mmol/L BUN 22 H 22 H (9-20) mg/dL Creatinine 1.05 1.18 (0.66-1.25) mg/dL Glucose 123 H 155 H (74-99) mg/dL Calcium 9.2 8.4 (8.4-10.2) mg/dL Total Bilirubin 1.2 (0.2-1.3) mg/dL AST 44 (17-59) U/L ALT 59 H (4-49) U/L Alkaline Phosphatase 77 (38-126) U/L Total Protein 8.0 (6.3-8.2) g/dL Albumin 4.4 (3.5-5.0) g/dL - Imaging CT scan - abdomen: image reviewed (3.6 cm AAA without any evidence of rupture or inflammation.) Assessment and Plan Assessment: #1 asymptomatic 3.6 cm infrarenal AAA #2 lower abdominal pain secondary to urinary tract infection #3 bronchitis #4 COPD Plan: Reviewed CT abdomen and pelvis with the patient and family in full detail. At this time there is no indication for any surgical intervention. He will need continued monitoring as an outpatient with abdominal ultrasounds. He will fo llow-up in the next 2-3 months for abdominal ultrasound and then yearly if aneurysm is stable. Thank you for allowing me to participate in your patient's care.
--- NOTE | 2019-04-27 15:35 | P.PN ---
Progress Note - Text Progress Note Date: 04/27/19 Patient was seen. Patient reports lower suprapubic pain and bilateral flank pain. Pain is better controlled since admission. Vascular surgery has evaluated the patient regarding AAA with plans for outpatient follow-up and serial ultrasound. Patient will continue on Rocephin pending urine and blood cultures.
[2019-04-27] MEDS: ACETAMINOPHEN TAB 325 MG TAB PO PRN (21:04)
[2019-04-28] MEDS: ACETAMINOPHEN TAB 325 MG TAB PO PRN ×2 (03:40→14:00)
[2019-04-28] MEDS: SODIUM CHLORIDE 0.9% 1,000 ML IV SCH ×2 (05:36→21:10)
[2019-04-28] MEDS: ASPIRIN 81 MG PO SCH (08:05)
[2019-04-28] MEDS: NICOTINE 21MG/24HR PATCH TRANSDERM SCH (08:05)
[2019-04-28] MEDS: CARVEDILOL 6.25 MG TAB PO SCH ×2 (08:05→16:46)
[2019-04-28] MEDS: AZITHROMYCIN 250 MG TAB PO SCH (08:06)
[2019-04-28] MEDS: HEPARIN SODIUM,PORCINE 5,000 UNIT/ML 1 ML VIAL SQ SCH ×2 (08:06→21:10)
[2019-04-28] MEDS: PHENAZOPYRIDINE 100 MG TAB PO SCH ×3 (09:23→21:09)
--- NOTE | 2019-04-28 11:59 | P.PN ---
Subjective Progress Note Date: 04/28/19 Principal diagnosis: UTIs Patient was seen and examined. No acute events overnight. Patient reports continued suprapubic discomfort and dysuria. He denies any chest pain, short ness of breath or palpitations. No nausea or vomiting. No fever or chills. Patient reports symptoms slightly improved from yesterday. Objective - Vital Signs Vital signs: Vital Signs Temp 98.6 F 04/28/19 05:00 Pulse 89 04/28/19 05:00 Resp 16 04/28/19 05:00 BP 140/72 04/28/19 05:00 Pulse Ox 94 L 04/28/19 05:00 Intake & Output 04/27/19 04/28/19 04/28/19 18:59 06:59 18:59 Intake Total 1577 1180 Output Total 300 Balance 1577 1180 -300 Intake: Intake, IV Titration 400 Amount Sodium [place]lor[place] 0.9% 1, 400 000 ml @ 50 mls/hr IV . Q20H [facility] Rx#:[id number] Oral 1177 1180 Output: Urine 300 Other: Voiding Method Toilet Toilet Urinal # Voids 3 2 1 - Exam General: [non toxic], [no distress], [appears at stated age] Derm: [warm], [dry] Head: [atraumatic], [normocephalic], [symmetric] Eyes: [EOMI], [no lid lag], [anicteric sclera] Mouth: [no lip lesion], [mucus membranes moist] Cardiovascular: [S1S2 reg], [tachycardia], [positive DP pulse bilateral], Lungs: [CTA bilateral], [no rhonchi, no rales] , [no accessory muscle use] Abdominal: [soft], [suprapubic tenderness], [no guarding], [no appreciable organomegaly], [no CVA tenderness] Ext: [no gross muscle atrophy], [no edema], [no contractures] Neuro: [no focal neuro deficits] Psych: [Alert], [oriented], [appropriate affect] - Labs CBC & Chem 7: 04/27/19 06:55 04/27/19 06:55 Labs: Microbiology - Last 24 Hours (Table) 04/27/19 06:55 Blood Culture - Preliminary Blood No Growth after 24 hours 04/27/19 01:08 Urine Culture - Preliminary Urine,Voided Assessment and Plan Assessment: Sepsis related to UTI Acute bronchitis Abdominal aortic aneurysm COPD without acute exacerbation Patient initially met sepsis criteria. Heart rate greater than 90 with leukocytosis. Positive source of infection with UA showing large leukocyte esterase. Lactic acid negative. Plans: Continue Rocephin. Follow urine culture. Follow blood culture. Tylenol as needed for fever. Normal saline at 50 mL per hour. Telemetry monitoring. No pneumonia seen on chest x-ray. Plans: Z-Nico. Plans: Serial monitoring the outpatient setting as per vascular surgery. Plans: DuoNeb as needed for shortness of breath or wheezing. [Patient admitted for UTI sepsis. On IV antibiotics. Cultures are pending. Likely DC in 1-2 days.]
--- NOTE | 2019-04-28 13:19 | P.PN ---
Subjective Progress Note Date: 04/28/19 Patient is seen and evaluated lying in bed. Patient states he tolerated breakfast. No acute changes through the night. Patient reports he still has mild lower abdominal discomfort. Denies any upper abdominal pain, back pain, chest pain, or shortness of breath. Objective - Vital Signs Vital signs: Vital Signs Temp 98.6 F 04/28/19 05:00 Pulse 89 04/28/19 05:00 Resp 16 04/28/19 05:00 BP 140/72 04/28/19 05:00 Pulse Ox 94 L 04/28/19 05:00 Intake & Output 04/27/19 04/28/19 04/28/19 18:59 06:59 18:59 Intake Total 1577 1180 Output Total 300 Balance 1577 1180 -300 Intake: Intake, IV Titration 400 Amount Sodium [place]lor[place] 0.9% 1, 400 000 ml @ 50 mls/hr IV . Q20H [facility] Rx#:[id number] Oral 1177 1180 Output: Urine 300 Other: Voiding Method Toilet Toilet # Voids 3 2 1 - Exam General appearance: The patient is alert, oriented, in no acute distress. HET: Head is normocephalic and atraumatic. Neck: Supple without lymphadenopathy. Trachea midline. Heart: S1 S2. Regular rate and rhythm. Lungs: No crackles or wheezes are heard. Abdomen: Soft, mild lower abdominal tenderness to palpation, nondistended with bowel sounds. No peritoneal signs. No palpable organomegaly or masses. Extremities: Normal skin color and turgor. No cyanosis, rash, ulceration, clubbing, or edema. Neurological: No focal deficits. - Labs CBC & Chem 7: 04/27/19 06:55 04/27/19 06:55 Labs: Microbiology - Last 24 Hours (Table) 04/27/19 06:55 Blood Culture - Preliminary Blood No Growth after 24 hours 04/27/19 01:08 Urine Culture - Preliminary Urine,Voided Assessment and Plan Assessment: #1 asymptomatic 3.6 cm infrarenal abdominal aortic aneurysm #2 lower abdominal pain secondary to urinary tract infection #3 bronchitis #4 COPD Plan: There is no indication for any surgical interventions at this time, patient will need continued monitoring as an outpatient. Patient to follow-up with Dr. Vasquez in the next 2-3 months for abdominal ultrasound and then yearly if aneurysm is stable. The patient and his both verbalized understanding. Thank you for this consultation, feel free to reach out to us if the need arises. The above dictated assessment and findings were discussed with Dr. Sauceda. The impression and plan of care have been directed as dictated.
[2019-04-28] MEDS ORDERED: CALCIUM CARBONATE 500 MG CHEWABLE PO PRN (15:37)
[2019-04-28] MEDS ORDERED: ONDANSETRON 4 MG in SODIUM CHLORIDE 0.9% 50 ML IVPB PRN (15:37)
[2019-04-28] MEDS ORDERED: ONDANSETRON 4 MG/2 ML VIAL IVP PRN (15:41)
[2019-04-28] MEDS: PANTOPRAZOLE 40 MG TABLET PO SCH (16:45)
[2019-04-29] MEDS: NICOTINE 21MG/24HR PATCH TRANSDERM SCH (08:43)
[2019-04-29] MEDS: AZITHROMYCIN 250 MG TAB PO SCH (08:44)
[2019-04-29] MEDS: PANTOPRAZOLE 40 MG TABLET PO SCH (08:44)
[2019-04-29] MEDS: PHENAZOPYRIDINE 100 MG TAB PO SCH ×2 (08:44→17:07)
[2019-04-29] MEDS: ASPIRIN 81 MG PO SCH (08:44)
[2019-04-29] MEDS: CARVEDILOL 6.25 MG TAB PO SCH ×2 (08:44→17:07)
[2019-04-29] MEDS: HEPARIN SODIUM,PORCINE 5,000 UNIT/ML 1 ML VIAL SQ SCH (08:44)
[2019-04-29 12:00] VITALS: BP 142/63; PULSE 79; RESP 18; TEMP 98.2
--- NOTE | 2019-04-29 13:06 | P.DS ---
Providers Date of admission: 04/27/19 03:32 Expected date of discharge: 04/29/19 Attending physician: Keith Chapman MD Consults: 04/27/19 06:44 Consult Physician Routine Consulting Provider: Laure Sauceda Consult Reason/Comments: AAA Do you want consulting provider notified?: Yes 04/29/19 12:43 Consult Physician Routine Consulting Provider: Grzegorz Jimenez Consult Reason/Comments: known hydrocele Do you want consulting provider notified?: Yes Primary care physician: [facility] Course: 74 year-old male patient with a past medical history of Hypertension, Myocardial Infarction ([place]), Coronary Artery Disease (CAD), Colon Cancer, COPD, GERD/Reflux, Hyperlipidemia, presents to the emergency department today via private vehicle with chief complaint of lower abdominal and suprapubic pain for the last 2 days, the patient reports dysuria along with flank and lower back pain. In the ER the patient had a comprehensive workup white count of 12, sodium of 136, BUN 22 creatinine 1.05, blood sugar 123, ALT 59. Urinalysis greater than 182 WBCs, nitrite negative and leuk esterase positive. CT abdomen and pelvis negative for any acute abdomen, there was no hydronephrosis, only a small calcified gallstone, AAA 3.6 cm (reported to be previously 3.5 cm on ultrasound in 2019). Patient initially met sepsis criteria with tachycardia, leukocytosis and positive source of infection. Lactic acid was negative. He was started on Rocephin and urine culture was obtained along with blood cultures. Urine culture was positive for Citrobacter pansensitive. Patient was given Z-Nico for possible bronchitis. Vascular surgery was consulted for abdominal aortic aneurysm and recommended outpatient follow-up. Patient was seen and examined. No acute events overnight. Patient reports considerable improvement in his suprapubic discomfort. Patient does complain of some scrotal swelling that is chronic in nature, recent diagnosis of hydrocele, supposed to get surgery with Dr. Rodriguez. He denies any chest pain, shortness of breath or palpitations per no nausea or vomiting. No fever or chills. General: [non toxic], [no distress], [appears at stated age] Derm: [warm], [dry] Head: [atraumatic], [normocephalic], [symmetric] Eyes: [EOMI], [no lid lag], [anicteric sclera] Mouth: [no lip lesion], [mucus membranes moist] Cardiovascular: [S1S2 reg], [tachycardia], [positive DP pulse bilateral], Lungs: [CTA bilateral], [no rhonchi, no rales] , [no accessory muscle use] Abdominal: [soft], [suprapubic tenderness, improved], [no guarding], [no appreciable organomegaly], [no CVA tenderness], [scrotal swelling] Ext: [no gross muscle atrophy], [no edema], [no contractures] Neuro: [no focal neuro deficits] Psych: [Alert], [oriented], [appropriate affect] Sepsis related to UTI Hydrocele Acute bronchitis Abdominal aortic aneurysm COPD without acute exacerbation Patient initially met sepsis criteria. Heart rate greater than 90 with leukocytosis. Positive source of infection with UA showing large leukocyte esterase. Lactic acid negative. Urine culture positive for Citrobacter. Blood culture negative at 48 hours. Plans: Continue Rocephin and transitioned to Bactrim on discharge. Follow urine culture. Follow blood culture. Tylenol as needed for fever. Normal saline at 50 mL per hour. Telemetry monitoring. Plans: Follow urology consult. No pneumonia seen on chest x-ray. Plans: Z-Nico. Plans: Serial monitoring the outpatient setting as per vascular surgery. Plans: DuoNeb as needed for shortness of breath or wheezing. [Patient admitted for UTI sepsis. Plans are DC today pending urology evaluation.] Pertinent Studies: CT abdomen and pelvis, chest x-ray Patient Condition at Discharge: Stable Plan - Discharge Summary New Discharge Prescriptions: New RX: Aspirin 81 mg PO DAILY #30 chew Sulfamethox-Tmp 800-160Mg [Bactrim DS 800-160 mg] 1 tab PO Q12HR #10 tab Continue RX: Omeprazole [PriLOSEC] 20 mg PO DAILY RX: Atorvastatin [Lipitor] 20 mg PO HS #90 tab RX: Fluticasone Nasal Ravia [Flonase Nasal Ravia] 1 spray EA NOSTRIL BID RX: Lisinopril [Zestril] 20 mg PO BID #60 tab RX: Latanoprost/Pf [Latanoprost 0.005% Eye Drop] 1 drop BOTH EYES HS RX: Carvedilol [Coreg] 12.5 mg PO BID-W/MEALS Discharge Medication List RX: Omeprazole [PriLOSEC] 20 mg PO DAILY 04/25/14 [History] RX: Atorvastatin [Lipitor] 20 mg PO HS #90 tab 04/27/17 [Rx] RX: Fluticasone Nasal Ravia [Flonase Nasal Ravia] 1 spray EA NOSTRIL BID 02/05/18 [History] RX: Lisinopril [Zestril] 20 mg PO BID #60 tab 02/06/18 [Rx] RX: Carvedilol [Coreg] 12.5 mg PO BID-W/MEALS 04/27/19 [History] RX: Latanoprost/Pf [Latanoprost 0.005% Eye Drop] 1 drop BOTH EYES HS 04/27/19 [History] RX: Aspirin 81 mg PO DAILY #30 chew 04/29/19 [Rx] Sulfamethox-Tmp 800-160Mg [Bactrim DS 800-160 mg] 1 tab PO Q12HR #10 tab 04/29/19 [Rx] Follow up Appointment(s)/Referral(s): Benito Vasquez DO [STAFF PHYSICIAN] - 6 Weeks (Follow up for AAA in 2-3 months ) Reina Dunbar MD [Primary Care Provider] - 1-2 days Activity/Diet/Wound Care/Special Instructions: Diet: Low-salt Follow-up PCP within 3 days of discharge. Follow-up with urology within 1 week of discharge. Follow-up with vascular surgery within 1 week of discharge. Take all medications as advised. Discharge Disposition: HOME SELF-CARE
== END 2019-04-29 17:24 | disposition home or self-care (01) ==
LOC: EC 00:46 → 5NMEDONC 03:32
PROVIDERS: ADMIT Family Medicine; ATTEND Family Medicine
DX: A41.89 Other specified sepsis (principal); B96.89 Other specified bacterial agents as the cause of diseases classified elsewhere; N39.0 Urinary tract infection, site not specified; J20.9 Acute bronchitis, unspecified; N43.3 Hydrocele, unspecified; I71.4 Abdominal aortic aneurysm, without rupture; J44.9 Chronic obstructive pulmonary disease, unspecified; K80.20 Calculus of gallbladder without cholecystitis without obstruction; I25.10 Atherosclerotic heart disease of native coronary artery without angina pectoris; K21.9 Gastro-esophageal reflux disease without esophagitis; E78.5 Hyperlipidemia, unspecified; I11.9 Hypertensive heart disease without heart failure; I25.2 Old myocardial infarction; G89.29 Other chronic pain; M54.5 Low back pain; H91.93 Unspecified hearing loss, bilateral; H93.12 Tinnitus, left ear; N40.0 Benign prostatic hyperplasia without lower urinary tract symptoms; F17.210 Nicotine dependence, cigarettes, uncomplicated; E66.9 Obesity, unspecified; Z68.27 Body mass index [BMI] 27.0-27.9, adult; Z79.899 Other long term (current) drug therapy; Z79.82 Long term (current) use of aspirin; Z91.040 Latex allergy status; Z88.0 Allergy status to penicillin; Z85.038 Personal history of other malignant neoplasm of large intestine; Z87.442 Personal history of urinary calculi; Z90.49 Acquired absence of other specified parts of digestive tract; Z95.5 Presence of coronary angioplasty implant and graft; Z98.890 Other specified postprocedural states; Z82.5 Family history of asthma and other chronic lower respiratory diseases; Z82.49 Family history of ischemic heart disease and other diseases of the circulatory system; Z80.0 Family history of malignant neoplasm of digestive organs
CPT/HCPCS: 96376 ×2; 96366; 96372 ×3; 96361; 96365; 96375; 99285; 51798; 36415; 80053; 82150; 83605; 83690; 85025; 85610; 85730; 81001; 87040; 87086; 87077; 87186; 71046; 74177; G0378 ×3; S4990 ×3; J1644 ×3; J2405 ×2; J0696 ×3; Q9967; 80048

== ENCOUNTER 2020-01-05 22:10 | Observation (INO) | payer MEDICARE ==
--- NOTE | 2020-01-05 22:32 | ED ---
Chest Pain HPI - General Chief Complaint: Chest Pain Stated Complaint: High Blood Pressure Time Seen by Provider: 01/05/20 22:29 Source: patient Mode of arrival: ambulatory Limitations: no limitations - History of Present Illness Initial Comments: Ernie is a 74 yo M with PMH of CAD s/p [place] with stenting in the past x2 who presents the ER today for evaluation of hypertension and chest pain. Patient reports that this evening he began feeling pain in his left arm which was similar to previous cardiac event, he checked his blood pressure noted that it was 213 systolic. He took 2 nitro and 2 aspirin, he reports that his blood pressure seemed to improve but he had persistent pain in his left arm and retrosternal chest pain. Patient decided to come to the ER for evaluation. Upon her to the ER patient reports that he still has mild discomfort in his chest and left arm. Blood pressure seems to be improving. Has no shortness of breath. No recent illness. He's been compliant with all his home medications so he is not sure what he is on. - Related Data Home Medications Medication Instructions Recorded Confirmed Omeprazole [PriLOSEC] 20 mg PO DAILY 04/25/14 01/05/20 Carvedilol [Coreg] 12.5 mg PO BID-W/MEALS 04/27/19 01/05/20 Latanoprost/Pf [Latanoprost 0.005% 1 drop BOTH EYES HS 04/27/19 01/05/20 Eye Drop] Atorvastatin [Lipitor] 20 mg PO DAILY 01/05/20 01/05/20 Isosorbide Mononitrate [Imdur] 120 mg PO DAILY 01/05/20 01/05/20 Previous Rx's Medication Instructions Recorded lisinopriL [Zestril] 20 mg PO BID #60 tab 02/06/18 Aspirin 81 mg PO DAILY #30 chew 04/29/19 Allergies Allergy/AdvReac Type Severity Reaction Status Date / Time latex Allergy Rash/Hives/ Verified 01/05/20 23:14 blisters Penicillins Allergy Rash/Hives Verified 01/05/20 23:14 Review of Systems ROS Statement: Those systems with pertinent positive or pertinent negative responses have been documented in the HPI. ROS Other: All systems not noted in ROS Statement are negative. EKG Findings - EKG Comments: EKG Findings:: EKG was obtained due to complaint of chest pain, EKG was obtained at 2226, rate 63 rhythm sinus there is a normal axis, normal intervals, IL 158, QRS 102, QTc [address] her no acute ST elevations or depressions no evidence of acute ischemia or infarction. Movement artifact noted in lead V3. Past Medical History Past Medical History: Coronary Artery Disease (CAD), Cancer, Chest Pain / Angina, COPD, GERD/Reflux, Hearing Disorder / Deafness, Hyperlipidemia, Hypertension, Myocardial Infarction ([place]) Additional Past Medical History / Comment(s): [place] x 2 (), colon cancer with surgery, kidney stone, chronic low back pain, [place] bilaterally with R ear worse, tinnitis L ear. AAA Last Myocardial Infarction Date:: 2010 History of Any Multi-Drug Resistant Organisms: None Reported Past Surgical History: Appendectomy, Bowel Resection, Heart Catheterization With Stent Additional Past Surgical History / Comment(s): bowel resection 2004, colonoscopy, 3 cardiac stents Past Anesthesia/Blood Transfusion Reactions: No Reported Reaction Date of Last Stent Placement:: 04/26/17 Past Psychological History: No Psychological Hx Reported Smoking Status: Current every day smoker Past Alcohol Use History: None Reported Past Drug Use History: None Reported - Past Family History Father Family Medical History: No Reported History Additional Family Medical History / Comment(s): Father at the age of 76yrs from "old age." Mother Family Medical History: Pneumonia Additional Family Medical History / Comment(s): Mother of pneumonia at the age of 68yrs. Brother(s) Family Medical History: Cancer Additional Family Medical History / Comment(s): He has one brother that is alive and has undergone CABG for coronary artery disease and has had one kidney removed. Patient has one brother who in a motor vehicle accident, one brother from a myocardial infarction at age 59, and one from colon cancer at age 70. Sister(s) Family Medical History: No Reported History Additional Family Medical History / Comment(s): He has 3 sisters that are healthy. General Exam - General Exam Comments Initial Comments: Physical Exam GENERAL: Patient is well-developed and well-nourished. Patient is nontoxic and well-hydrated and is in no distress. Strong odor of tobacco smoke HENT: Normocephalic, Atraumatic. EYES: PERRL, EOMI PULMONARY: Unlabored respirations. No audible rales rhonchi or wheezing was noted. CARDIOVASCULAR: There is a regular rate and rhythm without any murmurs gallops or rubs. ABDOMEN: Soft and nontender with normal bowel sounds. SKIN: Skin is clear with no lesions or rashes and otherwise unremarkable. : Deferred NEUROLOGIC: Patient is alert and oriented x3. Moving all extremities spontaneously MUSCULOSKELETAL: Normal extremities with adequate strength and full range of motion. No lower extremity swelling or edema. No calf tenderness. PSYCHIATRIC: Normal psychiatric evaluation. Limitations: no limitations Course Vital Signs 01/05/20 01/05/20 01/05/20 22:14 22:29 22:30 Temperature 97.1 F L Pulse Rate 98 Respiratory 18 18 Rate Blood Pressure 170/86 151/87 O2 Sat by Pulse 100 97 97 Oximetry 01/05/20 01/05/20 23:00 23:30 Temperature Pulse Rate 62 58 L Respiratory 16 17 Rate Blood Pressure 153/80 131/70 O2 Sat by Pulse 97 97 Oximetry Chest Pain [facility] Patient was seen and evaluated history was obtained from the patient History and physical exam are concerning for chest pain due to cardiac etiology EKG is nonischemic Test x-ray with no acute findings Labs are relatively unremarkable Given the patient's age risk factors and history I do feel he would benefit from admission to the hospital for chest pain which is likely acute coronary syndrome versus hypertensive urgency patient is agreeable. Patient care was discussed with Dr. Fuller of the [facility] who accepts the admission with a consult to cardiology Disposition Clinical Impression: Hypertensive emergency, Chest pain Disposition: ADMITTED IP TO THIS HOSP Condition: Stable Referrals: Reina Dunbar MD [Primary Care Provider] - 1-2 days
[2020-01-05 22:48] LABS: Basophils % (A) 1 %; Eosinophils # (A) 0.2 k/uL (0-0.7); Eosinophils % (A) 3 %; HCT 41.4 % (39.0-53.0); HGB 13.8 gm/dL (13.0-17.5); Lymphocytes # (A) 2.1 k/uL (1.0-4.8); Lymphocytes % (A) 30 %; MCH 31.1 pg (25.0-35.0); MCHC 33.3 g/dL (31.0-37.0); MCV 93.6 fL (80.0-100.0); Mean Platelet Volume 7.1; Monocytes # (A) 0.4 k/uL (0-1.0); Monocytes % (A) 5 %; Neutrophils # (A) 4.1 k/uL (1.3-7.7); Neutrophils % (A) 60 %; Platelet Count 148 k/uL (150-450); RBC 4.43 m/uL (4.30-5.90); RDW 15.3 % (11.5-15.5); WBC 6.8 k/uL (3.8-10.6)
[2020-01-05 22:56] LABS: INR 0.9 (<1.2); Prothrombin Time 9.8 sec (9.0-12.0)
[2020-01-05 23:01] LABS: Anion Gap 6 mmol/L; Blood Urea Nitrogen 18 mg/dL (9-20); Carbon Dioxide 24 mmol/L (22-30); Chloride 108 mmol/L (98-107); Glucose 153 mg/dL (74-99); Potassium 4.1 mmol/L (3.5-5.1); Sodium 138 mmol/L (137-145)
[2020-01-05 23:02] LABS: ALT 43 U/L (4-49); AST 42 U/L (17-59); African American GFR (CKD) >90 (>60 ml/min/1.73 sqM); Albumin 3.6 g/dL (3.5-5.0); Alkaline Phosphatase 84 U/L (38-126); Calcium 8.5 mg/dL (8.4-10.2); Lipase 79 U/L (23-300); Magnesium 1.8 mg/dL (1.6-2.3); Non-African American GFR(CKD) 79 (>60 ml/min/1.73 sqM); Total Bilirubin 0.6 mg/dL (0.2-1.3); Total Protein 7.2 g/dL (6.3-8.2)
--- NOTE | 2020-01-05 23:14 | XR ---
EXAMINATION TYPE: XR chest 2V DATE OF EXAM: 01/05/2020 COMPARISON: 04/27/2019 HISTORY: Cough. COPD. TECHNIQUE: 2 views FINDINGS: Heart is normal. Lungs are clear of consolidation. There are no hilar masses. Bony thorax i s intact. There are chest leads. IMPRESSION: No active cardiopulmonary disease. Normal heart. No adverse change.
[2020-01-05] MEDS ORDERED: NITROGLYCERIN OINT 1 INCH/GM PACKET TOPICAL STA (23:29)
[2020-01-05] MEDS ORDERED: MORPHINE SULFATE 4 MG/ML SYRINGE IV PRN (23:29)
[2020-01-06] MEDS ORDERED: HEPARIN SODIUM,PORCINE 5,000 UNIT/ML 1 ML VIAL IV ONE (03:03)
[2020-01-06] MEDS ORDERED: HEPARIN SODIUM,PORCINE 5,000 UNIT/ML 1 ML VIAL IV PRN (03:03)
--- NOTE | 2020-01-06 03:10 | P.HPIM ---
History of Present Illness H&P Date: 01/06/20 The patient is a 74-year-old male with a PMH of coronary artery disease status post 2 stents, hypertension, hyperlipidemia, and COPD who presented to the emergency room with complaints of chest discomfort. The patient reports that he was in his usual state of health until about 6 PM when he suddenly developed 8 out of 10 pressure-like left-sided chest discomfort with radiation to the arm. The patient subsequently checked his blood pressure and noted that it was very high, 213/110. He proceeded to take 2 nitroglycerins and an aspirin which improved his pain to a 6 out of 10. The patient is currently activated EMS and was brought to the emergency room. At time of interview, the patient reports that his pain had improved to a 4 out of 10. The patient reported that this pain is very similar to that which he had when he was previously diagnosed with an IL. He denied associated shortness of breath, nausea, vomiting, palpitations, dizziness, or diaphoresis. He also denied cough, fever, chills, abdominal pain, or diarrhea. In the emergency room the patient underwent an EKG which revealed a normal sinus rhythm at 63 bpm with no acute ST/T-wave changes noted. Chest x-ray was unremarkable. Laboratory evaluation was reviewed with troponin less than 0.012. Review of Systems Pertinent positives and negatives as discussed in HPI, a complete review of syst ems was performed and all other systems are negative. Past Medical History Past Medical History: Coronary Artery Disease (CAD), Cancer, Chest Pain / Angina, COPD, GERD/Reflux, Hearing Disorder / Deafness, Hyperlipidemia, Hypertension, Myocardial Infarction ([place]) Additional Past Medical History / Comment(s): [place] x 2 (), colon cancer with surgery, kidney stone, chronic low back pain, [place] bilaterally with R ear worse, tinnitis L ear. AAA Last Myocardial Infarction Date:: 2010 History of Any Multi-Drug Resistant Organisms: None Reported Past Surgical History: Appendectomy, Bowel Resection, Heart Catheterization With Stent Additional Past Surgical History / Comment(s): bowel resection 2004, colonoscopy, 3 cardiac stents Past Anesthesia/Blood Transfusion Reactions: No Reported Reaction Date of Last Stent Placement:: 04/26/17 Past Psychological History: No Psychological Hx Reported Smoking Status: Current every day smoker Past Alcohol Use History: None Reported Past Drug Use History: None Reported - Past Family History Father Family Medical History: No Reported History Additional Family Medical History / Comment(s): Father at the age of 76yrs from "old age." Mother Family Medical History: Pneumonia Additional Family Medical History / Comment(s): Mother of pneumonia at the age of 68yrs. Brother(s) Family Medical History: Cancer Additional Family Medical History / Comment(s): He has one brother that is alive and has undergone CABG for coronary artery disease and has had one kidney removed. Patient has one brother who in a motor vehicle accident, one bro ther from a myocardial infarction at age 59, and one from colon cancer at age 70. Sister(s) Family Medical History: No Reported History Additional Family Medical History / Comment(s): He has 3 sisters that are healthy. Medications and Allergies Home Medications Medication Instructions Recorded Confirmed Type Omeprazole [PriLOSEC] 20 mg PO DAILY 04/25/14 01/05/20 History lisinopriL [Zestril] 20 mg PO BID #60 tab 02/06/18 01/05/20 Rx Carvedilol [Coreg] 12.5 mg PO BID-W/MEALS 04/27/19 01/05/20 History Latanoprost/Pf [Latanoprost 0.005% 1 drop BOTH EYES HS 04/27/19 01/05/20 History Eye Drop] Aspirin 81 mg PO DAILY #30 chew 04/29/19 01/05/20 Rx Atorvastatin [Lipitor] 20 mg PO DAILY 01/05/20 01/05/20 History Isosorbide Mononitrate [Imdur] 120 mg PO DAILY 01/05/20 01/05/20 History Allergies Allergy/AdvReac Type Severity Reaction Status Date / Time latex Allergy Rash/Hives/ Verified 01/05/20 23:14 blisters Penicillins Allergy Rash/Hives Verified 01/05/20 23:14 Physical Exam Vitals: Vital Signs Temp Pulse Resp BP Pulse Ox 01/05/20 23:30 58 L 17 131/70 97 01/05/20 23:00 62 16 153/80 97 01/05/20 22:30 18 151/87 97 01/05/20 22:29 97 01/05/20 22:14 97.1 F L 98 18 170/86 100 Intake and Output 1001/05/20 01/06/20 14:59 22:59 06:59 Other: Weight 78.018 kg General: non toxic, no distress, appears at stated age, overweight Derm: no unusual rashes/lesions no unusual ecchymoses, warm, dry Head: atraumatic, normocephalic, symmetric Eyes: EOMI, no lid lag, anicteric sclera, pupils equal round reactive to light ENT: Nose and ears atraumatic, no thrush, no pharyngeal erythema Neck: No thyromegaly, no cervical lymphadenopathy, trachea midline, supple Mouth: no lip lesion, mucus membranes moist Cardiovascular: S1S2 reg, no murmur, positive posterior tibial pulse bilateral, no edema, capillary refill less than 2 seconds Lungs: CTA bilateral, no rhonchi, no rales , no accessory muscle use Abdominal: soft, nontender to palpation, no guarding, no appreciable organomegaly, normal bowel sounds Ext: no gross muscle atrophy, muscle strength 5 out of 5 in all 4 extremities grossly, no contractures, Neuro: CN II-XI grossly intact, light touch intact all 4 extremities, finger to nose within normal limits, Psych: Alert, oriented, appropriate affect Results CBC & Chem 7: 01/05/20 22:41 01/05/20 22:41 Labs: Abnormal Lab Results - Last 24 Hours (Table) 01/05/20 01/05/20 Range/Units 22:41 22:41 Plt Count 148 L (150-450) k/uL Chloride 108 H (98-107) mmol/L Glucose 153 H (74-99) mg/dL Assessment and Plan Plan: Unstable angina -Heparin infusion and aspirin -Cardiac consult -Cardiac monitoring -Trend troponin Hyperglycemia -Check A1c Thrombocytopenia -At baseline Chronic conditions: Hypertension, hyperlipidemia -Continue with home meds DVT prophylaxis -Heparin infusion The patient is admitted with an anticipated less than 2 midnight stay for evaluation of chest pain CODE STATUS: Full Code Discussed with: Patient Anticipated discharge date: in am Anticipated discharge place: home A total of 35 minutes was spent on the care of this complex patient more than 50% of the time was spent in counseling and care coordination.
[2020-01-06] MEDS ORDERED: HEPARIN SOD,PORK IN 0.45% NACL 25,000 UNIT in 0.45% NACL 1 250ML.BAG IV SCH (03:15)
[2020-01-06] MEDS ORDERED: NITROGLYCERIN OINT 1 INCH/GM PACKET TOPICAL SCH (06:00)
[2020-01-06 06:31] LABS: Cholesterol 151 mg/dL (<200); HDL Cholesterol 38 mg/dL (40-60); LDL Cholesterol,Calculated 101 mg/dL (0-99); Triglycerides 60 mg/dL (<150)
[2020-01-06] MEDS: carvediloL 12.5 MG TAB PO SCH ×2 (06:33→15:58)
[2020-01-06 08:21] VITALS: RESP 16
[2020-01-06] MEDS ORDERED: lisinopriL 20 MG TAB PO SCH (09:00)
[2020-01-06] MEDS ORDERED: ASPIRIN 325 MG TAB PO SCH (09:00)
[2020-01-06] MEDS ORDERED: PANTOPRAZOLE 40 MG TABLET PO SCH (09:00)
[2020-01-06] MEDS ORDERED: ATORVASTATIN 20 MG TAB PO SCH (09:00)
[2020-01-06] MEDS ORDERED: ISOSORBIDE MONONITRATE 120 MG PO SCH (09:00)
[2020-01-06] MEDS ORDERED: ASPIRIN 325 MG TAB PO STA (09:01)
[2020-01-06] MEDS ORDERED: ALPRAZolam 0.25 MG TAB PO PRN (09:01)
[2020-01-06] MEDS ORDERED: ATORVASTATIN 80 MG TAB PO STA (09:01)
[2020-01-06] MEDS ORDERED: NITROGLYCERIN SL TABS 0.4 MG TAB SUBLINGUAL PRN (09:01)
[2020-01-06] MEDS ORDERED: ALPRAZolam 0.5 MG TAB PO PRN (09:01)
[2020-01-06] MEDS ORDERED: SODIUM CHLORIDE 0.9% 1,000 ML in EMPTY BAG 1 BAG IV ONE (09:01)
[2020-01-06 09:18] LABS: Glucose,Whole Blood 101 mg/dL (75-99)
--- NOTE | 2020-01-06 09:25 | P.CRDCN ---
History of Present Illness Consult date: 01/06/20 History of present illness: CHIEF COMPLAINT: Chest pain HISTORY OF PRESENT ILLNESS: This is a 74-year old male with a past medical history significant for coronary artery disease with previous stent placement, hypertension, hyperlipidemia, COPD and nicotine dependence. Patient follows in the office with Dr. De Paz. We have been asked to see the patient in consultation for chest pain. Patient states he began having chest pain around 1800 yesterday while he was sitting down watching TV. The pain was midsternal and radiated down his left arm. He checked his blood pressure which was found to be elevated at 213/110. He states he took 2 nitro and 2 aspirin which helped his pain some but did not take the pain away completely so he came to the emergency room for further evaluation. He states his symptoms yesterday were similar to his symptoms he experienced when he required stent placement in the past. The patient currently denies chest pain or pressure this morning. Denies shortness of breath. Patient had a cardiac cath performed in 2018 revealing stent to the mid LAD that has 30% in-stent restenosis, distal RCA is pain with 30% in-stent restenosis. The proximal right coronary artery has a complex lesion of stenosis up to 80%. The patient had angioplasty and stenting of right coronary artery at that time. Patient underwent another cardiac catheterization in 2019 revealing moderate disease in the distal right coronary artery with mild disease in the left anterior descending artery and left circumflex. Medical management was recommended. DIAGNOSTICS: EKG reveals sinus rhythm without signs of acute ischemia Chest xray negative for acute process Laboratory data: WC 6.8. Hemoglobin 13.8. Platelet count 148. Sodium 138. Potassium 4.1. BUN 18. Creatinine 0.94. Magnesium 1.8. Troponin negative 3. Current home cardiac medications include lisinopril 20mg twice a day, Imdur 120 g daily, Coreg 12.5 mg twice a day, Lipitor 20 g daily, and aspirin 81 mg daily REVIEW OF SYSTEMS: At the time of my exam: CONSTITUTIONAL: Denies fever or chills. HEENT: Denies blurred vision, vision changes, or eye pain. Denies hemoptysis CARDIOVASCULAR: Denies chest pain, orthopnea, PND or palpitations RESPIRATORY: No shortness of breath. GASTROINTESTINAL: Denies abdominal pain. Denies nausea or vomiting. HEMATOLOGIC: Denies bleeding disorders. GENITOURINARY: Denies any blood in urine. SKIN: Denies pruitis. Denies rash. PHYSICAL EXAM: VITAL SIGNS: Reviewed. GENERAL: Well-developed in no acute distress. HEENT: Head is normocephalic. Pupils are equal, round. Sclerae anicteric. Mucous membranes of the mouth are moist. Neck supple. No JVD or thyromegaly LUNGS: Respirations even and unlabored. Lungs essentially clear to auscultation bilaterally. HEART: Regular rate and rhythm. S1 and S2 heard. ABDOMEN: Soft. Nondistended. Nontender. EXTREMITIES: Normal range of motion. No clubbing or cyanosis. Peripheral pulses intact. No lower extremity edema NEUROLOGIC: Awake and alert. Oriented x 3. ASSESSMENT: Chest pain Coronary artery disease with previous stent to LAD and RCA 2 Hypertension Hyperlipidemia COPD History of AAA Nicotine dependence PLAN: Resume home cardiac medications Discontinue IV heparin drip. Discontinue nitro paste Obtain 2-D echo to assess cardiac structure and function Patient will undergo heart catheterization today with Dr. De Paz Nurse practitioner note has been reviewed by physician. Signing provider agrees with the documented findings, assessment, and plan of care. 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 AAA Last Myocardial Infarction Date:: 2010 History of Any Multi-Drug Resistant Organisms: None Reported Past Surgical History: Appendectomy, Bowel Resection, Heart Catheterization With Stent Additional Past Surgical History / Comment(s): bowel resection 2004, colonoscopy, 3 cardiac stents Past Anesthesia/Blood Transfusion Reactions: No Reported Reaction Date of Last Stent Placement:: 04/26/17 Past Psychological History: No Psychological Hx Reported Smoking Status: Current every day smoker Past Alcohol Use History: None Reported Past Drug Use History: None Reported - Past Family History Father Family Medical History: No Reported History Additional Family Medical History / Comment(s): Father at the age of 76yrs from "old age." Mother Family Medical History: Pneumonia Additional Family Medical History / Comment(s): Mother of pneumonia at the age of 68yrs. Brother(s) Family Medical History: Cancer Additional Family Medical History / Comment(s): He has one brother that is alive and has undergone CABG for coronary artery disease and has had one kidney removed. Patient has one brother who in a motor vehicle accident, one brother from a myocardial infarction at age 59, and one from colon cancer at age 70. Sister(s) Family Medical History: No Reported History Additional Family Medical History / Comment(s): He has 3 sisters that are healthy. Medications and Allergies Home Medications Medication Instructions Recorded Confirmed Type Omeprazole [PriLOSEC] 20 mg PO DAILY 04/25/14 01/05/20 History lisinopriL [Zestril] 20 mg PO BID #60 tab 02/06/18 01/05/20 Rx Carvedilol [Coreg] 12.5 mg PO BID-W/MEALS 04/27/19 01/05/20 History Latanoprost/Pf [Latanoprost 0.005% 1 drop BOTH EYES HS 04/27/19 01/05/20 History Eye Drop] Aspirin 81 mg PO DAILY #30 chew 04/29/19 01/05/20 Rx Atorvastatin [Lipitor] 20 mg PO DAILY 01/05/20 01/05/20 History Isosorbide Mononitrate [Imdur] 120 mg PO DAILY 01/05/20 01/05/20 History Allergies Allergy/AdvReac Type Severity Reaction Status Date / Time latex Allergy Rash/Hives/ Verified 01/05/20 23:14 blisters Penicillins Allergy Rash/Hives Verified 01/05/20 23:14 Physical Exam Vitals: Vital Signs Temp Pulse Pulse Resp BP BP Pulse Ox 01/06/20 08:07 98 F 70 16 161/82 97 01/06/20 03:35 97.6 F 69 18 151/71 97 01/06/20 00:50 97.7 F 61 17 140/66 98 01/05/20 23:30 58 L 17 131/70 97 01/05/20 23:00 62 16 153/80 97 01/05/20 22:30 18 151/87 97 01/05/20 22:29 97 01/05/20 22:14 97.1 F L 98 18 170/86 100 Intake and Output 01/05/20 01/06/20 01/06/20 22:59 06:59 14:59 Other: Voiding Method Toilet Toilet # Voids 1 Weight 78.018 kg 78.018 kg Results 01/05/20 22:41 01/05/20 22:41 Cardiac Enzymes 01/05/20 01/05/20 01/06/20 Range/Units 22:41 22:41 01:43 AST 42 (17-59) U/L Troponin I <0.012 <0.012 (0.000-0.034) ng/mL 01/06/20 Range/Units 05:33 AST (17-59) U/L Troponin I <0.012 (0.000-0.034) ng/mL Coagulation 01/05/20 01/06/20 Range/Units 22:41 08:44 PT 9.8 (9.0-12.0) sec APTT 24.0 51.0 H (22.0-30.0) sec Lipids 01/06/20 Range/Units 05:33 Triglycerides 60 (<150) mg/dL Cholesterol 151 (<200) mg/dL HDL Cholesterol 38 L (40-60) mg/dL CBC 01/05/20 Range/Units 22:41 WBC 6.8 (3.8-10.6) k/uL RBC 4.43 (4.30-5.90) m/uL Hgb 13.8 (13.0-17.5) gm/dL Hct 41.4 (39.0-53.0) % Plt Count 148 L (150-450) k/uL Comprehensive Metabolic Panel 01/05/20 Range/Units 22:41 Sodium 138 (137-145) mmol/L Potassium 4.1 (3.5-5.1) mmol/L Chloride 108 H (98-107) mmol/L Carbon Dioxide 24 (22-30) mmol/L BUN 18 (9-20) mg/dL Creatinine 0.94 (0.66-1.25) mg/dL Glucose 153 H (74-99) mg/dL Calcium 8.5 (8.4-10.2) mg/dL AST 42 (17-59) U/L ALT 43 (4-49) U/L Alkaline Phosphatase 84 (38-126) U/L Total Protein 7.2 (6.3-8.2) g/dL Albumin 3.6 (3.5-5.0) g/dL Current Medications Generic Name Dose Route Start Last Admin Trade Name Freq PRN Reason Stop Dose Admin Alprazolam 0.25 mg 01/06/20 09:01 Alprazolam 0.25 Mg Tab PO Q6HR PRN Mild Anxiety Alprazolam 0.5 mg 01/06/20 09:01 Alprazolam 0.5 Mg Tab PO Q6HR PRN Moderate Anxiety Aspirin 81 mg 01/07/20 09:00 Aspirin 81 Mg PO DAILY [facility] Atorvastatin Calcium 20 mg 01/06/20 09:00 Atorvastatin 20 Mg Tab PO DAILY [facility] Carvedilol 12.5 mg 01/06/20 07:30 01/06/20 06:33 Carvedilol 12.5 Mg Tab PO 12.5 mg BID-W/MEALS DEBRA Administration Heparin Sodium (Porcine) 0 unit 01/06/20 03:03 Heparin Sodium,Porcine 5,000 Unit/Ml 1 Ml Vial IV PER PROTOCOL PRN Low PTT Protocol Sodium Chloride 1,000 ml/ IV 1,000 mls @ 78.018 mls/hr 01/06/20 09:01 Solution IV 01/06/20 21:50 .[id number] ONE 1 ML/KG/HR Latanoprost 1 drops 01/06/20 21:00 Latanoprost 0.005% Ophth Drops 2.5 Ml Btl BOTH EYES HS DEBRA Lisinopril 20 mg 01/06/20 09:00 Lisinopril 20 Mg Tab PO BID DBERA Nitroglycerin 0.4 mg 01/06/20 09:01 Nitroglycerin Sl Tabs 0.4 Mg Tab SUBLINGUAL Q5M PRN Chest Pain Pantoprazole Sodium 40 mg 01/06/20 09:00 Pantoprazole 40 Mg Tablet PO DAILY [facility] Intake and Output 01/05/20 01/06/20 01/06/20 22:59 06:59 14:59 Other: Voiding Method Toilet Toilet # Voids 1 Weight 78.018 kg 78.018 kg 01/05/20 22:41 01/05/20 22:41
[2020-01-06] MEDS ORDERED: LIDOCAINE 1% INJ 10MG/ML (20 ML MDV) ONE (09:29)
[2020-01-06] MEDS ORDERED: VERAPAMIL 2.5 MG/ML 2 ML AMP ONE (09:30)
[2020-01-06] MEDS ORDERED: fentaNYL (PF) 50 MCG/ML 2 ML AMP ONE (10:04)
[2020-01-06] MEDS ORDERED: LIDOCAINE 1% INJ 10MG/ML (20 ML MDV) SQ ONE (10:11)
[2020-01-06] MEDS ORDERED: fentaNYL (PF) 50 MCG/ML 2 ML AMP IV ONE (10:12)
[2020-01-06] MEDS ORDERED: IV FLUID CONTINUATION 300 ML IV ONE (10:13)
[2020-01-06] MEDS ORDERED: IOPAMIDOL-370 125ML BTL INJ ONE (10:25)
[2020-01-06] MEDS ORDERED: RX INFO: IV CONTRAST WAS GIVEN 1 EACH MISC MISCELLANE PRN (10:32)
[2020-01-06] MEDS ORDERED: hydroCHLOROthiazide 25 MG TAB PO SCH (10:45)
[2020-01-06] MEDS ORDERED: SODIUM CHLORIDE 0.9% 1,000 ML IV SCH (10:45)
--- NOTE | 2020-01-06 11:20 | CC ---
CARDIAC CATHETERIZATION REPORT Mr. Bain is a 74-year-old male with known history of hypertension, hyperlipidemia, and coronary artery disease who presented with symptoms of chest discomfort and elevation of the blood pressure. His cardiac enzymes were normal. He was evaluated by Dr. Lyles and recommendation was made regarding cardiac catheterization. The procedures, risks, and complication were discussed with the patient who is in full understanding and agreement. PROCEDURE: Patient was brought to the cath lab radiology technician in a fasting semi-sedated state after receiving fentanyl and Benadryl and achieving moderate conscious sedated state. Using Xylocaine anesthesia and Seldinger technique, a 6-Guyanese sheath was introduced in the right femoral artery. Selective right and left coronary angiography performed using 6-Guyanese 4 bend right and left Ariel catheter, multiple views of the coronary artery including hemiaxial views were obtained, following that a 6-Guyanese tight pigtail catheter was introduced into the left ventricle and pressures were calculated. Following that, catheter and sheath were removed. Hemostasis was obtained with deployment of an Angio- Seal. There was no immediate complication. Patient is returned to his room in stable condition. FINDINGS: LEFT MAIN: This is a short size vessel, bifurcating into left circumflex, left anterior descending artery. Left main coronary artery has no evidence of high- grade stenosis. LEFT ANTERIOR DESCENDING ARTERY: This is a large-sized vessel, reaching toward the apex with a wraparound apex segment giving rise to 2 diagonal branch. The stented segment in the mid LAD is patent. There is about 20% to 30% in-stent restenosis without any evidence of high-grade stenosis. LEFT CIRCUMFLEX: This is a nondominant vessel giving rise to 2 obtuse marginal branch. There is intimal disease in the left circumflex up to 30% to 40% without any evidence of critical stenosis. RIGHT CORONARY ARTERY: This is a large dominant vessel bifurcating distally PDA and posterolateral segment branches the right coronary artery has a stent in the mid segment has an in-stent restenosis of about 30% to 40% without any progression compared with the images complained in June 2018. The stented segment proximally has no evidence of in-stent restenosis. The rest of the vessel has no high-grade stenosis. LEFT VENTRICULOGRAM: Left ventriculogram was not performed. HEMODYNAMICS: There was no gradient across the aortic valve, the left ventricular end- diastolic pressure was 15 mmHg. CONCLUSION: 1. Patent stent of the LAD and the right coronary artery with mild to moderate in- stent restenosis. 2. Mild to moderate disease in the left circumflex . RECOMMENDATION: Comparing the images to July 08, 2018, There is no evidence of significant progression of disease. At this time, I will continue medical therapy with aggressive risk modifications being initiated. Those findings and recommendation were discussed with the patient and his family who in understanding, consenting and agreement. Duration of the sedation was 17 minutes. STANLEY / ENMANUELN: [id number] / CAROLYNE
[2020-01-06] MEDS ORDERED: ACETAMINOPHEN TAB 325 MG TAB PO PRN (11:47)
[2020-01-06 12:22] LABS: Hemoglobin A1C 5.3 % (4.0-6.0)
[2020-01-06 15:17] VITALS: TEMP 98.1
--- NOTE | 2020-01-06 16:06 | P.DS ---
Providers Date of admission: 01/05/20 23:29 Expected date of discharge: 01/06/20 Attending physician: Andrea Fuller MD Consults: 01/05/20 23:29 Consult Physician Urgent Consulting Provider: [facility] Consult Reason/Comments: chest pain, patient of Baldev Do you want consulting provider notified?: Yes, Notify in am Primary care physician: Reina [facility] Course: The patient is a 74-year-old male with a PMH of coronary artery disease status post 2 stents, hypertension, hyperlipidemia, and COPD who presented to the emergency room with complaints of chest discomfort. The patient reports that he was in his usual state of health until about 6 PM when he suddenly developed 8 out of 10 pressure-like left-sided chest discomfort with radiation to the arm. The patient subsequently checked his blood pressure and noted that it was very high, 213/110. He proceeded to take 2 nitroglycerins and an aspirin which improved his pain to a 6 out of 10. The patient is currently activated EMS and was brought to the emergency room. At time of interview, the patient reports that his pain had improved to a 4 out of 10. The patient reported that this pain is very similar to that which he had when he was previously diagnosed with an TN. He denied associated shortness of breath, nausea, vomiting, palpitations, dizziness, or diaphoresis. He also denied cough, fever, chills, abdominal pain, or diarrhea. In the emergency room the patient underwent an EKG which revealed a normal sinus rhythm at 63 bpm with no acute ST/T-wave changes noted. Chest x-ray was unremarkable. Laboratory evaluation was reviewed with troponin less than 0.012. Troponins were cycled and ACS was ruled out. Patient was initially started on heparin infusion and cardiology was consulted. Cardiology recommended cardiac cath. Cardiac cath showed no evidence of significant progression of disease compared to images from 07/08/2018. Patient was seen and examined. No acute events overnight. Patient denies any chest pain. He denies shortness of breath or palpitations. No nausea or vomiting. No fever or chills. General: [non toxic], [no distress], [appears at stated age] Derm: [warm], [dry] Head: [atraumatic], [normocephalic], [symmetric] Eyes: [EOMI], [no lid lag], [anicteric sclera] Mouth: [no lip lesion], [mucus membranes moist] Cardiovascular: [S1S2 reg], [no murmur] Lungs: [CTA bilateral], [no rhonchi, no rales] , [no accessory muscle use] Ext: [no gross muscle atrophy], [no edema], [no contractures] Neuro: [no focal neuro deficits] Psych: [Alert], [oriented], [appropriate affect] Chest pain Hyperglycemia Thrombocytopenia Chronic conditions hypertension, dyslipidemia, CAD Acute coronary syndrome has been ruled out. Cardiac cath shows no evidence of significant progression of disease compared to images from 07/08/2018. Plans: Continue aspirin and Lipitor. Continue Coreg. Gderm-ju-aprn glucose 101. A1c 5.3. Plans: Nothing further to do. Plans: Continue to monitor. Patient's blood pressure appears to be slightly elevated. We will get his Coreg now. Repeat blood pressure, discussed with nursing. Anticipated DC home today. Pertinent Studies: Chest x-ray, echocardiogram Procedures: Cardiac cath Patient Condition at Discharge: Stable Plan - Discharge Summary Discharge Rx Participant: No New Discharge Prescriptions: No Action Omeprazole [PriLOSEC] 20 mg PO DAILY lisinopriL [Zestril] 20 mg PO BID #60 tab Latanoprost/Pf [Latanoprost 0.005% Eye Drop] 1 drop BOTH EYES HS Carvedilol [Coreg] 12.5 mg PO BID-W/MEALS Aspirin 81 mg PO DAILY #30 chew Isosorbide Mononitrate [Imdur] 120 mg PO DAILY Atorvastatin [Lipitor] 20 mg PO DAILY Discharge Medication List Omeprazole [PriLOSEC] 20 mg PO DAILY 04/25/14 [History] lisinopriL [Zestril] 20 mg PO BID #60 tab 02/06/18 [Rx] Carvedilol [Coreg] 12.5 mg PO BID-W/MEALS 04/27/19 [History] Latanoprost/Pf [Latanoprost 0.005% Eye Drop] 1 drop BOTH EYES HS 04/27/19 [Hi story] Aspirin 81 mg PO DAILY #30 chew 04/29/19 [Rx] Atorvastatin [Lipitor] 20 mg PO DAILY 01/05/20 [History] Isosorbide Mononitrate [Imdur] 120 mg PO DAILY 01/05/20 [History] Follow up Appointment(s)/Referral(s): Pernell De Paz MD [STAFF PHYSICIAN] - 1 Week Reina Dunbar MD [Primary Care Provider] - 1-2 days
[2020-01-06 16:44] VITALS: BP 182/88; PULSE 59
[2020-01-06] MEDS ORDERED: LATANOPROST 0.005% OPHTH DROPS 2.5 ML BTL BOTH EYES SCH (21:00)
[2020-01-07] MEDS ORDERED: ASPIRIN 81 MG PO SCH (09:00)
--- NOTE | 2020-01-07 10:54 | ECHOF ---
Referral Reason:chest pain MEASUREMENTS -------- HEIGHT: 172.7 cm WEIGHT: 78.0 kg BP: RVIDd: 2.7 cm (< 3.3) IVSd: 1.2 cm (0.6 - 1.1) LVIDd: 4.7 cm (3.9 - 5.3) LVPWd: 1.4 cm (0.6 - 1.1) IVSs: 1.8 cm LVIDs: 2.8 cm LVPWs: 1.6 cm LAESV Index (A-L): 26.10 ml/m Ao Diam: 3.0 cm (2.0 - 3.7) AV Cusp: 1.5 cm (1.5 - 2.6) LA Diam: 3.4 cm (2.7 - 3.8) MV EXCURSION: 12.495 mm (> 18.000) MV EF SLOPE: 51 mm/s (70 - 150) EPSS: 0.8 cm MV E Torsten: 0.81 m/s MV DecT: 250 ms MV A Torsten: 0.91 m/s MV E/A Ratio: 0.89 RAP: 5.00 mmHg RVSP: 11.16 mmHg FINDINGS -------- This was a technically good study. The left ventricular size is normal. There is mild concentric left ventricular hypertrophy. Overa ll left ventricular systolic function is normal with, an EF between 55 - 60 %. The diastolic fillin g pattern is normal for the age of the patient 10.78. The right ventricle is normal in size. The left atrial size is normal. Normal LA size by volume 22+/-6 ml/m2. The right atrial size is normal. The aortic valve is trileaflet and appears structurally normal. The mitral valve is normal. There is trace mitral regurgitation. The tricuspid valve appears structurally normal. Trace tricuspid regurgitation present. Right rigoberto tricular systolic pressure is normal at < 35 mmHg. There is no pulmonic regurgitation present. The aortic root size is normal. IVC Not well visulized. There is no pericardial effusion. CONCLUSIONS -------- 1. The left ventricular size is normal. 2. There is mild concentric left ventricular hypertrophy. 3. Overall left ventricular systolic function is normal with, an EF between 55 - 60 %. 4. The diastolic filling pattern is normal for the age of the patient 10.78 5. There is trace mitral regurgitation. 6. Trace tricuspid regurgitation present. 7. There is no pericardial effusion. TON CONTAINER SHIPPER: Libia Haynes RDCS
== END 2020-01-06 17:30 | disposition home or self-care (01) ==
LOC: EC 22:10 → 3NCARDOBS 23:29
PROVIDERS: ADMIT Internal Medicine; ATTEND Internal Medicine
DX: R07.89 Other chest pain (principal); I16.1 Hypertensive emergency; R73.9 Hyperglycemia, unspecified; D69.6 Thrombocytopenia, unspecified; I10 Essential (primary) hypertension; I25.10 Atherosclerotic heart disease of native coronary artery without angina pectoris; E78.5 Hyperlipidemia, unspecified; H91.90 Unspecified hearing loss, unspecified ear; J44.9 Chronic obstructive pulmonary disease, unspecified; K21.9 Gastro-esophageal reflux disease without esophagitis; G89.29 Other chronic pain; M54.5 Low back pain; I71.4 Abdominal aortic aneurysm, without rupture; H91.93 Unspecified hearing loss, bilateral; H93.12 Tinnitus, left ear; F17.200 Nicotine dependence, unspecified, uncomplicated; T82.855A Stenosis of coronary artery stent, initial encounter; Z79.82 Long term (current) use of aspirin; Z79.899 Other long term (current) drug therapy; Z88.0 Allergy status to penicillin; Z91.040 Latex allergy status; Z85.038 Personal history of other malignant neoplasm of large intestine; I25.2 Old myocardial infarction; Z87.442 Personal history of urinary calculi; Z90.49 Acquired absence of other specified parts of digestive tract; Z95.5 Presence of coronary angioplasty implant and graft; Z82.49 Family history of ischemic heart disease and other diseases of the circulatory system; Z80.0 Family history of malignant neoplasm of digestive organs; Z84.1 Family history of disorders of kidney and ureter; Z82.5 Family history of asthma and other chronic lower respiratory diseases
CPT/HCPCS: 93005 ×2; 96374; 99285; 36415; 93306; 93458; 83880; 80061; 80053; 83690; 83735; 84484 ×2; 85025; 85610; 85730 ×2; 83036; 71046; G0378 ×2; C1760; C1894; C1769; J1644 ×2; J2001; J3010; Q9967

== ENCOUNTER 2020-05-06 09:26 | Emergency (ER) | payer MEDICARE ==
[2020-05-06] MEDS ORDERED: ACETAMINOPHEN TAB 325 MG TAB PO STA (09:48)
[2020-05-06 10:19] LABS: Basophils # (A) 0.1 k/uL (0-0.2); Basophils % (A) 1 %; Eosinophils # (A) 0.1 k/uL (0-0.7); Eosinophils % (A) 1 %; HCT 43.2 % (39.0-53.0); HGB 14.8 gm/dL (13.0-17.5); Lymphocytes # (A) 1.6 k/uL (1.0-4.8); Lymphocytes % (A) 12 %; MCH 30.9 pg (25.0-35.0); MCHC 34.3 g/dL (31.0-37.0); MCV 90.2 fL (80.0-100.0); Mean Platelet Volume 7.1; Monocytes # (A) 0.8 k/uL (0-1.0); Monocytes % (A) 6 %; Neutrophils # (A) 11.1 k/uL (1.3-7.7); Neutrophils % (A) 81 %; Platelet Count 123 k/uL (150-450); RBC 4.79 m/uL (4.30-5.90); RDW 15.1 % (11.5-15.5); WBC 13.7 k/uL (3.8-10.6)
[2020-05-06 10:30] LABS: Albumin 3.8 g/dL (3.5-5.0); C Reactive Protein 37.3 mg/L (<10.0); Calcium 8.6 mg/dL (8.4-10.2); Magnesium 1.7 mg/dL (1.6-2.3); Potassium 4.1 mmol/L (3.5-5.1); Total Bilirubin 1.4 mg/dL (0.2-1.3); Total Protein 7.1 g/dL (6.3-8.2)
--- NOTE | 2020-05-06 10:37 | XR ---
EXAMINATION TYPE: XR chest 1V portable DATE OF EXAM: 05/06/2020 COMPARISON: NONE HISTORY: body pain TECHNIQUE: Single frontal view of the chest is obtained. FINDINGS: Heart is stable. No overt failure. No pneumothorax. Subsegmental changes left lung base. N o sizable pleural effusion. IMPRESSION: Left basilar atelectasis versus early infiltrate
[2020-05-06 10:48] LABS: INR 1.1 (<1.2); Partial Thromboplastin Time 24.4 sec (22.0-30.0); Prothrombin Time 11.3 sec (9.0-12.0)
[2020-05-06 11:09] LABS: D-Dimer 0.98 mg/L FEU (<0.60)
[2020-05-06] MEDS ORDERED: SODIUM CHLORIDE 0.9% 1,000 ML IV STA (12:07)
[2020-05-06 12:18] LABS: Appearance,Urine Cloudy (Clear); Bacteria,Urine Few /hpf; Bilirubin,Urine Negative (Negative); Blood,Urine Small (Negative); Color,Urine Yellow; Glucose,Urine (UA) Negative (Negative); Ketones,Urine Negative (Negative); Leukocyte Esterase,Urine Large (Negative); Mucus,Urine Many /hpf; Nitrite,Urine Positive (Negative); PH, Urine 5.5 (5.0-8.0); Protein,Urine 1+ (Negative); RBC,Urine 5 /hpf (0-5); Specific Gravity,Urine 1.025 (1.001-1.035); Squamous Epithelial Cell,Urine <1 /hpf (0-4); Urobilinogen,Urine <2.0 mg/dL (<2.0); WBC,Urine >182 /hpf (0-5)
--- NOTE | 2020-05-06 12:31 | ED ---
General Adult HPI - General Chief complaint: Upper Respiratory Infection Stated complaint: Dizziness, Body Chills Time Seen by Provider: 05/06/20 09:38 Source: patient Mode of arrival: ambulatory Limitations: no limitations - History of Present Illness Initial comments: 75-year-old male with a past medical history of CAD, COPD, [place], hyperlipidemia, hypertension, GERD presents to the emergency room for body aches. Patient states he has generalized body aches and chills. Admits to slight cough. States he just has not been feeling well. Patient denies fevers above 99. Denies chest pain shortness of breath. Denies abdominal pain.Patient has no ot her complaints at this time including shortness of breath, chest pain, abdominal pain, nausea or vomiting, headache, or visual changes. - Related Data Home Medications Medication Instructions Recorded Confirmed Omeprazole [PriLOSEC] 20 mg PO DAILY 04/25/14 05/06/20 Carvedilol [Coreg] 12.5 mg PO BID-W/MEALS 04/27/19 05/06/20 Latanoprost/Pf [Latanoprost 0.005% 1 drop BOTH EYES HS 04/27/19 05/06/20 Eye Drop] Atorvastatin [Lipitor] 20 mg PO DAILY 01/05/20 05/06/20 Isosorbide Mononitrate [Imdur] 120 mg PO DAILY 01/05/20 05/06/20 Previous Rx's Medication Instructions Recorded lisinopriL [Zestril] 20 mg PO BID #60 tab 02/06/18 Aspirin 81 mg PO DAILY #30 chew 04/29/19 Nitroglycerin Sl Tabs [Nitrostat] 0.4 mg SUBLINGUAL Q5M PRN tab 01/06/20 Ciprofloxacin HCl [Cipro] 500 mg PO BID 7 Days #14 tab 05/06/20 Allergies Allergy/AdvReac Type Severity Reaction Status Date / Time latex Allergy Rash/Hives/ Verified 05/06/20 10:41 blisters Penicillins Allergy Rash/Hives Verified 05/06/20 10:41 Review of Systems ROS Statement: Those systems with pertinent positive or pertinent negative responses have been documented in the HPI. ROS Other: All systems not noted in ROS Statement are negative. Past Medical History Past Medical History: Coronary Artery Disease (CAD), Cancer, Chest Pain / Angina, COPD, GERD/Reflux, Hearing Disorder / Deafness, Hyperlipidemia, Hypertension, Myocardial Infarction ([place]) Additional Past Medical History / Comment(s): [place] x 2 (), colon cancer with surgery, kidney stone, chronic low back pain, [place] bilaterally with R ear worse, tinnitis L ear. AAA Last Myocardial Infarction Date:: 2010 History of Any Multi-Drug Resistant Organisms: None Reported Past Surgical History: Appendectomy, Bowel Resection, Heart Catheterization With Stent Additional Past Surgical History / Comment(s): bowel resection 2004, colonoscopy, 3 cardiac stents Past Anesthesia/Blood Transfusion Reactions: No Reported Reaction Date of Last Stent Placement:: 04/26/17 Past Psychological History: No Psychological Hx Reported Smoking Status: Current every day smoker Past Alcohol Use History: None Reported Past Drug Use History: None Reported - Past Family History Father Family Medical History: No Reported History Additional Family Medical History / Comment(s): Father at the age of 76yrs from "old age." Mother Family Medical History: Pneumonia Additional Family Medical History / Comment(s): Mother of pneumonia at the age of 68yrs. Brother(s) Family Medical History: Cancer Additional Family Medical History / Comment(s): He has one brother that is alive and has undergone CABG for coronary artery disease and has had one kidney removed. Patient has one brother who in a motor vehicle accident, one brother from a myocardial infarction at age 59, and one from colon cancer at age 70. Sister(s) Family Medical History: No Reported History Additional Family Medical History / Comment(s): He has 3 sisters that are healthy. General Exam Limitations: no limitations General appearance: alert, in no apparent distress Head exam: Present: atraumatic, normocephalic, normal inspection Eye exam: Present: normal appearance, PERRL, EOMI. Absent: scleral icterus, conjunctival injection ENT exam: Present: normal exam, mucous membranes moist Neck exam: Present: normal inspection, full ROM. Absent: tenderness Respiratory exam: Present: normal lung sounds bilaterally. Absent: respiratory distress, wheezes Cardiovascular Exam: Present: regular rate, normal rhythm, normal heart sounds GI/Abdominal exam: Present: soft, normal bowel sounds. Absent: distended, ten derness Back exam: Absent: CVA tenderness (R), CVA tenderness (L) Neurological exam: Present: alert Course Vital Signs 05/06/20 05/06/20 09:28 11:28 Temperature 99 F 98.1 F Pulse Rate 77 62 Respiratory 18 18 Rate Blood Pressure 125/70 115/57 O2 Sat by Pulse 97 97 Oximetry EKG Findings - EKG Comments: EKG Findings:: Normal sinus rhythm, ventricular rate 69, AR interval 162, QTc 443 Procedures - [place] Protocol (Time Out) Nurse: Hannah Perry Medical Decision Making - Medical Decision Making Vitals are stable. Patient is well appearing. Physical exam is unremarkable. CBC does show mild leukocytosis. CMP unremarkable. D-dimer was part of Covid order set and was found to be elevated along with CRP. Chest x-ray did initially show a possible pneumonia however there is no pneumonia evident on CAT scan. Patient was found to have a urinary tract infection. This is likely the cause of his body aches and chills. Patient will be treated with antibiotics. He is stable for outpatient treatment after a dose of IV antibiotics in the emergency room. He will return for any worsening symptoms. I did review previous cultures. Patient is sensitive for fluoroquinolone. Dr. Brown recommends starting patient on this given this is a complicated UTI in an older male patient. - Lab Data Result diagrams: 05/06/20 10:04 05/06/20 10:04 Lab Results 05/06/20 05/06/20 05/06/20 Range/Units 10:00 10:04 10:04 WBC 13.7 H (3.8-10.6) k/uL RBC 4.79 (4.30-5.90) m/uL Hgb 14.8 (13.0-17.5) gm/dL Hct 43.2 (39.0-53.0) % MCV 90.2 (80.0-100.0) fL MCH 30.9 (25.0-35.0) pg MCHC 34.3 (31.0-37.0) g/dL RDW 15.1 (11.5-15.5) % Plt Count 123 L (150-450) k/uL MPV 7.1 Neutrophils % 81 % Lymphocytes % 12 % Monocytes % 6 % Eosinophils % 1 % Basophils % 1 % Neutrophils # 11.1 H (1.3-7.7) k/uL Lymphocytes # 1.6 (1.0-4.8) k/uL Monocytes # 0.8 (0-1.0) k/uL Eosinophils # 0.1 (0-0.7) k/uL Basophils # 0.1 (0-0.2) k/uL PT 11.3 (9.0-12.0) sec INR 1.1 (<1.2) APTT 24.4 (22.0-30.0) sec D-Dimer 0.98 H (<0.60) mg/L FEU Sodium (137-145) mmol/L Potassium (3.5-5.1) mmol/L Chloride (98-107) mmol/L Carbon Dioxide (22-30) mmol/L Anion Gap mmol/L BUN (9-20) mg/dL Creatinine (0.66-1.25) mg/dL Est GFR (CKD-EPI)AfAm (>60 ml/min/1.73 sqM) Est GFR (CKD-EPI)NonAf (>60 ml/min/1.73 sqM) Glucose (74-99) mg/dL Plasma Lactic Acid Shaka (0.7-2.0) mmol/L Calcium (8.4-10.2) mg/dL Magnesium (1.6-2.3) mg/dL Total Bilirubin (0.2-1.3) mg/dL AST (17-59) U/L ALT (4-49) U/L Alkaline Phosphatase (38-126) U/L Lactate Dehydrogenase (313-618) U/L C-Reactive Protein (<10.0) mg/L Total Protein (6.3-8.2) g/dL Albumin (3.5-5.0) g/dL Urine Color Urine Appearance (Clear) Urine pH (5.0-8.0) Ur Specific [place] (1.001-1.035) Urine Protein (Negative) Urine Glucose (UA) (Negative) Urine Ketones (Negative) Urine Blood (Negative) Urine Nitrite (Negative) Urine Bilirubin (Negative) Urine Urobilinogen (<2.0) mg/dL Ur Leukocyte Esterase (Negative) Urine RBC (0-5) /hpf Urine WBC (0-5) /hpf Urine WBC Clumps (None) /hpf Ur Squamous Epith Cells (0-4) /hpf Urine Bacteria (None) /hpf Urine Mucus (None) /hpf Coronavirus (PCR) Not Detected (Not Detectd) Influenza Type A RNA (Not Detectd) Influenza Type B (PCR) (Not Detectd) 05/06/20 05/06/20 05/06/20 Range/Units 10:04 10:04 10:04 WBC (3.8-10.6) k/uL RBC (4.30-5.90) m/uL Hgb (13.0-17.5) gm/dL Hct (39.0-53.0) % MCV (80.0-100.0) fL MCH (25.0-35.0) pg MCHC (31.0-37.0) g/dL RDW (11.5-15.5) % Plt Count (150-450) k/uL MPV Neutrophils % % Lymphocytes % % Monocytes % % Eosinophils % % Basophils % % Neutrophils # (1.3-7.7) k/uL Lymphocytes # (1.0-4.8) k/uL Monocytes # (0-1.0) k/uL Eosinophils # (0-0.7) k/uL Basophils # (0-0.2) k/uL PT (9.0-12.0) sec INR (<1.2) APTT (22.0-30.0) sec D-Dimer (<0.60) mg/L FEU Sodium 133 L (137-145) mmol/L Potassium 4.1 (3.5-5.1) mmol/L Chloride 102 (98-107) mmol/L Carbon Dioxide 23 (22-30) mmol/L Anion Gap 8 mmol/L BUN 20 (9-20) mg/dL Creatinine 1.02 (0.66-1.25) mg/dL Est GFR (CKD-EPI)AfAm 82 (>60 ml/min/1.73 sqM) Est GFR (CKD-EPI)NonAf 71 (>60 ml/min/1.73 sqM) Glucose 211 H (74-99) mg/dL Plasma Lactic Acid Shaka 1.6 (0.7-2.0) mmol/L Calcium 8.6 (8.4-10.2) mg/dL Magnesium 1.7 (1.6-2.3) mg/dL Total Bilirubin 1.4 H (0.2-1.3) mg/dL AST 28 (17-59) U/L ALT 33 (4-49) U/L Alkaline Phosphatase 54 (38-126) U/L Lactate Dehydrogenase 558 (313-618) U/L C-Reactive Protein 37.3 H (<10.0) mg/L Total Protein 7.1 (6.3-8.2) g/dL Albumin 3.8 (3.5-5.0) g/dL Urine Color Urine Appearance (Clear) Urine pH (5.0-8.0) Ur Specific [place] (1.001-1.035) Urine Protein (Negative) Urine Glucose (UA) (Negative) Urine Ketones (Negative) Urine Blood (Negative) Urine Nitrite (Negative) Urine Bilirubin (Negative) Urine Urobilinogen (<2.0) mg/dL Ur Leukocyte Esterase (Negative) Urine RBC (0-5) /hpf Urine WBC (0-5) /hpf Urine WBC Clumps (None) /hpf Ur Squamous Epith Cells (0-4) /hpf Urine Bacteria (None) /hpf Urine Mucus (None) /hpf Coronavirus (PCR) (Not Detectd) Influenza Type A RNA Not Detected (Not Detectd) Influenza Type B (PCR) Not Detected (Not Detectd) 05/06/20 Range/Units 12:04 WBC (3.8-10.6) k/uL RBC (4.30-5.90) m/uL Hgb (13.0-17.5) gm/dL Hct (39.0-53.0) % MCV (80.0-100.0) fL MCH (25.0-35.0) pg MCHC (31.0-37.0) g/dL RDW (11.5-15.5) % Plt Count (150-450) k/uL MPV Neutrophils % % Lymphocytes % % Monocytes % % Eosinophils % % Basophils % % Neutrophils # (1.3-7.7) k/uL Lymphocytes # (1.0-4.8) k/uL Monocytes # (0-1.0) k/uL Eosinophils # (0-0.7) k/uL Basophils # (0-0.2) k/uL PT (9.0-12.0) sec INR (<1.2) APTT (22.0-30.0) sec D-Dimer (<0.60) mg/L FEU Sodium (137-145) mmol/L Potassium (3.5-5.1) mmol/L Chloride (98-107) mmol/L Carbon Dioxide (22-30) mmol/L Anion Gap mmol/L BUN (9-20) mg/dL Creatinine (0.66-1.25) mg/dL Est GFR (CKD-EPI)AfAm (>60 ml/min/1.73 sqM) Est GFR (CKD-EPI)NonAf (>60 ml/min/1.73 sqM) Glucose (74-99) mg/dL Plasma Lactic Acid Shaka (0.7-2.0) mmol/L Calcium (8.4-10.2) mg/dL Magnesium (1.6-2.3) mg/dL Total Bilirubin (0.2-1.3) mg/dL AST (17-59) U/L ALT (4-49) U/L Alkaline Phosphatase (38-126) U/L Lactate Dehydrogenase (313-618) U/L C-Reactive Protein (<10.0) mg/L Total Protein (6.3-8.2) g/dL Albumin (3.5-5.0) g/dL Urine Color Yellow Urine Appearance Cloudy (Clear) Urine pH 5.5 (5.0-8.0) Ur Specific [place] 1.025 (1.001-1.035) Urine Protein 1+ H (Negative) Urine Glucose (UA) Negative (Negative) Urine Ketones Negative (Negative) Urine Blood Small H (Negative) Urine Nitrite Positive (Negative) Urine Bilirubin Negative (Negative) Urine Urobilinogen <2.0 (<2.0) mg/dL Ur Leukocyte Esterase Large H (Negative) Urine RBC 5 (0-5) /hpf Urine WBC >182 H (0-5) /hpf Urine WBC Clumps Few H (None) /hpf Ur Squamous Epith Cells <1 (0-4) /hpf Urine Bacteria Few H (None) /hpf Urine Mucus Many H (None) /hpf Coronavirus (PCR) (Not Detectd) Influenza Type A RNA (Not Detectd) Influenza Type B (PCR) (Not Detectd) Disposition Clinical Impression: UTI (urinary tract infection), Chills Disposition: HOME SELF-CARE Condition: Good Instructions (If sedation given, give patient instructions): Urinary Tract Infection in Men (ED) Additional Instructions: Please take antibiotic as directed. Please follow-up with your doctor in one to 2 days. Return to the emergency room for any worsening symptoms. Prescriptions: Ciprofloxacin HCl [Cipro] 500 mg PO BID 7 Days #14 tab Is patient prescribed a controlled substance at d/c from ED?: No Referrals: Reina Dunbar MD [Primary Care Provider] - 1-2 days Time of Disposition: 13:05
--- NOTE | 2020-05-06 12:49 | CT ---
EXAMINATION TYPE: CT chest angio for PE DATE OF EXAM: 05/06/2020 COMPARISON: CT abdomen and pelvis April 27, 2019. HISTORY: shortness of breath and body aches CT DLP: 350 mGycm Automated exposure control for dose reduction was used. CONTRAST: CT Chest for pulmonary embolism performed with with IV Contrast, patient injected with 100 mL of Isov ue 370. FINDINGS: LUNGS: Mild dependent atelectasis bilateral lower lungs. No suspicious focal infiltrate. Some respira tory motion artifact degradation makes evaluation for subcentimeter nodules suboptimal. No concerning masses. No pleural effusion or pneumothorax seen bilaterally. MEDIASTINUM: There is satisfactory enhancement of the pulmonary artery and its branches, there is no CT evidence for pulmonary embolism. There are no greater than 1 cm hilar or mediastinal lymph nodes. No cardiomegaly or pericardial effusion is seen. Coronary artery calcification and/or stent in th e RCA distribution suspected. OTHER: There are roughly 5 scattered subcentimeter hypodense lesions throughout the liver redemonstr ated unchanged from April 27, 2019 CT abdomen study. IMPRESSION: No acute pulmonary embolism. No suspicious acute pulmonary process.
[2020-05-06] MEDS ORDERED: cefTRIAXone IN SWFI 1,000 MG/10 ML SYRINGE IVP STA (13:03)
[2020-05-06] MEDS ORDERED: CEPHALEXIN 500MG STARTER PACK 4 CAP BTL PO STA (13:03)
[2020-05-06 14:24] VITALS: BP 114/59; PULSE 60; RESP 16; TEMP 97.9
[2020-05-06 23:57] LABS: Ferritin 70.8 ng/mL (22.0-322.0)
== END 2020-05-06 14:25 | disposition home or self-care (01) ==
LOC: EC 09:26
DX: N39.0 Urinary tract infection, site not specified (principal); Z20.822 Contact with and (suspected) exposure to COVID-19; D72.829 Elevated white blood cell count, unspecified; K21.9 Gastro-esophageal reflux disease without esophagitis; I25.119 Atherosclerotic heart disease of native coronary artery with unspecified angina pectoris; E78.5 Hyperlipidemia, unspecified; I10 Essential (primary) hypertension; I25.2 Old myocardial infarction; G89.29 Other chronic pain; M54.5 Low back pain; F17.200 Nicotine dependence, unspecified, uncomplicated; Z91.040 Latex allergy status; Z88.0 Allergy status to penicillin; Z85.038 Personal history of other malignant neoplasm of large intestine; Z95.5 Presence of coronary angioplasty implant and graft; Z98.890 Other specified postprocedural states; Z79.899 Other long term (current) drug therapy
CPT/HCPCS: 36415; 93005; 85379; 80053; 82728; 83605; 83615; 83735; 85025; 85610; 85730; 86140; 81001; 87086; 87502; 84145; 87635; 71045; 71275; 96374; 96361; 99285; J0696; Q9967

== ENCOUNTER → 2020-08-02 | Outpatient (CLI) | payer MEDICARE ==
[2020-08-02 14:44] LABS: Chol/HDL Ratio 4.13; LDL Cholesterol,Calculated 69.2 mg/dL (0.0-131.0); VLDL Calculation 24.8 mg/dL (5.00-40.00)
== END | disposition home or self-care (01) ==
LOC: LABWHC1 08:40
PROVIDERS: ATTEND Nurse Practitioner Adult Health
DX: E78.2 Mixed hyperlipidemia (principal)
CPT/HCPCS: 36415; 80061; 84450; 84460

== ENCOUNTER 2020-10-21 22:35 | Emergency (ER) | payer MEDICARE ==
[2020-10-21 22:41] VITALS: TEMP 97.5
--- NOTE | 2020-10-21 22:47 | ED ---
Chest Pain HPI - General Chief Complaint: Chest Pain Stated Complaint: High BP Time Seen by Provider: 10/21/20 22:39 Source: patient, RN notes reviewed, old records reviewed Mode of arrival: ambulatory Limitations: no limitations - History of Present Illness Initial Comments: This is a 75-year-old male to the ER for evaluation. Patient presents today for evaluation of chest pain. His. Patient states he was resting comfortably when he had sudden onset of chest pain with some sweating patient became very anxious took his blood pressure was elevated. Patient became even more anxious than listed both 40 minutes in the ER. Patient arrives to ER with no significant complaints no chest pain and feels well. MD Complaint: chest pain -: hour(s) Onset: during rest Pain Location: substernal Pain Radiation: none Severity: moderate Severity scale (1-10): 4 Quality: heaviness Consistency: intermittent, now resolved Improves With: nothing Worsens With: nothing Context: other (none) Other Symptoms: palpitations Treatments Prior to Arrival: none - Related Data Home Medications Medication Instructions Recorded Confirmed Omeprazole [PriLOSEC] 20 mg PO DAILY 04/25/14 10/21/20 Carvedilol [Coreg] 12.5 mg PO BID-W/MEALS 04/27/19 10/21/20 Latanoprost/Pf [Latanoprost 0.005% 1 drop BOTH EYES HS 04/27/19 10/21/20 Eye Drop] Atorvastatin [Lipitor] 20 mg PO DAILY 01/05/20 10/21/20 Baclofen 10 mg PO HS 10/21/20 10/21/20 Fluticasone Nasal [place] [Flonase 1 spray EA NOSTRIL DAILY 10/21/20 10/21/20 Nasal [place]] Isosorbide Mononitrate ER [Imdur] 120 mg PO DAILY 10/21/20 10/21/20 Previous Rx's Medication Instructions Recorded lisinopriL [Zestril] 20 mg PO BID #60 tab 02/06/18 Aspirin 81 mg PO DAILY #30 chew 04/29/19 Allergies Allergy/AdvReac Type Severity Reaction Status Date / Time latex Allergy Rash/Hives/ Verified 10/21/20 23:11 blisters Penicillins Allergy Rash/Hives Verified 10/21/20 23:11 Review of Systems ROS Statement: Those systems with pertinent positive or pertinent negative responses have been documented in the HPI. ROS Other: All systems not noted in ROS Statement are negative. EKG Findings - EKG Comments: EKG Findings:: EKG shows normal sinus rhythm 67 TN 160 QRS 90 QTC 448 Past Medical History Past Medical History: Coronary Artery Disease (CAD), Cancer, Chest Pain / An lam, COPD, GERD/Reflux, Hearing Disorder / Deafness, Hyperlipidemia, Hypertension, Myocardial Infarction ([place]) Additional Past Medical History / Comment(s): [place] x 2 (), colon cancer with surgery, kidney stone, chronic low back pain, [place] bilaterally with R ear worse, tinnitis L ear. AAA Last Myocardial Infarction Date:: 2010 History of Any Multi-Drug Resistant Organisms: None Reported Past Surgical History: Appendectomy, Bowel Resection, Heart Catheterization With Stent Additional Past Surgical History / Comment(s): bowel resection 2004, colonoscopy, 3 cardiac stents Past Anesthesia/Blood Transfusion Reactions: No Reported Reaction Date of Last Stent Placement:: 04/26/17 Past Psychological History: No Psychological Hx Reported Smoking Status: Current every day smoker Past Alcohol Use History: None Reported Past Drug Use History: None Reported - Past Family History Father Family Medical History: No Reported History Additional Family Medical History / Comment(s): Father at the age of 76yrs from "old age." Mother Family Medical History: Pneumonia Additional Family Medical History / Comment(s): Mother of pneumonia at the age of 68yrs. Brother(s) Family Medical History: Cancer Additional Family Medical History / Comment(s): He has one brother that is alive and has undergone CABG for coronary artery disease and has had one kidney removed. Patient has one brother who in a motor vehicle accident, one brother from a myocardial infarction at age 59, and one from colon cancer at age 70. Sister(s) Family Medical History: No Reported History Additional Family Medical History / Comment(s): He has 3 sisters that are healthy. General Exam Limitations: no limitations General appearance: alert, in no apparent distress Head exam: Present: atraumatic, normocephalic, normal inspection Eye exam: Present: normal appearance, PERRL, EOMI. Absent: scleral icterus, conjunctival injection, periorbital swelling ENT exam: Present: normal exam, mucous membranes moist Neck exam: Present: normal inspection. Absent: tenderness, meningismus, lymphadenopathy Respiratory exam: Present: normal lung sounds bilaterally. Absent: respiratory distress, wheezes, rales, rhonchi, stridor Cardiovascular Exam: Present: regular rate, normal rhythm, normal heart sounds. Absent: systolic murmur, diastolic murmur, rubs, gallop, clicks GI/Abdominal exam: Present: soft, normal bowel sounds. Absent: distended, tenderness, guarding, rebound, rigid Extremities exam: Present: normal inspection, full ROM, normal capillary refill. Absent: tenderness, pedal edema, joint swelling, calf tenderness Back exam: Present: normal inspection Neurological exam: Present: alert, oriented X3, CN II-XII intact Psychiatric exam: Present: normal affect, normal mood Skin exam: Present: warm, dry, intact, normal color. Absent: rash Course Vital Signs 10/21/20 10/21/20 10/21/20 22:36 22:53 23:30 Temperature 97.5 F L Pulse Rate 69 82 67 Respiratory 18 20 18 Rate Blood Pressure 193/82 177/91 142/88 O2 Sat by Pulse 98 97 97 Oximetry 10/22/20 00:02 Temperature Pulse Rate Respiratory 18 Rate Blood Pressure O2 Sat by Pulse Oximetry - Reevaluation(s) Reevaluation #1: 10/22/20 01:10 Medical record is reviewed Reevaluation #2: 10/22/20 01:10 Patient remains without chest pain throughout ER stay Reevaluation #3: 10/22/20 01:10 Patient informed results, blood pressure is markedly improved without treatment. Patient prefers discharged home Chest Pain MDM - [facility] 75 male [place] with episode of chest pain. Symptoms resolved prior to arrival. EKG looks normal 2. CT patient secondary to elevated blood pressure with history of aneurysm. CT angios negative, troponins As negative. Patient feels good for discharge home Disposition Clinical Impression: Chest pain Disposition: HOME SELF-CARE Condition: Fair Instructions (If sedation given, give patient instructions): Chest Pain (ED) Is patient prescribed a controlled substance at d/c from ED?: No Referrals: Reina Dunbar MD [Primary Care Provider] - 1-2 days
--- NOTE | 2020-10-21 23:15 | XR ---
EXAMINATION TYPE: XR chest 2V DATE OF EXAM: 10/21/2020 COMPARISON: 01/05/2020 HISTORY: Chest pain TECHNIQUE: FINDINGS: Heart and mediastinum are normal. Lungs are clear. Diaphragm is normal. Bony thorax is inta ct. There are chest leads. Thoracic spine is intact. IMPRESSION: No active cardiopulmonary disease. There is improved aeration of the lung bases compared to old exam.
[2020-10-21 23:42] LABS: Partial Thromboplastin Time 23.6 sec (22.0-30.0); Prothrombin Time 10.5 sec (9.0-12.0)
[2020-10-21 23:50] LABS: Albumin 4.1 g/dL (3.5-5.0); Magnesium 1.8 mg/dL (1.6-2.3); Potassium 3.8 mmol/L (3.5-5.1); Total Bilirubin 0.6 mg/dL (0.2-1.3); Total Protein 7.2 g/dL (6.3-8.2)
[2020-10-22 00:02] VITALS: RESP 18
[2020-10-22 00:14] LABS: Basophils % (A) 0 %; Eosinophils # (A) 0.1 k/uL (0-0.7); Eosinophils % (A) 2 %; HCT 41.8 % (39.0-53.0); HGB 14.6 gm/dL (13.0-17.5); Lymphocytes # (A) 2.4 k/uL (1.0-4.8); Lymphocytes % (A) 38 %; MCH 32.9 pg (25.0-35.0); MCHC 34.9 g/dL (31.0-37.0); MCV 94.2 fL (80.0-100.0); Mean Platelet Volume 7.4; Monocytes # (A) 0.4 k/uL (0-1.0); Monocytes % (A) 7 %; Neutrophils # (A) 3.2 k/uL (1.3-7.7); Neutrophils % (A) 51 %; Platelet Count 122 k/uL (150-450); RBC 4.44 m/uL (4.30-5.90); RDW 15.2 % (11.5-15.5); WBC 6.2 k/uL (3.8-10.6)
--- NOTE | 2020-10-22 00:29 | CT ---
EXAMINATION TYPE: CT angio chest DATE OF EXAM: 10/22/2020 COMPARISON: 05/06/2020 HISTORY: chest pain/mary BP CT DLP: 1261.3 mGycm Automated exposure control for dose reduction was used. CONTRAST: Performed with IV Contrast, patient injected with 100ml mL of Isovue 370. There are 3-D post processed images. There is mild subsegmental atelectasis in the posterior lung mascorro. Heart size is normal. There is n o pericardial effusion. There is no pleural effusion. There is no pulmonary consolidation. There are no hilar masses. There are a few paratracheal lymph nodes measuring up to 10 mm. There is left side 1 .6 cm bronchial lymph nodes. Thoracic aorta is intact. There is no aneurysm or dissection. There is normal contrast opacification of the pulmonary arteries. There are no filling defects. Thoracic spine is intact. There is no compression fracture. Sternum is intact. IMPRESSION: No evidence of pulmonary embolism. There are a few lymph nodes not significantly different than last exam. Subsegmental atelectasis and interstitial density in the posterior lung mascorro without change.
--- NOTE | 2020-10-22 00:42 | CT ---
EXAMINATION TYPE: CT abdomen pelvis w con DATE OF EXAM: 10/22/2020 COMPARISON: 04/27/2019 HISTORY: chest pain/high BP CT DLP: 1261.3 mGycm Automated exposure control for dose reduction was used. CONTRAST: Performed with IV Contrast, patient injected with 100ml mL of Isovue 370. Images obtained from the diaphragm to the floor the pelvis with IV contrast. There is some mild atelectasis at the lung bases. Heart size is fairly normal. There is no pericardia l effusion. There is no pleural effusion. There are scattered cysts in the liver that measure up to 1 cm. The bile ducts are not dilated. Gallb ladder appears normal. Spleen stomach pancreas appear intact. There is no evidence of pancreatic mass . There is no adrenal mass. Kidneys show satisfactory contrast opacification. There is no hydronephrosi s. There is no retroperitoneal adenopathy. Ureters are not dilated. Bladder distends smoothly. There is no inguinal hernia. There is no free fluid in the pelvis. There is 4 cm aneurysm of the abdominal aorta below the renal arteries. There is thrombus that measur es up to 10 mm in thickness. There is no mesenteric edema. There is no ascites or free air. There is no bowel obstruction. There i s surgical clip apparently from appendectomy. Appendix is not seen. The lumbar vertebra have normal alignment. Posterior elements are intact. There is no compression fra cture. There is degenerative spurring in the mid and lower lumbar spine. The bony pelvis is intact. T he hip joints are intact. There are surgical clips at the sigmoid colon. 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 No sign of acute abdomen and pelvis. Interstitial density at the lung bases without change compared t o old exam.
[2020-10-22 01:19] VITALS: BP 147/78; PULSE 70
== END 2020-10-22 01:10 | disposition home or self-care (01) ==
LOC: EC 22:35
DX: R07.89 Other chest pain (principal); I10 Essential (primary) hypertension; I25.10 Atherosclerotic heart disease of native coronary artery without angina pectoris; I25.2 Old myocardial infarction; E78.5 Hyperlipidemia, unspecified; J44.9 Chronic obstructive pulmonary disease, unspecified; K21.9 Gastro-esophageal reflux disease without esophagitis; F17.200 Nicotine dependence, unspecified, uncomplicated; Z79.82 Long term (current) use of aspirin; Z79.899 Other long term (current) drug therapy; Z88.0 Allergy status to penicillin; Z95.5 Presence of coronary angioplasty implant and graft; Z85.038 Personal history of other malignant neoplasm of large intestine; Z82.49 Family history of ischemic heart disease and other diseases of the circulatory system
CPT/HCPCS: 36415; 93005; 83880; 80053; 82550; 83690; 83735; 84484; 85025; 85610; 85730; 71046; 71275; 74177; 99285; Q9967

== ENCOUNTER 2021-01-07 12:01 | Observation (INO) | payer MEDICARE ==
--- NOTE | 2021-01-07 13:36 | XR ---
EXAMINATION TYPE: XR chest 2V DATE OF EXAM: 01/07/2021 COMPARISON: Chest x-ray 02/28/2021 HISTORY: Chest pain TECHNIQUE: Frontal and lateral views of the chest are obtained. FINDINGS: The patient is rotated and there are overlying leads. There is no focal air space opacity, pleural effusion, or pneumothorax seen. The cardiac silhouette size is stable, borderline enlarged, size may be exaggerated by rotation. The osseous structures are intact. IMPRESSION: No acute cardiopulmonary process. Borderline cardiac enlargement
--- NOTE | 2021-01-07 13:48 | ED ---
General Adult HPI - General Chief complaint: Chest Pain Stated complaint: Chest pain Time Seen by Provider: 01/07/21 12:30 Source: patient, RN notes reviewed, old records reviewed Mode of arrival: ambulatory Limitations: no limitations - History of Present Illness Initial comments: This is a 75-year-old male who presents emergency Department complaining of chest pain. Patient states for the last week he has been having a cough and shortness of breath. Patient states over the last 2 days been having significant chest pressure. Patient states it is not worsened with deep breathing it is not worsened with palpation. Patient states he has high blood pressure high cholesterol. Patient denies diabetes. Patient is a smoker and continues to smoke. Patient denies any headache patient denies lightheadedness dizziness or near syncopal episode. Patient denies any numbness or weakness. Patient denies abdominal pain patient denies nausea vomiting diarrhea. Patient denies any radiation of the pain. - Related Data Home Medications Medication Instructions Recorded Confirmed Omeprazole [PriLOSEC] 20 mg PO DAILY 04/25/14 01/07/21 Carvedilol [Coreg] 12.5 mg PO BID 04/27/19 01/07/21 Latanoprost/Pf [Latanoprost 0.005% 1 drop BOTH EYES HS 04/27/19 01/07/21 Eye Drop] Atorvastatin [Lipitor] 20 mg PO DAILY 01/05/20 01/07/21 Baclofen 10 mg PO HS PRN 10/21/20 01/07/21 Fluticasone Nasal [place] [Flonase 1 spr EA NOSTRIL DAILY 10/21/20 01/07/21 Nasal [place]] Isosorbide Mononitrate ER [Imdur] 60 mg PO BID 10/21/20 01/07/21 Albuterol Sulfate [Ventolin HFA] 1 - 2 puff INHALATION RT-QID PRN 01/07/21 01/07/21 Nitroglycerin Sl Tabs [Nitrostat] 0.4 mg SL Q5M PRN 01/07/21 01/07/21 hydrALAZINE HCL [Apresoline] 25 mg PO DAILY 01/07/21 01/07/21 hydroCHLOROthiazide [Hydrodiuril] 25 mg PO DAILY 01/07/21 01/07/21 Previous Rx's Medication Instructions Recorded lisinopriL [Zestril] 20 mg PO BID #60 tab 02/06/18 Aspirin 81 mg PO DAILY #30 chew 04/29/19 Allergies Allergy/AdvReac Type Severity Reaction Status Date / Time latex Allergy Rash/Hives/ Verified 01/07/21 14:00 blisters Penicillins Allergy Rash/Hives Verified 01/07/21 14:00 Review of Systems ROS Statement: Those systems with pertinent positive or pertinent negative responses have been documented in the HPI. ROS Other: All systems not noted in ROS Statement are negative. Past Medical History Past Medical History: Coronary Artery Disease (CAD), Cancer, Chest Pain / Angina, COPD, GERD/Reflux, Hearing Disorder / Deafness, Hyperlipidemia, Hyp ertension, Myocardial Infarction ([place]) Additional Past Medical History / Comment(s): [place] x 2 (), colon cancer with surgery, kidney stone, chronic low back pain, [place] bilaterally with R ear worse, tinnitis L ear. AAA Last Myocardial Infarction Date:: 2010 History of Any Multi-Drug Resistant Organisms: None Reported Past Surgical History: Appendectomy, Bowel Resection, Heart Catheterization With Stent Additional Past Surgical History / Comment(s): bowel resection 2004, colonoscopy, 3 cardiac stents Past Anesthesia/Blood Transfusion Reactions: No Reported Reaction Date of Last Stent Placement:: 04/26/17 Past Psychological History: No Psychological Hx Reported Smoking Status: Current every day smoker Past Alcohol Use History: None Reported Past Drug Use History: None Reported - Past Family History Father Family Medical History: No Reported History Additional Family Medical History / Comment(s): Father at the age of 76yrs from "old age." Mother Family Medical History: Pneumonia Additional Family Medical History / Comment(s): Mother of pneumonia at the age of 68yrs. Brother(s) Family Medical History: Cancer Additional Family Medical History / Comment(s): He has one brother that is alive and has undergone CABG for coronary artery disease and has had one kidney removed. Patient has one brother who in a motor vehicle accident, one brother from a myocardial infarction at age 59, and one from colon cancer at age 70. Sister(s) Family Medical History: No Reported History Additional Family Medical History / Comment(s): He has 3 sisters that are healthy. General Exam - General Exam Comments Initial Comments: GENERAL: Patient is well-developed and well-nourished. Patient is nontoxic and well- hydrated and is in mild distress. ENT: Neck is soft and supple. No significant lymphadenopathy is noted. Oropharynx is clear. Moist mucous membranes. Neck has full range of motion without eliciting any pain. EYES: The sclera were anicteric and conjunctiva were pink and moist. Extraocular movements were intact and pupils were equal round and reactive to light. Eyelids were unremarkable. PULMONARY: Unlabored respirations. Good breath sounds bilaterally. No audible rales rhonchi or wheezing was noted. CARDIOVASCULAR: There is a regular rate and rhythm without any murmurs gallops or rubs. ABDOMEN: Soft and nontender with normal bowel sounds. SKIN: Skin is clear with no lesions or rashes and otherwise unremarkable. NEUROLOGIC: Patient is alert and oriented x3. Cranial nerves II through XII are grossly intact. Motor and sensory are also intact. Normal speech, volume and content. Symmetrical smile. MUSCULOSKELETAL: Normal extremities with adequate strength and full range of motion. LYMPHATICS: No significant lymphadenopathy is noted PSYCHIATRIC: Normal psychiatric evaluation. Limitations: no limitations Course Vital Signs 01/07/21 12:28 Temperature 98.9 F Pulse Rate 66 Respiratory 18 Rate Blood Pressure 117/66 O2 Sat by Pulse 96 Oximetry Medical Decision Making - Medical Decision Making EKG shows sinus bradycardia 55 bpm NC interval 256 QRS is 86 QT interval 448 QTC is 428. Patient's EKG shows no ST segment elevation or depression. Patient received aspirin and Nitropaste in the emergency department and feels better. I spoke with some physicians agreed to admit the patient admitted the patient wrote admitting orders - Lab Data Result diagrams: 01/07/21 13:15 01/07/21 13:15 Lab Results 01/07/21 01/07/21 01/07/21 Range/Units 13:15 13:15 13:15 WBC 6.9 (3.8-10.6) k/uL RBC 4.57 (4.30-5.90) m/uL Hgb 15.1 (13.0-17.5) gm/dL Hct 41.8 (39.0-53.0) % MCV 91.4 (80.0-100.0) fL MCH 33.1 (25.0-35.0) pg MCHC 36.2 (31.0-37.0) g/dL RDW 15.4 (11.5-15.5) % Plt Count 166 (150-450) k/uL MPV 7.3 Neutrophils % 64 % Lymphocytes % 26 % Monocytes % 7 % Eosinophils % 2 % Basophils % 0 % Neutrophils # 4.4 (1.3-7.7) k/uL Lymphocytes # 1.8 (1.0-4.8) k/uL Monocytes # 0.5 (0-1.0) k/uL Eosinophils # 0.1 (0-0.7) k/uL Basophils # 0.0 (0-0.2) k/uL Hyperchromasia Moderate Poikilocytosis Slight PT 10.7 (9.0-12.0) sec INR 1.0 (<1.2) APTT 24.4 (22.0-30.0) sec Sodium 134 L (137-145) mmol/L Potassium 4.2 (3.5-5.1) mmol/L Chloride 104 (98-107) mmol/L Carbon Dioxide 22 (22-30) mmol/L Anion Gap 8 mmol/L BUN 21 H (9-20) mg/dL Creatinine 0.92 (0.66-1.25) mg/dL Est GFR (CKD-EPI)AfAm >90 (>60 ml/min/1.73 sqM) Est GFR (CKD-EPI)NonAf 80 (>60 ml/min/1.73 sqM) Glucose 97 (74-99) mg/dL Calcium 9.0 (8.4-10.2) mg/dL Magnesium 2.0 (1.6-2.3) mg/dL Total Bilirubin 1.0 (0.2-1.3) mg/dL AST 40 (17-59) U/L ALT 55 H (4-49) U/L Alkaline Phosphatase 62 (38-126) U/L Troponin I (0.000-0.034) ng/mL Total Protein 7.4 (6.3-8.2) g/dL Albumin 4.1 (3.5-5.0) g/dL Coronavirus (PCR) (Not Detectd) 01/07/21 01/07/21 Range/Units 13:15 13:15 WBC (3.8-10.6) k/uL RBC (4.30-5.90) m/uL Hgb (13.0-17.5) gm/dL Hct (39.0-53.0) % MCV (80.0-100.0) fL MCH (25.0-35.0) pg MCHC (31.0-37.0) g/dL RDW (11.5-15.5) % Plt Count (150-450) k/uL MPV Neutrophils % % Lymphocytes % % Monocytes % % Eosinophils % % Basophils % % Neutrophils # (1.3-7.7) k/uL Lymphocytes # (1.0-4.8) k/uL Monocytes # (0-1.0) k/uL Eosinophils # (0-0.7) k/uL Basophils # (0-0.2) k/uL Hyperchromasia Poikilocytosis PT (9.0-12.0) sec INR (<1.2) APTT (22.0-30.0) sec Sodium (137-145) mmol/L Potassium (3.5-5.1) mmol/L Chloride (98-107) mmol/L Carbon Dioxide (22-30) mmol/L Anion Gap mmol/L BUN (9-20) mg/dL Creatinine (0.66-1.25) mg/dL Est GFR (CKD-EPI)AfAm (>60 ml/min/1.73 sqM) Est GFR (CKD-EPI)NonAf (>60 ml/min/1.73 sqM) Glucose (74-99) mg/dL Calcium (8.4-10.2) mg/dL Magnesium (1.6-2.3) mg/dL Total Bilirubin (0.2-1.3) mg/dL AST (17-59) U/L ALT (4-49) U/L Alkaline Phosphatase (38-126) U/L Troponin I <0.012 (0.000-0.034) ng/mL Total Protein (6.3-8.2) g/dL Albumin (3.5-5.0) g/dL Coronavirus (PCR) Not Detected (Not Detectd) Disposition Clinical Impression: Unstable angina pectoris Disposition: ADMITTED IP TO THIS HOSP Referrals: Reina Dunbar MD [Primary Care Provider] - 1-2 days Time of Disposition: 14:32
[2021-01-07 13:51] LABS: ALT 55 U/L (4-49); AST 40 U/L (17-59); African American GFR (CKD) >90 (>60 ml/min/1.73 sqM); Albumin 4.1 g/dL (3.5-5.0); Alkaline Phosphatase 62 U/L (38-126); Anion Gap 8 mmol/L; Blood Urea Nitrogen 21 mg/dL (9-20); Carbon Dioxide 22 mmol/L (22-30); Chloride 104 mmol/L (98-107); Glucose 97 mg/dL (74-99); Non-African American GFR(CKD) 80 (>60 ml/min/1.73 sqM); Potassium 4.2 mmol/L (3.5-5.1); Sodium 134 mmol/L (137-145); Total Protein 7.4 g/dL (6.3-8.2)
[2021-01-07 13:56] LABS: Partial Thromboplastin Time 24.4 sec (22.0-30.0); Prothrombin Time 10.7 sec (9.0-12.0)
[2021-01-07 13:58] LABS: Basophils % (A) 0 %; Eosinophils # (A) 0.1 k/uL (0-0.7); Eosinophils % (A) 2 %; HCT 41.8 % (39.0-53.0); HGB 15.1 gm/dL (13.0-17.5); Hyperchromasia Moderate; Lymphocytes # (A) 1.8 k/uL (1.0-4.8); Lymphocytes % (A) 26 %; MCH 33.1 pg (25.0-35.0); MCHC 36.2 g/dL (31.0-37.0); MCV 91.4 fL (80.0-100.0); Mean Platelet Volume 7.3; Monocytes # (A) 0.5 k/uL (0-1.0); Monocytes % (A) 7 %; Neutrophils # (A) 4.4 k/uL (1.3-7.7); Neutrophils % (A) 64 %; Platelet Count 166 k/uL (150-450); Poikilocytosis Slight; RBC 4.57 m/uL (4.30-5.90); RDW 15.4 % (11.5-15.5); WBC 6.9 k/uL (3.8-10.6)
[2021-01-07] MEDS ORDERED: NITROGLYCERIN SL TABS 0.4 MG TAB SUBLINGUAL PRN (14:32)
[2021-01-07] MEDS ORDERED: ONDANSETRON 4 MG/2 ML VIAL IVP PRN (16:53)
[2021-01-07] MEDS ORDERED: NALOXONE 0.4 MG/ML 1 ML VIAL IV PRN (16:53)
[2021-01-07] MEDS ORDERED: MELATONIN 3 MG TABLET PO PRN (16:53)
[2021-01-07] MEDS ORDERED: BACLOFEN 10 MG TAB PO PRN (16:56)
--- NOTE | 2021-01-07 17:04 | P.HPIM ---
History of Present Illness H&P Date: 01/07/21 Chief Complaint: cough Patient is a 75-year-old male with A fib on eliquis, CAD, and COPD who presented with complaints of chest pressure and cough. Vitals in the ED were unremarkable. Labs were unremarkable with a normal troponin. EKG showed sinus bradycardia without significant ST-T wave changes. CXR showed no acute cardiopulmonary process. He was admitted for concerns of chest pain. Patient seen and examined at bedside. He reports that he is having some chest discomfort with deep inspiration and coughing but not at baseline. He complains of a cough that has been persistent for about 2 weeks. He completed a course of Zithromax and his PCP approximately 2 days ago with no benefit. He states that shortness of breath is at baseline and unchanged. He denies any fevers or chills. Denies any nausea or vomiting. Had one day of diarrhea which has since resolved. He denies any unusual fatigue. He states the cough is nagging. It is worse with lying flat and at night. Pertinent positives and negatives as discussed in HPI, a complete review of syst ems was performed and all other systems are negative. General: non toxic, no distress, appears at stated age Derm: warm, dry Head: atraumatic, normocephalic, symmetric Eyes: EOMI, no lid lag, anicteric sclera, pupils equal round reactive to light ENT: Nose and ears atraumatic, no thrush, + pharyngeal erythema Neck: No thyromegaly, no cervical lymphadenopathy, trachea midline, supple Mouth: no lip lesion, mucus membranes moist Cardiovascular: S1S2 reg, no murmur, positive posterior tibial pulse bilateral, no edema, capillary refill less than 2 seconds Lungs: clear to ascultation bilateral, no ronchi, no rales, no wheeze, no accessory muscle use Abdominal: soft, nontender to palpation, no guarding, no appreciable organomegaly, normal bowel sounds Ext: no gross muscle atrophy, muscle strength muscle strength 5 out of 5 in all 4 extremities, no contractures Neuro: CN II-XI grossly intact, light touch intact all 4 extremities, finger to nose within normal limits, Psych: Alert, oriented, appropriate affect Acute cough with costochondritis -Check CT chest with smoking history -Check RSV, no fevers -Start PPI with possible gastritis -Patient without wheezing would not treat for acute exacerbation of COPD at this point in time Coronary artery disease with history of myocardial infarction - Continue aspirin, Lipitor, Imdur COPD without exacerbation -Bronchodilators Hypertension, controlled -Resume home medications Dyslipidemia -Statin GERD -IV PPI Tobacco abuse - cessation - nicotine abuse The patient is placed in observation with an anticipated less than 2 midnight s benny for evaluation of acute cough. CODE STATUS: full DVT prophylaxis: SCDs Discussed with: Patient, nursing Anticipated discharge date: in AM Anticipated discharge place: home A total of 45 minutes was spent on the care of this complex patient more than 50% of the time was spent in counseling and care coordination. Past Medical History Past Medical History: Coronary Artery Disease (CAD), Cancer, Chest Pain / Angina, COPD, GERD/Reflux, Hearing Disorder / Deafness, Hyperlipidemia, Hypertension, Myocardial Infarction ([place]) Additional Past Medical History / Comment(s): [place] x 2 (), colon cancer with surgery, kidney stone, chronic low back pain, [place] bilaterally with R ear worse, tinnitis L ear. AAA Last Myocardial Infarction Date:: 2010 History of Any Multi-Drug Resistant Organisms: None Reported Past Surgical History: Appendectomy, Bowel Resection, Heart Catheterization With Stent Additional Past Surgical History / Comment(s): bowel resection 2004, colonoscopy, 3 cardiac stents Past Anesthesia/Blood Transfusion Reactions: No Reported Reaction Date of Last Stent Placement:: 04/26/17 Past Psychological History: No Psychological Hx Reported Additional Psychological History / Comment(s): Pt resides with significant o ther. He is independent. Smoking Status: Current every day smoker Past Alcohol Use History: None Reported Additional Past Alcohol Use History / Comment(s): Pt started smoking in 1958, was 1 PPD but about 8 cigarettes a day now. Past Drug Use History: None Reported - Past Family History Father Family Medical History: No Reported History Additional Family Medical History / Comment(s): Father at the age of 76yrs from "old age." Mother Family Medical History: Pneumonia Additional Family Medical History / Comment(s): Mother of pneumonia at the age of 68yrs. Brother(s) Family Medical History: Cancer Additional Family Medical History / Comment(s): He has one brother that is alive and has undergone CABG for coronary artery disease and has had one kidney removed. Patient has one brother who in a motor vehicle accident, one brother from a myocardial infarction at age 59, and one from colon cancer at age 70. Sister(s) Family Medical History: No Reported History Additional Family Medical History / Comment(s): He has 3 sisters that are healthy. Medications and Allergies Home Medications Medication Instructions Recorded Confirmed Type Omeprazole [PriLOSEC] 20 mg PO DAILY 04/25/14 01/07/21 History lisinopriL [Zestril] 20 mg PO BID #60 tab 02/06/18 01/07/21 Rx Carvedilol [Coreg] 12.5 mg PO BID 04/27/19 01/07/21 History Latanoprost/Pf [Latanoprost 0.005% 1 drop BOTH EYES HS 04/27/19 01/07/21 History Eye Drop] Aspirin 81 mg PO DAILY #30 chew 04/29/19 01/07/21 Rx Atorvastatin [Lipitor] 20 mg PO DAILY 01/05/20 01/07/21 History Baclofen 10 mg PO HS PRN 10/21/20 01/07/21 History Fluticasone Nasal [place] [Flonase 1 spr EA NOSTRIL DAILY 10/21/20 01/07/21 History Nasal [place]] Isosorbide Mononitrate ER [Imdur] 60 mg PO BID 10/21/20 01/07/21 History Albuterol Sulfate [Ventolin HFA] 1 - 2 puff INHALATION RT-QID PRN 01/07/21 01/07/21 History Nitroglycerin Sl Tabs [Nitrostat] 0.4 mg SL Q5M PRN 01/07/21 01/07/21 History hydrALAZINE HCL [Apresoline] 25 mg PO DAILY 01/07/21 01/07/21 History hydroCHLOROthiazide [Hydrodiuril] 25 mg PO DAILY 01/07/21 01/07/21 History Allergies Allergy/AdvReac Type Severity Reaction Status Date / Time latex Allergy Rash/Hives/ Verified 01/07/21 14:00 blisters Penicillins Allergy Rash/Hives Verified 01/07/21 14:00 Physical Exam Osteopathic Statement: *. No significant issues noted on an osteopathic structural exam other than those noted in the History and Physical/Consult. Vitals: Vital Signs Temp Pulse Pulse Resp BP BP Pulse Ox 01/07/21 15:39 97.7 F 70 18 183/84 96 01/07/21 15:13 63 97 H 143/74 98 01/07/21 14:30 18 01/07/21 12:28 98.9 F 66 18 117/66 96 Intake and Output 01/07/21 01/07/21 01/07/21 06:59 14:59 22:59 Other: # Voids 1 Weight 79.379 kg 79.379 kg Results CBC & Chem 7: 01/07/21 13:15 01/07/21 13:15 Labs: Abnormal Lab Results - Last 24 Hours (Table) 01/07/21 Range/Units 13:15 Sodium 134 L (137-145) mmol/L BUN 21 H (9-20) mg/dL ALT 55 H (4-49) U/L Thrombosis Risk Factor Assmnt - Choose All That Apply Each Risk Factor Represents 3 Points: Age 75 years or older Thrombosis Risk Factor Assessment Total Risk Factor Score: 3 Thrombosis Risk Factor Assessment Level: Moderate Risk
[2021-01-07] MEDS ORDERED: HYDROcodone/APAP 5-325MG 1 EACH TAB PO PRN (17:05)
[2021-01-07] MEDS ORDERED: ACETAMINOPHEN TAB 325 MG TAB PO PRN (17:05)
[2021-01-07] MEDS ORDERED: BENZONATATE 100 MG CAP PO PRN (17:05)
[2021-01-07] MEDS: PANTOPRAZOLE 40 MG/10 ML VIAL IVP SCH (17:19)
[2021-01-07] MEDS: NICOTINE 21MG/24HR PATCH TRANSDERM SCH (17:19)
[2021-01-07] MEDS ORDERED: NITROGLYCERIN OINT 1 INCH/GM PACKET TOPICAL SCH (18:00)
--- NOTE | 2021-01-07 19:16 | CT ---
EXAMINATION TYPE: CT chest wo con DATE OF EXAM: 01/07/2021 COMPARISON: 10/22/2020 HISTORY: chronic cough CT DLP: 514 mGycm Automated exposure control for dose reduction was used. Images obtained from the thoracic inlet to the diaphragm without contrast. The lungs are clear of infiltrate. There is no pleural effusion. Heart size is fairly normal. There i s no pericardial effusion. There is some coronary artery calcification. There is subsegmental minimal atelectasis at the posterior lung bases. There is no mediastinal adenopathy. There are no hilar masses. IMPRESSION: Minimal subsegmental atelectasis in the posterior lung masc[place]. No suspicious pulmonary mass. Normal h eart. Atelectasis improved compared to old exam. Moderate coronary artery calcification.
[2021-01-07] MEDS ORDERED: NON FORMULARY DRUG (Latanoprost/Pf [Latanoprost 0.005% Eye Drop] 7.5 ML Drops) BOTH EYES SCH (21:00)
[2021-01-07] MEDS: carvediloL 12.5 MG TAB PO SCH (22:39)
[2021-01-07] MEDS: ISOSORBIDE MONONITRATE ER 60 MG TAB.ER.24H PO SCH (22:39)
[2021-01-07] MEDS: lisinopriL 20 MG TAB PO SCH (22:40)
[2021-01-08] MEDS ORDERED: LATANOPROST 0.005% OPHTH DROPS 2.5 ML BTL BOTH EYES SCH (00:24)
[2021-01-08 06:05] VITALS: RESP 16; TEMP 97.7
[2021-01-08 08:15] VITALS: BP 150/76
[2021-01-08] MEDS ORDERED: ASPIRIN 325 MG TAB PO SCH (09:00)
[2021-01-08] MEDS ORDERED: FLUTICASONE 50MCG/SPRAY NASAL 16GM EA NOSTRIL SCH (09:00)
[2021-01-08] MEDS ORDERED: hydroCHLOROthiazide 25 MG TAB PO SCH (09:00)
[2021-01-08] MEDS: NICOTINE 21MG/24HR PATCH TRANSDERM SCH (09:00)
[2021-01-08] MEDS ORDERED: ATORVASTATIN 20 MG TAB PO SCH (09:00)
[2021-01-08] MEDS ORDERED: ASPIRIN 81 MG PO SCH (09:00)
[2021-01-08] MEDS ORDERED: hydrALAZINE HCL 25 MG TAB PO SCH (09:00)
[2021-01-08] MEDS: carvediloL 12.5 MG TAB PO SCH (09:01)
[2021-01-08] MEDS: PANTOPRAZOLE 40 MG/10 ML VIAL IVP SCH (09:01)
[2021-01-08] MEDS: lisinopriL 20 MG TAB PO SCH (09:01)
[2021-01-08] MEDS: ISOSORBIDE MONONITRATE ER 60 MG TAB.ER.24H PO SCH (09:01)
[2021-01-08 09:52] VITALS: PULSE 70
--- NOTE | 2021-01-08 10:16 | P.DS ---
Providers Date of admission: 01/07/21 14:32 Expected date of discharge: 01/08/21 Attending physician: Rhina Maldonado [facility]: This is a 75-year-old male with past medical history significant for atrial fibrillation on Eliquis, coronary artery disease, and underlying COPD and presented to the emergency room with progressive cough and chest wall pain secondary to severe cough. Patient was evaluated in the ER and 12-lead EKG showed no acute changes. Serial troponin were negative. Patient underwent a chest x-ray and computed tomography scan of the chest there were both unremarkable. His cough is mostly nonproductive. Patient denies any shortness of breath. He was placed on observation. He was counseled extensively regarding tobacco cessation. He will be prescribed Tessalon Perles and a nicotine patch to go home with. He will continue his inhalers at home as prescribed. RSV screen and COVID-19 negative. Physical exam: General: The patient is awake and alert, in no distress Eye: there is normal conjunctiva bilaterally. Neck: The neck is supple, there is no JVD. Cardiovascular: Normal S1-S2, no S3-S4, no murmurs. Respiratory: Lungs clear to auscultation bilaterally Gastrointestinal: Abdomen is soft, nontender Musculoskeletal: There is no pedal edema. Neurological:. Speech is normal. Skin: Skin is warm and dry Plan - Discharge Summary New Discharge Prescriptions: New Nicotine 14Mg/24Hr Patch [Habitrol] 1 patch TRANSDERM DAILY #30 patch Benzonatate [Tessalon Perles] 100 mg PO TID PRN #30 capsule PRN Reason: Cough Continue Omeprazole [PriLOSEC] 20 mg PO DAILY lisinopriL [Zestril] 20 mg PO BID #60 tab Latanoprost/Pf [Latanoprost 0.005% Eye Drop] 1 drop BOTH EYES HS Carvedilol [Coreg] 12.5 mg PO BID Aspirin 81 mg PO DAILY #30 chew Atorvastatin [Lipitor] 20 mg PO DAILY Isosorbide Mononitrate ER [Imdur] 60 mg PO BID Fluticasone Nasal [place] [Flonase Nasal [place]] 1 spr EA NOSTRIL DAILY hydroCHLOROthiazide [Hydrodiuril] 25 mg PO DAILY hydrALAZINE HCL [Apresoline] 25 mg PO DAILY Nitroglycerin Sl Tabs [Nitrostat] 0.4 mg SL Q5M PRN PRN Reason: Chest Pain Baclofen 10 mg PO HS PRN PRN Reason: Muscle Spasm Albuterol Sulfate [Ventolin HFA] 1 - 2 puff INHALATION RT-QID PRN PRN Reason: Shortness Of Breath Discharge Medication List Omeprazole [PriLOSEC] 20 mg PO DAILY 04/25/14 [History] lisinopriL [Zestril] 20 mg PO BID #60 tab 02/06/18 [Rx] Carvedilol [Coreg] 12.5 mg PO BID 04/27/19 [History] Latanoprost/Pf [Latanoprost 0.005% Eye Drop] 1 drop BOTH EYES HS 04/27/19 [History] Aspirin 81 mg PO DAILY #30 chew 04/29/19 [Rx] Atorvastatin [Lipitor] 20 mg PO DAILY 01/05/20 [History] Baclofen 10 mg PO HS PRN 10/21/20 [History] Fluticasone Nasal [place] [Flonase Nasal [place]] 1 spr EA NOSTRIL DAILY 10/21/20 [History] Isosorbide Mononitrate ER [Imdur] 60 mg PO BID 10/21/20 [History] Albuterol Sulfate [Ventolin HFA] 1 - 2 puff INHALATION RT-QID PRN 01/07/21 [History] Nitroglycerin Sl Tabs [Nitrostat] 0.4 mg SL Q5M PRN 01/07/21 [History] hydrALAZINE HCL [Apresoline] 25 mg PO DAILY 01/07/21 [History] hydroCHLOROthiazide [Hydrodiuril] 25 mg PO DAILY 01/07/21 [History] Benzonatate [Tessalon Perles] 100 mg PO TID PRN #30 capsule 01/08/21 [Rx] Nicotine 14Mg/24Hr Patch [Habitrol] 1 patch TRANSDERM DAILY #30 patch 01/08/21 [Rx] Follow up Appointment(s)/Referral(s): Reina Dunbar MD [Primary Care Provider] - 1-2 days Discharge Disposition: HOME SELF-CARE
[2021-01-08 13:06] LABS: Chol/HDL Ratio 4.27 Ratio; HDL Cholesterol 30.2 mg/dL (40.00-60.00); LDL Cholesterol,Calculated 73.2 mg/dL (0.0-131.0); VLDL Calculation 25.6 mg/dL (5.00-40.00)
== END 2021-01-08 11:35 | disposition home or self-care (01) ==
LOC: EC 12:01 → 6NMEDSUR 14:32
PROVIDERS: ADMIT Internal Medicine; ATTEND Internal Medicine
DX: M94.0 Chondrocostal junction syndrome [Tietze] (principal); I10 Essential (primary) hypertension; I25.2 Old myocardial infarction; I48.91 Unspecified atrial fibrillation; J44.9 Chronic obstructive pulmonary disease, unspecified; R19.7 Diarrhea, unspecified; R00.1 Bradycardia, unspecified; K21.9 Gastro-esophageal reflux disease without esophagitis; Z20.822 Contact with and (suspected) exposure to COVID-19; H91.90 Unspecified hearing loss, unspecified ear; I25.10 Atherosclerotic heart disease of native coronary artery without angina pectoris; E78.00 Pure hypercholesterolemia, unspecified; E78.5 Hyperlipidemia, unspecified; F17.210 Nicotine dependence, cigarettes, uncomplicated; G89.29 Other chronic pain; M54.50 Low back pain, unspecified; H91.93 Unspecified hearing loss, bilateral; I71.4 Abdominal aortic aneurysm, without rupture; Z79.01 Long term (current) use of anticoagulants; Z79.82 Long term (current) use of aspirin; Z79.899 Other long term (current) drug therapy; Z88.0 Allergy status to penicillin; Z91.040 Latex allergy status; Z71.6 Tobacco abuse counseling; Z87.442 Personal history of urinary calculi; Z95.5 Presence of coronary angioplasty implant and graft; Z85.038 Personal history of other malignant neoplasm of large intestine; Z90.49 Acquired absence of other specified parts of digestive tract; Z82.49 Family history of ischemic heart disease and other diseases of the circulatory system; Z80.0 Family history of malignant neoplasm of digestive organs; Z83.6 Family history of other diseases of the respiratory system
CPT/HCPCS: 96376; 96374; 99285; 36415; 93005; 80061; 80053; 83735; 84484; 85025; 85610; 85730; 87040; 87634; 87635; 71046; 71250; G0378 ×2; S4990 ×2; C9113 ×2

== ENCOUNTER 2021-05-01 18:45 | Observation (INO) | payer MEDICARE ==
[2021-05-01] MEDS ORDERED: ASPIRIN 81 MG PO STA (18:59)
[2021-05-01] MEDS ORDERED: NITROGLYCERIN SL TABS 0.4 MG TAB SUBLINGUAL STA ×3 (18:59)
--- NOTE | 2021-05-01 19:01 | ED ---
General Adult HPI - General Chief complaint: Chest Pain Stated complaint: chest pain Time Seen by Provider: 05/01/21 18:50 Source: patient, RN notes reviewed Mode of arrival: ambulatory Limitations: no limitations - History of Present Illness Initial comments: Patient is a pleasant 76-year-old male presenting to the emergency Department with chest discomfort. Onset of symptoms was around 1:00. Discomfort feels like tightness. Patient does have some associated shortness of breath. No associated nausea or diaphoresis. Patient does have history of similar symptoms 3 times previously associated with stents. Patient did take aspirin and nitro around 4 PM with improvement of symptoms however symptoms have returned. Discomfort is currently rated 8/10. - Related Data Home Medications Medication Instructions Recorded Confirmed Omeprazole [PriLOSEC] 20 mg PO DAILY 04/25/14 01/07/21 Carvedilol [Coreg] 12.5 mg PO BID 04/27/19 01/07/21 Latanoprost/Pf [Latanoprost 0.005% 1 drop BOTH EYES HS 04/27/19 01/07/21 Eye Drop] Atorvastatin [Lipitor] 20 mg PO DAILY 01/05/20 01/07/21 Baclofen 10 mg PO HS PRN 10/21/20 01/07/21 Fluticasone Nasal [place] [Flonase 1 spr EA NOSTRIL DAILY 10/21/20 01/07/21 Nasal [place]] Isosorbide Mononitrate ER [Imdur] 60 mg PO BID 10/21/20 01/07/21 Albuterol Sulfate [Ventolin HFA] 1 - 2 puff INHALATION RT-QID PRN 01/07/21 01/07/21 Nitroglycerin Sl Tabs [Nitrostat] 0.4 mg SL Q5M PRN 01/07/21 01/07/21 hydrALAZINE HCL [Apresoline] 25 mg PO DAILY 01/07/21 01/07/21 hydroCHLOROthiazide [Hydrodiuril] 25 mg PO DAILY 01/07/21 01/07/21 Previous Rx's Medication Instructions Recorded lisinopriL [Zestril] 20 mg PO BID #60 tab 02/06/18 Aspirin 81 mg PO DAILY #30 chew 04/29/19 Benzonatate [Tessalon [place]] 100 mg PO TID PRN #30 capsule 01/08/21 Nicotine 14Mg/24Hr Patch [Habitrol] 1 patch TRANSDERM DAILY #30 patch 01/08/21 Allergies Allergy/AdvReac Type Severity Reaction Status Date / Time latex Allergy Rash/Hives/ Verified 05/01/21 18:53 blisters Penicillins Allergy Rash/Hives Verified 05/01/21 18:53 Review of Systems ROS Statement: Those systems with pertinent positive or pertinent negative responses have been documented in the HPI. ROS Other: All systems not noted in ROS Statement are negative. Constitutional: Denies: fever Eyes: Denies: eye pain ENT: Denies: ear pain Respiratory: Reports: as per HPI. Denies: cough Cardiovascular: Reports: as per HPI, chest pain Endocrine: Denies: fatigue Gastrointestinal: Denies: abdominal pain Genitourinary: Denies: dysuria Musculoskeletal: Denies: back pain Skin: Denies: rash Neurological: Denies: weakness Past Medical History Past Medical History: Coronary Artery Disease (CAD), Cancer, Chest Pain / Angina, COPD, GERD/Reflux, Hearing Disorder / Deafness, Hyperlipidemia, Hypertension, Myocardial Infarction ([place]) Additional Past Medical History / Comment(s): [place] x 2 (), colon cancer with surgery, kidney stone, chronic low back pain, [place] bilaterally with R ear worse, tinnitis L ear. AAA Last Myocardial Infarction Date:: 2010 History of Any Multi-Drug Resistant Organisms: None Reported Past Surgical History: Appendectomy, Bowel Resection, Heart Catheterization With Stent Additional Past Surgical History / Comment(s): bowel resection 2004, colonoscopy, 3 cardiac stents Past Anesthesia/Blood Transfusion Reactions: No Reported Reaction Date of Last Stent Placement:: 04/26/17 Past Psychological History: No Psychological Hx Reported Smoking Status: Current every day smoker Past Alcohol Use History: None Reported Past Drug Use History: None Reported - Past Family History Father Family Medical History: No Reported History Additional Family Medical History / Comment(s): Father at the age of 76yrs from "old age." Mother Family Medical History: Pneumonia Additional Family Medical History / Comment(s): Mother of pneumonia at the age of 68yrs. Brother(s) Family Medical History: Cancer Additional Family Medical History / Comment(s): He has one brother that is alive and has undergone CABG for coronary artery disease and has had one kidney removed. Patient has one brother who in a motor vehicle accident, one brother from a myocardial infarction at age 59, and one from colon cancer at age 70. Sister(s) Family Medical History: No Reported History Additional Family Medical History / Comment(s): He has 3 sisters that are healthy. General Exam Limitations: no limitations General appearance: alert, in no apparent distress Head exam: Present: normocephalic Eye exam: Present: normal appearance Neck exam: Present: normal inspection Respiratory exam: Present: normal lung sounds bilaterally. Absent: chest wall tenderness Cardiovascular Exam: Present: regular rate, normal rhythm Expanded Peripheral pulses: 2+: Radial (R), Radial (L), Posterior Tibialis (R), Posterior Tibialis (L) GI/Abdominal exam: Present: soft. Absent: tenderness Extremities exam: Present: normal inspection. Absent: pedal edema, calf tenderness Neurological exam: Present: alert Psychiatric exam: Present: normal affect, normal mood Skin exam: Present: normal color Course Vital Signs 05/01/21 05/01/21 18:50 19:09 Temperature 97.6 F Pulse Rate 76 70 Respiratory 18 18 Rate Blood Pressure 168/82 152/86 O2 Sat by Pulse 98 Oximetry EKG Findings - EKG Comments: EKG Findings:: Sinus rhythm with a rate of 72. [place] 161. QRS 93. QT 397. QTC 422. Normal axis. Normal QRS. No acute ST change. Medical Decision Making - Medical Decision Making Patient reevaluated with some improvement with nitroglycerin. Patient updated on results and plan. [facility] has some paged for admission, covering Dr. Sheth - Lab Data Result diagrams: 05/01/21 19:10 05/01/21 19:10 Lab Results 05/01/21 05/01/21 05/01/21 Range/Units 19:10 19:10 19:10 WBC 6.4 (3.8-10.6) k/uL RBC 4.04 L (4.30-5.90) m/uL Hgb 14.6 (13.0-17.5) gm/dL Hct 38.3 L (39.0-53.0) % MCV 94.9 (80.0-100.0) fL MCH 36.1 H (25.0-35.0) pg MCHC 38.0 H (31.0-37.0) g/dL RDW 15.5 (11.5-15.5) % Plt Count 137 L (150-450) k/uL MPV 7.3 Neutrophils % 58 % Lymphocytes % 31 % Monocytes % 6 % Eosinophils % 3 % Basophils % 0 % Neutrophils # 3.8 (1.3-7.7) k/uL Lymphocytes # 2.0 (1.0-4.8) k/uL Monocytes # 0.4 (0-1.0) k/uL Eosinophils # 0.2 (0-0.7) k/uL Basophils # 0.0 (0-0.2) k/uL Poikilocytosis Slight Sodium 136 L (137-145) mmol/L Potassium 3.8 (3.5-5.1) mmol/L Chloride 107 (98-107) mmol/L Carbon Dioxide 24 (22-30) mmol/L Anion Gap 5 mmol/L BUN 19 (9-20) mg/dL Creatinine 1.21 (0.66-1.25) mg/dL Est GFR (CKD-EPI)AfAm 66 (>60 ml/min/1.73 sqM) Est GFR (CKD-EPI)NonAf 57 (>60 ml/min/1.73 sqM) Glucose 118 H (74-99) mg/dL Calcium 8.9 (8.4-10.2) mg/dL Magnesium 2.0 (1.6-2.3) mg/dL Total Bilirubin 0.9 (0.2-1.3) mg/dL AST 32 (17-59) U/L ALT 38 (4-49) U/L Alkaline Phosphatase 68 (38-126) U/L Troponin I <0.012 (0.000-0.034) ng/mL NT-Pro-B Natriuret Pep pg/mL Total Protein 7.5 (6.3-8.2) g/dL Albumin 4.0 (3.5-5.0) g/dL 05/01/21 Range/Units 19:10 WBC (3.8-10.6) k/uL RBC (4.30-5.90) m/uL Hgb (13.0-17.5) gm/dL Hct (39.0-53.0) % MCV (80.0-100.0) fL MCH (25.0-35.0) pg MCHC (31.0-37.0) g/dL RDW (11.5-15.5) % Plt Count (150-450) k/uL MPV Neutrophils % % Lymphocytes % % Monocytes % % Eosinophils % % Basophils % % Neutrophils # (1.3-7.7) k/uL Lymphocytes # (1.0-4.8) k/uL Monocytes # (0-1.0) k/uL Eosinophils # (0-0.7) k/uL Basophils # (0-0.2) k/uL Poikilocytosis Sodium (137-145) mmol/L Potassium (3.5-5.1) mmol/L Chloride (98-107) mmol/L Carbon Dioxide (22-30) mmol/L Anion Gap mmol/L BUN (9-20) mg/dL Creatinine (0.66-1.25) mg/dL Est GFR (CKD-EPI)AfAm (>60 ml/min/1.73 sqM) Est GFR (CKD-EPI)NonAf (>60 ml/min/1.73 sqM) Glucose (74-99) mg/dL Calcium (8.4-10.2) mg/dL Magnesium (1.6-2.3) mg/dL Total Bilirubin (0.2-1.3) mg/dL AST (17-59) U/L ALT (4-49) U/L Alkaline Phosphatase (38-126) U/L Troponin I (0.000-0.034) ng/mL NT-Pro-B Natriuret Pep 460 pg/mL Total Protein (6.3-8.2) g/dL Albumin (3.5-5.0) g/dL - Radiology Data Radiology results: image reviewed (Chest x-ray shows no acute process) Disposition Clinical Impression: Chest pain Disposition: ADMITTED IP TO THIS HOSP Is patient prescribed a controlled substance at d/c from ED?: No Referrals: Reina Dunbar MD [Primary Care Provider] - 1-2 days Decision Time: 19:57
[2021-05-01 19:22] LABS: Basophils % (A) 0 %; Eosinophils # (A) 0.2 k/uL (0-0.7); Eosinophils % (A) 3 %; HCT 38.3 % (39.0-53.0); HGB 14.6 gm/dL (13.0-17.5); Lymphocytes % (A) 31 %; MCH 36.1 pg (25.0-35.0); MCV 94.9 fL (80.0-100.0); Mean Platelet Volume 7.3; Monocytes # (A) 0.4 k/uL (0-1.0); Monocytes % (A) 6 %; Neutrophils # (A) 3.8 k/uL (1.3-7.7); Neutrophils % (A) 58 %; Platelet Count 137 k/uL (150-450); Poikilocytosis Slight; RBC 4.04 m/uL (4.30-5.90); RDW 15.5 % (11.5-15.5); WBC 6.4 k/uL (3.8-10.6)
--- NOTE | 2021-05-01 19:34 | XR ---
EXAMINATION TYPE: XR chest 1V portable DATE OF EXAM: 05/01/2021 COMPARISON: February 10, 2021 HISTORY: Chest pain TECHNIQUE: Single view FINDINGS: There is no heart failure nor confluent pneumonic infiltrate. Costophrenic angles are clear . There are no hilar masses. There are chest leads. Bony thorax appears intact. Heart size is normal. IMPRESSION: Normal chest. No change.
[2021-05-01 19:38] LABS: Calcium 8.9 mg/dL (8.4-10.2); Potassium 3.8 mmol/L (3.5-5.1); Total Bilirubin 0.9 mg/dL (0.2-1.3); Total Protein 7.5 g/dL (6.3-8.2)
[2021-05-01 19:49] LABS: INR 0.9 (<1.2); Prothrombin Time 10.2 sec (9.0-12.0)
[2021-05-01] MEDS ORDERED: NITROGLYCERIN SL TABS 0.4 MG TAB SUBLINGUAL PRN (19:57)
[2021-05-01] MEDS ORDERED: ACETAMINOPHEN TAB 325 MG TAB PO PRN (19:57)
[2021-05-01] MEDS ORDERED: MORPHINE SULFATE 2 MG/ML SYRINGE IVP STA (19:58)
--- NOTE | 2021-05-01 20:39 | CT ---
EXAMINATION TYPE: CT angio chest DATE OF EXAM: 05/01/2021 COMPARISON: 05/06/2020 HISTORY: Chest pain, elevated d dimer CT DLP: 404.4 mGycm Automated exposure control for dose reduction was used. CONTRAST: Performed with IV Contrast, patient injected with 80 mL of Isovue 370. Images obtained from the thoracic inlet through the diaphragm with IV contrast. There are Three-D postprocessed images. Heart size is fairly normal. There is no pericardial effusion. There is no evidence of filling defect in the pulmonary arteries. There are no hilar masses. There are a few paratracheal lymph nodes up to 1 cm. There are bronchial lymph nodes up to 1 cm. Thoracic aorta shows no evidence of aneurysm or di ssection. There is no pleural effusion. There is mild subsegmental atelectasis at the lung bases. The thoracic spine is intact. There is no compression fracture. Sternum is intact. IMPRESSION: Subsegmental atelectasis at the lung bases. No evidence of pulmonary embolism. Atelectasis increased compared to old exam.
[2021-05-01] MEDS: NITROGLYCERIN OINT 1 INCH/GM PACKET TOPICAL SCH (23:15)
[2021-05-02] MEDS: NITROGLYCERIN OINT 1 INCH/GM PACKET TOPICAL SCH ×3 (01:40→12:22)
[2021-05-02] MEDS ORDERED: ALBUTEROL NEBULIZED 2.5 MG/3 ML INHALATION PRN (04:05)
--- NOTE | 2021-05-02 04:12 | P.HPIM ---
History of Present Illness H&P Date: 05/01/21 Chief Complaint: chest pain 76 year old male with CAD s/p 3 stents Patient comes in due to chest pain. She reports that he was at his baseline status of health today he took his regular long walk with no limitations however at around 1 PM while he was resting doing nothing he suddenly felt left-sided chest pain radiating to the left arm rated it 10 out of 10 in severity associated with some heavy breathing and feeling nauseous for which she took a nitro pill and aspirin started feeling better pain almost resolved but then after 4 PM he had another episode of severe pain for which he decided to come to the hospital for evaluation as it felt exactly like prior episodes of chest pains where he ended up with stents. He otherwise denies any trouble breathing or coughing denies any upper respiratory infection symptoms denies any fevers or chills denies any headache denies any syncope or near-syncope denies any abdominal pain nausea vomiting denies any diarrhea denies any GI bleeding. He claims to be compliant with all his medications. In the ED EKG showed no acute ST changes D-dimer was elevated CT angios the chest showed no acute PE Blood work overall unremarkable otherwise, troponin negative He admits to tobacco smoking denies any drugs or alcohol Review of Systems Pertinent positives as noted in HPI. All other systems were reviewed and are negative Past Medical History Past Medical History: Coronary Artery Disease (CAD), Cancer, Chest Pain / Angina, COPD, GERD/Reflux, Hearing Disorder / Deafness, Hyperlipidemia, Hypertension, Myocardial Infarction ([place]) Additional Past Medical History / Comment(s): [place] x 2 (), colon cancer with surgery, kidney stone, chronic low back pain, [place] bilaterally with R ear worse, tinnitis L ear. AAA Last Myocardial Infarction Date:: 2010 History of Any Multi-Drug Resistant Organisms: None Reported Past Surgical History: Appendectomy, Bowel Resection, Heart Catheterization With Stent Additional Past Surgical History / Comment(s): bowel resection 2004, colonoscopy, 3 cardiac stents Past Anesthesia/Blood Transfusion Reactions: No Reported Reaction Date of Last Stent Placement:: 04/26/17 Past Psychological History: No Psychological Hx Reported Smoking Status: Current every day smoker Past Alcohol Use History: None Reported Past Drug Use History: None Reported - Past Family History Father Family Medical History: No Reported History Additional Family Medical History / Comment(s): Father at the age of 76yrs from "old age." Mother Family Medical History: Pneumonia Additional Family Medical History / Comment(s): Mother of pneumonia at the age of 68yrs. Brother(s) Family Medical History: Cancer Additional Family Medical History / Comment(s): He has one brother that is alive and has undergone CABG for coronary artery disease and has had one kidney rem jerod. Patient has one brother who in a motor vehicle accident, one brother from a myocardial infarction at age 59, and one from colon cancer at age 70. Sister(s) Family Medical History: No Reported History Additional Family Medical History / Comment(s): He has 3 sisters that are healthy. Medications and Allergies Home Medications Medication Instructions Recorded Confirmed Type Omeprazole [PriLOSEC] 20 mg PO DAILY 04/25/14 05/01/21 History lisinopriL [Zestril] 20 mg PO BID #60 tab 02/06/18 05/01/21 Rx Carvedilol [Coreg] 12.5 mg PO BID 04/27/19 05/01/21 History Latanoprost/Pf [Latanoprost 0.005% 1 drop BOTH EYES HS 04/27/19 05/01/21 History Eye Drop] Aspirin 81 mg PO DAILY #30 chew 04/29/19 05/01/21 Rx Atorvastatin [Lipitor] 20 mg PO DAILY 01/05/20 05/01/21 History Baclofen 10 mg PO HS PRN 10/21/20 05/01/21 History Isosorbide Mononitrate ER [Imdur] 120 mg PO DAILY 10/21/20 05/01/21 History Albuterol Sulfate [Ventolin HFA] 2 puff INHALATION RT-QID PRN 01/07/21 05/01/21 History hydrALAZINE HCL [Apresoline] 25 mg PO DAILY 01/07/21 05/01/21 History hydroCHLOROthiazide [Hydrodiuril] 12.5 mg PO DAILY 01/07/21 05/01/21 History Allergies Allergy/AdvReac Type Severity Reaction Status Date / Time latex Allergy Rash/Hives/ Verified 05/01/21 18:53 blisters Penicillins Allergy Rash/Hives Verified 05/01/21 18:53 Physical Exam Vitals: Vital Signs Temp Pulse Pulse Resp BP BP Pulse Ox 05/02/21 02:30 98.0 F 66 18 154/85 95 05/02/21 01:08 62 17 05/01/21 22:52 97.9 F 62 17 136/73 97 05/01/21 19:09 70 18 152/86 05/01/21 18:50 97.6 F 76 18 168/82 98 Intake and Output 05/01/21 05/01/21 05/02/21 14:59 22:59 06:59 Other: Voiding Method Toilet Urinal Weight 79.379 kg Constitutional: No acute distress, conversant, pleasant Eyes: Anicteric sclerae, moist conjunctiva, Pupils equal round reactive to light ENMT: NC/AT Oropharynx clear, no erythema, or exudates Neck: Supple, FROM, no masses, or JVD No carotid bruits No thyromegaly Lungs: Decreased breath sounds throughout Clear to percussion Normal respiratory effort, no accessory muscle use Cardiovascular: Heart regular in rate and rhythm, No murmurs, gallops, or rubs No peripheral edema Abdominal: Soft Nontender, no guarding, rebound or rigidity Abdomen moving with respiration Normoactive bowel sounds No hepatomegaly, No splenomegaly No palpable mass No abdominal wall hernia noted Skin: Normal temperature, tone, texture, turgor No induration No subcutaneous nodules No rash, lesions No ulcers Extremities: No digital cyanosis No clubbing Pedal pulses intact and symmetrical Radial pulses intact and symmetrical No calf tenderness Psychiatric: Alert and oriented to person, place and time Appropriate affect fair judgement Neuro Muscles Strength 5/5 in all 4 extremities Sensation to light touch grossly present throughout Cranial nerves II-XII grossly intact No focal sensory deficits Lymphatics: no palpable cervical or supraclavicular , or inguinal lymph nodes Results CBC & Chem 7: 05/01/21 19:10 05/01/21 19:10 Labs: Abnormal Lab Results - Last 24 Hours (Table) 05/01/21 05/01/21 05/01/21 Range/Units 19:10 19:10 19:10 RBC 4.04 L (4.30-5.90) m/uL Hct 38.3 L (39.0-53.0) % MCH 36.1 H (25.0-35.0) pg MCHC 38.0 H (31.0-37.0) g/dL Plt Count 137 L (150-450) k/uL D-Dimer 1.26 H (<0.60) mg/L FEU Sodium 136 L (137-145) mmol/L Glucose 118 H (74-99) mg/dL Assessment and Plan Assessment: Atypical chest pain rule out ACS Aspirin statin Negative EKG no acute ST changes Cardiology consultative Monitor vital signs Trend troponins Nitro for pain as needed Chronic conditions Hyperlipidemia continue statin COPD currently compensated continue with inhalers as needed History of CAD status post 3 stents continue cardiac meds Elevated d-dimer, CT angios the chest was negative for acute PE Full code DVT prophylaxis Lovenox subcu daily Anticipated length of stay less than 2 midnights
[2021-05-02] MEDS ORDERED: carvediloL 12.5 MG TAB PO SCH (07:30)
--- NOTE | 2021-05-02 08:08 | P.CRDCN ---
History of Present Illness Consult date: 05/02/21 History of present illness: The patient is a 76-year-old male with a known history of coronary disease, post stenting of the RCA in 2018 in the LAD in 2001 history of hyperlipidemia hypertension abdominal aortic aneurysm and chronic tobacco use who presented with symptoms of chest discomfort. He walked the mall yesterday without any symptoms but done at home while sitting he had an episode of chest discomfort, he noted his blood pressure being elevated. He took a nitroglycerin sublingually that brought his blood pressure down. But because of the symptoms of chest discomfort he came into the emergency room. He had a cardiac catheterization performed in December 2019 that showed a 10 stent with mild to moderate in-stent restenosis. He has continued to walk with a regular basis with mild dyspnea on exertion. He has decreased his smoking to 2 cigarettes a d ay. He denies any PND, orthopnea or peripheral edema. He has no dizziness, palpitations or syncope. His ejection fraction was normal in the past. His troponin less than 0.012, hemoglobin 14.6, BUN and creatinine 19 and 1.21. His EKG shows no acute ST segment changes. His coronary risk factors are positive for hypertension, hyperlipidemia and chronic tobacco use. Review of system Respiratory: No history of asthma, bronchitis or recent cough. He has a history of chronic dyspnea on exertion related to his chronic tobacco use. GI: No nausea, vomiting. No history of peptic ulcer disease. No recent GI bleed. : No hematuria or dysuria. Nervous System: No stroke or seizure. Physical examination: 76-year-old male alert and oriented no apparent distress, blood pressure 136/70 with a heart rate in the 60s. Head: Normocephalic. Eyes: Sclerae nonicteric. Neck: Good carotid upstroke, no bruit, no jugular venous distention. Lungs: Clear to auscultation with mild decrease in the air exchange. Heart: Regular rate and rhythm, S1-S2, no S3, no murmur or rub. Abdomen: Soft nontender, positive bowel sounds no organomegaly. Extremities: No edema, intact distal pulses. Impression: 1. Chest discomfort unclear etiology, no evidence of acute coronary syndrome 2. History of CAD with multiple intervention and no evidence of significant restenosis in December 2019 3. History of hypertension 4. History of hyperlipidemia 5. Chronic tobacco use Plan: 1. Continue home medication 2. Obtain an echocardiogram with Doppler 3. Proceed with myocardial perfusion imaging 4. If there is no evidence of stress-induced ischemia no further cardiac workup will be needed 5. Thank you for this consult we will follow with you. Past Medical History Past Medical History: Coronary Artery Disease (CAD), Cancer, Chest Pain / Angina, COPD, GERD/Reflux, Hearing Disorder / Deafness, Hyperlipidemia, Hypertension, Myocardial Infarction ([place]) Additional Past Medical History / Comment(s): [place] x 2 (), colon cancer with surgery, kidney stone, chronic low back pain, [place] bilaterally with R ear worse, tinnitis L ear. AAA Last Myocardial Infarction Date:: 2010 History of Any Multi-Drug Resistant Organisms: None Reported Past Surgical History: Appendectomy, Bowel Resection, Heart Catheterization With Stent Additional Past Surgical History / Comment(s): bowel resection 2004, colonoscopy, 3 cardiac stents Past Anesthesia/Blood Transfusion Reactions: No Reported Reaction Date of Last Stent Placement:: 04/26/17 Past Psychological History: No Psychological Hx Reported Smoking Status: Current every day smoker Past Alcohol Use History: None Reported Past Drug Use History: None Reported - Past Family History Father Family Medical History: No Reported History Additional Family Medical History / Comment(s): Father at the age of 76yrs from "old age." Mother Family Medical History: Pneumonia Additional Family Medical History / Comment(s): Mother of pneumonia at the age of 68yrs. Brother(s) Family Medical History: Cancer Additional Family Medical History / Comment(s): He has one brother that is alive and has undergone CABG for coronary artery disease and has had one kidney removed. Patient has one brother who in a motor vehicle accident, one brother from a myocardial infarction at age 59, and one from colon cancer at age 70. Sister(s) Family Medical History: No Reported History Additional Family Medical History / Comment(s): He has 3 sisters that are healthy. Medications and Allergies Home Medications Medication Instructions Recorded Confirmed Type Omeprazole [PriLOSEC] 20 mg PO DAILY 04/25/14 05/01/21 History lisinopriL [Zestril] 20 mg PO BID #60 tab 02/06/18 05/01/21 Rx Carvedilol [Coreg] 12.5 mg PO BID 04/27/19 05/01/21 History Latanoprost/Pf [Latanoprost 0.005% 1 drop BOTH EYES HS 04/27/19 05/01/21 History Eye Drop] Aspirin 81 mg PO DAILY #30 chew 04/29/19 05/01/21 Rx Atorvastatin [Lipitor] 20 mg PO DAILY 01/05/20 05/01/21 History Baclofen 10 mg PO HS PRN 10/21/20 05/01/21 History Isosorbide Mononitrate ER [Imdur] 120 mg PO DAILY 10/21/20 05/01/21 History Albuterol Sulfate [Ventolin HFA] 2 puff INHALATION RT-QID PRN 01/07/21 05/01/21 History hydrALAZINE HCL [Apresoline] 25 mg PO DAILY 01/07/21 05/01/21 History hydroCHLOROthiazide [Hydrodiuril] 12.5 mg PO DAILY 01/07/21 05/01/21 History Allergies Allergy/AdvReac Type Severity Reaction Status Date / Time latex Allergy Rash/Hives/ Verified 05/01/21 18:53 blisters Penicillins Allergy Rash/Hives Verified 05/01/21 18:53 Physical Exam Vitals: Vital Signs Temp Pulse Pulse Resp BP BP Pulse Ox 05/02/21 02:30 98.0 F 66 18 154/85 95 05/02/21 01:08 62 17 05/01/21 22:52 97.9 F 62 17 136/73 97 05/01/21 19:09 70 18 152/86 05/01/21 18:50 97.6 F 76 18 168/82 98 Intake and Output 05/01/21 05/02/21 05/02/21 22:59 06:59 14:59 Other: Voiding Method Toilet Urinal # Voids 1 Weight 79.379 kg Results 05/01/21 19:10 05/01/21 19:10 Cardiac Enzymes 05/01/21 05/01/21 05/01/21 Range/Units 19:10 19:10 22:01 AST 32 (17-59) U/L Troponin I <0.012 <0.012 (0.000-0.034) ng/mL 05/02/21 Range/Units 02:23 AST (17-59) U/L Troponin I <0.012 (0.000-0.034) ng/mL Coagulation 05/01/21 Range/Units 19:10 PT 10.2 (9.0-12.0) sec APTT 24.0 (22.0-30.0) sec CBC 05/01/21 Range/Units 19:10 WBC 6.4 (3.8-10.6) k/uL RBC 4.04 L (4.30-5.90) m/uL Hgb 14.6 (13.0-17.5) gm/dL Hct 38.3 L (39.0-53.0) % Plt Count 137 L (150-450) k/uL Comprehensive Metabolic Panel 05/01/21 Range/Units 19:10 Sodium 136 L (137-145) mmol/L Potassium 3.8 (3.5-5.1) mmol/L Chloride 107 (98-107) mmol/L Carbon Dioxide 24 (22-30) mmol/L BUN 19 (9-20) mg/dL Creatinine 1.21 (0.66-1.25) mg/dL Glucose 118 H (74-99) mg/dL Calcium 8.9 (8.4-10.2) mg/dL AST 32 (17-59) U/L ALT 38 (4-49) U/L Alkaline Phosphatase 68 (38-126) U/L Total Protein 7.5 (6.3-8.2) g/dL Albumin 4.0 (3.5-5.0) g/dL Current Medications Generic Name Dose Route Start Last Admin Trade Name Freq PRN Reason Stop Dose Admin Acetaminophen 650 mg 05/01/21 19:57 Acetaminophen Tab 325 Mg Tab PO Q4HR PRN Pain Albuterol Sulfate 2.5 mg 05/02/21 04:05 Albuterol Nebulized 2.5 Mg/3 Ml INHALATION RT-QID PRN Shortness Of Breath Atorvastatin Calcium 20 mg 05/02/21 09:00 Atorvastatin 20 Mg Tab PO DAILY [facility] Carvedilol 12.5 mg 05/02/21 07:30 Carvedilol 12.5 Mg Tab PO BID-W/MEALS [facility] Enoxaparin Sodium 40 mg 05/02/21 09:00 Enoxaparin 40 Mg/0.4 Ml Syringe SQ DAILY [facility] Hydralazine HCl 25 mg 05/02/21 09:00 Hydralazine Hcl 25 Mg Tab PO DAILY [facility] Hydrochlorothiazide 12.5 mg 05/02/21 09:00 Hydrochlorothiazide 25 Mg Tab PO DAILY [facility] Isosorbide Mononitrate 120 mg 05/02/21 09:00 Isosorbide Mononitrate Er 60 Mg Tab.Er.24h PO DAILY [facility] Lisinopril 20 mg 05/02/21 09:00 Lisinopril 20 Mg Tab PO BID [facility] Nitroglycerin 0.4 mg 05/01/21 19:57 Nitroglycerin Sl Tabs 0.4 Mg Tab SUBLINGUAL Q5M PRN Chest Pain Nitroglycerin 1 inch 05/01/21 20:00 05/02/21 07:37 Nitroglycerin Oint 1 Inch/Gm Packet TOPICAL Not Given Q6HR [facility] Pantoprazole Sodium 40 mg 05/02/21 09:00 Pantoprazole 40 Mg Tablet PO DAILY [facility] Intake and Output 05/01/21 05/02/21 05/02/21 22:59 06:59 14:59 Other: Voiding Method Toilet Urinal # Voids 1 Weight 79.379 kg 05/01/21 19:10 05/01/21 19:10
[2021-05-02] MEDS ORDERED: ENOXAPARIN 40 MG/0.4 ML SYRINGE SQ SCH (09:00)
[2021-05-02] MEDS ORDERED: lisinopriL 20 MG TAB PO SCH (09:00)
[2021-05-02] MEDS ORDERED: hydroCHLOROthiazide 25 MG TAB PO SCH (09:00)
[2021-05-02] MEDS ORDERED: ASPIRIN 325 MG TAB PO SCH (09:00)
[2021-05-02] MEDS ORDERED: ASPIRIN 81 MG PO SCH (09:00)
[2021-05-02] MEDS ORDERED: ISOSORBIDE MONONITRATE ER 60 MG TAB.ER.24H PO SCH (09:00)
[2021-05-02] MEDS ORDERED: PANTOPRAZOLE 40 MG TABLET PO SCH (09:00)
[2021-05-02] MEDS ORDERED: ATORVASTATIN 20 MG TAB PO SCH (09:00)
[2021-05-02] MEDS ORDERED: hydrALAZINE HCL 25 MG TAB PO SCH (09:00)
[2021-05-02] MEDS ORDERED: AMINOPHYLLINE 500 MG/20 ML VIAL IV PRN (09:43)
[2021-05-02] MEDS ORDERED: CAFFEINE CITRATE 60 MG/3 ML VIAL IV PRN (09:43)
[2021-05-02] MEDS ORDERED: REGADENOSON 0.4 MG/5 ML SYRINGE IV PRN (09:43)
[2021-05-02 10:24] LABS: Chol/HDL Ratio 3.81 Ratio; LDL Cholesterol,Calculated 62.6 mg/dL (0.0-131.0)
[2021-05-02] MEDS ORDERED: hydroCHLOROthiazide 12.5 MG CAP PO SCH (13:00)
--- NOTE | 2021-05-02 13:01 | ECHOF ---
Referral Reason:cad MEASUREMENTS -------- HEIGHT: 172.7 cm WEIGHT: 79.4 kg BP: RVIDd: 2.8 cm (< 3.3) IVSd: 1.1 cm (0.6 - 1.1) LVIDd: 4.6 cm (3.9 - 5.3) LVPWd: 0.9 cm (0.6 - 1.1) IVSs: 1.5 cm LVIDs: 4.5 cm LVPWs: 1.1 cm LAESV Index (A-L): 28.23 ml/m Ao Diam: 3.3 cm (2.0 - 3.7) AV Cusp: 1.7 cm (1.5 - 2.6) LA Diam: 4.1 cm (2.7 - 3.8) MV E Torsten: 0.63 m/s MV DecT: 212 ms MV A Torsten: 0.92 m/s MV E/A Ratio: 0.68 RAP: 5.00 mmHg RVSP: 17.90 mmHg FINDINGS -------- Sinus rhythm. This was a technically adequate study. The left ventricular size is normal. There is mild concentric left ventricular hypertrophy. Overa ll left ventricular systolic function is normal with, an EF between 55 - 60 %. The diastolic fillin g pattern is normal for the age of the patient 13.22. The right ventricle is normal in size. Normal LA size by volume 22+/-6 ml/m2. The right atrial size is normal. There is mild aortic valve sclerosis. There is no evidence of aortic regurgitation. Mild mitral annular calcification present. Mild mitral regurgitation is present. The tricuspid valve appears structurally normal. Mild tricuspid regurgitation present. Right vent ricular systolic pressure is normal at < 35 mmHg. There is no pulmonic regurgitation present. The aortic root size is normal. There is no pericardial effusion. CONCLUSIONS -------- 1. There is mild concentric left ventricular hypertrophy. 2. Overall left ventricular systolic function is normal with, an EF between 55 - 60 %. 3. There is mild aortic valve sclerosis. 4. Mild mitral annular calcification present. 5. Mild mitral regurgitation is present. 6. Mild tricuspid regurgitation present. 7. There is no pericardial effusion. SPECIAL MACHINE OPERATOR: Cinthia Ryan RDCS
--- NOTE | 2021-05-02 13:48 | NM ---
EXAMINATION TYPE: NM stress lexiscan cardiolite DATE OF EXAM: 05/02/2021 COMPARISON: 02/06/2018 HISTORY: Chest pain TECHNIQUE: After the intravenous administration of 9.9 mCi Tc 99m Sestamibi - Cardiolite resting SPE CT images acquired 50 minutes post injection. At peak stress 25.5 mCi Tc 99m Sestamibi - Stress images obtained 40 minutes post injection The patient was stressed with 0.4mg Lexiscan. FINDINGS: There is a small fixed defect along the mid to distal lateral wall. Small prior infarct could be cons idered. No stress-induced ischemic changes identified. There is dyskinesia of the apex at peak systole. Ejection fraction is calculated to be 58 %. IMPRESSION: 1. No stress-induced ischemic change. 2. 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 3. Dyskinesia of the distal cardiac apex
--- NOTE | 2021-05-02 14:40 | EST ---
EXERCISE STRESS AGE: 76 SEX: M HT: 5'8" WT: 175 lbs. PROTOCOL: Lexiscan Cardiolite STAGE: NA DURATION OF EXERCISE: NA HEART RATE REST: 61 BLOOD PRESSURE REST: 182/89 MAXIMUM HEART RATE ACHIEVED: 98 MAXIMUM BLOOD PRESSURE: 182/89 85% MPHR: 121 100% MPHR: 142 METS: NA INDICATIONS: Chest pain CLINICAL INFORMATION: Baseline rhythm is sinus mechanism, rate of 61, normal axis and intervals, poor R-wave progression. Baseline blood pressure 182/89 mmHg. Patient received an injection of Lexiscan. Electrocardiographic monitoring revealed no evidence of diagnostic ischemic ST deviation. Cardiolite was injected per protocol. CONCLUSION: 1. Nondiagnostic electrocardiograph stress testing. 2. Nuclear images will be reported separately. MMODL / IJN: [id number] /
[2021-05-02 15:18] VITALS: BP 135/65; PULSE 71; RESP 16; TEMP 98.1
--- NOTE | 2021-05-02 15:31 | P.DS ---
<Keshawn Morfin - Last Filed: 05/02/21 15:31> Providers Expected date of discharge: 05/02/21 Hospital Course: Discharge Diagnosis: Chest pain, acute coronary event ruled out Hypertension Hyperlipidemia History of CAD with previous CA and stent placement Abdominal aortic aneurysm Tobacco dependence Elevated d-dimer, CTA negative for PE Hospital Course: Patient is a very pleasant 76-year-old male with a past medical history of CAD with previous CA status post 3 stents, hypertension, hyperlipidemia, abdominal aortic aneurysm, and chronic tobacco use. He presented to the emergency department with a chief complaint of chest pain that came on suddenly at rest and was reported to radiate into his left arm accompanied by reports of heavy breathing and nausea. Patient reports taking a nitro and aspirin at home resulting in improvement of pain. Patient described pain similar to pain he felt with his previous CA. He underwent full evaluation in the emergency department. CBC revealed mild thrombocytopenia with platelet count of 137 and CMP unremarkable. Troponins were trended 3 at less than 0.012. ProBNP 460. Covid PCR was negative. D-dimer was elevated at 1.26. EKG revealing normal sinus rhythm at 72 bpm with no noted T-wave or ST abnormalities. CTA showing subsegmental atelectasis with no evidence of PE. Patient was admitted under our services and monitored with continuous telemetry monitoring throughout the night. Lipid profile unremarkable with the exception of low HDL of 32. Starr scan stress test revealing EF of 58% no stress-induced ischemic changes, small prior infarct lateral wall of the distal portion, and dyskinesia of the distal cardiac apex. Echocardiogram revealed an EF between 55 and 60% with mild aortic valve sclerosis and mild mitral and tricuspid regurgitation. Patient has had full resolution of chest pain since arrival to the hospital. As reported above stress test was negative and patient has been cleared by cardiology for follow- up in their office outpatient. Patient medically stable at this time and is being discharged home. Patient to follow-up with PCP in 1-2 days and cardiology in 1 week. Physical examination: Patient seen and examined at bedside. Vital signs reviewed and stable. General: Nontoxic, no distress and appears stated age. Derm: Skin warm and dry, normal coloration for ethnicity. Head: Atraumatic, normocephalic and symmetric. Eyes: EOMs intact, no lid lag, and anicteric sclera Mouth: no lip lesions, mucus membranes moist Cardiovascular: regular rate and rhythm with normal S1S2, no murmur, positive posterior tibial pulses bilaterally, and cap refill < 2 seconds. Lungs: Respirations even, regular, and unlabored on room air. Lungs CTA bilaterally, no rhonchi, no rales, no wheezing, and no accessory muscle usage. Abdominal: soft, nontender to palpation, no guarding, no appreciable organomegaly Ext: ROM intact. No gross muscle atrophy, no edema, no contractures Neuro: Speech clear, face symmetrical and CN II-XII grossly intact with no noted focal neuro deficits Psych: Alert and oriented to person, place, time, and situation. Appropriate and pleasant affect. A total of 30 minutes of time were spent preparing this complex discharge summary. Patient Condition at Discharge: Stable Plan - Discharge Summary New Discharge Prescriptions: Continue Omeprazole [PriLOSEC] 20 mg PO DAILY lisinopriL [Zestril] 20 mg PO BID #60 tab Latanoprost/Pf [Latanoprost 0.005% Eye Drop] 1 drop BOTH EYES HS Carvedilol [Coreg] 12.5 mg PO BID Aspirin 81 mg PO DAILY #30 chew Atorvastatin [Lipitor] 20 mg PO DAILY Isosorbide Mononitrate ER [Imdur] 120 mg PO DAILY hydroCHLOROthiazide [Hydrodiuril] 12.5 mg PO DAILY hydrALAZINE HCL [Apresoline] 25 mg PO DAILY Baclofen 10 mg PO HS PRN PRN Reason: Muscle Spasm Albuterol Sulfate [Ventolin HFA] 2 puff INHALATION RT-QID PRN PRN Reason: Shortness Of Breath Discharge Medication List Omeprazole [PriLOSEC] 20 mg PO DAILY 04/25/14 [History] lisinopriL [Zestril] 20 mg PO BID #60 tab 02/06/18 [Rx] Carvedilol [Coreg] 12.5 mg PO BID 04/27/19 [History] Latanoprost/Pf [Latanoprost 0.005% Eye Drop] 1 drop BOTH EYES HS 04/27/19 [History] Aspirin 81 mg PO DAILY #30 chew 04/29/19 [Rx] Atorvastatin [Lipitor] 20 mg PO DAILY 01/05/20 [History] Baclofen 10 mg PO HS PRN 10/21/20 [History] Isosorbide Mononitrate ER [Imdur] 120 mg PO DAILY 10/21/20 [History] Albuterol Sulfate [Ventolin HFA] 2 puff INHALATION RT-QID PRN 01/07/21 [History] hydrALAZINE HCL [Apresoline] 25 mg PO DAILY 01/07/21 [History] hydroCHLOROthiazide [Hydrodiuril] 12.5 mg PO DAILY 01/07/21 [History] Follow up Appointment(s)/Referral(s): Pernell De Paz MD [STAFF PHYSICIAN] - 1 Week Reina Dunbar MD [Primary Care Provider] - 1-2 days Activity/Diet/Wound Care/Special Instructions: Activity: As tolerated. Take breaks as needed. Diet: Heart healthy and carb consistent diet. Avoid salts, or foods with hidden salts such as canned or boxed foods and frozen dinners. Extra salt makes your heart work harder and traps the fluid in your body for longer. Special Instructions: Take all of your medications as directed and remember to keep all of your doctor's appointments and follow-up as needed. Thank you for allowing us to participate in your care, it was truly a pleasure having you for our patient!!! Discharge Disposition: HOME SELF-CARE <Mike Glaser - Last Filed: 05/02/21 16:33> Providers Date of admission: 05/01/21 19:57 Attending physician: Linda Sheldon DO Consults: 05/01/21 19:57 Consult Physician Urgent Consulting Provider: Pernell De Paz Consult Reason/Comments: cp Do you want consulting provider notified?: Yes Primary care physician: Reina Dunbar [place] [facility] Course: I reviewed the documentation as provided by the HELENA above, who is the original author of this note. I agree with the documented assessment and plan, with the following changes: None
== END 2021-05-02 16:01 | disposition home or self-care (01) ==
LOC: EC 18:45 → 6NMEDSUR 19:57
PROVIDERS: ADMIT Internal Medicine; ATTEND Internal Medicine
DX: R07.89 Other chest pain (principal); R06.02 Shortness of breath; R11.0 Nausea; R79.89 Other specified abnormal findings of blood chemistry; I10 Essential (primary) hypertension; E78.5 Hyperlipidemia, unspecified; I25.10 Atherosclerotic heart disease of native coronary artery without angina pectoris; Z95.5 Presence of coronary angioplasty implant and graft; J44.9 Chronic obstructive pulmonary disease, unspecified; K21.9 Gastro-esophageal reflux disease without esophagitis; H91.93 Unspecified hearing loss, bilateral; I25.2 Old myocardial infarction; G89.29 Other chronic pain; M54.59 Other low back pain; H93.12 Tinnitus, left ear; J98.11 Atelectasis; D69.6 Thrombocytopenia, unspecified; I71.4 Abdominal aortic aneurysm, without rupture; I08.3 Combined rheumatic disorders of mitral, aortic and tricuspid valves; F17.210 Nicotine dependence, cigarettes, uncomplicated; Z20.822 Contact with and (suspected) exposure to COVID-19; Z87.442 Personal history of urinary calculi; Z85.038 Personal history of other malignant neoplasm of large intestine; Z79.899 Other long term (current) drug therapy; Z79.82 Long term (current) use of aspirin; Z88.0 Allergy status to penicillin; Z91.040 Latex allergy status; Z90.49 Acquired absence of other specified parts of digestive tract; Z71.9 Counseling, unspecified; Z71.3 Dietary counseling and surveillance; Z83.6 Family history of other diseases of the respiratory system; Z82.49 Family history of ischemic heart disease and other diseases of the circulatory system; Z80.0 Family history of malignant neoplasm of digestive organs; Z84.1 Family history of disorders of kidney and ureter
CPT/HCPCS: 96372; 99285; 36415; 93005; 93017; 93306; 85379; 83880; 80061; 80053; 83735; 84484 ×2; 85025; 85610; 85730; 87635; 71045; 71275; 78452; G0378 ×2; A9500; J1650; J2785; Q9967

== ENCOUNTER 2021-08-30 08:37 | Observation (INO) | payer MEDICARE ==
[2021-08-30] MEDS ORDERED: NITROGLYCERIN OINT 1 INCH/GM PACKET TOPICAL STA (08:52)
[2021-08-30] MEDS ORDERED: ASPIRIN 81 MG PO STA (08:52)
--- NOTE | 2021-08-30 08:59 | ED ---
General Adult HPI - General Chief complaint: Chest Pain Stated complaint: Chest Pain Time Seen by Provider: 08/30/21 08:40 Source: patient, RN notes reviewed, old records reviewed Mode of arrival: ambulatory Limitations: no limitations - History of Present Illness Initial comments: This is a 76-year-old male who presents emergency Department complaining of chest pain. Patient states she's had heart attacks in the past she's had multiple stents placed. Patient states he has high blood pressure and high cholesterol he smoked for 50 years but he has quit. Patient states last night he started having chest pain radiated to his upper back and he continues this morning so he decided to come in. Patient states he also was diaphoretic this morning and had shortness of breath per patient denies any nausea vomiting or diarrhea. Patient denies any abdominal pain. Patient denies any headache patient denies numbness or weakness per patient denies any lightheadedness or near syncopal episode. Patient denies any swelling to the legs or calf tendern ess. - Related Data Home Medications Medication Instructions Recorded Confirmed Omeprazole [PriLOSEC] 20 mg PO DAILY 04/25/14 05/01/21 Latanoprost/Pf [Latanoprost 0.005% 1 drop BOTH EYES HS 04/27/19 05/01/21 Eye Drop] carvediloL [Coreg] 12.5 mg PO BID 04/27/19 05/01/21 Atorvastatin [Lipitor] 20 mg PO DAILY 01/05/20 05/01/21 Baclofen 10 mg PO HS PRN 10/21/20 05/01/21 Isosorbide Mononitrate ER [Imdur] 120 mg PO DAILY 10/21/20 05/01/21 Albuterol Sulfate [Ventolin HFA] 2 puff INHALATION RT-QID PRN 01/07/21 05/01/21 hydrALAZINE HCL [Apresoline] 25 mg PO DAILY 01/07/21 05/01/21 hydroCHLOROthiazide [Hydrodiuril] 12.5 mg PO DAILY 01/07/21 05/01/21 Previous Rx's Medication Instructions Recorded lisinopriL [Zestril] 20 mg PO BID #60 tab 02/06/18 Aspirin 81 mg PO DAILY #30 chew 04/29/19 Allergies Allergy/AdvReac Type Severity Reaction Status Date / Time latex Allergy Rash/Hives/ Verified 08/30/21 08:40 blisters Penicillins Allergy Rash/Hives Verified 08/30/21 08:40 Review of Systems ROS Statement: Those systems with pertinent positive or pertinent negative responses have been documented in the HPI. ROS Other: All systems not noted in ROS Statement are negative. Past Medical History Past Medical History: Coronary Artery Disease (CAD), Cancer, Chest Pain / Angina, COPD, GERD/Reflux, Hearing Disorder / Deafness, Hyperlipidemia, Hypertension, Myocardial Infarction ([place]) Additional Past Medical History / Comment(s): [place] x 2 (2001/2010), colon cancer with surgery, kidney stone, chronic low back pain, [place] bilaterally with R ear worse, tinnitis L ear. AAA Last Myocardial Infarction Date:: 2010 History of Any Multi-Drug Resistant Organisms: None Reported Past Surgical History: Appendectomy, Bowel Resection, Heart Catheterization With Stent Additional Past Surgical History / Comment(s): bowel resection 2004, colonoscop y, 3 cardiac stents Past Anesthesia/Blood Transfusion Reactions: No Reported Reaction Date of Last Stent Placement:: 04/26/17 Past Psychological History: No Psychological Hx Reported Smoking Status: Current every day smoker Past Alcohol Use History: None Reported Past Drug Use History: None Reported - Past Family History Father Family Medical History: No Reported History Additional Family Medical History / Comment(s): Father at the age of 76yrs from "old age." Mother Family Medical History: Pneumonia Additional Family Medical History / Comment(s): Mother of pneumonia at the age of 68yrs. Brother(s) Family Medical History: Cancer Additional Family Medical History / Comment(s): He has one brother that is alive and has undergone CABG for coronary artery disease and has had one kidney removed. Patient has one brother who in a motor vehicle accident, one brother from a myocardial infarction at age 59, and one from colon can cer at age 70. Sister(s) Family Medical History: No Reported History Additional Family Medical History / Comment(s): He has 3 sisters that are h ealthy. General Exam - General Exam Comments Initial Comments: GENERAL: Patient is well-developed and well-nourished. Patient is nontoxic and well- hydrated and is in mild distress. ENT: Neck is soft and supple. No significant lymphadenopathy is noted. Oropharynx is clear. Moist mucous membranes. Neck has full range of motion without eliciting any pain. EYES: The sclera were anicteric and conjunctiva were pink and moist. Extraocular movements were intact and pupils were equal round and reactive to light. Eyelids were unremarkable. PULMONARY: Unlabored respirations. Good breath sounds bilaterally. No audible rales rhonchi or wheezing was noted. CARDIOVASCULAR: There is a regular rate and rhythm without any murmurs gallops or rubs. ABDOMEN: Soft and nontender with normal bowel sounds. SKIN: Skin is clear with no lesions or rashes and otherwise unremarkable. NEUROLOGIC: Patient is alert and oriented x3. Cranial nerves II through XII are grossly intact. Motor and sensory are also intact. Normal speech, volume and content. Symmetrical smile. MUSCULOSKELETAL: Normal extremities with adequate strength and full range of motion. LYMPHATICS: No significant lymphadenopathy is noted PSYCHIATRIC: Normal psychiatric evaluation. Limitations: no limitations Course Vital Signs 08/30/21 08/30/21 08:38 09:33 Temperature 97.9 F Pulse Rate 80 74 Respiratory 20 16 Rate Blood Pressure 155/73 116/61 O2 Sat by Pulse 95 96 Oximetry Medical Decision Making - Medical Decision Making EKG shows sinus bradycardia with occasional PAC at 53 bpm VT interval 156 dresses 101 Q-T intervals 389 QTC is 371. Patient's EKG shows no ST segment elevation or depression. Patient was started on heparin for unstable angina. I spoke with some physicians agreed to admit the patient admitted the patient wrote admitting orders and continue the heparin and aspirin and Nitropaste on the floor. - Lab Data Result diagrams: 08/30/21 09:02 08/30/21 09:02 Lab Results 08/30/21 08/30/21 08/30/21 Range/Units 09:02 09:02 09:02 WBC 4.0 (3.8-10.6) k/uL RBC 4.07 L (4.30-5.90) m/uL Hgb 13.4 (13.0-17.5) gm/dL Hct 38.4 L (39.0-53.0) % MCV 94.4 (80.0-100.0) fL MCH 33.1 (25.0-35.0) pg MCHC 35.0 (31.0-37.0) g/dL RDW 15.1 (11.5-15.5) % Plt Count 108 L (150-450) k/uL MPV 7.5 Neutrophils % 74 % Lymphocytes % 9 % Monocytes % 11 % Eosinophils % 3 % Basophils % 1 % Neutrophils # 3.0 (1.3-7.7) k/uL Lymphocytes # 0.4 L (1.0-4.8) k/uL Monocytes # 0.5 (0-1.0) k/uL Eosinophils # 0.1 (0-0.7) k/uL Basophils # 0.0 (0-0.2) k/uL PT 10.8 (9.0-12.0) sec INR 1.0 (<1.2) APTT 23.4 (22.0-30.0) sec Sodium 135 L (137-145) mmol/L Potassium 3.8 (3.5-5.1) mmol/L Chloride 102 (98-107) mmol/L Carbon Dioxide 24 (22-30) mmol/L Anion Gap 9 mmol/L BUN 17 (9-20) mg/dL Creatinine 1.10 (0.66-1.25) mg/dL Est GFR (CKD-EPI)AfAm 74 (>60 ml/min/1.73 sqM) Est GFR (CKD-EPI)NonAf 64 (>60 ml/min/1.73 sqM) Glucose 167 H (74-99) mg/dL Calcium 8.6 (8.4-10.2) mg/dL Magnesium 1.6 (1.6-2.3) mg/dL Total Bilirubin 1.0 (0.2-1.3) mg/dL AST 41 (17-59) U/L ALT 38 (4-49) U/L Alkaline Phosphatase 64 (38-126) U/L Troponin I (0.000-0.034) ng/mL Total Protein 7.3 (6.3-8.2) g/dL Albumin 4.1 (3.5-5.0) g/dL 08/30/21 Range/Units 09:02 WBC (3.8-10.6) k/uL RBC (4.30-5.90) m/uL Hgb (13.0-17.5) gm/dL Hct (39.0-53.0) % MCV (80.0-100.0) fL MCH (25.0-35.0) pg MCHC (31.0-37.0) g/dL RDW (11.5-15.5) % Plt Count (150-450) k/uL MPV Neutrophils % % Lymphocytes % % Monocytes % % Eosinophils % % Basophils % % Neutrophils # (1.3-7.7) k/uL Lymphocytes # (1.0-4.8) k/uL Monocytes # (0-1.0) k/uL Eosinophils # (0-0.7) k/uL Basophils # (0-0.2) k/uL PT (9.0-12.0) sec INR (<1.2) APTT (22.0-30.0) sec Sodium (137-145) mmol/L Potassium (3.5-5.1) mmol/L Chloride (98-107) mmol/L Carbon Dioxide (22-30) mmol/L Anion Gap mmol/L BUN (9-20) mg/dL Creatinine (0.66-1.25) mg/dL Est GFR (CKD-EPI)AfAm (>60 ml/min/1.73 sqM) Est GFR (CKD-EPI)NonAf (>60 ml/min/1.73 sqM) Glucose (74-99) mg/dL Calcium (8.4-10.2) mg/dL Magnesium (1.6-2.3) mg/dL Total Bilirubin (0.2-1.3) mg/dL AST (17-59) U/L ALT (4-49) U/L Alkaline Phosphatase (38-126) U/L Troponin I <0.012 (0.000-0.034) ng/mL Total Protein (6.3-8.2) g/dL Albumin (3.5-5.0) g/dL Critical Care Time Critical Care Time: Yes Total Critical Care Time: 35 Disposition Clinical Impression: Unstable angina Disposition: ADMITTED IP TO THIS HOSP Referrals: Reina Dunbar MD [Primary Care Provider] - 1-2 days Time of Disposition: 10:08
[2021-08-30 09:16] LABS: Basophils % (A) 1 %; Eosinophils # (A) 0.1 k/uL (0-0.7); Eosinophils % (A) 3 %; HCT 38.4 % (39.0-53.0); HGB 13.4 gm/dL (13.0-17.5); Lymphocytes # (A) 0.4 k/uL (1.0-4.8); Lymphocytes % (A) 9 %; MCH 33.1 pg (25.0-35.0); MCV 94.4 fL (80.0-100.0); Mean Platelet Volume 7.5; Monocytes # (A) 0.5 k/uL (0-1.0); Monocytes % (A) 11 %; Neutrophils % (A) 74 %; Platelet Count 108 k/uL (150-450); RBC 4.07 m/uL (4.30-5.90); RDW 15.1 % (11.5-15.5)
--- NOTE | 2021-08-30 09:26 | XR ---
EXAMINATION TYPE: XR chest 2V DATE OF EXAM: 08/30/2021 COMPARISON: X-ray dated 05/01/2021 HISTORY: Chest pain TECHNIQUE: Frontal and lateral views of the chest are obtained. FINDINGS: Questionable minimal atelectasis at the lateral aspect of the left lung base. Slightly congested pulm onary vasculature. Grossly unremarkable lungs otherwise. No sizable pleural effusion or pneumothorax. Increased cardiac transverse diameter. Degenerative changes of the thoracic spine. IMPRESSION: Slightly congested pulmonary vasculature, otherwise no definite acute pulmonary abnormality identifie d.
[2021-08-30 09:30] LABS: Albumin 4.1 g/dL (3.5-5.0); Calcium 8.6 mg/dL (8.4-10.2); Magnesium 1.6 mg/dL (1.6-2.3); Potassium 3.8 mmol/L (3.5-5.1); Total Protein 7.3 g/dL (6.3-8.2)
[2021-08-30 09:40] LABS: Partial Thromboplastin Time 23.4 sec (22.0-30.0); Prothrombin Time 10.8 sec (9.0-12.0)
[2021-08-30] MEDS ORDERED: HEPARIN SODIUM 1,000 UN/ML (10ML VL) IV ONE (10:05)
[2021-08-30] MEDS ORDERED: NITROGLYCERIN SL TABS 0.4 MG TAB SUBLINGUAL PRN (10:09)
[2021-08-30] MEDS ORDERED: HEPARIN SOD,PORK IN 0.45% NACL 25,000 UNIT in 0.45% NACL 1 250ML.BAG IV SCH (10:15)
[2021-08-30] MEDS ORDERED: NITROGLYCERIN OINT 1 INCH/GM PACKET TOPICAL SCH (12:00)
[2021-08-30] MEDS ORDERED: BACLOFEN 10 MG TAB PO PRN (12:50)
[2021-08-30] MEDS ORDERED: NALOXONE 0.4 MG/ML 1 ML VIAL IV PRN (12:52)
--- NOTE | 2021-08-30 12:53 | P.HPIM ---
History of Present Illness H&P Date: 08/30/21 Chief Complaint: chest pain 76-year-old male with a known history of coronary disease, post stenting of the RCA in 2018 in the LAD in 2001 history of hyperlipidemia hypertension abdominal aortic aneurysm who presents emergency Department complaining of chest pain. He quit smoking just 2 months ago. In april he was admitted for the same issues and had echo and stress test and both were negative. He states that he had 3 episodes of chest pain that felt like an ache, each lasted for few seconds. It was not exertional. Chest pain radiated to his upper back. Patient states he also was diaphoretic this morning and had shortness of breath. No nausea vomiting or diarrhea, no abdominal pain. No headache, lightheadedness or near syncopal episode. Patient denies any swelling to the legs or calf tenderness. EKG in the ER showed sinus venu. Trops negative. He was admitted for cardio evaluation. Review of Systems Complete review of system performed, pertinent positives as per HPI, otherwise negative Past Medical History Past Medical History: Coronary Artery Disease (CAD), Cancer, Chest Pain / Angina, COPD, GERD/Reflux, Hearing Disorder / Deafness, Hyperlipidemia, Hypertension, Myocardial Infarction ([place]) Additional Past Medical History / Comment(s): [place] x 2 (), colon cancer with surgery, kidney stone, chronic low back pain, [place] bilaterally with R ear worse, tinnitis L ear. AAA Last Myocardial Infarction Date:: 2010 History of Any Multi-Drug Resistant Organisms: None Reported Past Surgical History: Appendectomy, Bowel Resection, Heart Catheterization With Stent Additional Past Surgical History / Comment(s): bowel resection 2004, colonoscopy, 3 cardiac stents Past Anesthesia/Blood Transfusion Reactions: No Reported Reaction Date of Last Stent Placement:: 04/26/17 Past Psychological History: No Psychological Hx Reported Smoking Status: Current every day smoker Past Alcohol Use History: None Reported Past Drug Use History: None Reported - Past Family History Father Family Medical History: No Reported History Additional Family Medical History / Comment(s): Father at the age of 76yrs from "old age." Mother Family Medical History: Pneumonia Additional Family Medical History / Comment(s): Mother of pneumonia at the age of 68yrs. Brother(s) Family Medical History: Cancer Additional Family Medical History / Comment(s): He has one brother that is alive and has undergone CABG for coronary artery disease and has had one kidney removed. Patient has one brother who in a motor vehicle accident, one brother from a myocardial infarction at age 59, and one from colon cancer at age 70. Sister(s) Family Medical History: No Reported History Additional Family Medical History / Comment(s): He has 3 sisters that are healthy. Medications and Allergies Home Medications Medication Instructions Recorded Confirmed Type Omeprazole [PriLOSEC] 20 mg PO DAILY 04/25/14 08/30/21 History lisinopriL [Zestril] 20 mg PO BID #60 tab 02/06/18 08/30/21 Rx Latanoprost/Pf [Latanoprost 0.005% 1 drop BOTH EYES HS 04/27/19 08/30/21 History Eye Drop] carvediloL [Coreg] 12.5 mg PO BID 04/27/19 08/30/21 History Aspirin 81 mg PO DAILY #30 chew 04/29/19 08/30/21 Rx Atorvastatin [Lipitor] 20 mg PO DAILY 01/05/20 08/30/21 History Baclofen 10 mg PO HS PRN 10/21/20 08/30/21 History Isosorbide Mononitrate ER [Imdur] 60 mg PO BID 10/21/20 08/30/21 History hydroCHLOROthiazide [Hydrodiuril] 12.5 mg PO DAILY 01/07/21 08/30/21 History Allergies Allergy/AdvReac Type Severity Reaction Status Date / Time latex Allergy Rash/Hives/ Verified 08/30/21 08:40 blisters Penicillins Allergy Rash/Hives Verified 08/30/21 10:16 Physical Exam Vitals: Vital Signs Temp Pulse Resp BP Pulse Ox 08/30/21 12:22 60 16 134/77 98 08/30/21 11:29 70 16 118/72 98 08/30/21 10:30 65 14 122/66 97 08/30/21 09:33 74 16 116/61 96 08/30/21 08:38 97.9 F 80 20 155/73 95 Intake and Output 08/29/21 08/30/21 08/30/21 22:59 06:59 14:59 Other: Weight 77.111 kg Constitutional: No acute distress, conversant, pleasant Eyes:Anicteric sclerae, moist conjunctiva, no lid-lag, PERRLA, ENMT: Oropharynx clear, no erythema, exudates Neck: Supple, FROM, no masses, or JVD, No carotid bruits, No thyromegaly Lungs: Clear to auscultation, Clear to percussion, Normal respiratory effort, no accessory muscle use Cardiovascular: Heart regular in rate and rhythm, No murmurs, gallops, or rubs, No peripheral edema Abdominal: Soft, Nontender, no guarding, rebound or rigidity, Normoactive bowel sounds, No hepatomegaly, No splenomegaly, No palpable mass Skin: Normal temperature, tone, texture, turgor, no induration, No subcutaneous nodules, No rash, lesions, No ulcers Extremities: No digital cyanosis, No clubbing, Pedal pulses intact and s ymmetrical, Radial pulses intact and symmetrical, No calf tenderness Psychiatric: Alert and oriented to person, place and time, appropriate affect, intact judgement Neuro: Muscles Strength 5/5 in all 4 extremities, Sensation to light touch grossly present throughout, Cranial nerves II-XII grossly intact, no focal sensory deficits Results CBC & Chem 7: 08/30/21 09:02 08/30/21 09:02 Labs: Abnormal Lab Results - Last 24 Hours (Table) 08/30/21 08/30/21 Range/Units 09:02 09:02 RBC 4.07 L (4.30-5.90) m/uL Hct 38.4 L (39.0-53.0) % Plt Count 108 L (150-450) k/uL Lymphocytes # 0.4 L (1.0-4.8) k/uL Sodium 135 L (137-145) mmol/L Glucose 167 H (74-99) mg/dL Assessment and Plan Plan: Chest pain Admit to observation Telemetry Cycle troponins Cardiology evaluation History of coronary artery disease No acute [place] as of now Continue meds Essential hypertension COPD, GERD/Reflux Hyperlipidemia All stable Resume meds Admit to observation
[2021-08-30] MEDS ORDERED: ACETAMINOPHEN TAB 325 MG TAB PO PRN (19:57)
[2021-08-30] MEDS: carvediloL 12.5 MG TAB PO SCH (20:16)
[2021-08-30] MEDS: ISOSORBIDE MONONITRATE ER 60 MG TAB.ER.24H PO SCH (20:16)
[2021-08-30] MEDS: lisinopriL 20 MG TAB PO SCH (20:16)
[2021-08-30] MEDS ORDERED: LATANOPROST 0.005% OPHTH DROPS 2.5 ML BTL BOTH EYES SCH (21:00)
[2021-08-31] MEDS ORDERED: PANTOPRAZOLE 40 MG TABLET PO SCH (07:30)
[2021-08-31] MEDS: lisinopriL 20 MG TAB PO SCH (08:52)
[2021-08-31] MEDS: carvediloL 12.5 MG TAB PO SCH (08:52)
[2021-08-31] MEDS: ISOSORBIDE MONONITRATE ER 60 MG TAB.ER.24H PO SCH (08:52)
[2021-08-31] MEDS ORDERED: hydroCHLOROthiazide 12.5 MG CAP PO SCH (09:00)
[2021-08-31] MEDS ORDERED: ASPIRIN 325 MG TAB PO SCH (09:00)
[2021-08-31] MEDS ORDERED: ASPIRIN 81 MG PO SCH (09:00)
[2021-08-31] MEDS ORDERED: ATORVASTATIN 20 MG TAB PO SCH (09:00)
--- NOTE | 2021-08-31 09:18 | P.CRDCN ---
History of Present Illness History of present illness: HISTORY OF PRESENTING ILLNESS This is a 76-year old male with a past medical history significant for coronary artery disease with previous stenting of mid RCA 2010, proximal RCA in 2018 and LAD in 2001, hypertension, hyperlipidemia, COPD, abdominal aortic aneurysm, and nicotine dependence. Patient follows in the office with Dr. De Paz. We have been asked to see the patient in consultation for chest pain. Patient presents emergency department with complaints of cough, fever and chest pain. Yesterday he had episodes of midsternal chest pain. She describes it as achiness. It only lasts for a few seconds. Nonexertional, non-radiating. He does have associated shortness of breath and some diaphoresis. He also endorses a cough as well. Low grade fevers overnight. He denies any nausea, vomiting, abdominal pain, lightheadedness, dizziness, syncope, orthopnea, PND. He quit smoking 2 months ago. DIAGNOSTICS * EKG reveals sinus bradycardia, rate 53, occasional PVC, nonspecific T-wave abnormalities, no acute ischemia noted * Lexiscan stress test 04/2021- no stress induced ischemic change, prior infarct lateral wall of the distal portion, dyskinesia of the distal cardiac apex * Echocardiogram 04/2021 revealed EF of 5560 percent, mild mitral regurgitation, mild tricuspid regurgitation * Last Cardiac Catheterization 12/2019- revealed patent stent of the LAD and RCA with mild to moderate in-stent restenosis, mild to moderate disease in the left circumflex * Telemetry tracings indicate sinus mechanism with HR 60-70s * Chest xray no acute heart failure noted, minimal atelectasis at the left lateral aspect of the left lung base. Slightly congested pulmonary vascular. No acute pulmonary abnormality. * Laboratory reviewed, troponin negative 3, sodium 135, potassium 3.8, BUN 17, serum creatinine 1.1, magnesium 1.6, WBC 4.0, hemoglobin 13, platelets 108 * Current home medications include aspirin 81 mg daily, atorvastatin 20 mg daily, Imdur 60 mg twice a day, carvedilol 12.5 mg twice a day, hydrochlorothiazide 12.5 mg daily, lisinopril 20 mg twice a day REVIEW OF SYSTEMS At the time of my exam: CONSTITUTIONAL: +fever Denies chills. CARDIOVASCULAR:+chest pain, +shortness of breath, Denies orthopnea, PND or palpitations. RESPIRATORY: +cough. GASTROINTESTINAL: Denies abdominal pain, diarrhea, constipation, nausea or vomiting. MUSCULOSKELETAL: Denies myalgias. NEUROLOGIC: Denies numbness, tingling, headache or weakness. ENDOCRINE: Denies fatigue, weight change, polydipsia or polyurina. GENITOURINARY: Denies burning, hematuria or urgency with micturation. HEMATOLOGIC: Denies history of anemia or bleeding. PHYSICAL EXAMINATION Blood pressure 131/67, heart rate 63, afebrile, saturations 90% on room air CONSTITUTIONAL: No apparent distress. HEENT: Head is normocephalic. Pupils are equal, round. Sclerae anicteric. Mucous membranes of the mouth are moist. No JVD. No carotid bruit. CHEST EXAMINATION: Lungs are clear to auscultation. No chest wall tenderness is noted on palpation or with deep breathing. HEART EXAMINATION: Regular rate and rhythm. S1, S2 heard. No murmurs, gallops or rub. ABDOMEN: Soft, nontender. Positive bowel sounds. EXTREMITIES: 2+ peripheral pulses, no lower extremity edema and no calf tenderness. SKIN: warm, moist NEUROLOGIC EXAMINATION: Patient is awake, alert and oriented x3. ASSESSMENT Chest pain, atypical acute coronary syndrome has been ruled out Fever Cough Coronary artery disease with previous stenting of RCA in 2010 and 2017 and LAD in 2001 Hypertension Hyperlipidemia COPD Abdominal aortic aneurysm Nicotine dependence PLAN An acute coronary event has been ruled out with no EKG evidence of ischemia and negative cardiac enzymes. Recent Lexiscan stress test 04/2021 no evidence of reversible ischemia. No need to repeat echocardiogram at this time. Recommend infectious workup per primary Continue home cardiac medications as prescribed Follow up outpatient with Dr. De Paz We will follow the patient as needed. Please reach out if any questions or concerns. Thank you kindly for this consultation. Nurse practitioner note has been reviewed by physician. Signing provider agrees with the documented findings, assessment, and plan of care. Past Medical History Past Medical History: Coronary Artery Disease (CAD), Cancer, Chest Pain / Angina, COPD, GERD/Reflux, Hearing Disorder / Deafness, Hyperlipidemia, Hypertension, Myocardial Infarction ([place]) Additional Past Medical History / Comment(s): [place] x 2 (2001/2010), colon cancer with surgery, kidney stone, chronic low back pain, [place] bilaterally with R ear worse, tinnitis L ear. AAA Last Myocardial Infarction Date:: 2010 History of Any Multi-Drug Resistant Organisms: None Reported Past Surgical History: Appendectomy, Bowel Resection, Heart Catheterization With Stent Additional Past Surgical History / Comment(s): bowel resection 2004, colonoscopy, 3 cardiac stents Past Anesthesia/Blood Transfusion Reactions: No Reported Reaction Date of Last Stent Placement:: 04/26/17 Past Psychological History: No Psychological Hx Reported Smoking Status: Current every day smoker Past Alcohol Use History: None Reported Past Drug Use History: None Reported - Past Family History Father Family Medical History: No Reported History Additional Family Medical History / Comment(s): Father at the age of 76yrs from "old age." Mother Family Medical History: Pneumonia Additional Family Medical History / Comment(s): Mother of pneumonia at the age of 68yrs. Brother(s) Family Medical History: Cancer Additional Family Medical History / Comment(s): He has one brother that is alive and has undergone CABG for coronary artery disease and has had one kidney r emoved. Patient has one brother who in a motor vehicle accident, one brother from a myocardial infarction at age 59, and one from colon cancer at age 70. Sister(s) Family Medical History: No Reported History Additional Family Medical History / Comment(s): He has 3 sisters that are healthy. Medications and Allergies Home Medications Medication Instructions Recorded Confirmed Type Omeprazole [PriLOSEC] 20 mg PO DAILY 04/25/14 08/30/21 History lisinopriL [Zestril] 20 mg PO BID #60 tab 02/06/18 08/30/21 Rx Latanoprost/Pf [Latanoprost 0.005% 1 drop BOTH EYES HS 04/27/19 08/30/21 History Eye Drop] carvediloL [Coreg] 12.5 mg PO BID 04/27/19 08/30/21 History Aspirin 81 mg PO DAILY #30 chew 04/29/19 08/30/21 Rx Atorvastatin [Lipitor] 20 mg PO DAILY 01/05/20 08/30/21 History Baclofen 10 mg PO HS PRN 10/21/20 08/30/21 History Isosorbide Mononitrate ER [Imdur] 60 mg PO BID 10/21/20 08/30/21 History hydroCHLOROthiazide [Hydrodiuril] 12.5 mg PO DAILY 01/07/21 08/30/21 History Allergies Allergy/AdvReac Type Severity Reaction Status Date / Time latex Allergy Rash/Hives/ Verified 08/30/21 08:40 blisters Penicillins Allergy Rash/Hives Verified 08/30/21 10:16 Physical Exam Vitals: Vital Signs Temp Pulse Resp BP Pulse Ox 08/30/21 11:29 70 16 118/72 98 08/30/21 10:30 65 14 122/66 97 08/30/21 09:33 74 16 116/61 96 08/30/21 08:38 97.9 F 80 20 155/73 95 Intake and Output 08/29/21 08/30/21 08/30/21 22:59 06:59 14:59 Other: Weight 77.111 kg Results 08/30/21 09:02 08/30/21 09:02 Cardiac Enzymes 08/30/21 08/30/21 Range/Units 09:02 09:02 AST 41 (17-59) U/L Troponin I <0.012 (0.000-0.034) ng/mL Coagulation 08/30/21 Range/Units 09:02 PT 10.8 (9.0-12.0) sec APTT 23.4 (22.0-30.0) sec CBC 08/30/21 Range/Units 09:02 WBC 4.0 (3.8-10.6) k/uL RBC 4.07 L (4.30-5.90) m/uL Hgb 13.4 (13.0-17.5) gm/dL Hct 38.4 L (39.0-53.0) % Plt Count 108 L (150-450) k/uL Comprehensive Metabolic Panel 08/30/21 Range/Units 09:02 Sodium 135 L (137-145) mmol/L Potassium 3.8 (3.5-5.1) mmol/L Chloride 102 (98-107) mmol/L Carbon Dioxide 24 (22-30) mmol/L BUN 17 (9-20) mg/dL Creatinine 1.10 (0.66-1.25) mg/dL Glucose 167 H (74-99) mg/dL Calcium 8.6 (8.4-10.2) mg/dL AST 41 (17-59) U/L ALT 38 (4-49) U/L Alkaline Phosphatase 64 (38-126) U/L Total Protein 7.3 (6.3-8.2) g/dL Albumin 4.1 (3.5-5.0) g/dL Current Medications Generic Name Dose Route Start Last Admin Trade Name Freq PRN Reason Stop Dose Admin Aspirin 325 mg 08/31/21 09:00 Aspirin 325 Mg Tab PO DAILY [facility] Heparin Sodium/Sodium Chloride 250 mls @ 9.253 mls/hr 08/30/21 10:15 08/30/21 10:29 25,000 unit/ Sodium Chloride IV Not Given .Q24H [facility] Protocol 12 UNITS/KG/HR Nitroglycerin 0.4 mg 08/30/21 10:09 Nitroglycerin Sl Tabs 0.4 Mg Tab SUBLINGUAL Q5M PRN Chest Pain Nitroglycerin 1 inch 08/30/21 12:00 Nitroglycerin Oint 1 Inch/Gm Packet TOPICAL Q6HR [facility] Intake and Output 08/29/21 08/30/21 08/30/21 22:59 06:59 14:59 Other: Weight 77.111 kg Patient Weight 08/31/21 06:59 Weight 77.111 kg 08/30/21 09:02 08/30/21 09:02
[2021-08-31 09:50] LABS: LDL Cholesterol,Calculated 62.5 mg/dL (0.0-131.0)
[2021-08-31 14:11] VITALS: BP 114/64; PULSE 55; RESP 18; TEMP 97.9
--- NOTE | 2021-08-31 14:19 | P.DS ---
Providers Date of admission: 08/30/21 10:22 Expected date of discharge: 08/31/21 Attending physician: Angel Meyer MD Consults: 08/30/21 10:09 Consult Physician Urgent Consulting Provider: [facility] Consult Reason/Comments: Unstable angina Do you want consulting provider notified?: Yes Primary care physician: [facility] Course: 76-year-old male with a known history of coronary disease, post stenting of the RCA in 2018 in the LAD in 2001 history of hyperlipidemia hypertension abdominal aortic aneurysm who presents emergency Department complaining of chest pain. He quit smoking just 2 months ago. In april he was admitted for the same issues and had echo and stress test and both were negative. He states that he had 3 episodes of chest pain that felt like an ache, each lasted for few seconds. It was not exertional. Chest pain radiated to his upper back. Patient states he also was diaphoretic this morning and had shortness of breath. No nausea vomiting or diarrhea, no abdominal pain. No headache, lightheadedness or near syncopal episode. Patient denies any swelling to the legs or calf tenderness. EKG in the ER showed sinus venu. Trops negative. Rest of labs unremarkable Chest x-ray did not show any acute cardiopulmonary disease. He was admitted for cardio evaluation. Upon admission patient had his troponins cycled, it remained negative. He was evaluated by cardiology who did not think that he needed any further cardiac workup. Last night he spiked a fever, low-grade of 100.3. He continues to have cough a nd throat congestion. It was thought that his symptoms were likely related to upper respiratory tract infection/bronchitis. He was cleared by cardiology for discharge. Plan - Discharge Summary New Discharge Prescriptions: Continue Omeprazole [PriLOSEC] 20 mg PO DAILY lisinopriL [Zestril] 20 mg PO BID #60 tab Latanoprost/Pf [Latanoprost 0.005% Eye Drop] 1 drop BOTH EYES HS carvediloL [Coreg] 12.5 mg PO BID Aspirin 81 mg PO DAILY #30 chew Atorvastatin [Lipitor] 20 mg PO DAILY Isosorbide Mononitrate ER [Imdur] 60 mg PO BID hydroCHLOROthiazide [Hydrodiuril] 12.5 mg PO DAILY Baclofen 10 mg PO HS PRN PRN Reason: Muscle Spasm Discharge Medication List Omeprazole [PriLOSEC] 20 mg PO DAILY 04/25/14 [History] lisinopriL [Zestril] 20 mg PO BID #60 tab 02/06/18 [Rx] Latanoprost/Pf [Latanoprost 0.005% Eye Drop] 1 drop BOTH EYES HS 04/27/19 [History] carvediloL [Coreg] 12.5 mg PO BID 04/27/19 [History] Aspirin 81 mg PO DAILY #30 chew 04/29/19 [Rx] Atorvastatin [Lipitor] 20 mg PO DAILY 01/05/20 [History] Baclofen 10 mg PO HS PRN 10/21/20 [History] Isosorbide Mononitrate ER [Imdur] 60 mg PO BID 10/21/20 [History] hydroCHLOROthiazide [Hydrodiuril] 12.5 mg PO DAILY 01/07/21 [History] Follow up Appointment(s)/Referral(s): Pernell De Paz MD [STAFF PHYSICIAN] - 2 Weeks Reina Dunbar MD [Primary Care Provider] - 1-2 days
== END 2021-08-31 14:48 | disposition home or self-care (01) ==
LOC: EC 08:37 → 6NMEDSUR 10:22
PROVIDERS: ADMIT Internal Medicine; ATTEND Internal Medicine
DX: R07.89 Other chest pain (principal); R61 Generalized hyperhidrosis; R06.02 Shortness of breath; R50.9 Fever, unspecified; R05.9 Cough, unspecified; R00.1 Bradycardia, unspecified; R09.89 Other specified symptoms and signs involving the circulatory and respiratory systems; I25.10 Atherosclerotic heart disease of native coronary artery without angina pectoris; E78.5 Hyperlipidemia, unspecified; I10 Essential (primary) hypertension; I71.4 Abdominal aortic aneurysm, without rupture; J44.9 Chronic obstructive pulmonary disease, unspecified; H91.90 Unspecified hearing loss, unspecified ear; I25.2 Old myocardial infarction; G89.29 Other chronic pain; M54.50 Low back pain, unspecified; H93.12 Tinnitus, left ear; K21.9 Gastro-esophageal reflux disease without esophagitis; T82.855A Stenosis of coronary artery stent, initial encounter; I08.1 Rheumatic disorders of both mitral and tricuspid valves; E78.00 Pure hypercholesterolemia, unspecified; F17.200 Nicotine dependence, unspecified, uncomplicated; Z95.5 Presence of coronary angioplasty implant and graft; Z85.038 Personal history of other malignant neoplasm of large intestine; Z87.442 Personal history of urinary calculi; Z79.899 Other long term (current) drug therapy; Z79.82 Long term (current) use of aspirin; Z88.0 Allergy status to penicillin; Z91.040 Latex allergy status; Z83.6 Family history of other diseases of the respiratory system; Z84.1 Family history of disorders of kidney and ureter; Z80.0 Family history of malignant neoplasm of digestive organs; Z82.49 Family history of ischemic heart disease and other diseases of the circulatory system
CPT/HCPCS: 96374; 99291; 36415; 93005; 80061; 80053; 83735; 84484; 85025; 85610; 85730; 71046; G0378 ×2; J1644

== ENCOUNTER 2022-01-28 17:29 | Emergency (ER) | payer MEDICARE ==
[2022-01-28 18:00] VITALS: TEMP 98
--- NOTE | 2022-01-28 19:20 | ED ---
General Adult HPI - General Source: patient Mode of arrival: ambulatory Limitations: no limitations <Ralph Guerrero - Last Filed: 01/28/22 21:26> <Sulaiman Murray - Last Filed: 01/28/22 22:51> - General Chief complaint: Recheck/Abnormal Lab/Rx Stated complaint: hypertension Time Seen by Provider: 01/28/22 19:20 - History of Present Illness Initial comments: Patient presents to the ED complaining of having elevated blood pressure readings since this afternoon. Patient states that his highest reading was 208/96. Patient states that he has been taking all of his blood pressure medications as prescribed. Patient also admits to having mild heaviness "across my chest" about 6 or 7 hours ago today. Patient states that he took 2 baby aspirins and a nitroglycerin tab at that time. Patient denies having any chest pain/pressure or symptoms currently. Patient denies trauma or injury, fever or chills, headache, focal neuro deficit, visual changes, speech difficulty, neck/arm/jaw/back pain, pleuritic pain, dyspnea, cough or cold symptoms, palpitations, dizziness, nausea/vomiting/diaphoresis, abdominal pain, dysuria or urinary symptoms, leg or calf swelling or pain, or any other symptoms or complaints. (Ralph Guerrero) - Related Data Home Medications Medication Instructions Recorded Confirmed Omeprazole [PriLOSEC] 20 mg PO DAILY 04/25/14 01/28/22 Latanoprost/Pf [Latanoprost 0.005% 1 drop BOTH EYES HS 04/27/19 01/28/22 Eye Drop] carvediloL [Coreg] 12.5 mg PO BID 04/27/19 01/28/22 Atorvastatin [Lipitor] 20 mg PO DAILY 01/05/20 01/28/22 Isosorbide Mononitrate ER [Imdur] 120 mg PO DAILY 10/21/20 01/28/22 hydroCHLOROthiazide [Hydrodiuril] 12.5 mg PO DAILY 01/07/21 01/28/22 Previous Rx's Medication Instructions Recorded lisinopriL [Zestril] 20 mg PO BID #60 tab 02/06/18 Aspirin 81 mg PO DAILY #30 chew 04/29/19 Allergies Allergy/AdvReac Type Severity Reaction Status Date / Time latex Allergy Rash/Hives/ Verified 11/19/22 21:26 blisters Penicillins Allergy Rash/Hives Verified 01/28/22 21:26 Review of Systems ROS Other: All systems not noted in ROS Statement are negative. <Ralph Guerrero - Last Filed: 01/28/22 21:26> ROS Other: All systems not noted in ROS Statement are negative. <Sulaiman Murray - Last Filed: 01/28/22 22:51> ROS Statement: Those systems with pertinent positive or pertinent negative responses have been documented in the HPI. Past Medical History Past Medical History: Coronary Artery Disease (CAD), Cancer, Chest Pain / Angina, COPD, GERD/Reflux, Hearing Disorder / Deafness, Hyperlipidemia, Hypertension, Myocardial Infarction (PR) Additional Past Medical History / Comment(s): PR x 2 (), colon cancer with surgery, kidney stone, chronic low back pain, [place] bilaterally with R ear worse, tinnitis L ear. AAA Last Myocardial Infarction Date:: 2010 History of Any Multi-Drug Resistant Organisms: None Reported Past Surgical History: Appendectomy, Bowel Resection, Heart Catheterization With Stent Additional Past Surgical History / Comment(s): bowel resection 2004, colonoscopy, 3 cardiac stents Past Anesthesia/Blood Transfusion Reactions: No Reported Reaction Date of Last Stent Placement:: 04/26/17 Past Psychological History: No Psychological Hx Reported Smoking Status: Current every day smoker Past Alcohol Use History: None Reported Past Drug Use History: None Reported - Past Family History Father Family Medical History: No Reported History Additional Family Medical History / Comment(s): Father at the age of 76yrs from "old age." Mother Family Medical History: Pneumonia Additional Family Medical History / Comment(s): Mother of pneumonia at the age of 68yrs. Brother(s) Family Medical History: Cancer Additional Family Medical History / Comment(s): He has one brother that is alive and has undergone CABG for coronary artery disease and has had one kidney removed. Patient has one brother who in a motor vehicle accident, one brother from a myocardial infarction at age 59, and one from colon cancer at age 70. Sister(s) Family Medical History: No Reported History Additional Family Medical History / Comment(s): He has 3 sisters that are healthy. <Ralph Guerrero - Last Filed: 01/28/22 21:26> General Exam Limitations: no limitations General appearance: alert, in no apparent distress Head exam: Present: atraumatic, normocephalic Eye exam: Present: normal appearance, EOMI ENT exam: Present: mucous membranes moist Neck exam: Present: other (Trachea is in midline) Respiratory exam: Present: normal lung sounds bilaterally. Absent: respiratory distress, wheezes, rales, rhonchi, stridor, chest wall tenderness Cardiovascular Exam: Present: regular rate, normal rhythm, normal heart sounds, other (Normal radial pulses bilaterally) GI/Abdominal exam: Present: soft. Absent: distended, tenderness, guarding Extremities exam: Present: other (Negative Homans sign bilaterally). Absent: tenderness, pedal edema, calf tenderness Neurological exam: Present: alert, oriented X3. Absent: motor sensory deficit Psychiatric exam: Present: normal affect, normal mood Skin exam: Present: warm, dry, intact, normal color <Ralph Guerrero - Last Filed: 01/28/22 21:26> Course <Ralph Guerrero - Last Filed: 01/28/22 21:26> Vital Signs 01/28/22 01/28/22 01/28/22 17:57 19:13 21:15 Temperature 98.0 F Pulse Rate 68 62 70 Respiratory 18 16 18 Rate Blood Pressure 153/76 172/86 190/125 O2 Sat by Pulse 97 97 97 Oximetry 01/28/22 01/28/22 21:40 22:42 Temperature Pulse Rate 66 66 Respiratory 12 16 Rate Blood Pressure 203/112 183/96 O2 Sat by Pulse 97 98 Oximetry - Reevaluation(s) Reevaluation #1: 01/28/22 21:26 Patient's labs are fairly unremarkable. Patient has been asymptomatic while in the ED. Patient's blood pressure remains elevated at this time. Patient has been treated with his nightly blood pressure medication doses, as well as a dose of oral clonidine. Patient was endorsed to Dr. Murray (secondary shift change). Dr. Murray to monitor the patient's blood pressure while in the ED and to take over care of the patient at this time. (Ralph Guerrero) EKG Findings - EKG Comments: EKG Findings:: ED physician interpretation: Normal sinus rhythm, ventricular rate of 62 bpm, normal OR and QRS intervals, normal QT interval, nonspecific T- wave abnormality, normal axis <CesarRalph - Last Filed: 01/28/22 21:26> Medical Decision Making - Lab Data Result diagrams: 01/28/22 20:10 01/28/22 20:10 <Eanmikaylamary graceRalph - Last Filed: 01/28/22 21:26> - Lab Data Result diagrams: 01/28/22 20:10 01/28/22 20:10 <Sulaiman Murray - Last Filed: 01/28/22 22:51> - Medical Decision Making Patient is cleared for discharge home except for elevated hypertension by the prior emergency department physician. Patient did not take his nighttime medications and was given doses of these. He was signed out to me pending r eevaluation the patient's blood pressure. On reevaluation, patient's blood pressure is trending downwards, it is currently 183/96. He is asymptomatic. I do believe it is safe for him to be discharged home at this time. He was in agreement this plan. I instructed the patient to follow up with their PCP in the next 1-3 days. I explained that the patient should return to the emergency department if they experience any worsening symptoms. Strict return precautions were discussed with the patient. The patient expressed understanding of these instructions. I answered all questions that the patient had. The patient was discharged home in good condition with their prescriptions and follow up information. (Sulaiman Murray) - Lab Data Lab Results 01/28/22 01/28/22 01/28/22 Range/Units 20:10 20:10 20:10 WBC 5.6 (3.8-10.6) k/uL RBC 4.44 (4.30-5.90) m/uL Hgb 14.4 (13.0-17.5) gm/dL Hct 40.7 (39.0-53.0) % MCV 91.6 (80.0-100.0) fL MCH 32.5 (25.0-35.0) pg MCHC 35.4 (31.0-37.0) g/dL RDW 14.7 (11.5-15.5) % Plt Count 124 L (150-450) k/uL MPV 7.7 Neutrophils % 53 % Lymphocytes % 35 % Monocytes % 7 % Eosinophils % 3 % Basophils % 1 % Neutrophils # 3.0 (1.3-7.7) k/uL Lymphocytes # 1.9 (1.0-4.8) k/uL Monocytes # 0.4 (0-1.0) k/uL Eosinophils # 0.2 (0-0.7) k/uL Basophils # 0.0 (0-0.2) k/uL PT 10.5 (9.0-12.0) sec INR 1.0 (<1.2) APTT 24.5 (22.0-30.0) sec Sodium 136 L (137-145) mmol/L Potassium 4.2 (3.5-5.1) mmol/L Chloride 106 (98-107) mmol/L Carbon Dioxide 26 (22-30) mmol/L Anion Gap 4 mmol/L BUN 22 H (9-20) mg/dL Creatinine 1.11 (0.66-1.25) mg/dL Est GFR (CKD-EPI)AfAm 73 (>60 ml/min/1.73 sqM) Est GFR (CKD-EPI)NonAf 63 (>60 ml/min/1.73 sqM) Glucose 109 H (74-99) mg/dL Calcium 8.5 (8.4-10.2) mg/dL Total Bilirubin 0.9 (0.2-1.3) mg/dL AST 32 (17-59) U/L ALT 41 (4-49) U/L Alkaline Phosphatase 71 (38-126) U/L Troponin I (0.000-0.034) ng/mL Total Protein 7.1 (6.3-8.2) g/dL Albumin 4.2 (3.5-5.0) g/dL 01/28/22 Range/Units 20:10 WBC (3.8-10.6) k/uL RBC (4.30-5.90) m/uL Hgb (13.0-17.5) gm/dL Hct (39.0-53.0) % MCV (80.0-100.0) fL MCH (25.0-35.0) pg MCHC (31.0-37.0) g/dL RDW (11.5-15.5) % Plt Count (150-450) k/uL MPV Neutrophils % % Lymphocytes % % Monocytes % % Eosinophils % % Basophils % % Neutrophils # (1.3-7.7) k/uL Lymphocytes # (1.0-4.8) k/uL Monocytes # (0-1.0) k/uL Eosinophils # (0-0.7) k/uL Basophils # (0-0.2) k/uL PT (9.0-12.0) sec INR (<1.2) APTT (22.0-30.0) sec Sodium (137-145) mmol/L Potassium (3.5-5.1) mmol/L Chloride (98-107) mmol/L Carbon Dioxide (22-30) mmol/L Anion Gap mmol/L BUN (9-20) mg/dL Creatinine (0.66-1.25) mg/dL Est GFR (CKD-EPI)AfAm (>60 ml/min/1.73 sqM) Est GFR (CKD-EPI)NonAf (>60 ml/min/1.73 sqM) Glucose (74-99) mg/dL Calcium (8.4-10.2) mg/dL Total Bilirubin (0.2-1.3) mg/dL AST (17-59) U/L ALT (4-49) U/L Alkaline Phosphatase (38-126) U/L Troponin I <0.012 (0.000-0.034) ng/mL Total Protein (6.3-8.2) g/dL Albumin (3.5-5.0) g/dL Disposition <Ralph Guerrero - Last Filed: 01/28/22 21:26> Is patient prescribed a controlled substance at d/c from ED?: No Time of Disposition: 22:40 <Sulaiman Murray - Last Filed: 01/28/22 22:51> Clinical Impression: HTN (hypertension) Disposition: HOME SELF-CARE Condition: Good Referrals: Reina Dunbar MD [Primary Care Provider] - 1-2 days
[2022-01-28 20:25] LABS: Basophils % (A) 1 %; Eosinophils # (A) 0.2 k/uL (0-0.7); Eosinophils % (A) 3 %; HCT 40.7 % (39.0-53.0); HGB 14.4 gm/dL (13.0-17.5); Lymphocytes # (A) 1.9 k/uL (1.0-4.8); Lymphocytes % (A) 35 %; MCH 32.5 pg (25.0-35.0); MCHC 35.4 g/dL (31.0-37.0); MCV 91.6 fL (80.0-100.0); Mean Platelet Volume 7.7; Monocytes # (A) 0.4 k/uL (0-1.0); Monocytes % (A) 7 %; Neutrophils % (A) 53 %; Platelet Count 124 k/uL (150-450); RBC 4.44 m/uL (4.30-5.90); RDW 14.7 % (11.5-15.5); WBC 5.6 k/uL (3.8-10.6)
[2022-01-28 20:41] LABS: Albumin 4.2 g/dL (3.5-5.0); Calcium 8.5 mg/dL (8.4-10.2); Potassium 4.2 mmol/L (3.5-5.1); Total Bilirubin 0.9 mg/dL (0.2-1.3); Total Protein 7.1 g/dL (6.3-8.2)
[2022-01-28 20:42] LABS: Partial Thromboplastin Time 24.5 sec (22.0-30.0); Prothrombin Time 10.5 sec (9.0-12.0)
[2022-01-28] MEDS ORDERED: cloNIDine HCL 0.1 MG TAB PO STA (21:03)
--- NOTE | 2022-01-28 21:07 | XR ---
EXAMINATION TYPE: XR chest 2V DATE OF EXAM: 01/28/2022 COMPARISON: 08/30/2021 HISTORY: Chest pain TECHNIQUE: 2 views FINDINGS: Heart is normal. Lungs are clear. Diaphragm is normal. Bony thorax is intact. No pleural ef fusion. IMPRESSION: Normal chest. No adverse change
[2022-01-28] MEDS ORDERED: lisinopriL 20 MG TAB PO STA (21:25)
[2022-01-28] MEDS ORDERED: carvediloL 12.5 MG TAB PO STA (21:25)
[2022-01-28] MEDS ORDERED: ISOSORBIDE MONONITRATE ER 60 MG TAB.ER.24H PO STA (21:25)
[2022-01-28 21:40] VITALS: PULSE 66
[2022-01-28 22:43] VITALS: BP 183/96; RESP 16
== END 2022-01-28 22:55 | disposition home or self-care (01) ==
LOC: EC 17:29
DX: I11.9 Hypertensive heart disease without heart failure (principal); I25.10 Atherosclerotic heart disease of native coronary artery without angina pectoris; I25.2 Old myocardial infarction; K21.9 Gastro-esophageal reflux disease without esophagitis; E78.5 Hyperlipidemia, unspecified; J44.9 Chronic obstructive pulmonary disease, unspecified; Z88.0 Allergy status to penicillin; Z79.82 Long term (current) use of aspirin; Z79.83 Long term (current) use of bisphosphonates; Z79.84 Long term (current) use of oral hypoglycemic drugs
CPT/HCPCS: 36415; 71046; 80053; 84484; 85025; 85610; 85730; 93005; 99284

== ENCOUNTER → 2022-07-03 | Outpatient (CLI) | payer MEDICARE ==
[2022-07-03 15:35] LABS: Basophils # (A) 0.02 X 10*3/uL (0.00-0.10); Basophils % (A) 0.3 %; Eosinophils # (A) 0.14 X 10*3/uL (0.04-0.35); Eosinophils % (A) 2.3 %; HCT 43.5 % (39.6-50.0); HGB 14.2 g/dL (13.0-17.0); Immature Grans, Automated 1.5 %; Lymphocytes # (A) 1.74 X 10*3/uL (0.90-5.00); Lymphocytes % (A) 28.7 %; MCH 31.6 pg (27.0-32.0); MCHC 32.6 g/dL (32.0-37.0); MCV 96.9 fL (80.0-97.0); Monocytes # (A) 0.53 X 10*3/uL (0.20-1.00); Monocytes % (A) 8.7 %; NRBC Per 100 WBC 0 /100 WBCS (0.0-0.0); Neutrophils # (A) 3.55 X 10*3/uL (1.80-7.70); Neutrophils % (A) 58.5 %; Platelet Count 167 X 10*3/uL (140-440); RBC 4.49 X 10*6/uL (4.40-5.60); RDW 14.2 % (11.5-14.5); WBC 6.07 X 10*3/uL (4.50-10.00)
[2022-07-03 15:42] LABS: ALT 48 U/L (10-49); AST 33 U/L (14-35); African American GFR (CKD) 79.7 (60.0-200.0); Albumin 4.1 g/dL (3.8-4.9); Alkaline Phosphatase 73 U/L (41-126); BUN/Creat Ratio 18.35 Ratio (12.00-20.00); Blood Urea Nitrogen 18.9 mg/dL (9.0-27.0); Calcium 8.9 mg/dL (8.7-10.3); Chloride 105 mmol/L (96-109); Chol/HDL Ratio 4.43 Ratio; Glucose 150 mg/dL (70-110); LDL Cholesterol,Calculated 80.7 mg/dL (0.0-131.0); Non-African American GFR(CKD) 68.8 (60.0-200.0); Potassium 4.5 mmol/L (3.5-5.5); Sodium 141 mmol/L (135-145); Total Protein 7.1 g/dL (6.2-8.2)
== END | disposition home or self-care (01) ==
LOC: LABWHC1 08:08
PROVIDERS: ATTEND Internal Medicine Interventional Cardiology
DX: Z00.00 Encounter for general adult medical examination without abnormal findings (principal); E78.2 Mixed hyperlipidemia
CPT/HCPCS: 80061; 80053; 84443; 85025; 83036; 36415; G0103

== ENCOUNTER 2022-08-02 06:17 | Day surgery (SDC) | payer MEDICARE ==
[~2022-08-02 06:17] MED LIST: ALPRAZolam 0.25 MG TAB PO PRN; ALPRAZolam 0.5 MG TAB PO PRN; NITROGLYCERIN SL TABS 0.4 MG TAB SUBLINGUAL PRN; SODIUM CHLORIDE 0.9% 1,000 ML in EMPTY BAG 1 BAG IV SCH
[2022-08-02] MEDS ORDERED: SODIUM CHLORIDE 0.9% 1,000 ML IV ONE (06:37)
[2022-08-02 06:46] VITALS: RESP 16; TEMP 97.8
[2022-08-02] MEDS ORDERED: ASPIRIN 325 MG TAB PO ONE (07:00)
[2022-08-02] MEDS ORDERED: amLODIPine 5 MG TAB ONE (07:07)
[2022-08-02] MEDS ORDERED: VERAPAMIL 2.5 MG/ML 2 ML AMP ONE ×2 (07:24→07:35)
[2022-08-02] MEDS ORDERED: HEPARIN SODIUM 1,000 UN/ML (10ML VL) ONE (07:29)
[2022-08-02] MEDS ORDERED: fentaNYL (PF) 50 MCG/ML 2 ML AMP ONE (07:30)
[2022-08-02] MEDS ORDERED: LIDOCAINE 1% INJ 10MG/ML (5 ML VIAL-PF) SQ ONE (07:37)
[2022-08-02] MEDS ORDERED: fentaNYL (PF) 50 MCG/ML 2 ML AMP IV ONE (07:37)
[2022-08-02] MEDS ORDERED: VERAPAMIL SYRINGE (5 MG/10 ML) INTRAARTER ONE (07:40)
[2022-08-02] MEDS: HEPARIN SODIUM 1,000 UN/ML (10ML VL) IV ONE ×2 (07:46→07:58)
[2022-08-02] MEDS ORDERED: NITROGLYCERIN 1000MCG/10ML SYRINGE INTRACORON ONE (08:07)
[2022-08-02] MEDS ORDERED: IOPAMIDOL-370 100ML BTL INJ ONE ×2 (08:10→08:11)
[2022-08-02] MEDS ORDERED: RX INFO: IV CONTRAST WAS GIVEN 1 EACH MISC MISCELLANE PRN (08:27)
[2022-08-02] MEDS ORDERED: SODIUM CHLORIDE 0.9% 1,000 ML IV SCH (08:30)
--- NOTE | 2022-08-02 08:37 | P.CARDCATH ---
Date of Procedure: 08/02/22 Description of Procedure: Cardiac Catheterization: The patient is a 77-year-old male with known history of hypertension, hyperlipidemia, chronic tobacco use and CAD who has been complaining of progressive dyspnea and had an abnormal MPI. Recommendations were made regarding cardiac catheterization, the risks and the complications were discussed with the patient who is in full understanding and agreement. Procedure Description: Patient was brought to blood bank laboratory technician in fasting semi-sedated state after receiving Fentanyl and Benadryl achieiving moderate conscious sedated state. Using Xylocaine Anesthesia and Seldinger technique, a 6-[place] sheath was introduced in the left radial artery . Subsequently, selective coronary angiography was performed using a 5-[place] 4 bend Ariel catheter. Multiple views of the coronary artery including hemiaxial views were obtained. The 5-[place] pigtail catheter was used to cross the aortic valve and LVEDP was calculated. After removing the catheters a 6-[place] 0.75 AL guiding catheter was introduced and after cannulating the right coronary ostium an Omni Doppler flow wire was introduced and positioned in the distal RCA. IFR was measured after normalization. The measurement was 0.92 consistent with non- hemodynamically significant lesion. Following that, catheter and sheath were removed. Hemostasis was obtained with deployment of TR band . There was no immediate complication. Patient was returned to room in stable condition. Of note, the patient received a total of 5000 units of intravenous heparin as well as intra-arterial verapamil. Findings: Left main: This is a large size vessel, bifurcating into LAD and left circumflex, left main has no high-grade stenosis LAD: This is a large size vessel reaching to the apex giving rise to 2 diagonal branch. The mid segment of the LAD has a stent with about 30-40% instent restenosis no progression compared to 2020. Left circumflex: This is a nondominant vessel, moderate in caliber, giving rise to 2 obtuse marginal branch. The mid left circumflex has a 40-50% plaque with no progression compared to 2020 RCA: This is a large dominant vessel, bifurcating distally to PDA and PLV. The stented segment in the proximal RCA is patent with mild intimal restenosis. The mid RCA has a 30% plaque. The distal RCA has a tubular lesion of 50-60% stenosis, the rest of the vessel has no high-grade stenosis Left Ventriculogram: Not performed Hemodynamics: There was no gradient across the aortic valve , LVEDP was 6-8 mmHg Conclusion: 1. Patent stent in the LAD with mild in-stent restenosis 2. Moderate disease in the distal RCA with normal physiological evaluation consistent with non-hemodynamic significant lesion 3. Mild disease in the mid left circumflex 4. Normal LVEDP Recommendations: In view of the findings have recommended continued medical therapy with the aggressive coronary risk modification initiated. The findings and the recommendations were discussed with the patient and the family and they were in full understanding and agreement. Duration of sedation is 33 minutes.
[2022-08-02] MEDS ORDERED: ISOSORBIDE MONONITRATE ER 60 MG TAB.ER.24H PO SCH ×2 (09:00→21:00)
[2022-08-02] MEDS ORDERED: lisinopriL 20 MG TAB PO SCH ×2 (09:00→21:00)
[2022-08-02] MEDS ORDERED: ACETAMINOPHEN TAB 500 MG TAB PO ONE (10:30)
[2022-08-02 10:35] VITALS: PULSE 62
[2022-08-02 11:40] VITALS: BP 128/72
[2022-08-02] MEDS ORDERED: carvediloL 12.5 MG TAB PO SCH (17:30)
[2022-08-02] MEDS ORDERED: ATORVASTATIN 20 MG TAB PO SCH (21:00)
[2022-08-03] MEDS ORDERED: ASPIRIN 81 MG PO SCH (09:00)
[2022-08-03] MEDS ORDERED: amLODIPine 5 MG TAB PO SCH (09:00)
== END 2022-08-02 11:55 | disposition home or self-care (01) ==
LOC: CATHCVL 06:17
PROVIDERS: ATTEND Internal Medicine Interventional Cardiology
DX: I25.10 Atherosclerotic heart disease of native coronary artery without angina pectoris (principal); I10 Essential (primary) hypertension; E78.5 Hyperlipidemia, unspecified; F17.200 Nicotine dependence, unspecified, uncomplicated
CPT/HCPCS: 93458; 93799; C1887; C1769 ×3; C1894; J2001; J3010; J1644; Q9967

== ENCOUNTER → 2023-03-15 | Outpatient (CLI) | payer MEDICARE ==
[2023-03-15 11:34] LABS: Blood Urea Nitrogen 20.9 mg/dL (9.0-27.0); Chloride 101 mmol/L (96-109); Chol/HDL Ratio 4.54 Ratio; Glucose 147 mg/dL (70-110); LDL Cholesterol,Calculated 77.1 mg/dL (0.0-131.0); Potassium 4.8 mmol/L (3.5-5.5); Sodium 140 mmol/L (135-145)
[2023-03-15 11:35] LABS: ALT 58 U/L (10-49); AST 36 U/L (14-35); Albumin 4.4 g/dL (3.8-4.9); Albumin/Globulin Ratio 1.33 Ratio (1.60-3.17); Alkaline Phosphatase 74 U/L (41-126); Calcium 9.7 mg/dL (8.7-10.3); Carbon Dioxide 27.7 mmol/L (21.6-31.8); Globulin 3.3 g/dL (1.6-3.3); Total Bilirubin 0.9 mg/dL (0.3-1.2); Total Protein 7.7 g/dL (6.2-8.2)
== END | disposition home or self-care (01) ==
LOC: LABWHC1 08:05
PROVIDERS: ATTEND Nurse Practitioner Adult Health
DX: I10 Essential (primary) hypertension (principal); E78.2 Mixed hyperlipidemia
CPT/HCPCS: 36415; 80053; 80061

== ENCOUNTER 2023-05-15 15:10 | Emergency (ER) | payer MEDICARE ==
[2023-05-15 15:34] VITALS: TEMP 98.9
--- NOTE | 2023-05-15 15:46 | ED ---
URI HPI - General Chief Complaint: Neuro Symptoms/Deficit Stated Complaint: Numbness Hands Time Seen by Provider: 05/15/23 15:29 Source: patient, RN notes reviewed, old records reviewed, Caregiver Mode of arrival: wheelchair Limitations: no limitations - History of Present Illness Initial Comments: This is a 78-year-old male to the ER for evaluation of not feeling well weakness altered mental status cough and congestion with persistent fever. Concern for coronavirus or other illness here in the emergency department patient was also having earache and headache MD Complaint: fever, cough, sore throat, rhinorrhea, nasal congestion, sinus pain -: days(s) Severity: moderate Severity scale (1-10): 5 Quality: dull Consistency: intermittent Improves With: nothing Worsens With: nothing Associated Symptoms: fever, chills, myalgias, shortness of breath Treatments Prior to Arrival: none - Related Data Home Medications Medication Instructions Recorded Confirmed Omeprazole [PriLOSEC] 20 mg PO QAM 04/25/14 05/15/23 Latanoprost/Pf [Latanoprost 0.005% 1 drop BOTH EYES HS 04/27/19 05/15/23 Eye Drop] carvediloL [Coreg] 12.5 mg PO BID-W/MEALS 04/27/19 05/15/23 Atorvastatin [Lipitor] 20 mg PO HS 01/05/20 05/15/23 hydroCHLOROthiazide [Hydrodiuril] 12.5 mg PO DAILY 01/07/21 05/16/23 Aspirin 81 mg PO [facility] 07/31/22 05/15/23 Vit C/E/Zn/Coppr/Lutein/Zeaxan 1 cap PO [facility] 07/31/22 05/15/23 [Preservision Areds 2 Softgel] Albuterol Inhaler [Ventolin Hfa 1 - 2 puff INHALATION RT-Q6H PRN 08/02/22 05/15/23 Inhaler] lisinopriL [Zestril] 20 mg PO BID 08/02/22 05/15/23 Fluticasone Nasal [place] [Flonase 2 spray EA NOSTRIL DAILY 05/15/23 05/15/23 Nasal [place]] Isosorbide Mononitrate ER [Imdur] 120 mg PO DAILY 05/15/23 05/15/23 Allergies Allergy/AdvReac Type Severity Reaction Status Date / Time latex Allergy Rash/Hives/ Verified 05/15/23 15:14 blisters Penicillins Allergy Rash/Hives Verified 05/15/23 17:33 Review of Systems ROS Statement: Those systems with pertinent positive or pertinent negative responses have been documented in the HPI. ROS Other: All systems not noted in ROS Statement are negative. Past Medical History Past Medical History: Coronary Artery Disease (CAD), Cancer, Chest Pain / Angina, COPD, GERD/Reflux, Hearing Disorder / Deafness, Hyperlipidemia, Hypertension, Myocardial Infarction (NE), Vascular Disorder Additional Past Medical History / Comment(s): NE x 2 (), colon cancer with surgery, kidney stone, chronic low back pain, [place] bilaterally with R ear worse, tinnitis L ear, AAA being monitored. Last Myocardial Infarction Date:: 2010 History of Any Multi-Drug Resistant Organisms: None Reported Past Surgical History: Appendectomy, Bowel Resection, Heart Catheterization With Stent Additional Past Surgical History / Comment(s): bowel resection 2004, colonoscopy, 3 cardiac stents Past Anesthesia/Blood Transfusion Reactions: No Reported Reaction Additional Past Anesthesia/Blood Transfusion Reaction / Comment(s): Pt has never had a blood transfusion. Date of Last Stent Placement:: 04/26/17 Past Psychological History: No Psychological Hx Reported Smoking Status: Current every day smoker - Past Family History Mother Family Medical History: Pneumonia Additional Family Medical History / Comment(s): Mother of pneumonia at the age of 68yrs. Brother(s) Family Medical History: Cancer, Coronary Artery Disease (CAD), Renal Disease Additional Family Medical History / Comment(s): He has one brother that is alive and has undergone CABG for coronary artery disease and has had one kidney removed. Patient has one brother who in a motor vehicle accident, one brother from a myocardial infarction at age 59, and one from colon cancer at age 70. Sister(s) Family Medical History: No Reported History Additional Family Medical History / Comment(s): He has 3 sisters that are healthy. General Exam Limitations: no limitations General appearance: alert, in no apparent distress, anxious, in distress Head exam: Present: atraumatic, normocephalic, normal inspection Eye exam: Present: normal appearance, PERRL, EOMI. Absent: scleral icterus, conjunctival injection, periorbital swelling ENT exam: Present: normal exam, mucous membranes moist Neck exam: Present: normal inspection. Absent: tenderness, meningismus, lymphadenopathy Respiratory exam: Present: normal lung sounds bilaterally. Absent: respiratory distress, wheezes, rales, rhonchi, stridor Cardiovascular Exam: Present: regular rate, normal rhythm, normal heart sounds. Absent: systolic murmur, diastolic murmur, rubs, gallop, clicks GI/Abdominal exam: Present: soft, normal bowel sounds. Absent: distended, tenderness, guarding, rebound, rigid Extremities exam: Present: normal inspection, full ROM, normal capillary refill. Absent: tenderness, pedal edema, joint swelling, calf tenderness Back exam: Present: normal inspection Neurological exam: Present: alert, oriented X3, CN II-XII intact Psychiatric exam: Present: normal affect, normal mood Skin exam: Present: warm, dry, intact, normal color. Absent: rash Course Vital Signs 05/15/23 05/15/23 15:11 18:22 Temperature 98.9 F Pulse Rate 82 83 Respiratory 16 18 Rate Blood Pressure 148/72 169/83 O2 Sat by Pulse 96 96 Oximetry - Reevaluation(s) Reevaluation #1: 05/15/23 16:34 Medical records reviewed Reevaluation #2: 05/15/23 16:34 Patient symptoms improved Reevaluation #3: Patient informed of results and questions answered Reevaluation #4: Was pt. sent in by a medical professional or institution (, PA, SEWING TEACHER, urgent care, hospital, or long-term...) When possible be specific @ -no Did you speak to anyone other than the patient for history (EMS, parent, family, police, friend...)? What history was obtained from this source @ -no Did you review nursing and triage notes (agree or disagree)? Why? @ -agree Are old charts reviewed (outside hosp., previous admission, EMS record, old EKG, old radiological studies, urgent care reports/EKG's, long-term records)? Report findings @ -yes Differential Diagnosis (chest pain, altered mental status, abdominal pain women, abdominal pain men, vaginal bleeding, weakness, fever, dyspnea, syncope, headache, dizziness, GI bleed, back pain, seizure, CVA, palpatations, mental health, musculoskeletal)? @ -prior EKG interpreted by me (3pts min.). @ -yes X-rays interpreted by me (1pt min.). @ -yes negative for acute disease CT interpreted by me (1pt min.). @ -no U/S interpreted by me (1pt. min.). @ -no What testing was considered but not performed or refused? (CT, X-rays, U/S, labs)? Why? @ -none What meds were considered but not given or refused? Why? @ -none Did you discuss the management of the patient with other professionals (professionals i.e. DrShira, PA, SEWING TEACHER, lab, RT, psych nurse, social work instructor, certified low vision therapist, teacher, agricultural technical officer, case management social worker)? Give summary @ -no Was smoking cessation discussed for >3mins.? @ -no Was critical care preformed (if so, how long)? @ -no Were there social determinants of health that impacted care today? How? (Homelessness, low income, unemployed, alcoholism, drug addiction, transportation, low edu. Level, literacy, decrease access to med. care, shelter, rehab)? @ -none Was there de-escalation of care discussed even if they declined (Discuss DNR or withdrawal of care, Hospice)? DNR status @ -no What co-morbidities impacted this encounter? (DM, HTN, Smoking, COPD, CAD, Cancer, CVA, ARF, Chemo, Hep., AIDS, mental health diagnosis, sleep apnea, morbid obesity)? @ -none Was patient admitted / discharged? Hospital course, mention meds given and route, prescriptions, significant lab abnormalities, going to OR and other pertinent info. @ - 78-year-old male to ER for evaluation of fever positive for coronavirus here in the ER, patient otherwise feels well can be discharged home Discharge Undiagnosed new problem with uncertain prognosis? @ -no Drug Therapy requiring intensive monitoring for toxicity (Heparin, Nitro, Insulin, Cardizem)? @ -no Were any procedures done? @ -no Diagnosis/symptom? @ -Coronavirus and fever Acute, or Chronic, or Acute on Chronic? @ -Acute Uncomplicated (without systemic symptoms) or Complicated (systemic symptoms)? @ -Complicated Side effects of treatment? @ -no Exacerbation, Progression, or Severe Exacerbation? @ -exacerbation Poses a threat to life or bodily function? How? (Chest pain, [place], [place], pneumonia, PE, COPD, DKA, ARF, appy, cholecystitis, CVA, Diverticulitis, Homicidal, Suicidal, threat to staff... and all critical care pts) @ -yes significant illness Reevaluation #5: Differential Dyspnea: Coronary syndrome, arrhythmia, tamponade, asthma, COPD, pulmonary embolism, pneumonia, pneumothorax, pulmonary effusion, anaphylaxis, diabetic ketoacidosis, flailed chest, pulmonary contusion, diaphragmatic rupture, anemia, neuromuscular, this is not meant to be an all-inclusive list. Medical Decision Making - Medical Decision Making 78-year-old male to ER for evaluation of fever positive for coronavirus here in the ER, patient otherwise feels well can be discharged home - Lab Data Result diagrams: 05/15/23 15:53 05/15/23 15:53 Lab Results 05/15/23 05/15/23 05/15/23 Range/Units 15:53 15:53 15:53 WBC 5.6 (3.8-10.6) k/uL RBC 4.08 L (4.30-5.90) m/uL Hgb 13.3 (13.0-17.5) gm/dL Hct 38.3 L (39.0-53.0) % MCV 94.0 (80.0-100.0) fL MCH 32.7 (25.0-35.0) pg MCHC 34.8 (31.0-37.0) g/dL RDW 15.1 (11.5-15.5) % Plt Count 124 L (150-450) k/uL MPV 7.7 Neutrophils % 80 % Lymphocytes % 8 % Monocytes % 8 % Eosinophils % 2 % Basophils % 1 % Neutrophils # 4.4 (1.3-7.7) k/uL Lymphocytes # 0.4 L (1.0-4.8) k/uL Monocytes # 0.5 (0-1.0) k/uL Eosinophils # 0.1 (0-0.7) k/uL Basophils # 0.0 (0-0.2) k/uL Poikilocytosis Slight PT 10.6 (10.0-12.5) sec INR 1.0 (<1.2) APTT 24.4 (22.0-30.0) sec Sodium (137-145) mmol/L Potassium (3.5-5.1) mmol/L Chloride (98-107) mmol/L Carbon Dioxide (22-30) mmol/L Anion Gap mmol/L BUN (9-20) mg/dL Creatinine (0.66-1.25) mg/dL Est GFR (CKD-EPI)AfAm (>60 ml/min/1.73 sqM) Est GFR (CKD-EPI)NonAf (>60 ml/min/1.73 sqM) Glucose (74-99) mg/dL Plasma Lactic Acid Shaka (0.7-2.0) mmol/L Calcium (8.4-10.2) mg/dL Phosphorus (2.5-4.5) mg/dL Magnesium (1.6-2.3) mg/dL Total Bilirubin (0.2-1.3) mg/dL AST (17-59) U/L ALT (4-49) U/L Alkaline Phosphatase (38-126) U/L Troponin I (0.000-0.034) ng/mL NT-Pro-B Natriuret Pep pg/mL Total Protein (6.3-8.2) g/dL Albumin (3.5-5.0) g/dL Urine Color Urine Appearance (Clear) Urine pH (5.0-8.0) Ur Specific [place] (1.001-1.035) Urine Protein (Negative) Urine Glucose (UA) (Negative) Urine Ketones (Negative) Urine Blood (Negative) Urine Nitrite (Negative) Urine Bilirubin (Negative) Urine Urobilinogen (<2.0) mg/dL Ur Leukocyte Esterase (Negative) Influenza Type A (PCR) Not Detected (Not Detectd) Influenza Type B (PCR) Not Detected (Not Detectd) RSV (PCR) Not Detected (Not Detectd) SARS-CoV-2 (PCR) Detected A (Not Detectd) 05/15/23 05/15/23 05/15/23 Range/Units 15:53 15:53 15:53 WBC (3.8-10.6) k/uL RBC (4.30-5.90) m/uL Hgb (13.0-17.5) gm/dL Hct (39.0-53.0) % MCV (80.0-100.0) fL MCH (25.0-35.0) pg MCHC (31.0-37.0) g/dL RDW (11.5-15.5) % Plt Count (150-450) k/uL MPV Neutrophils % % Lymphocytes % % Monocytes % % Eosinophils % % Basophils % % Neutrophils # (1.3-7.7) k/uL Lymphocytes # (1.0-4.8) k/uL Monocytes # (0-1.0) k/uL Eosinophils # (0-0.7) k/uL Basophils # (0-0.2) k/uL Poikilocytosis PT (10.0-12.5) sec INR (<1.2) APTT (22.0-30.0) sec Sodium 134 L (137-145) mmol/L Potassium 4.2 (3.5-5.1) mmol/L Chloride 103 (98-107) mmol/L Carbon Dioxide 26 (22-30) mmol/L Anion Gap 5 mmol/L BUN 18 (9-20) mg/dL Creatinine 0.96 (0.66-1.25) mg/dL Est GFR (CKD-EPI)AfAm 87 (>60 ml/min/1.73 sqM) Est GFR (CKD-EPI)NonAf 75 (>60 ml/min/1.73 sqM) Glucose 107 H (74-99) mg/dL Plasma Lactic Acid Shaka 1.3 (0.7-2.0) mmol/L Calcium 8.5 (8.4-10.2) mg/dL Phosphorus 2.8 (2.5-4.5) mg/dL Magnesium 1.5 L (1.6-2.3) mg/dL Total Bilirubin 0.8 (0.2-1.3) mg/dL AST 56 (17-59) U/L ALT 64 H (4-49) U/L Alkaline Phosphatase 83 (38-126) U/L Troponin I (0.000-0.034) ng/mL NT-Pro-B Natriuret Pep 580 pg/mL Total Protein 7.1 (6.3-8.2) g/dL Albumin 3.9 (3.5-5.0) g/dL Urine Color Colorless Urine Appearance Clear (Clear) Urine pH 5.5 (5.0-8.0) Ur Specific [place] 1.007 (1.001-1.035) Urine Protein Negative (Negative) Urine Glucose (UA) Negative (Negative) Urine Ketones Negative (Negative) Urine Blood Negative (Negative) Urine Nitrite Negative (Negative) Urine Bilirubin Negative (Negative) Urine Urobilinogen <2.0 (<2.0) mg/dL Ur Leukocyte Esterase Negative (Negative) Influenza Type A (PCR) (Not Detectd) Influenza Type B (PCR) (Not Detectd) RSV (PCR) (Not Detectd) SARS-CoV-2 (PCR) (Not Detectd) 05/15/23 Range/Units 15:53 WBC (3.8-10.6) k/uL RBC (4.30-5.90) m/uL Hgb (13.0-17.5) gm/dL Hct (39.0-53.0) % MCV (80.0-100.0) fL MCH (25.0-35.0) pg MCHC (31.0-37.0) g/dL RDW (11.5-15.5) % Plt Count (150-450) k/uL MPV Neutrophils % % Lymphocytes % % Monocytes % % Eosinophils % % Basophils % % Neutrophils # (1.3-7.7) k/uL Lymphocytes # (1.0-4.8) k/uL Monocytes # (0-1.0) k/uL Eosinophils # (0-0.7) k/uL Basophils # (0-0.2) k/uL Poikilocytosis PT (10.0-12.5) sec INR (<1.2) APTT (22.0-30.0) sec Sodium (137-145) mmol/L Potassium (3.5-5.1) mmol/L Chloride (98-107) mmol/L Carbon Dioxide (22-30) mmol/L Anion Gap mmol/L BUN (9-20) mg/dL Creatinine (0.66-1.25) mg/dL Est GFR (CKD-EPI)AfAm (>60 ml/min/1.73 sqM) Est GFR (CKD-EPI)NonAf (>60 ml/min/1.73 sqM) Glucose (74-99) mg/dL Plasma Lactic Acid Shaka (0.7-2.0) mmol/L Calcium (8.4-10.2) mg/dL Phosphorus (2.5-4.5) mg/dL Magnesium (1.6-2.3) mg/dL Total Bilirubin (0.2-1.3) mg/dL AST (17-59) U/L ALT (4-49) U/L Alkaline Phosphatase (38-126) U/L Troponin I <0.012 (0.000-0.034) ng/mL NT-Pro-B Natriuret Pep pg/mL Total Protein (6.3-8.2) g/dL Albumin (3.5-5.0) g/dL Urine Color Urine Appearance (Clear) Urine pH (5.0-8.0) Ur Specific [place] (1.001-1.035) Urine Protein (Negative) Urine Glucose (UA) (Negative) Urine Ketones (Negative) Urine Blood (Negative) Urine Nitrite (Negative) Urine Bilirubin (Negative) Urine Urobilinogen (<2.0) mg/dL Ur Leukocyte Esterase (Negative) Influenza Type A (PCR) (Not Detectd) Influenza Type B (PCR) (Not Detectd) RSV (PCR) (Not Detectd) SARS-CoV-2 (PCR) (Not Detectd) - EKG Data -: EKG Interpreted by Me (EKG is sinus 77 MD 166 QRS 98 QTc 407) - Radiology Data Radiology results: report reviewed (Chest x-ray and CT brain IAC negative for acute disease), image reviewed Disposition Clinical Impression: Fever, Coronavirus infection Disposition: HOME SELF-CARE Instructions (If sedation given, give patient instructions): Coronavirus Disease 2019 (COVID-19) Is patient prescribed a controlled substance at d/c from ED?: No Referrals: Reina Dunbar MD [Primary Care Provider] - 1-2 days Time of Disposition: 18:00
[2023-05-15] MEDS: SODIUM CHLORIDE 0.9% 1,000 ML IV STA (16:20)
[2023-05-15] MEDS: ONDANSETRON 4 MG/2 ML VIAL IVP STA (16:20)
[2023-05-15] MEDS: CIPROFLOXACIN-DEXAMETH 0.3-0.1% DROPS 7.5 ML BTL LEFT EAR STA (16:21)
[2023-05-15] MEDS: KETOROLAC 15 MG/ML 1 ML VIAL IVP STA (16:21)
--- NOTE | 2023-05-15 16:24 | XR ---
EXAMINATION TYPE: XR chest 1V portable DATE OF EXAM: 05/15/2023 COMPARISON: 01/28/2022. HISTORY: Fever. TECHNIQUE: Single frontal view of the chest is obtained. FINDINGS: There is no focal air space opacity, pleural effusion, or pneumothorax seen. The cardiac silhouette size is within normal limits. The osseous structures are intact. IMPRESSION: No acute process.
[2023-05-15 16:27] LABS: Basophils % (A) 1 %; Eosinophils # (A) 0.1 k/uL (0-0.7); Eosinophils % (A) 2 %; HCT 38.3 % (39.0-53.0); HGB 13.3 gm/dL (13.0-17.5); Lymphocytes # (A) 0.4 k/uL (1.0-4.8); Lymphocytes % (A) 8 %; MCH 32.7 pg (25.0-35.0); MCHC 34.8 g/dL (31.0-37.0); Mean Platelet Volume 7.7; Monocytes # (A) 0.5 k/uL (0-1.0); Monocytes % (A) 8 %; Neutrophils # (A) 4.4 k/uL (1.3-7.7); Neutrophils % (A) 80 %; Platelet Count 124 k/uL (150-450); Poikilocytosis Slight; RBC 4.08 m/uL (4.30-5.90); RDW 15.1 % (11.5-15.5); WBC 5.6 k/uL (3.8-10.6)
[2023-05-15 16:36] LABS: Partial Thromboplastin Time 24.4 sec (22.0-30.0); Prothrombin Time 10.6 sec (10.0-12.5)
[2023-05-15 16:51] LABS: ALT 64 U/L (4-49); AST 56 U/L (17-59); African American GFR (CKD) 87 (>60 ml/min/1.73 sqM); Albumin 3.9 g/dL (3.5-5.0); Alkaline Phosphatase 83 U/L (38-126); Anion Gap 5 mmol/L; Blood Urea Nitrogen 18 mg/dL (9-20); Calcium 8.5 mg/dL (8.4-10.2); Carbon Dioxide 26 mmol/L (22-30); Chloride 103 mmol/L (98-107); Glucose 107 mg/dL (74-99); Magnesium 1.5 mg/dL (1.6-2.3); Non-African American GFR(CKD) 75 (>60 ml/min/1.73 sqM); Phosphorus 2.8 mg/dL (2.5-4.5); Potassium 4.2 mmol/L (3.5-5.1); Sodium 134 mmol/L (137-145); Total Bilirubin 0.8 mg/dL (0.2-1.3); Total Protein 7.1 g/dL (6.3-8.2)
[2023-05-15 16:59] LABS: NT-Pro-B-Type Natriuretic Pept 580 pg/mL
[2023-05-15 17:19] LABS: Appearance,Urine Clear (Clear); Bilirubin,Urine Negative (Negative); Blood,Urine Negative (Negative); Color,Urine Colorless; Glucose,Urine (UA) Negative (Negative); Ketones,Urine Negative (Negative); Leukocyte Esterase,Urine Negative (Negative); Nitrite,Urine Negative (Negative); PH, Urine 5.5 (5.0-8.0); Protein,Urine Negative (Negative); Specific Gravity,Urine 1.007 (1.001-1.035); Urobilinogen,Urine <2.0 mg/dL (<2.0)
--- NOTE | 2023-05-15 17:56 | CT ---
EXAMINATION TYPE: CT brain wo con, CT iac wo con CT DLP: 1468.5 ( combined) mGycm, Automated exposure control for dose reduction was used. DATE OF EXAM: 05/15/2023 5:25 PM COMPARISON: None CLINICAL INDICATION:Male, 78 years old with history of R arm numbness, R arm numbness (accession [id number]), L ear pain (accession [id number]) TECHNIQUE: Brain: Axial CT images of the brain were obtained with coronal and sagittal reformats created and rev iewed. Axial imaging through the temporal bones with sagittal coronal re-imaging. Contrast used: None. Oral contrast used: None. FINDINGS: Brain: Extra-axial spaces: No abnormal extra-axial fluid collections. Ventricular system: Dilatation in proportion to cerebral atrophy. Cerebral parenchyma: Cerebral atrophy. No acute intraparenchymal hemorrhage or mass effect. The vazquez -white junction is well differentiated. Scattered hypoattenuating areas are seen within the white mat ter. Cerebellum: Unremarkable. Mass effect: No evidence of midline shift. Intracranial vasculature: Atherosclerotic calcifications of the intracranial vessels. Soft tissues: Normal. Calvarium/osseous structures: No depressed skull fracture. Paranasal sinuses and mastoid air cells: Mild scattered paranasal sinus disease worse in the right ma xillary sinus. Visualized orbits: Orbital contents are intact. FINDINGS: Right Temporal Bone: External Ear: The external auditory canal is unremarkable, The tympanic membrane is present and unrem arkable. Middle Ear: Almost complete opacification of the middle ear. The ossicles demonstrate a normal appear ance. Prussak's space clear is opacified scutum is intact. There is no evidence of osseous erosion a nd the tegmen tympani is intact. Inner Ear: Cochlea, vestibule and semi circular canals are unremarkable. No evidence of carotid karlie l dehiscence. Two and a half turns of the cochlea are identified. The vestibular aqueduct is not enl arged. Mastoid Air Cells: The mastoid air cells are opacified. The tegmen mastoideum is thin and possibly er beth through.. The aditus ad antrum is opacified. Internal Auditory Canal: The internal auditory canal is unremarkable. Internal Auditory Canal: The internal auditory canal is unremarkable. Left Temporal Bone: External Ear: The external auditory canal is unremarkable, The tympanic membrane is present and unrem arkable. Middle Ear: Almost complete opacification of the middle ear. The ossicles demonstrate a normal appear ance. Prussak's space clear is opacified scutum is intact. There is no evidence of osseous erosion a nd the tegmen tympani is intact. Inner Ear: Cochlea, vestibule and semi circular canals are unremarkable. No evidence of carotid karlie l dehiscence. Two and a half turns of the cochlea are identified. The vestibular aqueduct is not enl arged. Mastoid Air Cells: The mastoid air cells are opacified. The tegmen mastoideum is thin and possibly er beth through.. The aditus ad antrum is opacified. Internal Auditory Canal: The internal auditory canal is unremarkable. IMPRESSION: Normal internal auditory canal study. IMPRESSION: 1. No acute intracranial process. 2. Nonspecific white matter changes, likely secondary to chronic small vessel ischemic disease. 3. Bilateral mastoid air cell and middle ear effusions correlate for otomastoiditis. 4. Thinning of the tegmen mastoideum bilaterally. Consider further evaluation with MRI IAC with IV co ntrast.
[2023-05-15 18:40] VITALS: BP 169/83; PULSE 83; RESP 18
== END 2023-05-15 18:23 | disposition home or self-care (01) ==
LOC: EC 15:10
DX: U07.1 COVID-19 (principal); I10 Essential (primary) hypertension; I25.10 Atherosclerotic heart disease of native coronary artery without angina pectoris; I25.2 Old myocardial infarction; J44.9 Chronic obstructive pulmonary disease, unspecified; K21.9 Gastro-esophageal reflux disease without esophagitis; E78.5 Hyperlipidemia, unspecified; Z79.899 Other long term (current) drug therapy; Z79.82 Long term (current) use of aspirin; Z88.0 Allergy status to penicillin; Z91.040 Latex allergy status
CPT/HCPCS: 36415; 93005; 83880; 80053; 83605; 83735; 84100; 84484; 85025; 85610; 85730; 81003; 87636; 71045; 70450; 70480; 99285; 96374; 96375; 96361; J2405; J1885

== ENCOUNTER 2023-05-23 22:23 | Observation (INO) | payer MEDICARE ==
--- NOTE | 2023-05-23 23:05 | ED ---
General Adult HPI - General Chief complaint: Chest Pain Stated complaint: CHEST PAIN Time Seen by Provider: 05/23/23 22:34 Source: patient, EMS Mode of arrival: EMS Limitations: no limitations - History of Present Illness Initial comments: Dictation was produced using [employer] dictation software. please excuse any grammatical, word or spelling errors. Chief Complaint: 78-year-old male presents to the emergency department chest pain History of Present Illness: Patient is an 78-year-old male presents emergency department chest pain. He has history of stents coronary artery disease myocardial infarction. Patient states that for the last 3 to 4 hours she has been having chest pain. States that it is like a sharp pressure to his substernal chest. States that he does have some associated arm pain. Patient states his symptoms feel like previous heart attack. He was treated by EMS was given nitro and aspirin. States that the nitro improved his symptoms. Denies any associated diaphoresis. The ROS documented in this emergency department record has been reviewed and confirmed by me. Those systems with pertinent positive or negative responses have been documented in the HPI. All other systems are other negative and/or noncontributory. - Related Data Home Medications Medication Instructions Recorded Confirmed Omeprazole [PriLOSEC] 20 mg PO QAM 04/25/14 05/15/23 Latanoprost/Pf [Latanoprost 0.005% 1 drop BOTH EYES HS 04/27/19 05/15/23 Eye Drop] carvediloL [Coreg] 12.5 mg PO BID-W/MEALS 04/27/19 05/15/23 Atorvastatin [Lipitor] 20 mg PO HS 01/05/20 05/15/23 hydroCHLOROthiazide [Hydrodiuril] 12.5 mg PO DAILY 01/07/21 05/16/23 Aspirin 81 mg PO QAM 07/31/22 05/15/23 Vit C/E/Zn/Coppr/Lutein/Zeaxan 1 cap PO QAM 07/31/22 05/15/23 [Preservision Areds 2 Softgel] Albuterol Inhaler [Ventolin Hfa 1 - 2 puff INHALATION RT-Q6H PRN 08/02/22 05/15/23 Inhaler] lisinopriL [Zestril] 20 mg PO BID 08/02/22 05/15/23 Fluticasone Nasal [place] [Flonase 2 spray EA NOSTRIL DAILY 05/15/23 05/15/23 Nasal [place]] Isosorbide Mononitrate ER [Imdur] 120 mg PO DAILY 05/15/23 05/15/23 Allergies Allergy/AdvReac Type Severity Reaction Status Date / Time latex Allergy Rash/Hives/ Verified 05/15/23 15:14 blisters Penicillins Allergy Rash/Hives Verified 05/15/23 17:33 Review of Systems ROS Statement: Those systems with pertinent positive or pertinent negative responses have been documented in the HPI. ROS Other: All systems not noted in ROS Statement are negative. Past Medical History Past Medical History: Coronary Artery Disease (CAD), Cancer, Chest Pain / Angina, COPD, GERD/Reflux, Hearing Disorder / Deafness, Hyperlipidemia, Hypertension, Myocardial Infarction ([place]), Vascular Disorder Additional Past Medical History / Comment(s): [place] x 2 (), colon cancer with surgery, kidney stone, chronic low back pain, EEK bilaterally with R ear worse, tinnitis L ear, AAA being monitored. Last Myocardial Infarction Date:: 2010 History of Any Multi-Drug Resistant Organisms: None Reported Past Surgical History: Appendectomy, Bowel Resection, Heart Catheterization With Stent Additional Past Surgical History / Comment(s): bowel resection 2004, colonoscopy, 3 cardiac stents Past Anesthesia/Blood Transfusion Reactions: No Reported Reaction Additional Past Anesthesia/Blood Transfusion Reaction / Comment(s): Pt has never had a blood transfusion. Date of Last Stent Placement:: 04/26/17 Past Psychological History: No Psychological Hx Reported Smoking Status: Current every day smoker - Past Family History Mother Family Medical History: Pneumonia Additional Family Medical History / Comment(s): Mother of pneumonia at the age of 68yrs. Brother(s) Family Medical History: Cancer, Coronary Artery Disease (CAD), Renal Disease Additional Family Medical History / Comment(s): He has one brother that is alive and has undergone CABG for coronary artery disease and has had one kidney removed. Patient has one brother who in a motor vehicle accident, one brother from a myocardial infarction at age 59, and one from colon cancer at age 70. Sister(s) Family Medical History: No Reported History Additional Family Medical History / Comment(s): He has 3 sisters that are healthy. General Exam - General Exam Comments Initial Comments: PHYSICAL EXAM: General Impression: Alert and oriented x3, not in acute distress HEENT: Normocephalic atraumatic, extra-ocular movements intact, pupils equal and reactive to light bilaterally, mucous membranes moist. Cardiovascular: Heart regular rate and rhythm Chest: Able to complete full sentences, no retractions, no tachypnea Abdomen: abdomen soft, non-tender, non-distended, no organomegaly Musculoskeletal: Pulses present and equal in all extremities, no peripheral edema Motor: no focal deficits noted Neurological: CN II-XII grossly intact, no focal motor or sensory deficits noted Skin: Intact with no visualized rashes Psych: Normal affect and mood Limitations: no limitations Course Vital Signs 05/23/23 22:24 Temperature 98.7 F Pulse Rate 69 Respiratory 18 Rate Blood Pressure 140/99 O2 Sat by Pulse 97 Oximetry EKG Findings - EKG Comments: EKG Findings:: My EKG interpretation: Ventricular rate 70, sinus rhythm,. 163, cures 91, QTc 421. No SC prolongation, no QTC prolongation, no ST or T-wave changes noted. Overall, this EKG is unremarkable Medical Decision Making - Medical Decision Making Was pt. sent in by a medical professional or institution (, PA, [facility]Y, urgent care, hospital, or shelter...) When possible be specific @ -No Did you speak to anyone other than the patient for history (EMS, parent, family, police, friend...)? What history was obtained from this source @ -No Did you review nursing and triage notes (agree or disagree)? Why? @ -I reviewed and agree with nursing and triage notes Were old charts reviewed (outside hosp., previous admission, EMS record, old EKG, old radiological studies, urgent care reports/EKG's, shelter records)? Report findings @ -Previous cardiac cath reviewed from July 2022 showed patent LAD stent Differential Diagnosis (chest pain, altered mental status, abdominal pain women, abdominal pain men, vaginal bleeding, musculoskeletal, weakness, fever, dyspn ea, syncope, headache, dizziness, GI bleed, back pain, seizure, CVA, palpatations, mental health)? @ -Differential Chest Pain: Stable Angina, Unstable Angina, STEMI, NSTEMI Aortic Dissection, Pneumothorax, Musculoskeletal, Esophageal Spasm GERD, Cholecystitis, Pancreatitis, Zoster, this is not meant to be an all-inclusive list. EKG interpreted by me (3pts min.). @ -See above X-rays interpreted by me (1pt min.). @ -Chest x-ray shows no acute processes CT interpreted by me (1pt min.). @ -None done U/S interpreted by me (1pt. min.). @ -None done What testing was considered but not performed or refused? (CT, X-rays, U/S, labs)? Why? @ -None What meds were considered but not given or refused? Why? @ -None Did you discuss the management of the patient with other professionals (neomy mendez i.e. , PA, [facility]ADY, lab, RT, psych nurse, social service liaison, marketing strategy lead, teacher, traffic officer, vocational case manager)? Give summary @ -Case discussed with hospitalist for admission Was smoking cessation discussed for >3mins.? @ -No Was critical care preformed (if so, how long)? @ -No Were there social determinants of health that impacted care today? How? (Homelessness, low income, unemployed, alcoholism, drug addiction, transportation, low edu. Level, literacy, decrease access to med. care, custodial, rehab)? @ -No Was there de-escalation of care discussed even if they declined (Discuss DNR or withdrawal of care, Hospice)? DNR status @ -No What co-morbidities impacted this encounter? (DM, HTN, Smoking, COPD, CAD, Cancer, CVA, ARF, Chemo, Hep., AIDS, mental health diagnosis, sleep apnea, morbid obesity)? @ -None Was patient admitted / discharged? Hospital course, mention meds given and route, prescriptions, significant lab abnormalities, going to OR and other pertinent info. @ -6-year-old male with past medical history of myocardial infarction presents to the emergency department with atypical chest pain typical features. Abscess significant risk with history of AZ and complaint that his symptoms feel similar to when he was diagnosed with AZ in the past. Vital signs stable. EKG is un remarkable. Laboratory evaluation is unremarkable. Given patient's high risk he will be admitted observation for serial troponins, cardiac monitoring and cardiology consultation Undiagnosed new problem with uncertain prognosis? @ -No Drug Therapy requiring intensive monitoring for toxicity (Heparin, Nitro, Insulin, Cardizem)? @ -No Were any procedures done? @ -No Diagnosis/symptom? Acute, or Chronic, or Acute on Chronic? Uncomplicated (without systemic symptoms) or Complicated (systemic symptoms)? @ -Chest pain Side effects of treatment? @ -No Exacerbation, Progression, or Severe Exacerbation? @ -No Poses a threat to life or bodily function? How? (Chest pain, [place], [place], pneumonia, PE, COPD, DKA, ARF, appy, cholecystitis, CVA, Diverticulitis, Homicidal, Suicidal, threat to staff... and all critical care pts) @ -yes - Lab Data Result diagrams: 05/23/23 23:04 05/23/23 23:04 Lab Results 05/23/23 05/23/23 05/23/23 Range/Units 23:04 23:04 23:04 WBC 7.9 (3.8-10.6) k/uL RBC 4.29 L (4.30-5.90) m/uL Hgb 13.5 (13.0-17.5) gm/dL Hct 39.3 (39.0-53.0) % MCV 91.8 (80.0-100.0) fL MCH 31.6 (25.0-35.0) pg MCHC 34.4 (31.0-37.0) g/dL RDW 15.6 H (11.5-15.5) % Plt Count 192 D (150-450) k/uL MPV 8.1 Neutrophils % 58 % Lymphocytes % 28 % Monocytes % 9 % Eosinophils % 3 % Basophils % 0 % Neutrophils # 4.6 (1.3-7.7) k/uL Lymphocytes # 2.2 (1.0-4.8) k/uL Monocytes # 0.7 (0-1.0) k/uL Eosinophils # 0.2 (0-0.7) k/uL Basophils # 0.0 (0-0.2) k/uL Poikilocytosis Slight PT 10.5 (10.0-12.5) sec INR 1.0 (<1.2) APTT 22.3 (22.0-30.0) sec Sodium 135 L (137-145) mmol/L Potassium 3.7 (3.5-5.1) mmol/L Chloride 102 (98-107) mmol/L Carbon Dioxide 23 (22-30) mmol/L Anion Gap 10 mmol/L BUN 20 (9-20) mg/dL Creatinine 0.82 (0.66-1.25) mg/dL Est GFR (CKD-EPI)AfAm >90 (>60 ml/min/1.73 sqM) Est GFR (CKD-EPI)NonAf 84 (>60 ml/min/1.73 sqM) Glucose 170 H (74-99) mg/dL Calcium 8.6 (8.4-10.2) mg/dL Magnesium 1.6 (1.6-2.3) mg/dL Total Bilirubin 0.9 (0.2-1.3) mg/dL AST 35 (17-59) U/L ALT 45 (4-49) U/L Alkaline Phosphatase 87 (38-126) U/L Troponin I (0.000-0.034) ng/mL Total Protein 7.1 (6.3-8.2) g/dL Albumin 3.7 (3.5-5.0) g/dL 05/23/23 Range/Units 23:04 WBC (3.8-10.6) k/uL RBC (4.30-5.90) m/uL Hgb (13.0-17.5) gm/dL Hct (39.0-53.0) % MCV (80.0-100.0) fL MCH (25.0-35.0) pg MCHC (31.0-37.0) g/dL RDW (11.5-15.5) % Plt Count (150-450) k/uL MPV Neutrophils % % Lymphocytes % % Monocytes % % Eosinophils % % Basophils % % Neutrophils # (1.3-7.7) k/uL Lymphocytes # (1.0-4.8) k/uL Monocytes # (0-1.0) k/uL Eosinophils # (0-0.7) k/uL Basophils # (0-0.2) k/uL Poikilocytosis PT (10.0-12.5) sec INR (<1.2) APTT (22.0-30.0) sec Sodium (137-145) mmol/L Potassium (3.5-5.1) mmol/L Chloride (98-107) mmol/L Carbon Dioxide (22-30) mmol/L Anion Gap mmol/L BUN (9-20) mg/dL Creatinine (0.66-1.25) mg/dL Est GFR (CKD-EPI)AfAm (>60 ml/min/1.73 sqM) Est GFR (CKD-EPI)NonAf (>60 ml/min/1.73 sqM) Glucose (74-99) mg/dL Calcium (8.4-10.2) mg/dL Magnesium (1.6-2.3) mg/dL Total Bilirubin (0.2-1.3) mg/dL AST (17-59) U/L ALT (4-49) U/L Alkaline Phosphatase (38-126) U/L Troponin I <0.012 (0.000-0.034) ng/mL Total Protein (6.3-8.2) g/dL Albumin (3.5-5.0) g/dL Disposition Clinical Impression: Chest pain Disposition: ADMITTED IP TO THIS [facility] Condition: Fair Referrals: Reina Dunbar MD [Primary Care Provider] - 1-2 days Decision Time: 00:27
[2023-05-23 23:13] LABS: Basophils % (A) 0 %; Eosinophils # (A) 0.2 k/uL (0-0.7); Eosinophils % (A) 3 %; HCT 39.3 % (39.0-53.0); HGB 13.5 gm/dL (13.0-17.5); Lymphocytes # (A) 2.2 k/uL (1.0-4.8); Lymphocytes % (A) 28 %; MCH 31.6 pg (25.0-35.0); MCHC 34.4 g/dL (31.0-37.0); MCV 91.8 fL (80.0-100.0); Mean Platelet Volume 8.1; Monocytes # (A) 0.7 k/uL (0-1.0); Monocytes % (A) 9 %; Neutrophils # (A) 4.6 k/uL (1.3-7.7); Neutrophils % (A) 58 %; Poikilocytosis Slight; RBC 4.29 m/uL (4.30-5.90); RDW 15.6 % (11.5-15.5); WBC 7.9 k/uL (3.8-10.6)
[2023-05-23 23:16] LABS: Platelet Count 192 k/uL (150-450)
--- NOTE | 2023-05-23 23:21 | XR ---
EXAMINATION TYPE: XR chest 2V DATE OF EXAM: 05/23/2023 COMPARISON: Chest x-ray May 15, 2023 HISTORY: Chest pain. TECHNIQUE: Frontal and lateral views of the chest are obtained. FINDINGS: There is no focal air space opacity, pleural effusion, or pneumothorax seen. The cardiac silhouette size is stable and upper limits of normal. Overlying EKG leads are redemonstrated. The o sseous structures are intact. IMPRESSION: No acute cardiopulmonary process. No significant change from prior.
[2023-05-23 23:24] LABS: ALT 45 U/L (4-49); AST 35 U/L (17-59); African American GFR (CKD) >90 (>60 ml/min/1.73 sqM); Albumin 3.7 g/dL (3.5-5.0); Alkaline Phosphatase 87 U/L (38-126); Anion Gap 10 mmol/L; Blood Urea Nitrogen 20 mg/dL (9-20); Calcium 8.6 mg/dL (8.4-10.2); Carbon Dioxide 23 mmol/L (22-30); Chloride 102 mmol/L (98-107); Glucose 170 mg/dL (74-99); Magnesium 1.6 mg/dL (1.6-2.3); Non-African American GFR(CKD) 84 (>60 ml/min/1.73 sqM); Potassium 3.7 mmol/L (3.5-5.1); Sodium 135 mmol/L (137-145); Total Bilirubin 0.9 mg/dL (0.2-1.3); Total Protein 7.1 g/dL (6.3-8.2)
[2023-05-23 23:36] LABS: Partial Thromboplastin Time 22.3 sec (22.0-30.0); Prothrombin Time 10.5 sec (10.0-12.5)
[2023-05-24] MEDS ORDERED: NITROGLYCERIN SL TABS 0.4 MG TAB SUBLINGUAL PRN (00:27)
[2023-05-24 00:57] VITALS: RESP 16
--- NOTE | 2023-05-24 04:27 | P.HPIM ---
History of Present Illness H&P Date: 05/24/23 Chief Complaint: Left arm numbness 78-year-old male coronary artery disease hypertension Patient coming in reporting sudden onset left arm numbness happened while he was home not engaged in any activity this episode was associated with some trouble breathing feeling nauseous dizzy and lightheaded denies any profuse sweating or arrhythmia. He checked his blood pressure and found it elevated with systolic of 210 over diastolic of 97 he claims to be compliant with his medications and blood pressure meds due to persistent of symptoms of left arm numbness and feeling dizzy decided to take 2 baby aspirin's and he took 2 doses of nitro which helped improve the pain. Patient had a left heart cath in July of last year Which showed patent stent in the LAD with mild in-stent stenosis, moderate disease in the distal RCA with normal physiological evaluation nonhemodynamically significant lesion and mild disease in the mid left circumflex Patient at time of my evaluation reports no symptoms he feels back to his normal self. He also adds that about 10 days ago he came in for evaluation of altered mental status congestion and fevers he was diagnosed with COVID and released home Patient admits to tobacco smoking denies any illicit drugs or heavy alcohol He denies any GI bleeding abdominal pain denies any vomiting fevers chills review of systems Pertinent positives as noted in HPI. All other systems were reviewed and are negative on exam Constitutional: No acute distress, conversant, pleasant Eyes: Anicteric sclerae, moist conjunctiva, Pupils equal round reactive to light ENMT: NC/AT Oropharynx clear, no erythema, or exudates Neck: Supple, no masses, or JVD No carotid bruits No thyromegaly Lungs: Clear to auscultation Clear to percussion Normal respiratory effort, no accessory muscle use Cardiovascular: Heart regular in rate and rhythm, No murmurs, gallops, or rubs No peripheral edema Abdominal: Soft Nontender, no guarding, rebound or rigidity Abdomen moving with respiration Normoactive bowel sounds Extremities: No digital cyanosis No clubbing Pedal pulses intact and symmetrical Radial pulses intact and symmetrical No calf tenderness Psychiatric: Alert and oriented to person, place and time Appropriate affect fair judgement Neuro Muscles Strength 5/5 in all 4 extremities Sensation to light touch grossly present throughout Cranial nerves II-XII grossly intact Past Medical History Past Medical History: Coronary Artery Disease (CAD), Cancer, Chest Pain / Angina, COPD, GERD/Reflux, Hearing Disorder / Deafness, Hyperlipidemia, Hypertension, Myocardial Infarction ([place]), Vascular Disorder Additional Past Medical History / Comment(s): [place] x 2 (), colon cancer with surgery, kidney stone, chronic low back pain, [place] bilaterally with R ear worse, tinnitis L ear, AAA being monitored. Last Myocardial Infarction Date:: 2010 History of Any Multi-Drug Resistant Organisms: None Reported Past Surgical History: Appendectomy, Bowel Resection, Heart Catheterization With Stent Additional Past Surgical History / Comment(s): bowel resection 2004, colonoscopy, 3 cardiac stents Past Anesthesia/Blood Transfusion Reactions: No Reported Reaction Additional Past Anesthesia/Blood Transfusion Reaction / Comment(s): Pt has never had a blood transfusion. Date of Last Stent Placement:: 04/26/17 Past Psychological History: No Psychological Hx Reported Additional Psychological History / Comment(s): Pt lives alone He is independent. Smoking Status: Current every day smoker Past Alcohol Use History: None Reported Additional Past Alcohol Use History / Comment(s): Pt started smoking in 195, was 1 PPD but about 8 cigarettes a day now. Past Drug Use History: None Reported - Past Family History Mother Family Medical History: Pneumonia Additional Family Medical History / Comment(s): Mother of pneumonia at the age of 68yrs. Brother(s) Family Medical History: Cancer, Coronary Artery Disease (CAD), Renal Disease Additional Family Medical History / Comment(s): He has one brother that is alive and has undergone CABG for coronary artery disease and has had one kidney removed. Patient has one brother who in a motor vehicle accident, one brother from a myocardial infarction at age 59, and one from colon cancer at age 70. Sister(s) Family Medical History: No Reported History Additional Family Medical History / Comment(s): He has 3 sisters that are healthy. Medications and Allergies Home Medications Medication Instructions Recorded Confirmed Type Omeprazole [PriLOSEC] 20 mg PO QAM 04/25/14 05/15/23 History Latanoprost/Pf [Latanoprost 0.005% 1 drop BOTH EYES HS 04/27/19 05/15/23 History Eye Drop] carvediloL [Coreg] 12.5 mg PO BID-W/MEALS 04/27/19 05/15/23 History Atorvastatin [Lipitor] 20 mg PO HS 01/05/20 05/15/23 History hydroCHLOROthiazide [Hydrodiuril] 12.5 mg PO DAILY 01/07/21 05/16/23 History Aspirin 81 mg PO QAM 07/31/22 05/15/23 History Vit C/E/Zn/Coppr/Lutein/Zeaxan 1 cap PO QAM 07/31/22 05/15/23 History [Preservision Areds 2 Softgel] Albuterol Inhaler [Ventolin Hfa 1 - 2 puff INHALATION RT-Q6H PRN 08/02/22 05/15/23 History Inhaler] lisinopriL [Zestril] 20 mg PO BID 08/02/22 05/15/23 History Fluticasone Nasal [place] [Flonase 2 spray EA NOSTRIL DAILY 05/15/23 05/15/23 History Nasal [place]] Isosorbide Mononitrate ER [Imdur] 120 mg PO DAILY 05/15/23 05/15/23 History Allergies Allergy/AdvReac Type Severity Reaction Status Date / Time latex Allergy Rash/Hives/ Verified 05/15/23 15:14 blisters Penicillins Allergy Rash/Hives Verified 05/15/23 17:33 Physical Exam Vitals: Vital Signs Temp Pulse Pulse Resp BP BP Pulse Ox 05/24/23 02:00 16 05/24/23 01:11 97.5 F L 62 19 161/79 97 05/24/23 00:40 67 16 134/88 97 05/23/23 22:24 98.7 F 69 18 140/99 97 Intake and Output 05/23/23 05/23/23 05/24/23 14:59 22:59 06:59 Other: Weight 79.832 kg 79.832 kg Results CBC & Chem 7: 05/23/23 23:04 05/23/23 23:04 Labs: Abnormal Lab Results - Last 24 Hours (Table) 05/23/23 05/23/23 Range/Units 23:04 23:04 RBC 4.29 L (4.30-5.90) m/uL RDW 15.6 H (11.5-15.5) % Sodium 135 L (137-145) mmol/L Glucose 170 H (74-99) mg/dL Thrombosis Risk Factor Assmnt - Choose All That Apply Any of the Below Risk Factors Present?: Yes Each Factor Represents 1 point: Abnormal pulmonary function (COPD) Other Risk Factors: Yes Each Risk Factor Represents 3 Points: Age 75 years or older Other congenital or acquired thrombophilia - If yes, enter type in comment: No Thrombosis Risk Factor Assessment Total Risk Factor Score: 4 Thrombosis Risk Factor Assessment Level: Moderate Risk Assessment and Plan Assessment: 78-year-old male with coronary artery disease hypertension history of colon cancer coming in for left arm numbness and elevated blood pressure I discussed the case with ED doctor and accepted the admission for malignant hypertension rule out underlying acute coronary syndrome with an anticipated length of stay less than 2 midnights Malignant hypertension Patient reports systolic blood pressure 210/97 at home currently blood pressure systolic in the range of 1 34-1 61 Continue home blood pressure medications hydrochlorothiazide, carvedilol, lisinopril Rule out acute coronary syndrome Most recent left heart cath July 2022 showed mild restenosis of the stent LAD Resume aspirin statin Imdur Cardiology consult Negative troponin EKG no acute ST changes GI prophylaxis continue with omeprazole daily Full code DVT prophylaxis heparin subcu 3 times daily Blood work reviewed White count 7.9 hemoglobin 13.5 unremarkable Sodium 135 potassium 3.7 BUN 20 creatinine 0.8 unremarkable
[2023-05-24] MEDS: carvediloL 12.5 MG TAB PO SCH (06:15)
[2023-05-24 08:50] VITALS: BP 155/71; PULSE 67; TEMP 97.8
[2023-05-24] MEDS: ISOSORBIDE MONONITRATE ER 60 MG TAB.ER.24H PO SCH (09:44)
[2023-05-24] MEDS: HEPARIN SODIUM,PORCINE 5,000 UNIT/ML 1 ML VIAL SQ SCH (09:45)
[2023-05-24] MEDS: ASPIRIN 81 MG PO SCH (09:45)
[2023-05-24] MEDS: hydroCHLOROthiazide 25 MG TAB PO SCH (09:45)
[2023-05-24] MEDS: SPIRONOLACTONE 25 MG TAB PO SCH (09:45)
[2023-05-24] MEDS: lisinopriL 20 MG TAB PO SCH (09:45)
[2023-05-24] MEDS: PANTOPRAZOLE 40 MG TABLET PO SCH (09:45)
--- NOTE | 2023-05-24 11:01 | P.CRDCN ---
History of Present Illness History of present illness: HISTORY OF PRESENT ILLNESS: This is a 78-year-old male with a past medical history significant for coronary artery disease with previous stenting, hypertension, hyperlipidemia, and GERD. Patient follows in the office with Dr. De Paz. We have been asked to see the patient in consultation for chest pain. Patient examined at the bedside. Patient states yesterday he was sitting at home when he started having left arm pain. He states the pain then went into the left side of his chest. He states the pain lasted for approximately 30 seconds then went away. He states the pain returned again for about 30 seconds and then went away. He states this happened for a total of 3 times. He states he checked his blood pressure at home and his systolic was noted to be elevated around 210. The patient states he has been compliant with his medications and has not missed any doses. Patient denies any chest pain or pressure this morning. Patient's blood pressure is improved although remains elevated with a systolic around 160. DIAGNOSTICS: - EKG reveals sinus mechanism with nonspecific ST-T wave changes. - Chest xray negative for acute process. No significant change from prior. - Laboratory data: WBC 7.9. Hemoglobin 13.5. Platelet count 192. Sodium 135. Potassium 3.7. BUN 20. Creatinine 0.82. Magnesium 1.6. Troponin negative x 3 - Current home cardiac medications include lisinopril 20 mg twice a day, hydrochlorothiazide 12.5 mg daily, carvedilol 12.5 mg twice a day, Imdur 120 mg daily, Lipitor 20 mg at night, and aspirin 81 mg daily. - Most recent echocardiogram obtained in April 2021 revealed ejection fraction 55 to 60%, mild MR, mild TR - Cardiac catheterization history: July 2022 revealing patent stent in the LAD with mild in-stent restenosis, moderate disease in the distal RCA with normal physiological evaluation consistent with nonhemodynamic significant lesion, mild disease in the mid left circumflex, and normal LVEDP. Medical management was recommended. REVIEW OF SYSTEMS: At the time of my exam: CONSTITUTIONAL: Denies fever or chills. HEENT: Denies blurred vision, vision changes, or eye pain. Denies hemoptysis CARDIOVASCULAR: Denies chest pain. Denies orthopnea. Denies PND. Denies palpitations RESPIRATORY: Denies shortness of breath. GASTROINTESTINAL: Denies abdominal pain. Denies nausea or vomiting. HEMATOLOGIC: Denies bleeding disorders. GENITOURINARY: Denies any blood in urine. SKIN: Denies pruitis. Denies rash. PHYSICAL EXAM: VITAL SIGNS: Reviewed. GENERAL: Well-developed in no acute distress. HEENT: Head is normocephalic. Pupils are equal, round. Sclerae anicteric. Mucous membranes of the mouth are moist. Neck supple. No JVD or thyromegaly LUNGS: Respirations even and unlabored. Lungs essentially clear to auscultation bilaterally. HEART: Regular rate and rhythm. S1 and S2 heard. ABDOMEN: Soft. Nondistended. Nontender. EXTREMITIES: Normal range of motion. No clubbing or cyanosis. Peripheral pulses intact. No lower extremity edema NEUROLOGIC: Awake and alert. Oriented x 3. ASSESSMENT: Chest pain Hypertensive emergency Coronary artery disease with previous stenting History of hypertension History of hyperlipidemia GERD PLAN: An acute coronary but has been ruled out Resume home cardiac medications Add Aldactone 25 mg daily for optimal blood pressure control Obtain 2D echo to assess cardiac structure and function If patient's blood pressures improved and he has no further episodes of chest pain, he may be discharged home from a cardiac standpoint pending echo results Nurse practitioner note has been reviewed by physician. Signing provider agrees with the documented findings, assessment, and plan of care documented by [employer]ACH[employer]ENDER as a scribe. Past Medical History Past Medical History: Coronary Artery Disease (CAD), Cancer, Chest Pain / Angina, COPD, GERD/Reflux, Hearing Disorder / Deafness, Hyperlipidemia, Hypertension, Myocardial Infarction (NC), Vascular Disorder Additional Past Medical History / Comment(s): NC x 2 (), colon cancer with surgery, kidney stone, chronic low back pain, [place] bilaterally with R ear worse, tinnitis L ear, AAA being monitored. Last Myocardial Infarction Date:: 2010 History of Any Multi-Drug Resistant Organisms: None Reported Past Surgical History: Appendectomy, Bowel Resection, Heart Catheterization With Stent Additional Past Surgical History / Comment(s): bowel resection 2004, colonoscop y, 3 cardiac stents Past Anesthesia/Blood Transfusion Reactions: No Reported Reaction Additional Past Anesthesia/Blood Transfusion Reaction / Comment(s): Pt has never had a blood transfusion. Date of Last Stent Placement:: 04/26/17 Past Psychological History: No Psychological Hx Reported Additional Psychological History / Comment(s): Pt lives alone He is independent. Smoking Status: Current every day smoker Past Alcohol Use History: None Reported Additional Past Alcohol Use History / Comment(s): Pt started smoking in 1958, was 1 PPD but about 8 cigarettes a day now. Past Drug Use History: None Reported - Past Family History Mother Family Medical History: Pneumonia Additional Family Medical History / Comment(s): Mother of pneumonia at the age of 68yrs. Brother(s) Family Medical History: Cancer, Coronary Artery Disease (CAD), Renal Disease Additional Family Medical History / Comment(s): He has one brother that is alive and has undergone CABG for coronary artery disease and has had one kidney removed. Patient has one brother who in a motor vehicle accident, one brother from a myocardial infarction at age 59, and one from colon cancer at age 70. Sister(s) Family Medical History: No Reported History Additional Family Medical History / Comment(s): He has 3 sisters that are healthy. Medications and Allergies Home Medications Medication Instructions Recorded Confirmed Type Omeprazole [PriLOSEC] 20 mg PO DAILY 04/25/14 05/24/23 History Latanoprost/Pf [Latanoprost 0.005% 1 drop BOTH EYES HS 04/27/19 05/24/23 History Eye Drop] carvediloL [Coreg] 12.5 mg PO BID-W/MEALS 04/27/19 05/24/23 History Atorvastatin [Lipitor] 20 mg PO HS 01/05/20 05/24/23 History hydroCHLOROthiazide [Hydrodiuril] 12.5 mg PO DAILY 01/07/21 05/24/23 History Aspirin 81 mg PO DAILY 07/31/22 05/24/23 History Vit C/E/Zn/Coppr/Lutein/Zeaxan 1 cap PO DAILY 07/31/22 05/24/23 History [Preservision Areds 2 Softgel] Albuterol Inhaler [Ventolin Hfa 1 - 2 puff INHALATION RT-Q6H PRN 08/02/22 05/24/23 History Inhaler] lisinopriL [Zestril] 20 mg PO BID 08/02/22 05/24/23 History Fluticasone Nasal [place] [Flonase 2 spray EA NOSTRIL DAILY 05/15/23 05/24/23 History Nasal [place]] Isosorbide Mononitrate ER [Imdur] 120 mg PO DAILY 05/15/23 05/24/23 History Allergies Allergy/AdvReac Type Severity Reaction Status Date / Time latex Allergy Rash/Hives/ Verified 05/24/23 07:25 blisters Penicillins Allergy Rash/Hives Verified 05/24/23 07:25 Physical Exam Vitals: Vital Signs Temp Pulse Pulse Resp BP BP Pulse Ox 05/24/23 02:00 16 05/24/23 01:11 97.5 F L 62 19 161/79 97 05/24/23 00:40 67 16 134/88 97 05/23/23 22:24 98.7 F 69 18 140/99 97 Intake and Output 05/23/23 05/24/23 05/24/23 22:59 06:59 14:59 Other: # Voids 1 Weight 79.832 kg 79.832 kg Results 05/23/23 23:04 05/23/23 23:04 Cardiac Enzymes 05/23/23 05/23/23 05/24/23 Range/Units 23:04 23:04 04:42 AST 35 (17-59) U/L Troponin I <0.012 <0.012 (0.000-0.034) ng/mL Coagulation 05/23/23 Range/Units 23:04 PT 10.5 (10.0-12.5) sec APTT 22.3 (22.0-30.0) sec CBC 05/23/23 Range/Units 23:04 WBC 7.9 (3.8-10.6) k/uL RBC 4.29 L (4.30-5.90) m/uL Hgb 13.5 (13.0-17.5) gm/dL Hct 39.3 (39.0-53.0) % Plt Count 192 D (150-450) k/uL Comprehensive Metabolic Panel 05/23/23 Range/Units 23:04 Sodium 135 L (137-145) mmol/L Potassium 3.7 (3.5-5.1) mmol/L Chloride 102 (98-107) mmol/L Carbon Dioxide 23 (22-30) mmol/L BUN 20 (9-20) mg/dL Creatinine 0.82 (0.66-1.25) mg/dL Glucose 170 H (74-99) mg/dL Calcium 8.6 (8.4-10.2) mg/dL AST 35 (17-59) U/L ALT 45 (4-49) U/L Alkaline Phosphatase 87 (38-126) U/L Total Protein 7.1 (6.3-8.2) g/dL Albumin 3.7 (3.5-5.0) g/dL Current Medications Generic Name Dose Route Start Last Admin Trade Name Freq PRN Reason Stop Dose Admin Aspirin 81 mg 05/24/23 09:00 Aspirin 81 Mg PO QAM [facility] Atorvastatin Calcium 20 mg 05/24/23 21:00 Atorvastatin 20 Mg Tab PO HS [facility] Carvedilol 12.5 mg 05/24/23 07:30 05/24/23 06:15 Carvedilol 12.5 Mg Tab PO 12.5 mg BID-W/MEALS [facility] Administration Heparin Sodium (Porcine) 5,000 unit 05/24/23 08:00 Heparin Sodium,Porcine 5,000 Unit/Ml 1 Ml Vial SQ Q8HR [facility] Hydrochlorothiazide 12.5 mg 05/24/23 09:00 Hydrochlorothiazide 25 Mg Tab PO DAILY [facility] Isosorbide Mononitrate 120 mg 05/24/23 09:00 Isosorbide Mononitrate Er 60 Mg Tab.Er.24h PO DAILY [facility] Lisinopril 20 mg 05/24/23 09:00 Lisinopril 20 Mg Tab PO BID [facility] Nitroglycerin 0.4 mg 05/24/23 00:27 Nitroglycerin Sl Tabs 0.4 Mg Tab SUBLINGUAL Q5M PRN Chest Pain Pantoprazole Sodium 40 mg 05/24/23 09:00 Pantoprazole 40 Mg Tablet [facility] [place] Intake and Output 05/23/23 05/24/23 05/24/23 22:59 06:59 14:59 Other: # Voids 1 Weight 79.832 kg 79.832 kg 05/23/23 23:04 05/23/23 23:04
--- NOTE | 2023-05-24 11:36 | CA ---
Transthoracic Echo Report Name: Ernie Bain Age: 78 Gender: M : 1945 Exam Date: 05/24/2023 09:17 Exam Location: [facility] Ht (in): 68 Wt (lb): 176 Ordering Physician: Cass Higginbotham MD Attending/Referring Phys: [employer] Rosalind Diggs RCS Procedure CPT: Indications: CP Cardiac Hx: Technical Quality: Fair Contrast 1: Total Dose (mL): Contrast 2: Total Dose (mL): MEASUREMENTS (Male / Female) Normal Values 2D ECHO LV Diastolic Diameter PLAX 5.6 cm 4.2 - 5.9 / 3.9 - 5.3 cm LV Systolic Diameter PLAX 3.7 cm IVS Diastolic Thickness 1.0 cm 0.6 - 1.0 / 0.6 - 0.9 cm LVPW Diastolic Thickness 1.0 cm 0.6 - 1.0 / 0.6 - 0.9 cm LV Relative Wall Thickness 0.4 RV Internal Dim ED PLAX 3.2 cm LVOT Diameter 2.2 cm LV Diastolic Volume MOD BP 113.8 cm??? 67 - 155 / 56 - 104 cm??? LV Systolic Volume MOD BP 34.5 cm??? 22 - 58 / 19 - 49 cm??? LV Ejection Fraction MOD BP 69.7 % >= 55 % LV Cardiac Index MOD BP 2815.4 cm???/min???m??? LV Diastolic Volume MOD 4C 105.3 cm??? LV Systolic Volume MOD 4C 29.7 cm??? LV Ejection Fraction MOD 4C 71.8 % LV Cardiac Index MOD 4C 2682.4 cm???/min???m??? LV Diastolic Length 4C 8.4 cm LV Systolic Length 4C 6.4 cm LV Diastolic Volume MOD 2C 120.4 cm??? LV Systolic Volume MOD 2C 40.5 cm??? LV Ejection Fraction MOD 2C 66.4 % LV Cardiac Index MOD 2C 2836.6 cm???/min???m??? LV Diastolic Length 2C 8.1 cm LV Systolic Length 2C 6.4 cm LA Volume 57.4 cm??? 18 - 58 / 22 - 52 cm??? LA Volume Index 29.1 cm???/m??? 16 - 28 cm???/m??? Ascending Aorta Diameter 3.4 cm DOPPLER AV Peak Velocity 134.5 cm/s AV Peak Gradient 7.2 mmHg AV Mean Velocity 81.1 cm/s AV Mean Gradient 3.2 mmHg AV Velocity Time Integral 26.0 cm LVOT Peak Velocity 102.6 cm/s LVOT Peak Gradient 4.2 mmHg LVOT Velocity Time Integral 23.0 cm LVOT Stroke Volume 85.2 cm??? LVOT Stroke Volume Index 44.0 ml/m??? LVOT Cardiac Index 3023.8 cm???/min???m??? AV Area Cont Eq vti 3.3 cm??? AV Area Cont Eq pk 2.8 cm??? Mitral E Point Velocity 70.8 cm/s Mitral A Point Velocity 73.4 cm/s Mitral E to A Ratio 1.0 MV Deceleration Time 153.4 ms MV E' Velocity 4.2 cm/s Mitral E to MV E' Ratio 17.0 TR Peak Velocity 232.1 cm/s TR Peak Gradient 21.5 mmHg Right Ventricular Systolic Press 26.5 mmHg PV Peak Velocity 73.3 cm/s PV Peak Gradient 2.1 mmHg FINDINGS Left Ventricle Left ventricular ejection fraction is estimated at 55-60 %. Left ventricular wall thickness normal. Left ventricular cavity size normal. No obvious regional wall motion abnormalities. Right Ventricle Normal right ventricular size and function. Right ventricular systolic pressure within normal limits. Right Atrium Normal right atrial size. Left Atrium Mildly increased left atrial volume. Mildly increased left atrial area. Mitral Valve Structurally normal mitral valve. No evidence for mitral valve prolapse. No mitral stenosis. Trace mitral regurgitation. Aortic Valve Trileaflet aortic valve. No aortic stenosis. No aortic regurgitation. Tricuspid Valve Structurally normal tricuspid valve. No tricuspid stenosis. Trace tricuspid regurgitation. Pulmonic Valve Pulmonic valve not well visualized. No pulmonic stenosis. No pulmonic regurgitation. Pericardium No pericardial effusion. Aorta Normal size aortic root and proximal ascending aorta. CONCLUSIONS Normal LV systolic function Overall technically difficult study and the endocardium was poorly visualized Previewed by: Dr. Johnathan Zuniga MD (Electronically Signed) Final Date: 24 May 2023 11:36
--- NOTE | 2023-05-24 12:36 | P.DS ---
Providers Date of admission: 05/24/23 00:27 Expected date of discharge: 05/24/23 Attending physician: Magaly Mosley MD Consults: 05/24/23 00:27 Consult Physician Urgent Consulting Provider: Pernell De Pza Consult Reason/Comments: chest pain Do you want consulting provider notified?: Yes Primary care physician: [facility] Course: 78-year-old male with PMH of CAD post stent, hypertension, COPD, GERD, dyslipidemia, history of colon cancer presents to the ED for left arm numbness associated with shortness of breath, nausea, lightheadedness. He noted a blood pressure of 210/97 at home. In the ED, he underwent extensive evaluation. BP was 140/99, HR 69, RR 18, T-max 90 8.7F, 97% on room air. CBC showed RBC count 4.29 and RDW of 15.6. Coag panel within normal limits. CMP showed sodium of 135, glucose of 170. Troponin less than 0.0123 with EKG showing sinus rhythm with nonspecific ST and T-wave changes. Patient was admitted for cardiology angi thelma. Troponins trended and ACS was ruled out. Cardiology consulted, recommended echocardiogram and added Aldactone for better blood pressure control. Echocardiogram came back at 60-65% EF with no regional wall motion abnormalities. Cardiology cleared the patient for discharge. Patient reported no chest pain at the time of discharge. His symptoms had completely resolved. General: non toxic, no distress, appears at stated age Derm: warm, dry Head: atraumatic, normocephalic, symmetric Eyes: EOMI, no lid lag, anicteric sclera Mouth: no lip lesion, mucus membranes moist Cardiovascular: S1S2 reg, no murmur Lungs: CTA bilateral, no rhonchi, no rales , no accessory muscle use Ext: no gross muscle atrophy, no edema, no contractures Neuro: no focal neuro deficits Psych: Alert, oriented, appropriate affect Discharge diagnosis: Chest pain Hypertensive emergency History of CAD COPD not in acute exacerbation GERD Dyslipidemia History colon cancer This complex discharge took 35 minutes to complete. Patient Condition at Discharge: Stable Plan - Discharge Summary Discharge Rx Participant: No New Discharge Prescriptions: New Spironolactone [Aldactone] 25 mg PO DAILY #30 tab Continue Omeprazole [PriLOSEC] 20 mg PO DAILY Latanoprost/Pf [Latanoprost 0.005% Eye Drop] 1 drop BOTH EYES HS carvediloL [Coreg] 12.5 mg PO BID-W/MEALS Atorvastatin [Lipitor] 20 mg PO HS hydroCHLOROthiazide [Hydrodiuril] 12.5 mg PO DAILY Vit C/E/Zn/Coppr/Lutein/Zeaxan [Preservision Areds 2 Softgel] 1 cap PO DAILY lisinopriL [Zestril] 20 mg PO BID Albuterol Inhaler [Ventolin Hfa Inhaler] 1 - 2 puff INHALATION RT-Q6H PRN PRN Reason: Shortness Of Breath Isosorbide Mononitrate ER [Imdur] 120 mg PO DAILY Aspirin 81 mg PO DAILY Fluticasone Nasal [place] [Flonase Nasal [place]] 2 spray EA NOSTRIL DAILY Discharge Medication List Omeprazole [PriLOSEC] 20 mg PO DAILY 04/25/14 [History] Latanoprost/Pf [Latanoprost 0.005% Eye Drop] 1 drop BOTH EYES HS 04/27/19 [History] carvediloL [Coreg] 12.5 mg PO BID-W/MEALS 04/27/19 [History] Atorvastatin [Lipitor] 20 mg PO HS 01/05/20 [History] hydroCHLOROthiazide [Hydrodiuril] 12.5 mg PO DAILY 01/07/21 [History] Aspirin 81 mg PO DAILY 07/31/22 [History] Vit C/E/Zn/Coppr/Lutein/Zeaxan [Preservision Areds 2 Softgel] 1 cap PO DAILY 07/31/22 [History] Albuterol Inhaler [Ventolin Hfa Inhaler] 1 - 2 puff INHALATION RT-Q6H PRN 08/02/22 [History] lisinopriL [Zestril] 20 mg PO BID 08/02/22 [History] Fluticasone Nasal [place] [Flonase Nasal [place]] 2 spray EA NOSTRIL DAILY 05/15/23 [History] Isosorbide Mononitrate ER [Imdur] 120 mg PO DAILY 05/15/23 [History] Spironolactone [Aldactone] 25 mg PO DAILY #30 tab 05/24/23 [Rx] Follow up Appointment(s)/Referral(s): Reina Dunbar MD [Primary Care Provider] - 1-2 days Pernell De Paz MD [STAFF PHYSICIAN] - 1 Week Discharge Disposition: HOME SELF-CARE
[2023-05-24] MEDS ORDERED: ATORVASTATIN 20 MG TAB PO SCH (21:00)
[2023-05-25] MEDS ORDERED: ASPIRIN 325 MG TAB PO SCH (09:00)
== END 2023-05-24 13:27 | disposition home or self-care (01) ==
LOC: EC 22:23 → 6NMEDSUR 05-24 00:27
PROVIDERS: ADMIT Internal Medicine; ATTEND Internal Medicine
DX: R07.89 Other chest pain (principal); I16.1 Hypertensive emergency; J44.9 Chronic obstructive pulmonary disease, unspecified; I25.10 Atherosclerotic heart disease of native coronary artery without angina pectoris; I10 Essential (primary) hypertension; I25.2 Old myocardial infarction; E78.5 Hyperlipidemia, unspecified; K21.9 Gastro-esophageal reflux disease without esophagitis; R11.0 Nausea; R42 Dizziness and giddiness; M79.602 Pain in left arm; R20.0 Anesthesia of skin; F17.210 Nicotine dependence, cigarettes, uncomplicated; Z79.82 Long term (current) use of aspirin; Z79.899 Other long term (current) drug therapy; Z88.0 Allergy status to penicillin; Z91.040 Latex allergy status; Z85.038 Personal history of other malignant neoplasm of large intestine; Z95.5 Presence of coronary angioplasty implant and graft; Z86.16 Personal history of COVID-19
CPT/HCPCS: 96372; 99285; 36415; 94760; 93005; 93306; 80053; 83735; 84484 ×2; 85025; 85610; 85730; 71046; G0378; J1644

== ENCOUNTER 2024-03-27 12:44 | Inpatient (IN) | payer MEDICARE ==
--- NOTE | 2024-03-27 13:43 | ED ---
General Adult HPI - General Source: patient, RN notes reviewed Mode of arrival: wheelchair Limitations: no limitations <Olinda Oseguera - Last Filed: 03/27/24 13:42> <Armen Brown - Last Filed: 03/27/24 16:13> - General Chief complaint: Shortness of Breath Stated complaint: trouble breathing Time Seen by Provider: 03/27/24 13:00 - History of Present Illness Initial comments: 79-year-old male with a history of COPD, CHF, cardiac stent placement presenting to the emergency department for complaint of shortness of breath at rest that started this morning. He denies chest pain, heart palpitations, dizziness or lightheadedness. (Olinda Oseguera) Dictation was produced using Snipi dictation software. please excuse any grammatical, word or spelling errors. Chief Complaint: 79-year-old male with chest pain and shortness of breath History of Present Illness: Patient is 79-year-old male history of coronary artery disease. Has 3 pre-existing coronary artery stents presents emergency department for 1 to 2 days of chest pressure. Nonradiating associated diaphoresis or nausea. Patient does also report some associated shortness of breath. States that his symptoms do feel slightly worse with ambulation or exertion. The pain is substernal. The ROS documented in this emergency department record has been reviewed and confirmed by me. Those systems with pertinent positive or negative responses have been documented in the HPI. All other systems are other negative and/or no ncontributory. (Armen Brown) - Related Data Home Medications Medication Instructions Recorded Confirmed Omeprazole [PriLOSEC] 20 mg PO DAILY 04/25/14 03/27/24 Latanoprost/Pf [Latanoprost 0.005% 1 drop BOTH EYES HS 04/27/19 03/27/24 Eye Drop] carvediloL [Coreg] 12.5 mg PO BID-W/MEALS 04/27/19 03/27/24 Atorvastatin [Lipitor] 20 mg PO DAILY 01/05/20 03/27/24 Aspirin 81 mg PO DAILY 07/31/22 03/27/24 lisinopriL [Zestril] 20 mg PO BID 08/02/22 03/27/24 Isosorbide Mononitrate ER [Imdur] 120 mg PO DAILY 05/15/23 03/27/24 Allergies Allergy/AdvReac Type Severity Reaction Status Date / Time latex Allergy Rash/Hives/ Verified 03/27/24 14:19 blisters Penicillins Allergy Rash/Hives Verified 03/27/24 14:19 Review of Systems ROS Other: All systems not noted in ROS Statement are negative. <Olinda Oseguera - Last Filed: 03/27/24 13:42> ROS Other: All systems not noted in ROS Statement are negative. <Armen Brown - Last Filed: 03/27/24 16:13> ROS Statement: Those systems with pertinent positive or pertinent negative responses have been documented in the HPI. Past Medical History Past Medical History: Coronary Artery Disease (CAD), Cancer, Chest Pain / Angina, COPD, GERD/Reflux, Hearing Disorder / Deafness, Hyperlipidemia, Hypertension, Myocardial Infarction ([place]), Vascular Disorder Additional Past Medical History / Comment(s): [place] x 2 (), colon cancer with surgery, kidney stone, chronic low back pain, [place] bilaterally with R ear worse, tinnitis L ear, AAA being monitored. Last Myocardial Infarction Date:: 2010 History of Any Multi-Drug Resistant Organisms: None Reported Past Surgical History: Appendectomy, Bowel Resection, Heart Catheterization With Stent Additional Past Surgical History / Comment(s): bowel resection 2004, colonoscopy, 3 cardiac stents Past Anesthesia/Blood Transfusion Reactions: No Reported Reaction Additional Past Anesthesia/Blood Transfusion Reaction / Comment(s): Pt has never had a blood transfusion. Date of Last Stent Placement:: 04/26/17 Past Psychological History: No Psychological Hx Reported Smoking Status: Current every day smoker Past Alcohol Use History: None Reported Past Drug Use History: None Reported - Past Family History Mother Family Medical History: Pneumonia Additional Family Medical History / Comment(s): Mother of pneumonia at the age of 68yrs. Brother(s) Family Medical History: Cancer, Coronary Artery Disease (CAD), Renal Disease Additional Family Medical History / Comment(s): He has one brother that is alive and has undergone CABG for coronary artery disease and has had one kidney removed. Patient has one brother who in a motor vehicle accident, one brother from a myocardial infarction at age 59, and one from colon cancer at age 70. Sister(s) Family Medical History: No Reported History Additional Family Medical History / Comment(s): He has 3 sisters that are healthy. <Olinda Oseguera - Last Filed: 03/27/24 13:42> General Exam Limitations: no limitations <Olinda Oseguera - Last Filed: 03/27/24 13:42> <Armen Brown - Last Filed: 03/27/24 16:13> - General Exam Comments Initial Comments: Visual Physical Exam Vital signs reviewed General: Well-appearing, nontoxic, no acute distress. Head: Normocephalic, atraumatic Eyes: PERRLA, EOMI ENT: Airway patent Chest: Nonlabored breathing Skin: No visual rash, normal skin tone Neuro: Alert and oriented 3 Musculoskeletal: No gross abnormalities (Olinda Oseguera) PHYSICAL EXAM: General Impression: Alert and oriented x3, not in acute distress HEENT: Normocephalic atraumatic, extra-ocular movements intact, pupils equal and reactive to light bilaterally, mucous membranes moist. Cardiovascular: Heart regular rate and rhythm Chest: Able to complete full sentences, no retractions, no tachypnea Abdomen: abdomen soft, non-tender, non-distended, no organomegaly Musculoskeletal: Pulses present and equal in all extremities, no peripheral edema Motor: no focal deficits noted Neurological: CN II-XII grossly intact, no focal motor or sensory deficits noted Skin: Intact with no visualized rashes Psych: Normal affect and mood (Armen Brown) Course Vital Signs 03/27/24 03/27/24 12:53 14:45 Temperature 97.8 F Pulse Rate 71 60 Respiratory 22 20 Rate Blood Pressure 122/72 127/69 O2 Sat by Pulse 95 97 Oximetry EKG Findings - EKG Comments: EKG Findings:: My EKG interpretation: Ventricular rate 68, sinus rhythm,. 163, QRS 93, QTc 397. No OK prolongation, no QTC prolongation. ST depression in high lateral leads with T wave inversions. Appear to be new compared to EKG from May 24, 2023 <Armen Brown - Last Filed: 03/27/24 16:13> Medical Decision Making <Olinda Oseguera - Last Filed: 03/27/24 13:42> - Lab Data Result diagrams: 03/27/24 14:47 03/27/24 14:47 <Armen Brown D - Last Filed: 03/27/24 16:13> - Medical Decision Making I completed the quick note portion of this chart signed Olinda Oseguera PA-C (Olinda Oseguera) Was pt. sent in by a medical professional or institution ([facility] Galdame[facility], MANAGED CARE LIAISON, urgent care, hospital, or [place] health care facility...) When possible be specific @ -No Did you speak to anyone other than the patient for history (EMS, parent, family, police, friend...)? What history was obtained from this source @ -No Did you review nursing and triage notes (agree or disagree)? Why? @ -I reviewed and agree with nursing and triage notes Were old charts reviewed (outside hosp., previous admission, EMS record, old EKG, old radiological studies, urgent care reports/EKG's, [place] health care facility records)? Report findings @ -No old charts were reviewed Differential Diagnosis (chest pain, altered mental status, abdominal pain women, abdominal pain men, vaginal bleeding, musculoskeletal, weakness, fever, dyspnea, syncope, headache, dizziness, GI bleed, back pain, seizure, CVA, palpatations, mental health)? @ -Differential Chest Pain: Stable Angina, Unstable Angina, STEMI, NSTEMI Aortic Dissection, Pneumothorax, Musculoskeletal, Esophageal Spasm GERD, Cholecystitis, Pancreatitis, Zoster, this is not meant to be an all-inclusive list. EKG interpreted by me (3pts min.). @ -See above X-rays interpreted by me (1pt min.). @ -Chest x-ray shows no acute processes CT interpreted by me (1pt min.). @ -None done U/S interpreted by me (1pt. min.). @ -None done What testing was considered but not performed or refused? (CT, X-rays, U/S, labs)? Why? @ -None What meds were considered but not given or refused? Why? @ -None Was smoking cessation discussed for >3mins.? @ -No Were there social determinants of health that impacted care today? How? (H omelessness, low income, unemployed, alcoholism, drug addiction, transportation, low edu. Level, literacy, decrease access to med. care, nursing home, rehab)? @ -No Was there de-escalation of care discussed even if they declined (Discuss DNR or withdrawal of care, Hospice)? DNR status @ -No What co-morbidities impacted this encounter? (DM, HTN, Smoking, COPD, CAD, Cancer, CVA, ARF, Chemo, Hep., AIDS, mental health diagnosis, sleep apnea, morbid obesity)? @ -Coronary artery disease Was patient admitted / discharged? Hospital course, mention meds given and route, prescriptions, significant lab abnormalities, going to OR and other pertinent info. @ -79-year-old male presents to the emergency department chest pain concerning for acute coronary syndrome. Vital signs upon arrival are within acceptable limits. EKG shows nonspecific changes worrisome for ischemia or infarction. Patient given nitroglycerin with improvement of his symptoms. Laboratory evaluation obtained. Troponin is negative. Rest of labs unremarkable. Viral testing is negative. Chest x-ray is nonacute. Patient started heparin for concerns of unstable angina. Case discussed with hospitalist for admission. Patient agreeable with plan Did you discuss the management of the patient with other professionals (professionals i.e. , PA, MANAGED CARE LIAISON, lab, RT, psych nurse, web content & social media manager, care services manager, teacher, housing officer, lining caser)? Give summary @ -As above Was critical care preformed (if so, how long)? @ -Yes, 33 minutes Undiagnosed new problem with uncertain prognosis? @ -No Drug Therapy requiring intensive monitoring for toxicity (Heparin, Nitro, Insulin, Cardizem)? @ -No Were any procedures done? @ -No Diagnosis/symptom? Acute, or Chronic, or Acute on Chronic? Uncomplicated (without systemic symptoms) or Complicated (systemic symptoms)? @ -Unstable angina Side effects of treatment? @ -No Exacerbation, Progression, or Severe Exacerbation? @ -No Poses a threat to life or bodily function? How? (Chest pain, [place], [place], pneumonia, PE, COPD, DKA, ARF, appy, cholecystitis, CVA, Diverticulitis, Homicidal, [place], threat to staff... and all critical care pts) @ -yes (Armen Brown) - Lab Data Lab Results 03/27/24 03/27/24 03/27/24 Range/Units 14:47 14:47 14:47 WBC 6.9 (3.8-10.6) k/uL RBC 4.19 L (4.30-5.90) m/uL Hgb 13.6 (13.0-17.5) gm/dL Hct 38.6 L (39.0-53.0) % MCV 92.1 (80.0-100.0) fL MCH 32.5 (25.0-35.0) pg MCHC 35.3 (31.0-37.0) g/dL RDW 15.4 (11.5-15.5) % Plt Count 150 (150-450) k/uL MPV 7.7 Neutrophils % 56 % Lymphocytes % 32 % Monocytes % 8 % Eosinophils % 2 % Basophils % 0 % Neutrophils # 3.9 (1.3-7.7) k/uL Lymphocytes # 2.2 (1.0-4.8) k/uL Monocytes # 0.5 (0-1.0) k/uL Eosinophils # 0.2 (0-0.7) k/uL Basophils # 0.0 (0-0.2) k/uL PT 10.6 (10.0-12.5) sec INR 0.9 (<1.2) APTT 23.3 (22.0-30.0) sec Sodium 135 L (137-145) mmol/L Potassium 4.5 (3.5-5.1) mmol/L Chloride 103 (98-107) mmol/L Carbon Dioxide 28 (22-30) mmol/L Anion Gap 4 mmol/L BUN 21 H (9-20) mg/dL Creatinine 1.01 (0.66-1.25) mg/dL Est GFR (CKD-EPI)AfAm 80 (>60 ml/min/1.73 sqM) Est GFR (CKD-EPI)NonAf 70 (>60 ml/min/1.73 sqM) Glucose 179 H (74-99) mg/dL Calcium 9.2 (8.4-10.2) mg/dL Magnesium 2.0 (1.6-2.3) mg/dL Total Bilirubin 0.9 (0.2-1.3) mg/dL AST 43 (17-59) U/L ALT 75 H (4-49) U/L Alkaline Phosphatase 63 (38-126) U/L Troponin I (0.000-0.034) ng/mL NT-Pro-B Natriuret Pep 322 pg/mL Total Protein 7.4 (6.3-8.2) g/dL Albumin 4.1 (3.5-5.0) g/dL Influenza Type A (PCR) (Not Detectd) Influenza Type B (PCR) (Not Detectd) RSV (PCR) (Not Detectd) SARS-CoV-2 (PCR) (Not Detectd) 03/27/24 03/27/24 Range/Units 14:47 15:11 WBC (3.8-10.6) k/uL RBC (4.30-5.90) m/uL Hgb (13.0-17.5) gm/dL Hct (39.0-53.0) % MCV (80.0-100.0) fL MCH (25.0-35.0) pg MCHC (31.0-37.0) g/dL RDW (11.5-15.5) % Plt Count (150-450) k/uL MPV Neutrophils % % Lymphocytes % % Monocytes % % Eosinophils % % Basophils % % Neutrophils # (1.3-7.7) k/uL Lymphocytes # (1.0-4.8) k/uL Monocytes # (0-1.0) k/uL Eosinophils # (0-0.7) k/uL Basophils # (0-0.2) k/uL PT (10.0-12.5) sec INR (<1.2) APTT (22.0-30.0) sec Sodium (137-145) mmol/L Potassium (3.5-5.1) mmol/L Chloride (98-107) mmol/L Carbon Dioxide (22-30) mmol/L Anion Gap mmol/L BUN (9-20) mg/dL Creatinine (0.66-1.25) mg/dL Est GFR (CKD-EPI)AfAm (>60 ml/min/1.73 sqM) Est GFR (CKD-EPI)NonAf (>60 ml/min/1.73 sqM) Glucose (74-99) mg/dL Calcium (8.4-10.2) mg/dL Magnesium (1.6-2.3) mg/dL Total Bilirubin (0.2-1.3) mg/dL AST (17-59) U/L ALT (4-49) U/L Alkaline Phosphatase (38-126) U/L Troponin I <0.012 (0.000-0.034) ng/mL NT-Pro-B Natriuret Pep pg/mL Total Protein (6.3-8.2) g/dL Albumin (3.5-5.0) g/dL Influenza Type A (PCR) Not Detected (Not Detectd) Influenza Type B (PCR) Not Detected (Not Detectd) RSV (PCR) Not Detected (Not Detectd) SARS-CoV-2 (PCR) Not Detected (Not Detectd) Disposition <Olinda Oseguera - Last Filed: 03/27/24 13:42> Decision Time: 16:13 <Armen Brown - Last Filed: 03/27/24 16:13> Clinical Impression: ACS (acute coronary syndrome) Disposition: ADMITTED IP TO THIS HOSP Referrals: Reina Dunbar MD [Primary Care Provider] - 1-2 days
--- NOTE | 2024-03-27 14:05 | XR ---
Chest, 2 view. HISTORY: Difficulty breathing. COMPARISON: TECHNIQUE: PA and lateral views the chest are obtained. FINDINGS: The lungs are clear and there is no consolidative or interstitial opacity. There is no pleural effusion or pneumothorax. The heart, pulmonary vasculature, mediastinum and angela appear normal. The osseous structures are intact. IMPRESSION: No significant abnormality seen. No acute cardiopulmonary disease. [facility], Workstation: [facility], 03/27/2024 2:02 PM
[2024-03-27] MEDS: ASPIRIN 81 MG PO STA (14:37)
[2024-03-27] MEDS: NITROGLYCERIN SL TABS 0.4 MG TAB SUBLINGUAL STA (14:50)
[2024-03-27 14:57] LABS: Basophils % (A) 0 %; Eosinophils # (A) 0.2 k/uL (0-0.7); Eosinophils % (A) 2 %; HCT 38.6 % (39.0-53.0); HGB 13.6 gm/dL (13.0-17.5); Lymphocytes # (A) 2.2 k/uL (1.0-4.8); Lymphocytes % (A) 32 %; MCH 32.5 pg (25.0-35.0); MCHC 35.3 g/dL (31.0-37.0); MCV 92.1 fL (80.0-100.0); Mean Platelet Volume 7.7; Monocytes # (A) 0.5 k/uL (0-1.0); Monocytes % (A) 8 %; Neutrophils # (A) 3.9 k/uL (1.3-7.7); Neutrophils % (A) 56 %; Platelet Count 150 k/uL (150-450); RBC 4.19 m/uL (4.30-5.90); RDW 15.4 % (11.5-15.5); WBC 6.9 k/uL (3.8-10.6)
[2024-03-27 15:08] LABS: INR 0.9 (<1.2); Partial Thromboplastin Time 23.3 sec (22.0-30.0); Prothrombin Time 10.6 sec (10.0-12.5)
[2024-03-27 15:09] LABS: ALT 75 U/L (4-49); AST 43 U/L (17-59); African American GFR (CKD) 80 (>60 ml/min/1.73 sqM); Albumin 4.1 g/dL (3.5-5.0); Alkaline Phosphatase 63 U/L (38-126); Anion Gap 4 mmol/L; Blood Urea Nitrogen 21 mg/dL (9-20); Calcium 9.2 mg/dL (8.4-10.2); Carbon Dioxide 28 mmol/L (22-30); Chloride 103 mmol/L (98-107); Glucose 179 mg/dL (74-99); Non-African American GFR(CKD) 70 (>60 ml/min/1.73 sqM); Potassium 4.5 mmol/L (3.5-5.1); Sodium 135 mmol/L (137-145); Total Bilirubin 0.9 mg/dL (0.2-1.3); Total Protein 7.4 g/dL (6.3-8.2)
[2024-03-27 15:18] LABS: NT-Pro-B-Type Natriuretic Pept 322 pg/mL
[2024-03-27 16:05] LABS: Influenza A Not Detected (Not Detectd); Influenza B Not Detected (Not Detectd); RSV Not Detected (Not Detectd)
[2024-03-27] MEDS ORDERED: NITROGLYCERIN SL TABS 0.4 MG TAB SUBLINGUAL PRN (16:08)
[2024-03-27] MEDS: HEPARIN SODIUM 1,000 UN/ML (10ML VL) IV ONE (16:26)
[2024-03-27] MEDS: HEPARIN SOD,PORK IN 0.45% NACL 25,000 UNIT in 0.45% NACL 1 250ML.BAG IV SCH (16:27)
[2024-03-27] MEDS ORDERED: NALOXONE 0.4 MG/ML 1 ML VIAL IVP PRN (17:33)
--- NOTE | 2024-03-27 17:42 | P.HPIM ---
History of Present Illness H&P Date: 03/27/24 Chief Complaint: chest pain 79 year old man with HTN, HLD, CAD s/p PCI x 3, active smoker, presented for chest pressure. Pt says that this pain woke him from sleep this morning and feels like something sitting on his chest. He has had 3 stents placed in the past. Denies fevers, chills, n/v/c/d, palps, pre/syncope, abd pain. In the ER, pt was afebrile, 122/72, HR 71, 95% on room air. CBC, BMP unremarkable. Trop < 0.012, BNP 322. Coags unremarkable. Influenza A/B, RSV, Covid all negative. EKG shows some lateral T wave changes concerning for ischemia. CXR shows no acute process, normal sized heart. All Systems reviewed and pertinent positives and negatives noted in HPI, all other symptoms are negative Gen: In NAD, non-toxic HEENT: normocephalic, atraumatic, hearing acuity is intant, mucous membranes moist CVS: perfusing all extremities well, no pitting edema, Respiratory: symmetric chest expansion, no accessory muscle use, GI: soft, NTTP, ND, : no suprapubic tenderness, no CVA tenderness MSK/Derm: no rashes, cyanosis Neuro: CN II-XII intact, no motor weakness, Psych: cooperative, euthymic mood, judgment and insight is intact Labs and imaging as above Assessment/plan: Chest pain, typical Hx of CAD -admit to observation, telemetry -ASA 81mg daily, atorvastatin 80mg HS -continue coreg -continue imdur -nitro PRN -TSH, A1c, Lipid panel -echo -cardiology consult HTN HLD -home meds reviewed and reconciled Pt is Full Code Past Medical History Past Medical History: Coronary Artery Disease (CAD), Cancer, Chest Pain / Angina, COPD, GERD/Reflux, Hearing Disorder / Deafness, Hyperlipidemia, Hyperten tamera, Myocardial Infarction ([place]), Vascular Disorder Additional Past Medical History / Comment(s): [place] x 2 (), colon cancer with surgery, kidney stone, chronic low back pain, [place] bilaterally with R ear worse, tinnitis L ear, AAA being monitored. Last Myocardial Infarction Date:: 2010 History of Any Multi-Drug Resistant Organisms: None Reported Past Surgical History: Appendectomy, Bowel Resection, Heart Catheterization With Stent Additional Past Surgical History / Comment(s): bowel resection 2004, colonoscopy, 3 cardiac stents Past Anesthesia/Blood Transfusion Reactions: No Reported Reaction Additional Past Anesthesia/Blood Transfusion Reaction / Comment(s): Pt has never had a blood transfusion. Date of Last Stent Placement:: 04/26/17 Past Psychological History: No Psychological Hx Reported Smoking Status: Current every day smoker Past Alcohol Use History: None Reported Past Drug Use History: None Reported - Past Family History Mother Family Medical History: Pneumonia Additional Family Medical History / Comment(s): Mother of pneumonia at the age of 68yrs. Brother(s) Family Medical History: Cancer, Coronary Artery Disease (CAD), Renal Disease Additional Family Medical History / Comment(s): He has one brother that is alive and has undergone CABG for coronary artery disease and has had one kidney removed. Patient has one brother who in a motor vehicle accident, one brother from a myocardial infarction at age 59, and one from colon cancer at age 70. Sister(s) Family Medical History: No Reported History Additional Family Medical History / Comment(s): He has 3 sisters that are healthy. Medications and Allergies Home Medications Medication Instructions Recorded Confirmed Type Omeprazole [PriLOSEC] 20 mg PO DAILY 04/25/14 03/27/24 History Latanoprost/Pf [Latanoprost 0.005% 1 drop BOTH EYES HS 04/27/19 03/27/24 History Eye Drop] carvediloL [Coreg] 12.5 mg PO BID-W/MEALS 04/27/19 03/27/24 History Atorvastatin [Lipitor] 20 mg PO DAILY 01/05/20 03/27/24 History Aspirin 81 mg PO DAILY 07/31/22 03/27/24 History lisinopriL [Zestril] 20 mg PO BID 08/02/22 03/27/24 History Isosorbide Mononitrate ER [Imdur] 120 mg PO DAILY 05/15/23 03/27/24 History Allergies Allergy/AdvReac Type Severity Reaction Status Date / Time latex Allergy Rash/Hives/ Verified 03/27/24 14:19 blisters Penicillins Allergy Rash/Hives Verified 03/27/24 14:19 Physical Exam Osteopathic Statement: *. No significant issues noted on an osteopathic structural exam other than those noted in the History and Physical/Consult. Vitals: Vital Signs Temp Pulse Resp BP Pulse Ox 03/27/24 16:30 63 20 125/71 97 03/27/24 14:45 60 20 127/69 97 03/27/24 12:53 97.8 F 71 22 122/72 95 Intake and Output 03/27/24 03/27/24 03/27/24 06:59 14:59 22:59 Other: Weight 78.018 kg Results CBC & Chem 7: 03/27/24 14:47 03/27/24 14:47 Labs: Abnormal Lab Results - Last 24 Hours (Table) 03/27/24 03/27/24 Range/Units 14:47 14:47 RBC 4.19 L (4.30-5.90) m/uL Hct 38.6 L (39.0-53.0) % Sodium 135 L (137-145) mmol/L BUN 21 H (9-20) mg/dL Glucose 179 H (74-99) mg/dL ALT 75 H (4-49) U/L
[2024-03-27] MEDS: carvediloL 12.5 MG TAB PO SCH (18:32)
[2024-03-27] MEDS: lisinopriL 20 MG TAB PO SCH (20:37)
[2024-03-27] MEDS: ATORVASTATIN 80 MG TAB PO SCH (20:37)
[2024-03-28] MEDS: HEPARIN SODIUM 1,000 UN/ML (10ML VL) IV PRN (01:18)
[2024-03-28] MEDS: LATANOPROST 0.005% OPHTH DROPS 2.5 ML BTL BOTH EYES SCH (03:01)
[2024-03-28] MEDS ORDERED: HEPARIN SODIUM,PORCINE (1 ML) 2,500 UNIT in SODIUM CHLORIDE 0.9% 250 ML IRRIGATION PRN (07:00)
[2024-03-28] MEDS ORDERED: HEPARIN SODIUM,PORCINE 10,000 UNIT in SODIUM CHLORIDE 0.9% 1,000 ML IRRIGATION PRN (07:00)
[2024-03-28] MEDS: ISOSORBIDE MONONITRATE ER 60 MG TAB.ER.24H PO SCH (08:15)
[2024-03-28] MEDS: PANTOPRAZOLE 40 MG TABLET PO SCH (08:15)
[2024-03-28] MEDS: ASPIRIN 81 MG PO SCH (08:15)
[2024-03-28] MEDS ORDERED: NITROGLYCERIN SL TABS 0.4 MG TAB SUBLINGUAL PRN (08:19)
[2024-03-28] MEDS ORDERED: ALPRAZolam 0.25 MG TAB PO PRN (08:19)
[2024-03-28] MEDS ORDERED: ALPRAZolam 0.5 MG TAB PO PRN (08:19)
[2024-03-28 08:29] LABS: Basophils % (A) 0 %; Eosinophils # (A) 0.2 k/uL (0-0.7); Eosinophils % (A) 2 %; HCT 40.5 % (39.0-53.0); HGB 13.7 gm/dL (13.0-17.5); Lymphocytes # (A) 2.1 k/uL (1.0-4.8); Lymphocytes % (A) 31 %; MCH 31.5 pg (25.0-35.0); MCHC 33.9 g/dL (31.0-37.0); Mean Platelet Volume 7.3; Monocytes # (A) 0.4 k/uL (0-1.0); Monocytes % (A) 6 %; Neutrophils # (A) 4.1 k/uL (1.3-7.7); Neutrophils % (A) 60 %; Platelet Count 135 k/uL (150-450); RBC 4.35 m/uL (4.30-5.90); WBC 6.8 k/uL (3.8-10.6)
[2024-03-28] MEDS: ASPIRIN 81 MG PO STA (08:50)
[2024-03-28] MEDS: ATORVASTATIN 80 MG TAB PO STA (08:51)
[2024-03-28] MEDS: SODIUM CHLORIDE 0.9% 1,000 ML in EMPTY BAG 1 BAG IV SCH (08:51)
[2024-03-28] MEDS ORDERED: ASPIRIN 325 MG TAB PO SCH (09:00)
[2024-03-28 09:14] LABS: African American GFR (CKD) 73 (>60 ml/min/1.73 sqM); Anion Gap 8 mmol/L; Blood Urea Nitrogen 25 mg/dL (9-20); Carbon Dioxide 26 mmol/L (22-30); Chloride 102 mmol/L (98-107); Glucose 163 mg/dL (74-99); Magnesium 1.9 mg/dL (1.6-2.3); Non-African American GFR(CKD) 63 (>60 ml/min/1.73 sqM); Potassium 4.1 mmol/L (3.5-5.1); Sodium 136 mmol/L (137-145)
[2024-03-28 10:29] LABS: Chol/HDL Ratio 4.33 Ratio; LDL Cholesterol,Calculated 64.4 mg/dL (0.0-131.0)
--- NOTE | 2024-03-28 10:49 | P.CRDCN ---
History of Present Illness History of present illness: HISTORY OF PRESENT ILLNESS: This is a 79-year-old male with a past medical history significant for coronary artery disease with previous stenting, hypertension, hyperlipidemia and nicotine dependence. Patient follows in the office with Dr. De aPz. We have been asked to see the patient in consultation for chest pain. Patient examined at the bedside in the emergency room. Patient states he began to have chest pain yesterday while he was sitting at home. He denied any radiation of the pain. He denied any shortness of breath. Denied any nausea or vomiting. He states the pain did not feel similar to past events when he required stenting. He states the pain lasted for a few hours. When he came to the hospital he received 3 aspirin and nitro which he states relieved the pain. He is chest pain free at the time of examination. DIAGNOSTICS: - EKG reveals sinus mechanism with nonspecific ST-T wave changes. Repeat EKG reveals sinus mechanism with T wave inversions in lead I and V4V6. - Chest xray significant abnormality seen. No acute process. - Laboratory data: WBC 6.8. Hemoglobin 13.7. Platelet count 135. Sodium 136. Potassium 4.1. BUN 25. Creatinine 1.10. Magnesium 1.9. Troponin negative x 3. proBNP 322. - Current home cardiac medications include aspirin 81 mg daily, Lipitor 20 mg daily, Imdur 120 mg daily, carvedilol 12.5 mg twice a day, lisinopril 20 mg twice a day. - Most recent echocardiogram obtained in May 2023 ejection fraction 55 to 60%, trace TR, trace MR - Cardiac catheterization history: July 2022 revealing patent stent in the LAD with mild in-stent restenosis, moderate disease in the distal RCA with normal physiological evaluation consistent with nonhemodynamic significant lesion, mild disease in the mid left circumflex. Normal LVEDP. Medical management was recommended. REVIEW OF SYSTEMS: At the time of my exam: CONSTITUTIONAL: Denies fever or chills. HEENT: Denies blurred vision, vision changes, or eye pain. Denies hemoptysis CARDIOVASCULAR: Denies chest pain. Denies orthopnea. Denies PND. Denies palpitations RESPIRATORY: Denies shortness of breath. GASTROINTESTINAL: Denies abdominal pain. Denies nausea or vomiting. HEMATOLOGIC: Denies bleeding disorders. GENITOURINARY: Denies any blood in urine. SKIN: Denies pruitis. Denies rash. PHYSICAL EXAM: VITAL SIGNS: Reviewed. GENERAL: Well-developed in no acute distress. HEENT: Head is normocephalic. Pupils are equal, round. Sclerae anicteric. Mucous membranes of the mouth are moist. Neck supple. No JVD or thyromegaly LUNGS: Respirations even and unlabored. Lungs essentially clear to auscultation bilaterally. HEART: Regular rate and rhythm. S1 and S2 heard. ABDOMEN: Soft. Nondistended. Nontender. EXTREMITIES: Normal range of motion. No clubbing or cyanosis. Peripheral pulses intact. No lower extremity edema NEUROLOGIC: Awake and alert. Oriented x 3. ASSESSMENT: Chest pain Coronary artery disease with previous stenting of the LAD and RCA Hypertension Hyperlipidemia Nicotine dependence PLAN: An acute coronary event has been ruled out Discontinue IV heparin Resume home cardiac medications Obtain 2D echo to assess cardiac structure and function Patient to undergo cardiac catheterization today with Dr. De Paz Further recommendations pending patient course Nurse practitioner note has been reviewed by physician. Signing provider agrees with the documented findings, assessment, and plan of care documented by SEED CONE PICKER as a scribe. Past Medical History Past Medical History: Coronary Artery Disease (CAD), Cancer, Chest Pain / Angina, COPD, GERD/Reflux, Hearing Disorder / Deafness, Hyperlipidemia, Hypertension, Myocardial Infarction ([place]), Vascular Disorder Additional Past Medical History / Comment(s): [place] x 2 (), colon cancer with surgery, kidney stone, chronic low back pain, [place] bilaterally with R ear worse, tinnitis L ear, AAA being monitored. Last Myocardial Infarction Date:: 2010 History of Any Multi-Drug Resistant Organisms: None Reported Past Surgical History: Appendectomy, Bowel Resection, Heart Catheterization With Stent Additional Past Surgical History / Comment(s): bowel resection 2004, colonoscopy, 3 cardiac stents Past Anesthesia/Blood Transfusion Reactions: No Reported Reaction Additional Past Anesthesia/Blood Transfusion Reaction / Comment(s): Pt has never had a blood transfusion. Date of Last Stent Placement:: 04/26/17 Past Psychological History: No Psychological Hx Reported Smoking Status: Current every day smoker Past Alcohol Use History: None Reported Past Drug Use History: None Reported - Past Family History Mother Family Medical History: Pneumonia Additional Family Medical History / Comment(s): Mother of pneumonia at the age of 68yrs. Brother(s) Family Medical History: Cancer, Coronary Artery Disease (CAD), Renal Disease Additional Family Medical History / Comment(s): He has one brother that is alive and has undergone CABG for coronary artery disease and has had one kidney removed. Patient has one brother who in a motor vehicle accident, one brother from a myocardial infarction at age 59, and one from colon cancer at age 70. Sister(s) Family Medical History: No Reported History Additional Family Medical History / Comment(s): He has 3 sisters that are healthy. Medications and Allergies Home Medications Medication Instructions Recorded Confirmed Type Omeprazole [PriLOSEC] 20 mg PO DAILY 04/25/14 03/27/24 History Latanoprost/Pf [Latanoprost 0.005% 1 drop BOTH EYES HS 04/27/19 03/27/24 History Eye Drop] carvediloL [Coreg] 12.5 mg PO BID-W/MEALS 04/27/19 03/27/24 History Atorvastatin [Lipitor] 20 mg PO DAILY 01/05/20 03/27/24 History Aspirin 81 mg PO DAILY 07/31/22 03/27/24 History lisinopriL [Zestril] 20 mg PO BID 08/02/22 03/27/24 History Isosorbide Mononitrate ER [Imdur] 120 mg PO DAILY 05/15/23 03/27/24 History Allergies Allergy/AdvReac Type Severity Reaction Status Date / Time latex Allergy Rash/Hives/ Verified 03/27/24 14:19 blisters Penicillins Allergy Rash/Hives Verified 03/27/24 14:19 Physical Exam Vitals: Vital Signs Temp Pulse Resp BP Pulse Ox 03/28/24 07:48 98.6 F 68 18 145/95 94 L 03/28/24 06:00 57 L 16 140/75 98 03/28/24 04:00 65 16 129/65 92 L 03/28/24 02:00 65 18 121/69 95 03/28/24 00:00 76 18 126/88 96 03/27/24 22:30 68 18 144/80 98 03/27/24 18:31 69 18 151/84 96 03/27/24 16:30 63 20 125/71 97 03/27/24 14:45 60 20 127/69 97 03/27/24 12:53 97.8 F 71 22 122/72 95 Intake and Output 03/27/24 03/28/24 03/28/24 22:59 06:59 14:59 Intake Total 82.698 Balance 82.698 Intake: Intake, IV Titration 82.698 Amount Heparin Sod,Pork in 0.45% 82.698 NaCl 25,000 unit In 0.45 % NaCl 1 250ml.bag @ 12 UNITS/KG/HR 9.362 mls/hr IV .Q24H [facility] Rx#: [id number] Results 03/28/24 08:08 03/28/24 08:08 Cardiac Enzymes 03/27/24 03/27/24 03/27/24 Range/Units 14:47 14:47 17:31 AST 43 (17-59) U/L Troponin I <0.012 <0.012 (0.000-0.034) ng/mL 03/27/24 Range/Units 23:36 AST (17-59) U/L Troponin I <0.012 (0.000-0.034) ng/mL Coagulation 03/27/24 03/27/24 03/28/24 Range/Units 14:47 23:36 08:08 PT 10.6 (10.0-12.5) sec APTT 23.3 35.7 H 30.9 H (22.0-30.0) sec Lipids 03/28/24 Range/Units 08:08 Triglycerides 197.00 H (0.00-149.00) mg/dL Cholesterol 135.00 (0.00-200.00) mg/dL HDL Cholesterol 31.20 L (40.00-60.00) mg/dL Cholesterol/HDL Ratio 4.33 Ratio CBC 03/27/24 03/28/24 Range/Units 14:47 08:08 WBC 6.9 6.8 (3.8-10.6) k/uL RBC 4.19 L 4.35 (4.30-5.90) m/uL Hgb 13.6 13.7 (13.0-17.5) gm/dL Hct 38.6 L 40.5 (39.0-53.0) % Plt Count 150 135 L (150-450) k/uL Comprehensive Metabolic Panel 03/27/24 03/28/24 Range/Units 14:47 08:08 Sodium 135 L 136 L (137-145) mmol/L Potassium 4.5 4.1 (3.5-5.1) mmol/L Chloride 103 102 (98-107) mmol/L Carbon Dioxide 28 26 (22-30) mmol/L BUN 21 H 25 H (9-20) mg/dL Creatinine 1.01 1.10 (0.66-1.25) mg/dL Glucose 179 H 163 H (74-99) mg/dL Calcium 9.2 9.0 (8.4-10.2) mg/dL AST 43 (17-59) U/L ALT 75 H (4-49) U/L Alkaline Phosphatase 63 (38-126) U/L Total Protein 7.4 (6.3-8.2) g/dL Albumin 4.1 (3.5-5.0) g/dL Current Medications Generic Name Dose Route Start Last Admin Trade Name Freq PRN Reason Stop Dose Admin Alprazolam 0.25 mg 03/28/24 08:19 Alprazolam 0.25 Mg Tab PO Q6HR PRN Mild Anxiety Alprazolam 0.5 mg 03/28/24 08:19 Alprazolam 0.5 Mg Tab PO Q6HR PRN Moderate Anxiety Aspirin 81 mg 03/28/24 09:00 03/28/24 08:15 Aspirin 81 Mg PO 81 mg DAILY DEBRA Administration Atorvastatin Calcium 80 mg 03/27/24 21:00 03/27/24 20:37 Atorvastatin 80 Mg Tab PO 80 mg HS DEBRA Administration Carvedilol 12.5 mg 03/27/24 17:45 03/28/24 08:15 Carvedilol 12.5 Mg Tab PO 12.5 mg BID-W/MEALS DEBRA Administration Heparin Sodium (Porcine) 0 unit 03/27/24 16:11 03/28/24 01:18 Heparin Sodium 1,000 Un/Ml (10ml Vl) IV 1,950 unit PER PROTOCOL PRN Administration Low PTT Protocol Heparin Sodium (Porcine) 10, 1,001 mls @ 999 mls/hr 03/28/24 07:00 000 unit/ Sodium Chloride IRRIGATION 03/28/24 23:00 ONCE PRN INTRA-OP Heparin Sodium (Porcine) 2,500 250.5 mls @ 250 mls/hr 03/28/24 07:00 unit/ Sodium Chloride IRRIGATION 03/28/24 23:00 ONCE PRN INTRA-OP Sodium Chloride 1,000 ml/ IV 1,000 mls @ 78.018 mls/hr 03/28/24 08:30 03/28/24 08:51 Solution IV 78.018 mls/hr .[id number] DEBRA Administration 1 ML/KG/HR Isosorbide Mononitrate 120 mg 03/28/24 09:00 03/28/24 08:15 Isosorbide Mononitrate Er 60 Mg Tab.Er.24h PO 120 mg DAILY DEBRA Administration Latanoprost 1 drops 03/27/24 21:00 03/28/24 03:01 Latanoprost 0.005% Ophth Drops 2.5 Ml Btl BOTH EYES Not Given HS DEBRA Lisinopril 20 mg 03/27/24 21:00 03/28/24 08:15 Lisinopril 20 Mg Tab PO 20 mg BID DEBRA Administration Naloxone HCl 0.2 mg 03/27/24 17:33 Naloxone 0.4 Mg/Ml 1 Ml Vial IVP Q2M PRN Opioid Reversal Nitroglycerin 0.4 mg 03/27/24 16:08 Nitroglycerin Sl Tabs 0.4 Mg Tab SUBLINGUAL Q5M PRN Chest Pain Pantoprazole Sodium 40 mg 03/28/24 09:00 03/28/24 08:15 Pantoprazole 40 Mg Tablet PO 40 mg DAILY DEBRA Administration Intake and Output 03/27/24 03/28/24 03/28/24 22:59 06:59 14:59 Intake Total 82.698 Balance 82.698 Intake: Intake, IV Titration 82.698 Amount Heparin Sod,Pork in 0.45% 82.698 NaCl 25,000 unit In 0.45 % NaCl 1 250ml.bag @ 12 UNITS/KG/HR 9.362 mls/hr IV .Q24H [facility] Rx#: [id number] 03/28/24 08:08 03/28/24 08:08
[2024-03-28] MEDS ORDERED: DEXTROSE 50% SYRINGE 50 ML IVP PRN ×2 (14:28)
--- NOTE | 2024-03-28 14:28 | P.PN ---
Subjective Progress Note Date: 03/28/24 79 year old man with HTN, HLD, CAD s/p PCI x 3, active smoker, presented for chest pressure. Pt says that this pain woke him from sleep this morning and feels like something sitting on his chest. He has had 3 stents placed in the past. Denies fevers, chills, n/v/c/d, palps, pre/syncope, abd pain. In the ER, pt was afebrile, 122/72, HR 71, 95% on room air. CBC, BMP unremarkable. Trop < 0.012, BNP 322. Coags unremarkable. Influenza A/B, RSV, Covid all negative. EKG shows some lateral T wave changes concerning for ischemia. CXR shows no acute process, normal sized heart. 03/28/24 Patient seen and examined at bedside. Denies chest pain, and palpations. Heparin discontinued. Cardiac catheterization to be completed tomorrow. Cardiology following. All Systems reviewed and pertinent positives and negatives noted above, all other symptoms are negative Gen: In NAD, non-toxic HEENT: normocephalic, atraumatic, hearing acuity is intant, mucous membranes moist CVS: perfusing all extremities well, no pitting edema, Respiratory: symmetric chest expansion, no accessory muscle use, GI: soft, NTTP, ND, : no suprapubic tenderness, no CVA tenderness MSK/Derm: no rashes, cyanosis Neuro: CN II-XII intact, no motor weakness, Psych: cooperative, euthymic mood, judgment and insight is intact Assessment/plan: Chest pain Hx of CAD -continue telemetry -ASA 81mg daily, atorvastatin 80mg HS -continue coreg and imdur -nitro PRN -TSH is WNL, A1c 6.7%, Lipid panel elevated triglycerides -echo pending -Cardiac catheterization planned today -cardiology note reviewed, unlikely to be ACS, IV heparin drip discontinued Uncontrolled Hyperglycemia Hyperglycemia with Diabetes mellitus type 2, newly diagnosed -Begin Accu-Cheks and low-dose sliding scale, monitor for hypoglycemia -HbA1c 6.7 Prerenal azotemia -continue IV NS at 78ml/hr -monitor BMP HTN HLD -home meds reviewed and reconciled Pt is Full Code I have seen and evaluated the patient today. Discussed with the resident and agree with the residents finding and plan as documented in the resident's note. Changes highlighted in blue font. Objective - Vital Signs Vital signs: Vital Signs Temp 98.6 F 03/28/24 07:48 Pulse 68 03/28/24 07:48 Resp 18 03/28/24 07:48 BP 145/95 03/28/24 07:48 Pulse Ox 94 L 03/28/24 07:48 FiO2 Intake & Output 03/27/24 03/28/24 03/28/24 18:59 06:59 18:59 Intake Total 82.698 Balance 82.698 Weight 78.018 kg Intake: Intake, IV Titration 82.698 Amount Heparin Sod,Pork in 0.45% 82.698 NaCl 25,000 unit In 0.45 % NaCl 1 250ml.bag @ 12 UNITS/KG/HR 9.362 mls/hr IV .Q24H [facility] Rx#: [id number] - Labs CBC & Chem 7: 03/28/24 08:08 03/28/24 08:08 Labs: Abnormal Lab Results - Last 24 Hours (Table) 03/27/24 03/27/24 03/27/24 Range/Units 14:47 14:47 23:36 RBC 4.19 L (4.30-5.90) m/uL Hct 38.6 L (39.0-53.0) % Plt Count (150-450) k/uL APTT 35.7 H (22.0-30.0) sec Sodium 135 L (137-145) mmol/L BUN 21 H (9-20) mg/dL Glucose 179 H (74-99) mg/dL Hemoglobin A1c (<=6.0) % ALT 75 H (4-49) U/L Triglycerides (0.00-149.00) mg/dL HDL Cholesterol (40.00-60.00) mg/dL 03/28/24 03/28/24 03/28/24 Range/Units 08:08 08:08 08:08 RBC (4.30-5.90) m/uL Hct (39.0-53.0) % Plt Count 135 L (150-450) k/uL APTT (22.0-30.0) sec Sodium (137-145) mmol/L BUN (9-20) mg/dL Glucose (74-99) mg/dL Hemoglobin A1c 6.7 H (<=6.0) % ALT (4-49) U/L Triglycerides 197.00 H (0.00-149.00) mg/dL HDL Cholesterol 31.20 L (40.00-60.00) mg/dL 03/28/24 03/28/24 Range/Units 08:08 08:08 RBC (4.30-5.90) m/uL Hct (39.0-53.0) % Plt Count (150-450) k/uL APTT 30.9 H (22.0-30.0) sec Sodium 136 L (137-145) mmol/L BUN 25 H (9-20) mg/dL Glucose 163 H (74-99) mg/dL Hemoglobin A1c (<=6.0) % ALT (4-49) U/L Triglycerides (0.00-149.00) mg/dL HDL Cholesterol (40.00-60.00) mg/dL
[2024-03-28 17:40] LABS: Glucose,Whole Blood 223 mg/dL (70-110)
[2024-03-28] MEDS: INSULIN ASPART (NovoLOG) 100 UNIT/ML VIAL SQ SCH (18:01)
[2024-03-28 19:51] LABS: Glucose,Whole Blood 174 mg/dL (70-110)
[2024-03-29] MEDS: SODIUM CHLORIDE 0.9% 1,000 ML in EMPTY BAG 1 BAG IV SCH ×2 (04:00→14:09)
[2024-03-29 05:11] LABS: Prothrombin Time 11.3 sec (10.0-12.5)
[2024-03-29] MEDS: ATORVASTATIN 80 MG TAB PO ONE (05:34)
[2024-03-29] MEDS: ASPIRIN 325 MG TAB PO ONE (05:35)
[2024-03-29 05:36] LABS: Glucose,Whole Blood 199 mg/dL (70-110)
[2024-03-29 09:15] LABS: BUN/Creat Ratio 22.45 Ratio (12.00-20.00); Blood Urea Nitrogen 24.7 mg/dL (9.0-27.0); Carbon Dioxide 24.2 mmol/L (21.6-31.8); Chloride 101 mmol/L (96-109); Glucose 157 mg/dL (70-110); Potassium 4.1 mmol/L (3.5-5.5); Sodium 137 mmol/L (135-145)
[2024-03-29 09:16] LABS: Calcium 8.8 mg/dL (8.7-10.3)
[2024-03-29] MEDS: IV FLUID CONTINUATION 1,000 ML IV ONE ×2 (09:29→09:38)
[2024-03-29] MEDS: fentaNYL (PF) 50 MCG/ML 2 ML AMP IVP ONE (09:44)
[2024-03-29] MEDS: LIDOCAINE 1% INJ 10MG/ML (20 ML MDV) SQ ONE (09:48)
[2024-03-29] MEDS: VERAPAMIL SYRINGE (5 MG/10 ML) INTRAARTER ONE (09:50)
[2024-03-29] MEDS: HEPARIN SODIUM,PORCINE (1 ML) 2,500 UNIT in SODIUM CHLORIDE 0.9% 250 ML IRRIGATION PRN (09:51)
[2024-03-29] MEDS: HEPARIN SODIUM,PORCINE 10,000 UNIT in SODIUM CHLORIDE 0.9% 1,000 ML IRRIGATION PRN (09:51)
[2024-03-29 09:55] LABS: HCT 39.3 % (39.6-50.0); MCH 31.3 pg (27.0-32.0); MCHC 33.1 g/dL (32.0-37.0); MCV 94.5 FL (80.0-97.0); Mean Platelet Volume 10.2 FL (9.5-12.2); NRBC Per 100 WBC 0 X 10*3/uL (0.00-0.01); Platelet Count 139 X 10*3/uL (140-440); RBC 4.16 X 10*6/uL (4.40-5.60); RDW 15.1 % (11.5-14.5); WBC 6.13 X 10*3/uL (4.50-10.00)
[2024-03-29] MEDS: CLOPIDOGREL 75 MG TAB PO ONE (10:12)
[2024-03-29] MEDS: IOPAMIDOL-370 100ML BTL INJ ONE ×2 (10:20→10:46)
[2024-03-29] MEDS ORDERED: RX INFO: IV CONTRAST WAS GIVEN 1 EACH MISC MISCELLANE PRN (10:54)
[2024-03-29] MEDS ORDERED: MAG HYDROX/AL HYDROX/SIMETH 30 ML CUP PO PRN (10:54)
[2024-03-29] MEDS ORDERED: ZOLPIDEM 5 MG TAB PO PRN (10:54)
[2024-03-29] MEDS ORDERED: NITROGLYCERIN SL TABS 0.4 MG TAB SUBLINGUAL PRN (10:54)
[2024-03-29] MEDS ORDERED: ATROPINE SULFATE 0.1 MG/ML 10ML SYRINGE IV PRN (10:54)
--- NOTE | 2024-03-29 11:03 | P.CARDCATH ---
Date of Procedure: 03/29/24 Description of Procedure: Cardiac Catheterization: The patient is an 79-year-old male with known history of hypertension, hyperlipidemia, diabetes mellitus, multivessel stenting who presented with symptoms of chest discomfort but no evidence of acute myocardial infarction. Review of his symptoms and his prior history further interventions were recommended. Recommendations were made regarding cardiac catheterization, the risks and the complications were discussed with the patient who is in full understanding and agreement. Procedure Description: Patient was brought to slab puller in fasting semi-sedated state after receiving Fentanyl and Benadryl achieiving moderate conscious sedated state. Using Xyl ocaine Anesthesia and modified Seldinger technique, a 6-Croatian sheath was introduced in the left radial artery . Subsequently, selective coronary angiography was performed using a 5-Croatian 4 bend Ariel catheter. Multiple views of the coronary artery including hemiaxial views were obtained. The 6 Croatian pigtail catheter was used to cross the aortic valve and LVEDP was calculated. PCI: After removing the catheters a 6 Croatian CLS 3.5 guiding catheter was introduced into the system and after cannulating the left main a 0.014 BMW J-wire was introduced in the left circumflex and positioned in the distal obtuse marginal branch. Subsequently a 3.0 x 12 mm trek balloon was advanced and 1 inflation at 8 june was done. After removing the balloon a WikiWand eye IVUS catheter was introduced and images were obtained that revealed a mildly calcified lesion with a distal lumen measuring close to 3.5 mm in diameter. After removing the catheter a 3.5 x 15 mm Xience dustin point stent was advanced and deployed at 14 june. After removing the balloon repeat IVUS imaging was obtained that revealed good apposition distally with mild under deployment proximally. At that point a 3.5 x 12 mm NC trek balloon was advanced and 1 inflation proximally was done at 10 june. After the last inflation the wire and the balloon was removed and images were obtained and revealed stable successful stenting. Following that, catheter and sheath were removed. Hemostasis was obtained with deployment of vascular band . There was no immediate complication. Patient was returned to room in stable condition. Of note, the patient received a total of 8000 units of intravenous heparin as well as intra-arterial verapamil. His ACT was followed. He received an oral loading dose of clopidogrel. He had chest discomfort and EKG changes with the inflations that resolved at the end of the procedure. Findings: Left main: This is a short size vessel, bifurcating into LAD and left circumflex, left main has no obstructive disease. LAD: This is a large size vessel, reaching to the apex with a wraparound the apex segment giving rise to 2 diagonal branch. The mid LAD stented segment is patent with 30 to 40% in-stent restenosis with no progression compared to 202. Left circumflex: This is a large nondominant vessel, giving rise to 2 obtuse marginal branch. The proximal left circumflex has a 95% stenosis. After the takeoff of the first obtuse marginal branch there is a 40 to 50% plaque with no progression compared to 2023. RCA: This is a large dominant vessel, bifurcating distally to PDA and PLV. The proximal stented segment has 10% in-stent restenosis. The mid distal segment stent is patent with a 40% in-stent restenosis with no progression compared to 202. The distal segment stent is patent with mild intimal restenosis. Left Ventriculogram: Not performed Hemodynamics: There was no gradient across aortic valve, LVEDP was 18-20 mmHg Conclusion: 1. Severe stenosis in the proximal left circumflex with progression compared to 202 2. Patent mid LAD stent with no significant in-stent restenosis 3. Patent stent in the proximal, mid and distal RCA with no significant progression compared to 202 4. Successful stenting of the proximal left circumflex with reduction of stenosis from 95% to 0% with IVUS imaging and MEGHAN-3 flow. Recommendations: The patient will continue on aspirin and clopidogrel for 6 months without any interruption in addition to aggressive coronary risks modification, maintaining LDL below 70 mg/dL. The findings and the recommendations were discussed with the patient and the family and they were in full understanding and agreement. Duration of sedation is 53 minutes.
[2024-03-29 12:21] LABS: Glucose,Whole Blood 234 mg/dL (70-110)
--- NOTE | 2024-03-29 12:22 | P.PN ---
Subjective Progress Note Date: 03/29/24 Patient seen and examined at bedside. No acute events overnight. Patient has no complaints of chest pains or palpitation. Cardiac catheterization completed finding significant for severe stenosis in proximal left circumflex with stent placement. Today's labs unremarkable. Patient has been followed closely by cardiology. 03/28/24 Patient seen and examined at bedside. Denies chest pain, and palpations. Heparin discontinued. Cardiac catheterization to be completed tomorrow. Cardiology following. 79 year old man with HTN, HLD, CAD s/p PCI x 3, active smoker, presented for c hest pressure. Pt says that this pain woke him from sleep this morning and feels like something sitting on his chest. He has had 3 stents placed in the past. Denies fevers, chills, n/v/c/d, palps, pre/syncope, abd pain. In the ER, pt was afebrile, 122/72, HR 71, 95% on room air. CBC, BMP unrema rkable. Trop < 0.012, BNP 322. Coags unremarkable. Influenza A/B, RSV, Covid all negative. EKG shows some lateral T wave changes concerning for ischemia. CXR shows no acute process, normal sized heart. All Systems reviewed and pertinent positives and negatives noted above, all other symptoms are negative Gen: In NAD, non-toxic HEENT: normocephalic, atraumatic, hearing acuity is intant, mucous membranes moist CVS: perfusing all extremities well, no pitting edema, Respiratory: symmetric chest expansion, no accessory muscle use, GI: soft, NTTP, ND, : no suprapubic tenderness, no CVA tenderness MSK/Derm: no rashes, cyanosis Neuro: CN II-XII intact, no motor weakness, Psych: cooperative, euthymic mood, judgment and insight is intact Assessment/plan: 79 year old man with HTN, HLD, CAD s/p PCI x 3, active smoker, presented for chest pressure. Chest pain status post proximal left circumflex stent placement Hx of CAD -continue telemetry -ASA 81mg daily, clopidogrel 75 mg daily, atorvastatin 80mg HS -continue coreg and imdur -nitro PRN -TSH is WNL, A1c 6.7%, Lipid panel elevated triglycerides -echo pending -Cardiac catheterization with findings of severe stenosis in proximal left circumflex, stent placed reduction of stenosis 95% to 0% -cardiology note and procedure note reviewed Uncontrolled Hyperglycemia Hyperglycemia with Diabetes mellitus type 2, newly diagnosed -Begin Accu-Cheks and low-dose sliding scale, monitor for hypoglycemia -HbA1c 6.7 Prerenal azotemia, improved -continue IV NS at 78ml/hr -monitor BMP HTN HLD -home meds reviewed and reconciled Pt is Full Code Dispo: Patient likely to be discharged to home tomorrow Patient has failed observation stay, require cardiac cath and PCI. Will be changed to inpatient status. I have seen and evaluated the patient today. Discussed with the resident and agree with the residents finding and plan as documented in the resident's note. Changes highlighted in blue font. Objective - Vital Signs Vital signs: Vital Signs Temp 98.2 F 03/29/24 07:10 Pulse 62 03/29/24 07:10 Resp 16 03/29/24 07:10 BP 139/69 03/29/24 07:10 Pulse Ox 95 03/29/24 07:10 FiO2 Intake & Output 03/28/24 03/29/24 03/29/24 18:59 06:59 18:59 Intake Total 118 Balance 118 Weight 78.018 kg Intake: Oral 118 Other: Voiding Method Toilet # Voids 2 - Labs CBC & Chem 7: 03/29/24 04:38 03/29/24 04:38 Labs: Abnormal Lab Results - Last 24 Hours (Table) 03/28/24 03/28/24 03/28/24 Range/Units 08:08 08:08 08:08 Plt Count 135 L (150-450) k/uL APTT (22.0-30.0) sec Sodium (137-145) mmol/L BUN (9-20) mg/dL Glucose (74-99) mg/dL POC Glucose (mg/dL) (70-110) mg/dL Hemoglobin A1c 6.7 H (<=6.0) % Triglycerides 197.00 H (0.00-149.00) mg/dL HDL Cholesterol 31.20 L (40.00-60.00) mg/dL 03/28/24 03/28/24 03/28/24 Range/Units 08:08 08:08 17:37 Plt Count (150-450) k/uL APTT 30.9 H (22.0-30.0) sec Sodium 136 L (137-145) mmol/L BUN 25 H (9-20) mg/dL Glucose 163 H (74-99) mg/dL POC Glucose (mg/dL) 223 H (70-110) mg/dL Hemoglobin A1c (<=6.0) % Triglycerides (0.00-149.00) mg/dL HDL Cholesterol (40.00-60.00) mg/dL 03/28/24 03/29/24 Range/Units 19:49 05:34 Plt Count (150-450) k/uL APTT (22.0-30.0) sec Sodium (137-145) mmol/L BUN (9-20) mg/dL Glucose (74-99) mg/dL POC Glucose (mg/dL) 174 H 199 H (70-110) mg/dL Hemoglobin A1c (<=6.0) % Triglycerides (0.00-149.00) mg/dL HDL Cholesterol (40.00-60.00) mg/dL
[2024-03-29 14:20] LABS: Glucose,Whole Blood 292 mg/dL (70-110)
[2024-03-29 17:40] LABS: Glucose,Whole Blood 166 mg/dL (70-110)
[2024-03-29 20:21] LABS: Glucose,Whole Blood 139 mg/dL (70-110)
[2024-03-30 04:56] LABS: African American GFR (CKD) 76 (>60 ml/min/1.73 sqM); Anion Gap 6 mmol/L; Blood Urea Nitrogen 23 mg/dL (9-20); Calcium 8.6 mg/dL (8.4-10.2); Carbon Dioxide 23 mmol/L (22-30); Chloride 103 mmol/L (98-107); Glucose 172 mg/dL (74-99); Non-African American GFR(CKD) 66 (>60 ml/min/1.73 sqM); Potassium 4.1 mmol/L (3.5-5.1); Sodium 132 mmol/L (137-145)
[2024-03-30 05:48] LABS: Glucose,Whole Blood 160 mg/dL (70-110)
[2024-03-30] MEDS: CLOPIDOGREL 75 MG TAB PO SCH (08:25)
[2024-03-30 08:28] VITALS: BP 127/72; PULSE 64; RESP 16; TEMP 97.3
--- NOTE | 2024-03-30 09:08 | P.PN ---
Subjective Progress Note Date: 03/30/24 HISTORY OF PRESENT ILLNESS: This is a 79-year-old male with a past medical history significant for coronary artery disease with previous stenting, hypertension, hyperlipidemia and nicotine dependence. Patient follows in the office with Dr. De Paz. We have been asked to see the patient in consultation for chest pain. Patient examined at the bedside in the emergency room. Patient states he began to have chest pain yesterday while he was sitting at home. He denied any radiation of the pain. He denied any shortness of breath. Denied any nausea or vomiting. He states the pain did not feel similar to past events when he required stenting. He states the pain lasted for a few hours. When he came to the hospital he received 3 aspirin and nitro which he states relieved the pain. He is chest pain free at the time of examination. DIAGNOSTICS: - EKG reveals sinus mechanism with nonspecific ST-T wave changes. Repeat EKG reveals sinus mechanism with T wave inversions in lead I and V4V6. - Chest xray significant abnormality seen. No acute process. - Laboratory data: WBC 6.8. Hemoglobin 13.7. Platelet count 135. Sodium 136. Potassium 4.1. BUN 25. Creatinine 1.10. Magnesium 1.9. Troponin negative x 3. proBNP 322. - Current home cardiac medications include aspirin 81 mg daily, Lipitor 20 mg daily, Imdur 120 mg daily, carvedilol 12.5 mg twice a day, lisinopril 20 mg twice a day. - Most recent echocardiogram obtained in May 2023 ejection fraction 55 to 60%, trace TR, trace MR - Cardiac catheterization history: July 2022 revealing patent stent in the LAD with mild in-stent restenosis, moderate disease in the distal RCA with normal physiological evaluation consistent with nonhemodynamic significant lesion, mild disease in the mid left circumflex. Normal LVEDP. Medical management was recommended. Progress note 03/30/2023 Patient seen and examined at bedside this a.m. Patient denies having any active chest pain chest pressure shortness of breath. His left radial access site appears to be intact with no signs of hematoma or bleeding. PHYSICAL EXAM: VITAL SIGNS: Reviewed. GENERAL: Well-developed in no acute distress. HEENT: Head is normocephalic. Pupils are equal, round. Sclerae anicteric. Mucous membranes of the mouth are moist. Neck supple. No JVD or thyromegaly LUNGS: Respirations even and unlabored. Lungs essentially clear to auscultation bilaterally. HEART: Regular rate and rhythm. S1 and S2 heard. ABDOMEN: Soft. Nondistended. Nontender. EXTREMITIES: Normal range of motion. No clubbing or cyanosis. Peripheral pulses intact. No lower extremity edema NEUROLOGIC: Awake and alert. Oriented x 3. ASSESSMENT: Unstable angina status post PCI to mid LAD Coronary artery disease with previous stenting of the LAD and RCA Hypertension Hyperlipidemia Nicotine dependence PLAN: Continue aspirin, Plavix, Lipitor, Imdur, Coreg Patient is cleared from cardiovascular standpoint Smoking cessation counseling provided Follow-up with Dr. De Paz outpatient basis Recommend echocardiogram to be performed on outpatient basis. Patient is not willing to stay to get his echocardiogram done in the hospital for 1 more day. Objective - Vital Signs Vital signs: Vital Signs Temp 97.3 F L 03/30/24 07:00 Pulse 64 03/30/24 07:00 Resp 16 03/30/24 07:00 BP 127/72 03/30/24 07:00 Pulse Ox 94 L 03/30/24 07:00 FiO2 Intake & Output 03/29/24 03/30/24 03/30/24 18:59 06:59 18:59 Intake Total 760 Balance 760 Intake: IV 280 Oral 480 Other: Voiding Method Toilet Toilet # Voids 2 2 - Labs CBC & Chem 7: 03/29/24 04:38 03/30/24 04:21 Labs: Abnormal Lab Results - Last 24 Hours (Table) 03/29/24 03/29/24 03/29/24 Range/Units 04:38 04:38 12:20 RBC 4.16 L (4.40-5.60) X 10*6/uL Hct 39.3 L (39.6-50.0) % RDW 15.1 H (11.5-14.5) % Plt Count 139 L (140-440) X 10*3/uL Sodium (137-145) mmol/L BUN (9-20) mg/dL BUN/Creatinine Ratio 22.45 H (12.00-20.00) Ratio Glucose 157 H (70-110) mg/dL POC Glucose (mg/dL) 234 H (70-110) mg/dL 03/29/24 03/29/24 03/29/24 Range/Units 14:19 17:37 20:19 RBC (4.40-5.60) X 10*6/uL Hct (39.6-50.0) % RDW (11.5-14.5) % Plt Count (140-440) X 10*3/uL Sodium (137-145) mmol/L BUN (9-20) mg/dL BUN/Creatinine Ratio (12.00-20.00) Ratio Glucose (70-110) mg/dL POC Glucose (mg/dL) 292 H 166 H 139 H (70-110) mg/dL 03/30/24 03/30/24 Range/Units 04:21 05:47 RBC (4.40-5.60) X 10*6/uL Hct (39.6-50.0) % RDW (11.5-14.5) % Plt Count (140-440) X 10*3/uL Sodium 132 L (137-145) mmol/L BUN 23 H (9-20) mg/dL BUN/Creatinine Ratio (12.00-20.00) Ratio Glucose 172 H (70-110) mg/dL POC Glucose (mg/dL) 160 H (70-110) mg/dL
--- NOTE | 2024-03-30 11:01 | P.DS ---
Providers Date of admission: 03/27/24 16:10 Expected date of discharge: 03/30/24 Attending physician: Mike Glaser MD Consults: 03/27/24 16:08 Consult Physician Urgent Consulting Provider: Johnathan Zuniga Consult Reason/Comments: chest pain Do you want consulting provider notified?: Yes 03/29/24 10:54 Consult Physician Routine Consulting Provider: [facility] Consult Reason/Comments: Post Interventional patient Do you want consulting provider notified?: Already Contacted Primary care physician: [facility] Course: Discharge Diagnosis: Chest pain status post proximal left circumflex stent placement Coronary artery disease New diagnosis of type 2 diabetes Hypertension Dyslipidemia Hospital Course: 79 year old man with HTN, HLD, CAD s/p PCI x 3, active smoker, presented for chest pressure. In the ER, pt was afebrile, 122/72, HR 71, 95% on room air. CBC, BMP unremarkable. Trop < 0.012, BNP 322. Coags unremarkable. Influenza A/B, RSV, Covid all negative. EKG shows some lateral T wave changes concerning for ischemia. CXR shows no acute process, normal sized heart. Patient had a cardiac cath, showed severe stenosis in left proximal circumflex, stent placed. Showed patent mid LAD stent with no significant in-stent restenosis, patent stent in proximal mid and distal RCA. On dual antiplatelet therapy, increased d ose of statin. Also started on metformin. Outpatient follow-up with PCP and cardiology. Patient seen and examined at bedside. Vital signs reviewed and stable. General: Nontoxic, no distress, appears at stated age Derm: Warm, dry Head: Atraumatic, normocephalic, symmetric Eyes: EOMI, no lid lag, anicteric sclera Mouth: No lip lesion, mucus membranes moist Cardiovascular: S1S2 reg, no murmur Lungs: CTA bilateral, no rhonchi, no rales, no accessory muscle use Abdominal: Soft, nontender to palpation, no guarding, no appreciable organomegaly Ext: No gross muscle atrophy, no edema, no contractures Neuro: CN II-XI grossly intact, no focal neuro deficits Psych: Alert, oriented, appropriate affect A total of 36 minutes of time were spent preparing this complex discharge summary. Patient was discharged on 03/30/2024 at 951. Plan - Discharge Summary New Discharge Prescriptions: New Clopidogrel [Plavix] 75 mg PO DAILY #90 tab metFORMIN HCL [Glucophage] 500 mg PO BID #120 tab Atorvastatin [Lipitor] 80 mg PO HS #90 tab Continue Omeprazole [PriLOSEC] 20 mg PO DAILY Latanoprost/Pf [Latanoprost 0.005% Eye Drop] 1 drop BOTH EYES HS carvediloL [Coreg] 12.5 mg PO BID-W/MEALS lisinopriL [Zestril] 20 mg PO BID Isosorbide Mononitrate ER [Imdur] 120 mg PO DAILY Aspirin 81 mg PO DAILY Discontinued Atorvastatin [Lipitor] 20 mg PO DAILY Discharge Medication List Omeprazole [PriLOSEC] 20 mg PO DAILY 04/25/14 [History] Latanoprost/Pf [Latanoprost 0.005% Eye Drop] 1 drop BOTH EYES HS 04/27/19 [History] carvediloL [Coreg] 12.5 mg PO BID-W/MEALS 04/27/19 [History] Aspirin 81 mg PO DAILY 07/31/22 [History] lisinopriL [Zestril] 20 mg PO BID 08/02/22 [History] Isosorbide Mononitrate ER [Imdur] 120 mg PO DAILY 05/15/23 [History] Atorvastatin [Lipitor] 80 mg PO HS #90 tab 03/30/24 [Rx] Clopidogrel [Plavix] 75 mg PO DAILY #90 tab 03/30/24 [Rx] metFORMIN HCL [Glucophage] 500 mg PO BID #120 tab 03/30/24 [Rx] Follow up Appointment(s)/Referral(s): Pernell De Paz MD [STAFF PHYSICIAN] - 04/01/24 4:00 pm Reina Dunbar MD [Primary Care Provider] - 1-2 days Patient Instructions/Handouts: Coronary Artery Disease (DC) Activity/Diet/Wound Care/Special Instructions: Please see your PCP and ep specialist. Discharge Disposition: HOME SELF-CARE
[2024-03-30 12:10] LABS: Glucose,Whole Blood 154 mg/dL (70-110)
--- NOTE | 2024-03-30 15:25 | CA ---
Transthoracic Echo Report Name: Ernie Bain Age: 79 Gender: M : 1945 Exam Date: 03/30/2024 09:58 Exam Location: [facility] Ht (in): 68 Wt (lb): 172 Ordering Physician: Mike Glaser MD Attending/Referring Phys: Truck Spotter Rosalind Quinteros RDCS Procedure CPT: Indications: Chest Pain, Unstable angina Cardiac Hx: Technical Quality: Good Contrast 1: Total Dose (mL): Contrast 2: Total Dose (mL): MEASUREMENTS (Male / Female) Normal Values 2D ECHO LV Diastolic Diameter PLAX 5.0 cm 4.2 - 5.9 / 3.9 - 5.3 cm LV Systolic Diameter PLAX 3.4 cm IVS Diastolic Thickness 1.2 cm 0.6 - 1.0 / 0.6 - 0.9 cm LVPW Diastolic Thickness 1.3 cm 0.6 - 1.0 / 0.6 - 0.9 cm LV Relative Wall Thickness 0.5 LVOT Diameter 2.2 cm LV Diastolic Volume MOD BP 85.6 cm??? 67 - 155 / 56 - 104 cm??? LV Systolic Volume MOD BP 39.7 cm??? 22 - 58 / 19 - 49 cm??? LV Ejection Fraction MOD BP 53.6 % >= 55 % LV Cardiac Index MOD BP 1413.7 cm???/min???m??? LV Diastolic Volume MOD 4C 101.1 cm??? LV Systolic Volume MOD 4C 44.4 cm??? LV Ejection Fraction MOD 4C 56.0 % LV Cardiac Index MOD 4C 1745.9 cm???/min???m??? LV Diastolic Length 4C 8.1 cm LV Systolic Length 4C 7.0 cm LV Diastolic Volume MOD 2C 62.2 cm??? LV Systolic Volume MOD 2C 28.6 cm??? LV Ejection Fraction MOD 2C 54.0 % LV Cardiac Index MOD 2C 1035.5 cm???/min???m??? LV Diastolic Length 2C 6.9 cm LV Systolic Length 2C 5.7 cm LA Volume 56.4 cm??? 18 - 58 / 22 - 52 cm??? LA Volume Index 29.0 cm???/m??? 16 - 28 cm???/m??? DOPPLER AV Peak Velocity 134.8 cm/s AV Peak Gradient 7.3 mmHg AV Mean Velocity 98.1 cm/s AV Mean Gradient 4.2 mmHg AV Velocity Time Integral 24.8 cm LVOT Peak Velocity 107.9 cm/s LVOT Peak Gradient 4.7 mmHg LVOT Velocity Time Integral 20.3 cm LVOT Stroke Volume 79.1 cm??? LVOT Stroke Volume Index 41.3 ml/m??? LVOT Cardiac Index 2436.7 cm???/min???m??? AV Area Cont Eq vti 3.2 cm??? AV Area Cont Eq pk 3.1 cm??? MV Area PHT 3.8 cm??? Mitral E Point Velocity 52.0 cm/s Mitral A Point Velocity 74.6 cm/s Mitral E to A Ratio 0.7 MV Deceleration Time 197.2 ms TR Peak Velocity 225.9 cm/s TR Peak Gradient 20.4 mmHg Right Atrial Pressure 5.0 mmHg Pulmonary Artery Systolic Pressu 25.4 mmHg Right Ventricular Systolic Press 25.4 mmHg PV Peak Velocity 89.7 cm/s PV Peak Gradient 3.2 mmHg FINDINGS Left Ventricle Left ventricular ejection fraction is estimated at 55 %. Mildly increased septal wall thickness. Left ventricular cavity size normal. No obvious regional wall motion abnormalities. Right Ventricle Normal right ventricular size and function. Right ventricular systolic pressure within normal limits. Right Atrium Normal right atrial size. Left Atrium Normal left atrial size. Mitral Valve Structurally normal mitral valve. No evidence for mitral valve prolapse. No mitral stenosis. Trace mitral regurgitation. Aortic Valve Trileaflet aortic valve. Aortic valve sclerosis. No aortic valve stenosis or regurgitation. Tricuspid Valve Structurally normal tricuspid valve. No tricuspid stenosis. Trace to mild tricuspid regurgitation. Pulmonic Valve Structurally normal pulmonic valve. No pulmonic stenosis. Trace pulmonic regurgitation. Pericardium No pericardial effusion. Aorta Normal size aortic root and proximal ascending aorta. CONCLUSIONS Left ventricular ejection fraction is estimated at 55 %. No obvious regional wall motion abnormalities. Trace to mild tricuspid regurgitation. Normal right ventricular size and function. Previewed by: Dr Dash Cabezas (Electronically Signed) Final Date: 30 March 2024 15:24
== END 2024-03-30 15:43 | disposition home or self-care (01) | DRG 322 ==
LOC: EC 12:44 → 6NMEDSUR 16:10 → OBSVTOIN 03-29 13:51
PROVIDERS: ADMIT Internal Medicine; ATTEND Internal Medicine
PROC: B240ZZ3 Ultrasonography of Single Coronary Artery, Intravascular (ICD-10-PCS; principal; 2024-03-29 09:30)
PROC: 4A023N7 Measurement of Cardiac Sampling and Pressure, Left Heart, Percutaneous Approach (ICD-10-PCS; principal; 2024-03-29 09:30)
PROC: 027034Z Dilation of Coronary Artery, One Artery with Drug-eluting Intraluminal Device, Percutaneous Approach (ICD-10-PCS; principal; 2024-03-29 09:30)
DX: I25.110 Atherosclerotic heart disease of native coronary artery with unstable angina pectoris (principal); I24.9 Acute ischemic heart disease, unspecified; T82.855A Stenosis of coronary artery stent, initial encounter; I11.0 Hypertensive heart disease with heart failure; I25.2 Old myocardial infarction; I50.9 Heart failure, unspecified; J44.9 Chronic obstructive pulmonary disease, unspecified; I71.40 Abdominal aortic aneurysm, without rupture, unspecified; E11.65 Type 2 diabetes mellitus with hyperglycemia; Y83.1 Surgical operation with implant of artificial internal device as the cause of abnormal reaction of the patient, or of later complication, without mention of misadventure at the time of the procedure; H91.93 Unspecified hearing loss, bilateral; H93.12 Tinnitus, left ear; F17.200 Nicotine dependence, unspecified, uncomplicated; M54.50 Low back pain, unspecified; E78.5 Hyperlipidemia, unspecified; G89.29 Other chronic pain; E78.1 Pure hyperglyceridemia; Z79.82 Long term (current) use of aspirin; Z79.02 Long term (current) use of antithrombotics/antiplatelets; Z79.899 Other long term (current) drug therapy; Z85.038 Personal history of other malignant neoplasm of large intestine; Z87.442 Personal history of urinary calculi; Z90.49 Acquired absence of other specified parts of digestive tract; Z28.21 Immunization not carried out because of patient refusal; Z88.0 Allergy status to penicillin; Z91.040 Latex allergy status; Z11.52 Encounter for screening for COVID-19
CPT/HCPCS: 36415; 71046; 80048; 80053; 80061; 83036; 83735; 83880; 84443; 84484; 85025; 85027; 85610; 85730; 87636; 92978; 93005; 93306; 93458; 96365; 96366; 96367; 99291

== ENCOUNTER 2024-09-25 10:44 | Emergency (ER) | payer MEDICARE, OTHER ==
[2024-09-25 10:55] VITALS: TEMP 97.3
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
[2024-09-25] MEDS: ACETAMINOPHEN TAB 500 MG TAB PO STA (12:10)
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
[2024-09-25 14:18] VITALS: BP 150/90; PULSE 67; RESP 16
== END 2024-09-25 14:18 | disposition home or self-care (01) ==
LOC: EC 10:44
DX: S80.02XA Contusion of left knee, initial encounter (principal); S80.01XA Contusion of right knee, initial encounter; S80.812A Abrasion, left lower leg, initial encounter; S50.811A Abrasion of right forearm, initial encounter; F17.200 Nicotine dependence, unspecified, uncomplicated; Z91.040 Latex allergy status; Z88.2 Allergy status to sulfonamides; V43.52XA Car driver injured in collision with other type car in traffic accident, initial encounter; Y92.410 Unspecified street and highway as the place of occurrence of the external cause
CPT/HCPCS: 70450; 72125; 99284

== ENCOUNTER → 2024-10-09 | Outpatient (CLI) | payer MEDICARE ==
[2024-10-09 15:12] LABS: Basophils # (A) 0.03 X 10*3/uL (0.00-0.10); Basophils % (A) 0.4 %; Eosinophils # (A) 0.14 X 10*3/uL (0.04-0.35); Eosinophils % (A) 1.9 %; HCT 41.3 % (39.6-50.0); HGB 13.6 g/dL (13.0-17.0); Immature Grans, Automated 0.40 %; Lymphocytes # (A) 1.94 X 10*3/uL (0.90-5.00); Lymphocytes % (A) 25.7 %; MCH 30.6 pg (27.0-32.0); MCHC 32.9 g/dL (32.0-37.0); MCV 92.8 FL (80.0-97.0); Monocytes # (A) 0.61 X 10*3/uL (0.20-1.00); Monocytes % (A) 8.1 %; NRBC Per 100 WBC 0 X 10*3/uL (0.00-0.01); Neutrophils # (A) 4.79 X 10*3/uL (1.80-7.70); Neutrophils % (A) 63.5 %; Platelet Count 186 X 10*3/uL (140-440); RBC 4.45 X 10*6/uL (4.40-5.60); RDW 16.1 % (11.5-14.5); WBC 7.54 X 10*3/uL (4.50-10.00)
[2024-10-09 15:40] LABS: Cholesterol 132.00 mg/dL (0.00-200.00); HDL Cholesterol 33.00 mg/dL (40.00-60.00); LDL Cholesterol,Calculated 73.0 mg/dL (0.0-131.0); Magnesium 1.5 mg/dL (1.5-2.4); Triglycerides 130.00 mg/dL (0.00-149.00); VLDL Calculation 26.00 mg/dL (5.00-40.00)
[2024-10-09 15:41] LABS: ALT 51 U/L (10-49); AST 39 U/L (14-35); Albumin 4.1 g/dL (3.8-4.9); Albumin/Globulin Ratio 1.24 Ratio (1.60-3.17); Alkaline Phosphatase 102 U/L (41-126); Anion Gap 11.00 mmol/L (4.00-12.00); BUN/Creat Ratio 21.44 Ratio (12.00-20.00); Blood Urea Nitrogen 19.3 mg/dL (9.0-27.0); Calcium 8.9 mg/dL (8.7-10.3); Carbon Dioxide 24.0 mmol/L (21.6-31.8); Chloride 102 mmol/L (96-109); Globulin 3.3 g/dL (1.6-3.3); Glucose 122 mg/dL (70-110); Potassium 4.2 mmol/L (3.5-5.5); Prostate Specific Antigen 3.98 ng/mL (0.000-6.500); Sodium 137 mmol/L (135-145); Total Protein 7.4 g/dL (6.2-8.2)
== END | disposition home or self-care (01) ==
LOC: LABWHC1 08:36
PROVIDERS: ATTEND Internal Medicine
DX: I10 Essential (primary) hypertension (principal); E78.5 Hyperlipidemia, unspecified; E11.9 Type 2 diabetes mellitus without complications
CPT/HCPCS: 36415; 80053; 80061; 82043; 82570; 83036; 83735; 84153; 84443; 85025

== ENCOUNTER → 2024-10-09 | Outpatient (CLI) | payer OTHER ==
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
== END | disposition home or self-care (01) ==
LOC: LABWHC1 08:47
PROVIDERS: ATTEND Internal Medicine
DX: M25.473 Effusion, unspecified ankle (principal); M25.569 Pain in unspecified knee; M85.879 Other specified disorders of bone density and structure, unspecified ankle and foot; E65 Localized adiposity; V89.2XXA Person injured in unspecified motor-vehicle accident, traffic, initial encounter